=== PATIENT | male | born 1970 | race Caucasian/White ===

== ENCOUNTER 2016-06-21 15:00 | Outpatient (RCR) | payer MEDICAID ==
[~2016-06-21 15:00] MED LIST: /METH500TA PO; ASTE137S; AUGM875T27 PO; CYCL5TAB PO; DEPA500T2 PO; GEOD40CA; HYDR12.55 PO; HYDR7.5T38 PO; LISI5TAB PO; OCEA0.65; TRAZ100T
== END 2016-06-27 | disposition home or self-care (01) ==
LOC: M OUTALCOH 15:00
PROVIDERS: ATTEND Psychiatry & Neurology Psychiatry
DX: F10.20 Alcohol dependence, uncomplicated (principal); F17.200 Nicotine dependence, unspecified, uncomplicated

== ENCOUNTER 2016-09-21 09:00 | Outpatient (RCR) | payer MEDICAID | END 2016-09-24 | LOC: M OUTALCOH 09:00 | PROVIDERS: ATTEND Psychiatry & Neurology Psychiatry | DX: F10.20 Alcohol dependence, uncomplicated (principal); F17.200 Nicotine dependence, unspecified, uncomplicated ==

== ENCOUNTER 2017-01-30 14:19 | Emergency (ER) | payer MEDICAID, OTHER ==
[~2017-01-30] VITALS: Ht 182.9 cm; Wt 100.0 kg
[2017-01-30] MEDS ORDERED: IBUP-1022 PO (14:44)
--- NOTE | 2017-01-30 15:22 | REP ---
Clinical: Trauma. Technique: Frontal view of the chest with multiple views of the right hemithorax. Findings: Multiple views of the right hemithorax demonstrates no obvious acute rib fracture or pathology. However, frontal view of the chest cannot exclude a very subtle nondisplaced fracture along the lateral aspect of the eighth rib which is not confirmed by oblique images of the right hemithorax. Correlation with physical examination and point of tenderness recommended. Impression: Cannot definitively exclude a nondisplaced fracture along the anterolateral margin of the right eighth rib. Signed by Barrera Rossi MD 01/30/2017 03:12 P
[2017-01-30] MEDS ORDERED: CYCL10TA PO ×2 (16:50→19:11)
[2017-01-30] MEDS ORDERED: TRAM-533 PO ×2 (16:54→19:11)
[2017-01-30] MEDS ORDERED: ZITHTAB PO ×2 (16:58→19:11)
[2017-01-30 17:35] VITALS: BP 147/101
--- NOTE | 2017-01-30 19:13 | ED PDOC ---
Post-Departure Follow-Up Patient called back because Rx sent to wrong pharmacy. Rx's resent to [facility]. AINTA SHAH, Jan 30, 2017 19:13
== END 2017-01-30 17:20 | disposition home or self-care (01) ==
LOC: M ED 14:19
DX: S22.31XA Fracture of one rib, right side, initial encounter for closed fracture (principal); W19.XXXA Unspecified fall, initial encounter; Y92.9 Unspecified place or not applicable; Y93.9 Activity, unspecified; Y99.9 Unspecified external cause status; F17.200 Nicotine dependence, unspecified, uncomplicated; Z79.899 Other long term (current) drug therapy

== ENCOUNTER → 2017-03-01 | Outpatient (CLI) | payer MEDICAID ==
[~2017-03-01] MED LIST changes: +CYCL10TA PO; +IBUP-1022 PO; +TRAM-533 PO; +ZITHTAB PO
== END ==
LOC: M OUTALCOH 07:52
PROVIDERS: ATTEND Psychiatry & Neurology Psychiatry
DX: F10.20 Alcohol dependence, uncomplicated (principal); F11.20 Opioid dependence, uncomplicated

== ENCOUNTER → 2017-04-23 | Outpatient (CLI) | payer MEDICAID | LOC: M OUTALCOH 07:58 | PROVIDERS: ATTEND Psychiatry & Neurology Psychiatry | DX: Z02.83 Encounter for blood-alcohol and blood-drug test (principal) ==

== ENCOUNTER 2017-07-31 22:12 | Emergency (ER) | payer OTHER, MEDICAID | END 2017-08-01 02:23 | disposition home or self-care (01) | LOC: M ED 22:12 | DX: F10.129 Alcohol abuse with intoxication, unspecified (principal); I10 Essential (primary) hypertension; E66.9 Obesity, unspecified; F11.10 Opioid abuse, uncomplicated; M54.2 Cervicalgia; G89.29 Other chronic pain; Z79.899 Other long term (current) drug therapy | CPT/HCPCS: 99284 ==

== ENCOUNTER → 2017-08-09 | Outpatient (CLI) | payer OTHER | LOC: M SLEEP 19:10 | DX: G47.30 Sleep apnea, unspecified (principal) | CPT/HCPCS: 95811 ==

== ENCOUNTER 2018-01-27 18:02 | Emergency (ER) | payer SELFPAY, OTHER ==
[2018-01-27] MEDS ORDERED: ADACEL/BOOSTRIX VACCINE (DIPHTH/PERTUSS/ACELL/TETANUS)0.5ML SYR (90715) IM (18:30)
[2018-01-27] MEDS ORDERED: ISOVUE-370 76% 100ML VIAL (Q9967) As Ordered (18:30)
[2018-01-27 18:47] LABS: BASO % 0.3 % (0.0-1.0); EOS # 0.2 10^3/uL (0.0-0.50); EOS % 2.1 % (0.0-3.0); HEMATOCRIT 47.3 % (42.0-52.0); HEMOGLOBIN 15.7 g/dl (13.5-17.5); IMMATURE GRANULOCYTE % 0.4 % (0-3.0); LYMPH % 29.3 % (24.0-44.0); MEAN CORPUSCULAR HEMOGLOBIN 31.3 pg (27.0-33.0); MEAN CORPUSCULAR HGB CONC 33.2 g/dl (32.0-36.5); MEAN CORPUSCULAR VOLUME 94.4 fl (80.0-96.0); MONO # 1.3 10^3/uL (0.0-0.8); MONO % 12.3 % (0.0-5.0); NEUTROPHILS # 5.7 10^3/uL (1.8-7.7); NEUTROPHILS % 55.6 % (36.0-66.0); PLATELET COUNT, AUTOMATED 298 10^3/uL (150-450); RED BLOOD COUNT 5.01 10^6/uL (4.30-6.10); RED CELL DISTRIBUTION WIDTH 12.7 % (11.5-14.5); WHITE BLOOD COUNT 10.3 10^3/uL (4.0-10.0)
[2018-01-27] MEDS: MORPHINE 4 MG/ML 1ML VIAL/SYRINGE (J2270) IV (18:50)
[2018-01-27 18:59] LABS: INR 0.91; PROTHROMBIN TIME 12.3 SECONDS (12.1-14.4)
[2018-01-27 19:00] LABS: PARTIAL THROMBOPLASTIN TIME 27.9 SECONDS (25.4-37.6)
[2018-01-27 19:05] LABS: ALBUMIN 3.5 GM/DL (3.2-5.2); ALBUMIN/GLOBULIN RATIO 0.74 (1.00-1.93); ALKALINE PHOSPHATASE 75 U/L (45-117); ALT/SGPT 48 U/L (12-78); AMYLASE 64 U/L (25-115); ANION GAP 10 MEQ/L (8-16); AST/SGOT 30 U/L (7-37); BILIRUBIN,DIRECT < 0.1 MG/DL (0.0-0.2); BILIRUBIN,TOTAL 0.3 MG/DL (0.2-1.0); BLOOD UREA NITROGEN 13 MG/DL (7-18); CALCIUM LEVEL 8.6 MG/DL (8.5-10.1); CARBON DIOXIDE LEVEL 24 MEQ/L (21-32); CHLORIDE LEVEL 103 MEQ/L (98-107); CREATININE FOR GFR 0.84 MG/DL (0.70-1.30); ETHYL ALCOHOL (ETHANOL) 0.184 % (0.000-0.010); GLOMERULAR FILTRATION RATE > 60.0 (>60); GLUCOSE, FASTING 106 MG/DL (70-100); LIPASE 406 U/L (73-393); SODIUM LEVEL 137 MEQ/L (136-145); TOTAL PROTEIN 8.2 GM/DL (6.4-8.2)
[2018-01-27] MEDS: NS 1,000 ML IV (19:37)
[2018-01-27 20:04] LABS: AMPHETAMINES LEVEL URINE NEGATIVE (NEGATIVE); BARBITURATES URINE NEGATIVE (NEGATIVE); BENZODIAZEPINES URINE NEGATIVE (NEGATIVE); CANNABINOIDS URINE POSITIVE (NEGATIVE); COCAINE METABOLITE URINE NEGATIVE (NEGATIVE); METHADONE URINE NEGATIVE (NEGATIVE); OPIATES URINE POSITIVE (NEGATIVE); PHENCYCLIDINE URINE NEGATIVE (NEGATIVE)
[2018-01-27] MEDS: NORCO, ANEXSIA 5/325MG TABLET (HYDROcodone/ACETAMINOPHEN) PO (20:07)
== END 2018-01-27 20:41 | disposition home or self-care (01) ==
LOC: M ED 18:02
DX: T14.8XXA Other injury of unspecified body region, initial encounter (principal); V17.2XXA Unspecified pedal cyclist injured in collision with fixed or stationary object in nontraffic accident, initial encounter; Y92.410 Unspecified street and highway as the place of occurrence of the external cause
CPT/HCPCS: J2270

== ENCOUNTER 2019-11-23 16:38 | Emergency (ER) | payer OTHER, SELFPAY ==
[~2019-11-23 16:38] MED LIST changes: -/METH500TA PO; +CYCL-707 PO; -CYCL10TA PO; +GABA600T4; +LISI10TA4; +METH1TAB40 PO
[2019-11-23] MEDS ORDERED: LISI-542 PO (17:06)
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
[2019-11-23 18:02] VITALS: BP 144/81
== END 2019-11-23 18:06 | disposition home or self-care (01) ==
LOC: M ED 16:38
DX: S00.03XA Contusion of scalp, initial encounter (principal); Y08.02XA Assault by strike by baseball bat, initial encounter; Y92.009 Unspecified place in unspecified non-institutional (private) residence as the place of occurrence of the external cause; Y93.9 Activity, unspecified; Y99.9 Unspecified external cause status; F17.200 Nicotine dependence, unspecified, uncomplicated; Z79.899 Other long term (current) drug therapy

== ENCOUNTER 2020-04-15 02:41 | Emergency (ER) | payer OTHER ==
[~2020-04-15 02:41] MED LIST changes: +LISI-542 PO
[2020-04-15] MEDS ORDERED: GABA-843 PO (02:57)
[2020-04-15] MEDS ORDERED: PERCOCET 5MG/325MG TAB PO ONE (03:15)
[2020-04-15 03:30] VITALS: BP 137/81
== END 2020-04-15 03:52 | disposition home or self-care (01) ==
LOC: M ED 02:41
DX: M79.672 Pain in left foot (principal); Z79.899 Other long term (current) drug therapy

== ENCOUNTER → 2020-04-21 | Outpatient (REF) | payer OTHER ==
[~2020-04-21] MED LIST changes: +GABA-843 PO
[2020-04-21 13:39] LABS: BASO % 0.4 % (0.0-1.0); EOS # 0.2 10^3/uL (0.0-0.5); EOS % 1.7 % (0.0-3.0); HEMATOCRIT 52.3 % (42.0-52.0); HEMOGLOBIN 17.1 g/dl (13.5-17.5); LYMPH # 2.8 10^3/uL (1.5-5.0); MEAN CORPUSCULAR HEMOGLOBIN 31.4 pg (27.0-33.0); MEAN CORPUSCULAR HGB CONC 32.7 g/dl (32.0-36.5); MONO % 9.1 % (0.0-5.0); NEUTROPHILS % 63.2 % (36.0-66.0); PLATELET COUNT, AUTOMATED 253 10^3/uL (150-450); RED BLOOD COUNT 5.45 10^6/uL (4.30-6.10)
[2020-04-21 14:12] LABS: ALBUMIN 4.2 GM/DL (3.2-5.2); ALT/SGPT 61 U/L (12-78); BILIRUBIN,TOTAL 0.4 MG/DL (0.2-1.0); BLOOD UREA NITROGEN 13 MG/DL (7-18); CALCIUM LEVEL 9.6 MG/DL (8.5-10.1); CARBON DIOXIDE LEVEL 29 MEQ/L (21-32); CHLORIDE LEVEL 103 MEQ/L (98-107); CHOLESTEROL LEVEL 239 MG/DL (<200); CHOLESTEROL RISK RATIO 5.829 (<5); CREATININE FOR GFR 0.88 MG/DL (0.70-1.30); FREE T4 1.29 NG/DL (0.76-1.46); GLOMERULAR FILTRATION RATE > 60.0 (>56); GLUCOSE, FASTING 120 MG/DL (70-100); HDL CHOLESTEROL 41 MG/DL (>40); LDL CHOLESTEROL 160 MG/DL (<100); MAGNESIUM LEVEL 2.2 MG/DL (1.8-2.4); NON-HDL-C 198 MG/DL; POTASSIUM SERUM 4.3 MEQ/L (3.5-5.1); SODIUM LEVEL 139 MEQ/L (136-145); TRIGLYCERIDES LEVEL 188 MG/DL (<150)
[2020-04-21 17:07] LABS: HEMOGLOBIN A1c 6.1 %
== END ==
LOC: M SFHCPLAZ 10:50
PROVIDERS: ATTEND Nurse Practitioner Family
DX: E78.5 Hyperlipidemia, unspecified (principal); I10 Essential (primary) hypertension; Z13.228 Encounter for screening for other metabolic disorders

== ENCOUNTER 2020-05-18 07:14 | Emergency (ER) | payer OTHER ==
[~2020-05-18] VITALS: Ht 177.8 cm; Wt 120.5 kg
[2020-05-18] MEDS ORDERED: NS 1,000 ML IV SCH (07:31)
[2020-05-18] MEDS ORDERED: NITROGLYCERIN 0.4 MG SUBL TABLET As Ordered ONE (07:32)
[2020-05-18] MEDS ORDERED: ASPIRIN 81 MG CHEW TABLET As Ordered ONE (07:33)
[2020-05-18] MEDS: NITROGLYCERIN 0.4 MG SUBL TABLET SL PRN ×3 (07:34→07:48)
[2020-05-18] MEDS ORDERED: ONDANSETRON 4MG/2ML VIAL IV STA (07:36)
[2020-05-18] MEDS ORDERED: fentaNYL 100 MCG/2 ML INJECTION (J3010) IV PRN (07:45)
[2020-05-18] MEDS ORDERED: NITROGLYCERIN/D5W 100MCG/ML 250 ML IV SCH (07:47)
[2020-05-18 07:48] VITALS: BP 140/65
[2020-05-18] MEDS ORDERED: HEPARIN DRIP 25,000 UNITS in IV 1 EA IV SCH (07:48)
[2020-05-18] MEDS: COMBIVENT RESPIMAT 100-20MCG INHALER 4GM INH SCH ×3 (07:52→09:23)
[2020-05-18] MEDS ORDERED: FAMOTIDINE 20 MG TAB PO ONE (08:00)
[2020-05-18] MEDS ORDERED: CLOPIDOGREL 300 MG TAB (PLAVIX) PO ONE (08:00)
[2020-05-18] MEDS ORDERED: HEPARIN SOD (PORCINE) 5000UNITS/ML 1ML VIAL/SYRINGE IV ONE (08:00)
[2020-05-18 08:01] LABS: BASO % 0.5 % (0.0-1.0); EOS # 0.2 10^3/uL (0.0-0.5); EOS % 2.8 % (0.0-3.0); HEMOGLOBIN 15.3 g/dl (13.5-17.5); LYMPH # 2.6 10^3/uL (1.5-5.0); MEAN CORPUSCULAR HEMOGLOBIN 30.2 pg (27.0-33.0); MEAN CORPUSCULAR HGB CONC 32.6 g/dl (32.0-36.5); MEAN CORPUSCULAR VOLUME 92.7 fl (80.0-96.0); MONO # 0.8 10^3/uL (0.0-0.8); MONO % 11.8 % (0.0-5.0); NEUTROPHILS # 2.7 10^3/uL (1.5-8.5); NEUTROPHILS % 43.1 % (36.0-66.0); PLATELET COUNT, AUTOMATED 326 10^3/uL (150-450); RED BLOOD COUNT 5.07 10^6/uL (4.30-6.10); WHITE BLOOD COUNT 6.4 10^3/uL (4.0-10.0)
--- NOTE | 2020-05-18 08:07 | REP ---
INDICATION: CHEST PAIN COMPARISON: 01/30/2017 TECHNIQUE: Portable AP view of the chest FINDINGS: The cardiac silhouette is enlarged and somewhat bulbous likely representing cardiomegaly although pericardial fluid cannot be excluded. Lung palmer demonstrate chronic interstitial changes without focal consolidation, effusion, or pneumothorax. Skeletal structures are intact. IMPRESSION: Cardiomegaly with somewhat bulbous appearance to the cardiac silhouette raise the possibility of underlying pericardial fluid. Correlation follow up is recommended. <Electronically signed by Barrera Rossi > 05/18/20 [id number]
[2020-05-18 08:10] LABS: INR 0.81; PROTHROMBIN TIME 11.3 SECONDS (12.5-14.3)
[2020-05-18] MEDS ORDERED: ISOVUE-370 76% 100ML VIAL As Ordered ONE (08:15)
[2020-05-18 08:24] LABS: ALBUMIN 3.6 GM/DL (3.2-5.2); ALT/SGPT 45 U/L (12-78); BILIRUBIN,DIRECT < 0.1 MG/DL (0.0-0.2); BILIRUBIN,TOTAL 0.2 MG/DL (0.2-1.0); BLOOD UREA NITROGEN 10 MG/DL (7-18); CALCIUM LEVEL 8.8 MG/DL (8.5-10.1); CARBON DIOXIDE LEVEL 25 MEQ/L (21-32); CHLORIDE LEVEL 107 MEQ/L (98-107); CK-MB VALUE MASS 7.8 NG/ML (<3.6); CPK CREATINE PHOSPHOKINASE 247 U/L (39-308); CREATININE FOR GFR 0.78 MG/DL (0.70-1.30); FREE T4 1.34 NG/DL (0.76-1.46); GLOMERULAR FILTRATION RATE > 60.0 (>56); GLUCOSE, FASTING 134 MG/DL (70-100); LIPASE 269 U/L (73-393); MB/CK RELATIVE INDEX 3.16 (< OR =4); NT-PRO BNP 247 PG/ML (<125); POTASSIUM SERUM 4.1 MEQ/L (3.5-5.1); SODIUM LEVEL 141 MEQ/L (136-145); THYROID STIMULATING HORMONE 0.853 uIU/ML (0.358-3.740); TOTAL PROTEIN 7.2 GM/DL (6.4-8.2); TROPONIN I 0.74 NG/ML (< 0.10)
[2020-05-18 08:27] LABS: RSV AMPLIFICATION NEGATIVE (NEGATIVE)
--- NOTE | 2020-05-18 08:49 | REP ---
INDICATION: chest pain abnormal ct COMPARISON: None. TECHNIQUE: Axial contrast enhanced images from the thoracic inlet to the upper abdomen using pulmonary embolus technique with multiplanar re-formations. 75 ml Isovue 370 intravenous contrast material administered without complication. This CT examination was performed using the following dose reduction techniques: Automated exposure control, adjustment of mA and/or kv according to the patient's size, and use of iterative reconstruction technique. FINDINGS: Satisfactory enhancement of the pulmonary vasculature is achieved and no filling defects are identified to suggest pulmonary embolus. Further evaluation of the mediastinum demonstrates mild atherosclerotic changes to the thoracic aorta and coronary arteries. Thoracic aorta is without aneurysm or dissection. Cardiomegaly is appreciated without pericardial effusion. The bilateral lung palmer are essentially clear and without consolidation, pleural effusion or pneumothorax. Tracheobronchial tree is patent. No nodule or mass lesion is identified. No significant adenopathy noted. Upper abdomen demonstrates normal bilateral adrenal glands. Surrounding musculoskeletal structures intact IMPRESSION: 1. No evidence for pulmonary embolus. 2. Cardiomegaly without pericardial effusion. 3. No consolidation, atelectasis, effusion or pneumothorax. <Electronically signed by Barrera Rossi > 05/18/20 [id number]
[2020-05-18 10:05] VITALS: BP 130/81
--- NOTE | 2020-05-18 22:52 | ECGEPIP ---
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
== END 2020-05-18 10:14 | disposition short-term general hospital (02) ==
LOC: M ED 07:14
DX: I21.4 Non-ST elevation (NSTEMI) myocardial infarction (principal); R07.9 Chest pain, unspecified; I51.7 Cardiomegaly; R06.02 Shortness of breath; I25.2 Old myocardial infarction; I10 Essential (primary) hypertension; E78.5 Hyperlipidemia, unspecified; J44.9 Chronic obstructive pulmonary disease, unspecified; F17.200 Nicotine dependence, unspecified, uncomplicated; Z79.899 Other long term (current) drug therapy
CPT/HCPCS: 71045; 71275; 80047; 80048; 80076; 82550; 82553; 83690; 83880; 84439; 84443; 85025; 85610; 87631; 93005; 93041; 94640; 94760; 96365; 96366; 96375; 99285; J1644; J2405; J3010; Q9967

== ENCOUNTER 2020-05-28 16:50 | Emergency (ER) | payer OTHER ==
--- NOTE | 2020-05-28 17:19 | REP ---
INDICATION: fall on thinners COMPARISON: 11/23/2019 TECHNIQUE: Axial noncontrast images from the skull base to the vertex with coronal reformations. This CT examination was performed using the following dose reduction techniques: Automated exposure control, adjustment of mA and/or kv according to the patient's size, and use of iterative reconstruction technique. FINDINGS: The ventricles, sulci, and cisterns are normal in position and appearance. Sheffield-white differentiation is maintained. No acute intracranial hemorrhage, mass/mass effect, pathology or trauma/injury. No evidence for acute infarction. No extra-axial fluid collection. Calvarium is intact. Chronic sinusitis and old nasal bone fractures are again identified and essentially unchanged compared with 11/23/2019 IMPRESSION: 1. No evidence for acute intracranial pathology or trauma/injury. 2. Chronic sinusitis. Old nasal bone fractures. <Electronically signed by Barrera Rossi > 05/28/20 [id number]
[2020-05-28] MEDS ORDERED: LISI10TA4 PO (17:20)
[2020-05-28] MEDS ORDERED: METO1TAB7 PO (17:20)
[2020-05-28] MEDS ORDERED: CLOP75TA2 PO (17:20)
[2020-05-28] MEDS ORDERED: ROSU40TA4 PO (17:20)
--- NOTE | 2020-05-28 17:20 | REP ---
INDICATION: fall on thinners COMPARISON: 11/23/2019 TECHNIQUE: Axial noncontrast images from the skull base to the thoracic inlet with coronal and sagittal re-formations This CT examination was performed using the following dose reduction techniques: Automated exposure control, adjustment of mA and/or kv according to the patient's size, and use of iterative reconstruction technique. FINDINGS: Normal alignment and lordosis is maintained. Cervical vertebral bodies including transverse processes and spinous processes are intact and there is no evidence for acute fracture / compression injury or subluxation. Spinal canal is patent. Posterior elements are intact. Paravertebral soft tissues are normal. IMPRESSION: No evidence for acute pathology or trauma/injury. <Electronically signed by Barrera Rossi > 05/28/20 [id number]
--- NOTE | 2020-05-28 17:35 | REP ---
INDICATION: trauma COMPARISON: None. TECHNIQUE: AP, lateral views of the right tibia/fibula. FINDINGS: Age-related degenerative changes at the knee. No acute fracture or dislocation. No subcutaneous emphysema or foreign body. IMPRESSION: . No acute fracture or dislocation. <Electronically signed by Barrera Rossi > 05/28/20 [id number]
[2020-05-28 17:52] VITALS: O2SAT 98
[2020-05-29] MEDS ORDERED: GABA600T4 PO (03:35)
== END 2020-05-28 18:04 | disposition home or self-care (01) ==
LOC: M ED 16:50
DX: S00.03XA Contusion of scalp, initial encounter (principal); S80.11XA Contusion of right lower leg, initial encounter; W01.0XXA Fall on same level from slipping, tripping and stumbling without subsequent striking against object, initial encounter; Y92.019 Unspecified place in single-family (private) house as the place of occurrence of the external cause; Y93.9 Activity, unspecified; Y99.9 Unspecified external cause status; I25.10 Atherosclerotic heart disease of native coronary artery without angina pectoris; J32.9 Chronic sinusitis, unspecified; Z79.01 Long term (current) use of anticoagulants; Z79.899 Other long term (current) drug therapy

== ENCOUNTER 2020-05-28 18:17 | Emergency (ER) | payer OTHER ==
[~2020-05-28] VITALS: Ht 182.9 cm; Wt 119.5 kg
[~2020-05-28 18:17] MED LIST changes: +CLOP75TA2 PO; +LISI10TA4 PO; +METO1TAB7 PO; +ROSU40TA4 PO
[2020-05-28 18:18] VITALS: BP 120/66
[2020-05-29] MEDS ORDERED: GABA600T4 PO (03:35)
== END 2020-05-28 19:10 | disposition home or self-care (01) ==
LOC: M ED 18:17
DX: F43.20 Adjustment disorder, unspecified (principal); F31.9 Bipolar disorder, unspecified; I25.10 Atherosclerotic heart disease of native coronary artery without angina pectoris; I25.2 Old myocardial infarction; I10 Essential (primary) hypertension; E78.5 Hyperlipidemia, unspecified; G47.33 Obstructive sleep apnea (adult) (pediatric); F17.200 Nicotine dependence, unspecified, uncomplicated; Z79.899 Other long term (current) drug therapy

== ENCOUNTER 2020-05-28 22:41 | Inpatient (IN) | payer MEDICAID, OTHER ==
[~2020-05-28] VITALS: Ht 177.8 cm; Wt 125.4 kg
[2020-05-29 00:23] LABS: AMPHETAMINES LEVEL URINE NEGATIVE (NEGATIVE); BARBITURATES URINE NEGATIVE (NEGATIVE); BENZODIAZEPINES URINE NEGATIVE (NEGATIVE); CANNABINOIDS URINE POSITIVE (NEGATIVE); COCAINE METABOLITE URINE NEGATIVE (NEGATIVE); METHADONE URINE NEGATIVE (NEGATIVE); OPIATES URINE NEGATIVE (NEGATIVE); PHENCYCLIDINE URINE NEGATIVE (NEGATIVE)
[2020-05-29 00:30] LABS: ACETAMINOPHEN LEVEL < 2.0 UG/ML (10.0-30.0); ALBUMIN 3.8 GM/DL (3.2-5.2); ALT/SGPT 69 U/L (12-78); BILIRUBIN,DIRECT < 0.1 MG/DL (0.0-0.2); BILIRUBIN,TOTAL 0.2 MG/DL (0.2-1.0); BLOOD UREA NITROGEN 12 MG/DL (7-18); CALCIUM LEVEL 8.7 MG/DL (8.5-10.1); CARBON DIOXIDE LEVEL 30 MEQ/L (21-32); CHLORIDE LEVEL 105 MEQ/L (98-107); CREATININE FOR GFR 1.01 MG/DL (0.70-1.30); ETHYL ALCOHOL (ETHANOL) 0.144 % (0.000-0.010); GLOMERULAR FILTRATION RATE > 60.0 (>56); GLUCOSE, FASTING 101 MG/DL (70-100); POTASSIUM SERUM 4.5 MEQ/L (3.5-5.1); SALICYLATE LEVEL 3.1 MG/DL (5.0-30.0); SODIUM LEVEL 141 MEQ/L (136-145); TOTAL PROTEIN 7.5 GM/DL (6.4-8.2)
[2020-05-29 00:46] LABS: HEMATOCRIT 47.6 % (42.0-52.0); HEMOGLOBIN 15.3 g/dl (13.5-17.5); MEAN CORPUSCULAR HEMOGLOBIN 31.1 pg (27.0-33.0); MEAN CORPUSCULAR HGB CONC 32.1 g/dl (32.0-36.5); MEAN CORPUSCULAR VOLUME 96.7 fl (80.0-96.0); PLATELET COUNT, AUTOMATED 273 10^3/uL (150-450); RED BLOOD COUNT 4.92 10^6/uL (4.30-6.10); WHITE BLOOD COUNT 8.9 10^3/uL (4.0-10.0)
[2020-05-29] MEDS ORDERED: GABA600T4 PO (03:35)
[2020-05-29 04:27] LABS: RSV AMPLIFICATION NEGATIVE (NEGATIVE)
[2020-05-29] MEDS ORDERED: MOM 30ML SUSPENSION UDC PO PRN (05:45)
[2020-05-29] MEDS ORDERED: ACETAMINOPHEN TAB 650MG DOSE (2X325MG) PO PRN (05:45)
[2020-05-29] MEDS ORDERED: MAALOX 30 ML SUSP *UDC PO PRN (05:45)
[2020-05-29] MEDS ORDERED: lisinopriL 10 MG TAB PO SCH (09:00)
[2020-05-29] MEDS: CLOPIDOGREL 75 MG TAB PO SCH (09:52)
[2020-05-29] MEDS: METOPROLOL SUCC (TopROL XL) 50MG **XL** TAB PO SCH (09:52)
[2020-05-29] MEDS: ROSUVASTATIN 10 MG TAB (CRESTOR) PO SCH (09:52)
[2020-05-29] MEDS: GABAPENTIN 300 MG CAP PO SCH ×3 (09:52→20:26)
[2020-05-29 11:00] VITALS: BP 186/86
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
[2020-05-29 18:00] VITALS: BP 128/82
[2020-05-29] MEDS: DIVALPROEX 250 MG TAB PO SCH (20:25)
[2020-05-29] MEDS: traZODone 50 MG TAB PO PRN (20:25)
[2020-05-30] MEDS: ROSUVASTATIN 10 MG TAB (CRESTOR) PO SCH (08:18)
[2020-05-30] MEDS: DIVALPROEX 250 MG TAB PO SCH ×2 (08:20→20:41)
[2020-05-30] MEDS: CLOPIDOGREL 75 MG TAB PO SCH (08:20)
[2020-05-30] MEDS: METOPROLOL SUCC (TopROL XL) 50MG **XL** TAB PO SCH (08:20)
[2020-05-30] MEDS: lisinopriL 5 MG TAB PO SCH (08:21)
[2020-05-30] MEDS: GABAPENTIN 300 MG CAP PO SCH ×4 (09:00→20:41)
[2020-05-30] MEDS: ASPIRIN 81 MG ENTERIC TAB PO SCH (09:00)
[2020-05-30 17:54] VITALS: BP 142/95
[2020-05-30] MEDS ORDERED: IPRATROPIUM 0.5MG/ALBUTEROL 2.5MG INH SOL UD 3ML (DUONEB) NEB PRN (18:00)
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
--- NOTE | 2020-05-30 18:50 | MHIPNPDOC ---
[facility] Progress Note Progress Note DATE OF SERVICE: 05/30/20 HISTORY: Patient is a 50 -year-old Other, male, who, as per ED report: "Pt presented to ED for the second time today asking to be admitted. During prior visit pt spoke with PSA and decided he needed to go home and talk to his son before coming back to get admitted. Pt stated that he is Dx with Bipolar and is currently in a manic state and is having a really hard time dealing with it and needs to be put make on his medication. Pt admitted to suicidal and homicidal thoughts stating that he often has terrifying dreams about them. Pt did state he would never act on them. Pt also stated that a stressor is that he has a cataract and cannot see and it is making him go crazy because h feels like he is in [facility]. Pt denied EOTH use, but his ALLISON was a .14 upon arrival. Pt stated he just recently quit smoking because he had a heart attack. Pt admitted to occasionally marijuana use. Pt stated normally when he is in this state of mind he deals with it on his own and toughs it out, but it feels different this time and he thinks he needs help getting back on meds and to talk to someone. Pt appears to be anxious and very concerned about his mental health. Pt believes he needs to be admitted." VITAL SIGNS: See below. NEW TEST RESULTS: See below CURRENT MEDICATIONS: See below. MENTAL STATUS EXAMINATION: General Appearance: unkempt, disheveled, ds/not appear stated age, hospital sc rubs/clothing Build: overweight Demeanor: cooperative, Eye Contact: average Activity: cooperative, talkative Behavior: cooperative Speech: clear, spontaneous, loud, a little bit rapid at times. Mood: expansive, a little bit anxious/irritable Affect: full, congruent,full, reactive Thought Process: less circumstantial Thought Content (Delusions): none reported Thought Content (Other): ideas of reference Thought Content (Aggressive): none reported Perception (Hallucinations): none reported Perception (Other): none reported Cognition (Impairment of): none reported Cognition(Intelligence Est.): average Oriented: Awake, Alert, Oriented times three Insight: fair Judgment: Fair Psychosis: Denies Diagnoses 1. bipolar disorder, mixed 2. ROGE 3. H/O ADHD ASSESSMENT: The patient looks happier today, he i interacting with other patients in [facility], playing cards. He is still very talkative, he is not depressed but when he talks about how many times his Doctors changed his meds in the past, he gets very upset, so, he has labile affect. He seems to be having a good response to medications. He says he developed a queasy stomach after he took Depakote this morning. MANAGEMENT PLAN: Will continue on the same treatment plan TIME SPENT: 15 minutes. Vital Signs Vital Signs Date Time Temp Pulse Resp B/P (MAP) Pulse Ox O2 Delivery O2 Flow Rate FiO2 05/30/20 17:54 98.0 68 15 142/95 (111) 96 05/29/20 11:00 Room Air Current Medications Current Medications Medications (Trade) Dose Ordered Sig/Citlalli Route PRN Reason Start Time Stop Time Status Last Admin Dose Admin Acetaminophen (Tylenol Tab) 650 mg Q6HP PRN PO HEADACHE or DISCOMFORT 05/29/20 05:45 Al Hydrox/Mg Hydrox/Simethicone (Mylanta) 30 ml Q4HP PRN PO HEARTBURN/INDIGESTION 05/29/20 05:45 Albuterol/ Ipratropium (Duoneb (Ipr 0.5mg/Alb 2.5mg)) 3 ml Q4HP PRN NEB SOB/WHEEZING 05/30/20 18:00 Aripiprazole (AbiLIFY) 5 mg QHS PO 05/29/20 21:00 05/29/20 20:25 Aspirin (Ecotrin) 81 mg DAILY PO 05/30/20 09:00 Clopidogrel Bisulfate (PLAVix) 75 mg DAILY PO 05/29/20 09:00 05/30/20 08:20 Divalproex Sodium (Depakote) 250 mg BID PO 05/29/20 21:00 05/30/20 08:20 Gabapentin (Neurontin) 300 mg BID PO 05/29/20 09:00 05/30/20 14:57 DC 05/29/20 20:26 Gabapentin (Neurontin) 300 mg TID PO 05/30/20 16:00 05/30/20 15:27 Gabapentin (Neurontin) 600 mg DAILY PO 05/29/20 09:00 05/30/20 14:57 DC 05/30/20 09:44 Home Med (Med Rec Complete!) ASDIRECTED XX 05/29/20 03:45 05/29/20 03:38 DC Lisinopril (Prinivil) 5 mg DAILY PO 05/29/20 09:00 05/29/20 16:04 DC 05/29/20 09:52 Lisinopril (Prinivil) 5 mg DAILY PO 05/30/20 09:00 05/30/20 08:21 Magnesium Hydroxide (Milk Of Magnesia) 30 ml DAILYPRN PRN PO CONSTIPATION 05/29/20 05:45 Metoprolol Succinate (TopROL XL) 50 mg DAILY PO 05/29/20 09:00 05/30/20 08:20 Olanzapine (ZyPREXA ZYDIS) 5 mg Q6HP PRN PO ANXIETY/AGITATION 05/29/20 05:45 Rosuvastatin Calcium (Crestor) 40 mg DAILY PO 05/29/20 09:00 05/30/20 08:18 Trazodone HCl (Desyrel) 50 mg QHSP PRN PO INSOMNIA 05/29/20 05:45 05/29/20 20:25 Allergies Coded Allergies: No Known Drug Allergies (Verified Allergy, Unknown, 11/23/19) NIKHIL MURILLO MD May 30, 2020 18:39
[2020-05-30] MEDS: traZODone 50 MG TAB PO PRN (20:41)
[2020-05-31 06:09] VITALS: BP 118/67
[2020-05-31] MEDS: GABAPENTIN 300 MG CAP PO SCH ×2 (08:40→20:08)
[2020-05-31] MEDS: METOPROLOL SUCC (TopROL XL) 50MG **XL** TAB PO SCH (08:43)
[2020-05-31] MEDS: CLOPIDOGREL 75 MG TAB PO SCH (08:43)
[2020-05-31] MEDS: ROSUVASTATIN 10 MG TAB (CRESTOR) PO SCH (08:44)
[2020-05-31] MEDS: DIVALPROEX 250 MG TAB PO SCH (08:44)
[2020-05-31] MEDS: lisinopriL 5 MG TAB PO SCH (08:44)
[2020-05-31] MEDS: ASPIRIN 81 MG ENTERIC TAB PO SCH (09:02)
[2020-05-31] MEDS: OLANZapine ORAL DISINTEGRATING TAB 5MG PO PRN ×2 (14:02→20:08)
--- NOTE | 2020-05-31 14:41 | MHIPNPDOC ---
[facility] Progress Note Progress Note DATE OF SERVICE: 05/31/20 HISTORY: Per the ED report, patient is a 50 -year-old Other, male, who, as per ED report: "Pt presented to ED for the second time today asking to be admitted. During prior visit pt spoke with PSA and decided he needed to go home and talk to his son before coming back to get admitted. Pt stated that he is Dx with Bipolar and is currently in a manic state and is having a really hard time dealing with it and needs to be put make on his medication. Pt admitted to suicidal and homicidal thoughts stating that he often has terrifying dreams about them. Pt did state he would never act on them. Pt also stated that a stressor is that he has a cataract and cannot see and it is making him go crazy because h feels like he is in group home again. Pt denied ETOH use, but his ALLISON was a .14 upon arrival. Pt stated he just recently quit smoking because he had a heart attack. Pt admitted to occasionally marijuana use. Pt stated normally when he is in this state of mind he deals with it on his own and toughs it out, but it feels different this time and he thinks he needs help getting back on meds and to talk to someone. Pt appears to be anxious and very concerned about his mental health. Pt believes he needs to be admitted." Pt. reports that his son encouraged him to be admitted as he observed him with drawing and isolating, having difficulty getting out of bed and experiencing hypersomnia. He states that he was unable to see that his mood was worsening and that his son was the one who recognized the decline. VITAL SIGNS: See below. NEW TEST RESULTS: . CURRENT MEDICATIONS: See below. MENTAL STATUS EXAMINATION: Patient is a 50-year old single, white, domiciled, male, who presents to the interview initially frustrated and irritable. He was boisterous, animated, was observed to have psychomotor agitation, frustrated that his medications were not correct, that he has pain, and that he has cataracts (which he is awaiting surgery for). Speech: Is boisterous in the beginning, lively, loud, pressured at times, Language skills are appropriate for age Thought processes including: goal oriented, linear Thought content: denies ah/vh/si/hi, reports feeling depressed. Abstract reasoning, and computation: . Description of associations: . Description of abnormal or psychotic thoughts: denies ah/vh, not observed to be internally preoccupied . Judgment: fair Insight: fair Orientation: Alert and oriented x3 Recent and remote memory: intact Attention span and concentration: Able to concentrate, engaged in conversation Language: average Fund of knowledge: average Mood: irritable, frustrated Affect: congruent, psychomotor agitation also observed DIAGNOSES: 1. bipolar disorder, mixed 2. ROGE 3. H/O ADHD ASSESSMENT:Manolo is a 50 year old white male who presents to the interview, frustrated and irritable. He states his gabapentin dose was incorrect and that he was having pain in his back that had worsened after he fell down the stairs about a month ago. He complained of multiple medical problems including a cataract in both of his eyes, causing difficulty with his vision- he is scheduled to have surgery on one of his eyes 06/03/20. He also reported he had a heart attack a week ago, all of which he believes are stressors causing his depression. He reported that he has been having difficulty getting out of bed and has been experiencing hypersomnia and amotivation. He reports no steady treatment since 1995 but that he has had a previous admission in 2013 but throughout the years has troubles with outpatient providers as he states they change his medications after he discharges from the hospital despite an improved mood. He reports that he was unaware of his worsening mood but that his son was able to notice that he was starting to decline so told patient to come to the emergency room for and admission. Since admission, patient was started on Depakote 250 mg po bid and abilify 5 mg po qhs but states he doesn't see any i mprovements since he started it and believes that he should see some improvements by now. He continues to report difficulty getting out of be and states he "doesn't want to do anything" but that he makes himself attend groups, and get out of bed for the day. Due to his level of frustration during the interview, he was encouraged to take Zyprexa zydis that he has ordered prn and p atient was agreeable. MANAGEMENT PLAN: 1. Will increase depakote to 250 mg po daily and 500 mg po qhs 2. Will increase gabapentin to 900 mg po daily and 300 mg po qhs per pharmacy 3. Encourage to take prn zyprexa zydis if needed for anxiety/agitation 4. Encourage to attend groups TIME SPENT: 25 minutes. Vital Signs Vital Signs Date Time Temp Pulse Resp B/P (MAP) Pulse Ox O2 Delivery O2 Flow Rate FiO2 05/31/20 06:09 97.6 67 20 118/67 (84) 94 05/29/20 11:00 Room Air Current Medications Current Medications Medications (Trade) Dose Ordered Sig/Citlalli Route PRN Reason Start Time Stop Time Status Last Admin Dose Admin Acetaminophen (Tylenol Tab) 650 mg Q6HP PRN PO HEADACHE or DISCOMFORT 05/29/20 05:45 Al Hydrox/Mg Hydrox/Simethicone (Mylanta) 30 ml Q4HP PRN PO HEARTBURN/INDIGESTION 05/29/20 05:45 Albuterol/ Ipratropium (Duoneb (Ipr 0.5mg/Alb 2.5mg)) 3 ml Q4HP PRN NEB SOB/WHEEZING 05/30/20 18:00 Aripiprazole (AbiLIFY) 5 mg QHS PO 05/29/20 21:00 05/30/20 20:41 Aspirin (Ecotrin) 81 mg DAILY PO 05/30/20 09:00 05/31/20 09:02 Clopidogrel Bisulfate (PLAVix) 75 mg DAILY PO 05/29/20 09:00 05/31/20 08:43 Divalproex Sodium (Depakote) 250 mg BID PO 05/29/20 21:00 05/31/20 14:13 DC 05/31/20 08:44 Divalproex Sodium (Depakote) 250 mg DAILY PO 06/01/20 09:00 Divalproex Sodium (Depakote) 500 mg QHS PO 05/31/20 21:00 Gabapentin (Neurontin) 300 mg BID PO 05/29/20 09:00 05/30/20 14:57 DC 05/29/20 20:26 Gabapentin (Neurontin) 300 mg QHS PO 05/31/20 21:00 Gabapentin (Neurontin) 300 mg TID PO 05/30/20 16:00 05/31/20 14:13 DC 05/30/20 20:41 Gabapentin (Neurontin) 600 mg DAILY PO 05/29/20 09:00 05/30/20 14:57 DC 05/30/20 09:44 Gabapentin (Neurontin) 900 mg DAILY PO 06/01/20 09:00 Home Med (Med Rec Complete!) ASDIRECTED XX 05/29/20 03:45 05/29/20 03:38 DC Lisinopril (Prinivil) 5 mg DAILY PO 05/29/20 09:00 05/29/20 16:04 DC 05/29/20 09:52 Lisinopril (Prinivil) 5 mg DAILY PO 05/30/20 09:00 05/31/20 08:44 Magnesium Hydroxide (Milk Of Magnesia) 30 ml DAILYPRN PRN PO CONSTIPATION 05/29/20 05:45 Metoprolol Succinate (TopROL XL) 50 mg DAILY PO 05/29/20 09:00 05/31/20 08:43 Olanzapine (ZyPREXA ZYDIS) 5 mg Q6HP PRN PO ANXIETY/AGITATION 05/29/20 05:45 05/31/20 14:02 Rosuvastatin Calcium (Crestor) 40 mg DAILY PO 05/29/20 09:00 05/31/20 08:44 Trazodone HCl (Desyrel) 50 mg QHSP PRN PO INSOMNIA 05/29/20 05:45 05/30/20 20:41 Allergies Coded Allergies: No Known Drug Allergies (Verified Allergy, Unknown, 11/23/19) AURELIA ANTONIO NP May 31, 2020 14:41
[2020-05-31 17:59] VITALS: BP 148/80
[2020-05-31] MEDS ORDERED: DIVALPROEX 500 MG TAB PO SCH (21:00)
[2020-06-01 06:21] VITALS: BP 115/74
[2020-06-01] MEDS: ROSUVASTATIN 10 MG TAB (CRESTOR) PO SCH (08:22)
[2020-06-01] MEDS: CLOPIDOGREL 75 MG TAB PO SCH (08:22)
[2020-06-01] MEDS: ASPIRIN 81 MG ENTERIC TAB PO SCH (08:22)
[2020-06-01] MEDS: lisinopriL 5 MG TAB PO SCH (08:23)
[2020-06-01] MEDS: GABAPENTIN 300 MG CAP PO SCH ×2 (08:24→20:18)
[2020-06-01] MEDS: METOPROLOL SUCC (TopROL XL) 50MG **XL** TAB PO SCH (08:30)
[2020-06-01] MEDS ORDERED: DIVALPROEX 250 MG TAB PO SCH (09:00)
[2020-06-01] MEDS: OLANZapine ORAL DISINTEGRATING TAB 5MG PO PRN ×2 (13:12→20:18)
[2020-06-01 15:50] VITALS: BP 135/80
--- NOTE | 2020-06-01 16:36 | MHIPNPDOC ---
[facility] Progress Note Progress Note DATE OF SERVICE: 06/01/20 ISTORY: Per the ED report, patient is a 50 -year-old Other, male, who, as per ED report: "Pt presented to ED for the second time today asking to be admitted. During prior visit pt spoke with PSA and decided he needed to go home and talk to his son before coming back to get admitted. Pt stated that he is Dx with Bipolar and is currently in a manic state and is having a really hard time dealing with it and needs to be put make on his medication. Pt admitted to suicidal and homicidal thoughts stating that he often has terrifying dreams about them. Pt did state he would never act on them. Pt also stated that a stressor is that he has a cataract and cannot see and it is making him go crazy because h feels like he is in care home again. Pt denied ETOH use, but his ALLISON was a .14 upon arrival. Pt stated he just recently quit smoking because he had a heart attack. Pt admitted to occasionally marijuana use. Pt stated normally when he is in this state of mind he deals with it on his own and toughs it out, but it feels different this time and he thinks he needs help getting back on meds and to talk to someone. Pt appears to be anxious and very concerned about his mental health. Pt believes he needs to be admitted." Pt. reports that his son encouraged him to be admitted as he observed him withd rawing and isolating, having difficulty getting out of bed and experiencing hypersomnia. He states that he was unable to see that his mood was worsening and that his son was the one who recognized the decline. VITAL SIGNS: See below. NEW TEST RESULTS: . CURRENT MEDICATIONS: See below. MENTAL STATUS EXAMINATION: Patient is a 50-year old single, white, domiciled, male, who presents to the interview initially frustrated and irritable. He was boisterous, animated, was observed to have psychomotor agitation, frustrated that his medications were not correct, that he has pain, and that he has cataracts (which he is awaiting surgery for). Speech: Is fluid, conversant, normal rate, tone and volume Language skills are intact Thought processes including: linear and goal oriented Thought content: reports continued depression and anxiety. Denies suicidal/homicidal ideation, planning or intent. Abstract reasoning, and computation: fair Description of associations: denies, none observed Description of abnormal or psychotic thoughts: denies, none observed. Judgment: fair Insight: fair Orientation: alert and oriented to person, place, time and situation Recent and remote memory: intact Attention span and concentration: good Language: expansive Fund of knowledge: average Mood: Depressed, decreased from yesterday Affect: Flat DIAGNOSES: 1. Bipolar Disorder, mixed 2. ROGE 3. H/O ADHD ASSESSMENT: Met with patient today, attempted several times to meet with him in the morning but he was found sleeping. At the time of the interview, patient had showered and was up and visible in the milieu. He is reporting less pain today with the increase in Gabapentin but states he feels unchanged and feels that he continues to have symptoms of Bipolar Depression, stating that he sleeps often, won't care for himself and is still isolating in his room. Reinforced with patient that he appears to be well-kempt today, his speech is normal rate tone and volume and is less fast and pressured than yesterday. Patient was very frustrated and animated and restless in his interview yesterday. Today, he appe ars more comfortable, maintains good eye contact and is not observed to be hypomanic. When I reviewed with him, that he is less restless, has a normal speech pattern and that he is well-kempt, patient admits that he has mild improvement. He feels that the Depakote is helping but feels that his mood could be better. Discussed with him increasing Depakote and he is agreeable. MANAGEMENT PLAN: 1. Will increase Depakote to 500 mg BID 2. No increase gabapentin states that this is effective 3. Blood Draw for Valproic Acid level tomorrow in AM 4. Patient feels that he will be ready for discharge on feels that he is improving. TIME SPENT: 25 minutes. Vital Signs Vital Signs Date Time Temp Pulse Resp B/P (MAP) Pulse Ox O2 Delivery O2 Flow Rate FiO2 06/01/20 15:50 97.1 80 16 135/80 (98) 95 06/01/20 06:21 Room Air Current Medications Current Medications Medications (Trade) Dose Ordered Sig/Citlalli Route PRN Reason Start Time Stop Time Status Last Admin Dose Admin Acetaminophen (Tylenol Tab) 650 mg Q6HP PRN PO HEADACHE or DISCOMFORT 05/29/20 05:45 Al Hydrox/Mg Hydrox/Simethicone (Mylanta) 30 ml Q4HP PRN PO HEARTBURN/INDIGESTION 05/29/20 05:45 Albuterol/ Ipratropium (Duoneb (Ipr 0.5mg/Alb 2.5mg)) 3 ml Q4HP PRN NEB SOB/WHEEZING 05/30/20 18:00 Aripiprazole (AbiLIFY) 5 mg QHS PO 05/29/20 21:00 05/31/20 20:08 Aspirin (Ecotrin) 81 mg DAILY PO 05/30/20 09:00 06/01/20 08:22 Clopidogrel Bisulfate (PLAVix) 75 mg DAILY PO 05/29/20 09:00 06/01/20 08:22 Divalproex Sodium (Depakote) 250 mg BID PO 05/29/20 21:00 05/31/20 14:13 DC 05/31/20 08:44 Divalproex Sodium (Depakote) 250 mg DAILY PO 06/01/20 09:00 06/01/20 08:21 Divalproex Sodium (Depakote) 500 mg QHS PO 05/31/20 21:00 05/31/20 20:08 Gabapentin (Neurontin) 300 mg BID PO 05/29/20 09:00 05/30/20 14:57 DC 05/29/20 20:26 Gabapentin (Neurontin) 300 mg QHS PO 05/31/20 21:00 05/31/20 20:08 Gabapentin (Neurontin) 300 mg TID PO 05/30/20 16:00 05/31/20 14:13 DC 05/30/20 20:41 Gabapentin (Neurontin) 600 mg DAILY PO 05/29/20 09:00 05/30/20 14:57 DC 05/30/20 09:44 Gabapentin (Neurontin) 900 mg DAILY PO 06/01/20 09:00 06/01/20 08:24 Home Med (Med Rec Complete!) ASDIRECTED XX 05/29/20 03:45 05/29/20 03:38 DC Lisinopril (Prinivil) 5 mg DAILY PO 05/29/20 09:00 05/29/20 16:04 DC 05/29/20 09:52 Lisinopril (Prinivil) 5 mg DAILY PO 05/30/20 09:00 06/01/20 08:23 Magnesium Hydroxide (Milk Of Magnesia) 30 ml DAILYPRN PRN PO CONSTIPATION 05/29/20 05:45 Metoprolol Succinate (TopROL XL) 50 mg DAILY PO 05/29/20 09:00 05/31/20 08:43 Olanzapine (ZyPREXA ZYDIS) 5 mg Q6HP PRN PO ANXIETY/AGITATION 05/29/20 05:45 06/01/20 13:12 Rosuvastatin Calcium (Crestor) 40 mg DAILY PO 05/29/20 09:00 06/01/20 08:22 Trazodone HCl (Desyrel) 50 mg QHSP PRN PO INSOMNIA 05/29/20 05:45 05/30/20 20:41 Allergies Coded Allergies: No Known Drug Allergies (Verified Allergy, Unknown, 11/23/19) AURELIA ANTONIO NP Jun 01, 2020 16:24
[2020-06-01] MEDS: traZODone 50 MG TAB PO PRN (20:18)
[2020-06-01] MEDS: DIVALPROEX 500 MG TAB PO SCH (20:18)
[2020-06-02 06:44] VITALS: BP 121/68
[2020-06-02] MEDS: lisinopriL 5 MG TAB PO SCH (09:08)
[2020-06-02] MEDS: GABAPENTIN 300 MG CAP PO SCH ×2 (09:09→20:28)
[2020-06-02 09:12] VITALS: BP 186/96
[2020-06-02] MEDS: METOPROLOL SUCC (TopROL XL) 50MG **XL** TAB PO SCH (09:12)
[2020-06-02] MEDS: DIVALPROEX 500 MG TAB PO SCH ×2 (09:12→20:28)
[2020-06-02] MEDS: ROSUVASTATIN 10 MG TAB (CRESTOR) PO SCH (09:12)
[2020-06-02] MEDS: ASPIRIN 81 MG ENTERIC TAB PO SCH (09:12)
[2020-06-02] MEDS: CLOPIDOGREL 75 MG TAB PO SCH (09:13)
[2020-06-02] MEDS: OLANZapine ORAL DISINTEGRATING TAB 5MG PO PRN ×2 (14:26→21:40)
[2020-06-02] MEDS ORDERED: DEPA1TAB3 PO (15:53)
[2020-06-02] MEDS ORDERED: ABIL1TAB11 PO (15:53)
--- NOTE | 2020-06-02 16:09 | MHIPNPDOC ---
[facility] Progress Note Progress Note DATE OF SERVICE: 06/02/20 HISTORY: Per the ED report, patient is a 50 -year-old Other, male, who, as per ED report: "Pt presented to ED for the second time today asking to be admitted. During prior visit pt spoke with PSA and decided he needed to go home and talk to his son before coming back to get admitted. Pt stated that he is Dx with Bipolar and is currently in a manic state and is having a really hard time dealing with it and needs to be put make on his medication. Pt admitted to suicidal and homicidal thoughts stating that he often has terrifying dreams about them. Pt did state he would never act on them. Pt also stated that a stressor is that he has a cataract and cannot see and it is making him go crazy because h feels like he is in fdc again. Pt denied ETOH use, but his ALLISON was a .14 upon arrival. Pt stated he just recently quit smoking because he had a heart attack. Pt admitted to occasionally marijuana use. Pt stated normally when he is in this state of mind he deals with it on his own and toughs it out, but it feels different this time and he thinks he needs help getting back on meds and to talk to someone. Pt appears to be anxious and very concerned about his mental health. Pt believes he needs to be admitted." Pt. reports that his son encouraged him to be admitted as he observed him with drawing and isolating, having difficulty getting out of bed and experiencing hypersomnia. He states that he was unable to see that his mood was worsening and that his son was the one who recognized the decline. VITAL SIGNS: See below. NEW TEST RESULTS: . CURRENT MEDICATIONS: See below. MENTAL STATUS EXAMINATION: Patient is a 50-year old single, white, domiciled, male, who presents to the interview initially frustrated and irritable. He was boisterous, animated, was observed to have psychomotor agitation, frustrated that his medications were not correct, that he has pain, and that he has cataracts (which he is awaiting surgery for). Speech: Is fluid, conversant, normal rate, tone and volume Language skills are intact Thought processes including: linear and goal oriented Thought content: reports continued but milder depression and anxiety. Denies suicidal/homicidal ideation, planning or intent. Abstract reasoning, and computation: fair Description of associations: denies, none observed Description of abnormal or psychotic thoughts: denies, none observed. Judgment: fair Insight: fair Orientation: alert and oriented to person, place, time and situation Recent and remote memory: intact Attention span and concentration: good Language: expansive Fund of knowledge: average Mood: Depressed, decreased from yesterday Affect: Flat, somewhat frustrated DIAGNOSES: 1. Bipolar Disorder, mixed 2. ROGE 3. H/O ADHD ASSESSMENT: Patient was agreeable to interview today, was awakened for it. He reports having frustration that his Gabapentin is still not dosed properly. He reports that his marine equipment design engineer has him on a different dosage and the pharmacy is unaware of this new change. He spoke about this frustration about his pain repeatedly, stating that the Gabapentin numbs his pain, doesn't completely help him but due to his addictive personality that he will not take Opiates. Patient states that he feels that he has improved and that the rest of his improvement will occur when he sees his PCP to change his medications. He reports an improvement in his depression and anxiety. He reports a decreased in his agitation and aggression. He denies suicidality/homicidality. He denies and is not observed with manic symptoms, psychosis, auditory or visual hallucinations, delusional or bizarre behaviors and loose associations/flight of ideas. Patient states that he feels he is better than his peers, reporting that he had been giving guidance to his fellow peers about the risk of addiction. Feels that many have poor self-esteem. He states that based on his observations, he is doing much better and reports being more stable. MANAGEMENT PLAN: 1. Blood Draw for Valproic Acid level tomorrow in AM 2. Patient will be discharged in AM TIME SPENT: 25 minutes. Vital Signs Vital Signs Date Time Temp Pulse Resp B/P (MAP) Pulse Ox O2 Delivery O2 Flow Rate FiO2 06/02/20 09:12 88 186/96 06/02/20 06:44 98.4 18 98 Room Air Current Medications Current Medications Medications (Trade) Dose Ordered Sig/Citlalli Route PRN Reason Start Time Stop Time Status Last Admin Dose Admin Acetaminophen (Tylenol Tab) 650 mg Q6HP PRN PO HEADACHE or DISCOMFORT 05/29/20 05:45 Al Hydrox/Mg Hydrox/Simethicone (Mylanta) 30 ml Q4HP PRN PO HEARTBURN/INDIGESTION 05/29/20 05:45 Albuterol/ Ipratropium (Duoneb (Ipr 0.5mg/Alb 2.5mg)) 3 ml Q4HP PRN NEB SOB/WHEEZING 05/30/20 18:00 Aripiprazole (AbiLIFY) 5 mg QHS PO 05/29/20 21:00 06/01/20 20:18 Aspirin (Ecotrin) 81 mg DAILY PO 05/30/20 09:00 06/02/20 09:12 Clopidogrel Bisulfate (PLAVix) 75 mg DAILY PO 05/29/20 09:00 06/02/20 09:13 Divalproex Sodium (Depakote) 250 mg BID PO 05/29/20 21:00 05/31/20 14:13 DC 05/31/20 08:44 Divalproex Sodium (Depakote) 250 mg DAILY PO 06/01/20 09:00 06/01/20 16:26 DC 06/01/20 08:21 Divalproex Sodium (Depakote) 500 mg BID PO 06/01/20 21:00 06/02/20 09:12 Divalproex Sodium (Depakote) 500 mg QHS PO 05/31/20 21:00 06/01/20 16:26 DC 05/31/20 20:08 Gabapentin (Neurontin) 300 mg BID PO 05/29/20 09:00 05/30/20 14:57 DC 05/29/20 20:26 Gabapentin (Neurontin) 300 mg QHS PO 05/31/20 21:00 05/31/20 20:08 Gabapentin (Neurontin) 300 mg TID PO 05/30/20 16:00 05/31/20 14:13 DC 05/30/20 20:41 Gabapentin (Neurontin) 600 mg DAILY PO 05/29/20 09:00 05/30/20 14:57 DC 05/30/20 09:44 Gabapentin (Neurontin) 900 mg DAILY PO 06/01/20 09:00 06/02/20 09:09 Home Med (Med Rec Complete!) ASDIRECTED XX 05/29/20 03:45 05/29/20 03:38 DC Lisinopril (Prinivil) 5 mg DAILY PO 05/29/20 09:00 05/29/20 16:04 DC 05/29/20 09:52 Lisinopril (Prinivil) 5 mg DAILY PO 05/30/20 09:00 06/02/20 09:08 Magnesium Hydroxide (Milk Of Magnesia) 30 ml DAILYPRN PRN PO CONSTIPATION 05/29/20 05:45 Metoprolol Succinate (TopROL XL) 50 mg DAILY PO 05/29/20 09:00 06/02/20 09:12 Olanzapine (ZyPREXA ZYDIS) 5 mg Q6HP PRN PO ANXIETY/AGITATION 05/29/20 05:45 06/02/20 14:26 Rosuvastatin Calcium (Crestor) 40 mg DAILY PO 05/29/20 09:00 06/02/20 09:12 Trazodone HCl (Desyrel) 50 mg QHSP PRN PO INSOMNIA 05/29/20 05:45 06/01/20 20:18 Allergies Coded Allergies: No Known Drug Allergies (Verified Allergy, Unknown, 11/23/19) AURELIA ANTONIO NP Jun 02, 2020 16:09
[2020-06-02 18:44] VITALS: BP 168/81
[2020-06-02] MEDS: traZODone 50 MG TAB PO PRN (21:33)
[2020-06-03 06:00] VITALS: BP 129/88
[2020-06-03] MEDS: METOPROLOL SUCC (TopROL XL) 50MG **XL** TAB PO SCH (08:35)
[2020-06-03] MEDS: CLOPIDOGREL 75 MG TAB PO SCH (08:35)
[2020-06-03] MEDS: lisinopriL 5 MG TAB PO SCH (08:35)
[2020-06-03] MEDS: GABAPENTIN 300 MG CAP PO SCH (08:35)
[2020-06-03] MEDS: ROSUVASTATIN 10 MG TAB (CRESTOR) PO SCH (08:36)
[2020-06-03] MEDS: ASPIRIN 81 MG ENTERIC TAB PO SCH (08:36)
[2020-06-03] MEDS: DIVALPROEX 500 MG TAB PO SCH (08:43)
--- NOTE | 2020-06-03 10:11 | MHDSPDOC ---
[facility] Discharge Summary Discharge Summary DATE OF ADMISSION: May 28, 2020 at 22:42 DATE OF DISCHARGE: June 03, 2020 at 1000 DISCHARGE DIAGNOSES: 1. Bipolar Disorder, mixed 2. ROGE 3. H/O ADHD REASON FOR ADMISSION: Per the ED report, patient is a 50 -year-old Other, male, who, as per ED report: "Pt presented to ED for the second time today asking to be admitted. During prior visit pt spoke with PSA and decided he needed to go home and talk to his son before coming back to get admitted. Pt stated that he is Dx with Bipolar and is currently in a manic state and is having a really hard time dealing with it and needs to be put make on his medication. Pt admitted to suicidal and homicidal thoughts stating that he often has terrifying dreams about them. Pt did state he would never act on them. Pt also stated that a stressor is that he has a cataract and cannot see and it is making him go crazy because h feels like he is in [facility] again. Pt denied ETOH use, but his ALLISON was a .14 upon arrival. Pt stated he just recently quit smoking because he had a heart attack. Pt admitted to occasionally marijuana use. Pt stated normally when he is in this state of mind he deals with it on his own and toughs it out, but it feels different this time and he thinks he needs help getting back on meds and to talk to someone. Pt appears to be anxious and very concerned about his mental health. Pt believes he needs to be admitted." Pt. reports that his son encouraged him to be admitted as he observed him withdrawing and isolating, having difficulty getting out of bed and experiencing hypersomnia. He states that he was unable to see that his mood was worsening and that his son was the one who recognized the decline. CONSULTANTS INVOLVED: See Medical H + P by Hospitalist TREATMENT AND PROGRESS ON THE UNIT: Patient was admitted to the [facility] on a legal status he was afforded the following treatment modalities: 1) Individual Therapy 2) Group Therapy 3) Medication Management 4) Milieu Therapy 5) Safe Environment HOSPITAL COURSE: Patient was admitted to [facility] on a 39 legal status. From his descriptions of his symptoms he was started on Depakote 250 mg twice daily for Bipolar Symptoms. He was reporting that isolation, being withdrawn, having poor attendance to his ADL's were indications that his son had noted, felt that he was becoming quite depressed. On admission patient oftentimes, appeared irritable, had undertones of agitation. He states that he was feeling mildly improved, but not quite stable. The Depakote was increased to 500 mg twice daily, this appeared to have a significant in improvement in his mood. Patient was visible on the unit, he reported several times being quite agitated with peers but was able to deflect it and go into his room, stating that in the past he would have acted on his agitation. He was very unhappy with the Gabapentin dosage. According to pat it was dosed for 900 mg in AM and 300 mg at HS. Patient states that this was changed by his applications trainer. He is leaving today to go to his Primary Care Provider's office to clarify this order. Outside of this complaints of pain, he felt that the Depakote had stabilized his depression. He denies and not observed with poncho, psychotic symptoms, obsessions, ruminations, delusions, bizarre thinking or loose associations. In today's interview, he denies depression and anxiety. He did not on this admission endorse suicidality or homicidality. At this time, the patient meets criteria for discharge due to normal mentation. DISCHARGE ASSESSMENT: Patient again, denies depression, anxiety and suicidality. He is future-oriented, states that when he leaves here, he is going to his PCP appointment and will follow up with [facility]. Patient was alert and oriented, visible on the unit, social with peers and was cooperative with his treatment plan. He is appropriate for discharge today. MENTAL STATUS EXAMINATION ON DISCHARGE: Patient is a 50-year old single, white, domiciled, male, who presents to the interview initially frustrated and irritable. He was boisterous, animated, was observed to have psychomotor agitation, frustrated that his medications were not correct, that he has pain, and that he has cataracts (which he is awaiting surgery for). Speech: Is fluid, conversant, normal rate, tone and volume Language skills are intact Thought processes including: linear and goal oriented Thought content: denies depression and anxiety. Denies suicidal/homicidal ideation, planning or intent. Abstract reasoning, and computation: fair Description of associations: denies, none observed Description of abnormal or psychotic thoughts: denies, none observed. Judgment: fair Insight: fair Orientation: alert and oriented to person, place, time and situation Recent and remote memory: intact Attention span and concentration: good Language: expansive Fund of knowledge: average Mood: Euthymic Mood/Bright Affect: reactive/Bright MEDICATIONS ON DISCHARGE: See Medication Reconciliation PLAN/FOLLOWUP ARRANGEMENTS: [facility] - See School Nurse's Notes The amount of time spent in the coordination of care for this patient was approximately 25 minutes. Vital Signs/I&Os Vital Signs Date Time Temp Pulse Resp B/P (MAP) Pulse Ox O2 Delivery O2 Flow Rate FiO2 06/03/20 06:00 96.4 62 18 129/88 (102) 96 06/02/20 06:44 Room Air Laboratory Data Labs 24H Laboratory Tests 2 06/03/20 08:42: Valproic Acid (Depakene) Level 53.0 Medications Scheduled Aripiprazole (Abilify) 5 Mg Tablet, 5 MG PO QHS for Augment Mood , #7 Clopidogrel Bisulfate (Clopidogrel) 75 Mg Tablet, 75 MG PO DAILY, (Reported) Divalproex Sodium (Depakote) 500 Mg Tablet.dr, 500 MG PO BID for Mood Stabilization, #14 Gabapentin (Gabapentin) 300 Mg Capsule, 300 MG PO BID, (Reported) Gabapentin (Gabapentin) 600 Mg Tablet, 600 MG PO DAILY, (Reported) MORNING WITH 300MG Lisinopril (Lisinopril) 10 Mg Tablet, 5 MG PO DAILY, (Reported) Metoprolol Succinate (Metoprolol Succinate) 50 Mg Tab.er.24h, 50 MG PO DAILY, (Reported) Rosuvastatin Calcium (Rosuvastatin Calcium) 40 Mg Tablet, 40 MG PO DAILY, (Reported) Allergies Coded Allergies: No Known Drug Allergies (Verified Allergy, Unknown, 11/23/19) AURELIA ANTONIO NP Jun 03, 2020 10:11
== END 2020-06-03 10:00 | disposition home or self-care (01) | DRG 753 ==
LOC: M ED 22:41 → M ED INP 22:42 → M PSY 05-29 10:06
PROVIDERS: ADMIT Psychiatry & Neurology Psychiatry; ATTEND Psychiatry & Neurology Psychiatry
DX: F31.60 Bipolar disorder, current episode mixed, unspecified (principal); I10 Essential (primary) hypertension; F41.1 Generalized anxiety disorder; Z79.899 Other long term (current) drug therapy; I25.10 Atherosclerotic heart disease of native coronary artery without angina pectoris; I25.2 Old myocardial infarction; M54.5 Low back pain; M54.2 Cervicalgia; G47.33 Obstructive sleep apnea (adult) (pediatric); E66.9 Obesity, unspecified; E78.5 Hyperlipidemia, unspecified; F17.200 Nicotine dependence, unspecified, uncomplicated; Z95.2 Presence of prosthetic heart valve

== ENCOUNTER → 2020-06-03 | Outpatient (REF) | payer OTHER ==
[~2020-06-03] MED LIST changes: +ABIL1TAB11 PO; +DEPA1TAB3 PO; +GABA600T4 PO
[2020-06-03 15:17] LABS: BASO % 0.4 % (0.0-1.0); EOS # 0.3 10^3/uL (0.0-0.5); EOS % 3.8 % (0.0-3.0); HEMATOCRIT 46.6 % (42.0-52.0); HEMOGLOBIN 15.3 g/dl (13.5-17.5); LYMPH # 2.9 10^3/uL (1.5-5.0); LYMPH % 34.1 % (24.0-44.0); MEAN CORPUSCULAR HEMOGLOBIN 30.7 pg (27.0-33.0); MEAN CORPUSCULAR HGB CONC 32.8 g/dl (32.0-36.5); MEAN CORPUSCULAR VOLUME 93.6 fl (80.0-96.0); MONO # 1.1 10^3/uL (0.0-0.8); MONO % 12.6 % (0.0-5.0); NEUTROPHILS # 4.1 10^3/uL (1.5-8.5); NEUTROPHILS % 48.7 % (36.0-66.0); PLATELET COUNT, AUTOMATED 264 10^3/uL (150-450); RED BLOOD COUNT 4.98 10^6/uL (4.30-6.10); WHITE BLOOD COUNT 8.4 10^3/uL (4.0-10.0)
[2020-06-03 15:27] LABS: INR 0.96
[2020-06-03 15:28] LABS: PARTIAL THROMBOPLASTIN TIME 26.7 SECONDS (24.2-38.5)
[2020-06-03 15:51] LABS: ALBUMIN 4.1 GM/DL (3.2-5.2); ALT/SGPT 53 U/L (12-78); BILIRUBIN,TOTAL 0.3 MG/DL (0.2-1.0); BLOOD UREA NITROGEN 14 MG/DL (7-18); CALCIUM LEVEL 9.2 MG/DL (8.5-10.1); CARBON DIOXIDE LEVEL 31 MEQ/L (21-32); CHLORIDE LEVEL 104 MEQ/L (98-107); CREATININE FOR GFR 0.91 MG/DL (0.70-1.30); GLOMERULAR FILTRATION RATE > 60.0 (>56); GLUCOSE, FASTING 98 MG/DL (70-100); NT-PRO BNP 393 PG/ML (<125); POTASSIUM SERUM 4.5 MEQ/L (3.5-5.1); SODIUM LEVEL 138 MEQ/L (136-145); TOTAL PROTEIN 7.2 GM/DL (6.4-8.2); TROPONIN I < 0.02 NG/ML (< 0.10)
[2020-06-03 19:23] LABS: HEMOGLOBIN A1c 6.1 %
== END ==
LOC: M SFHCPLAZ 13:11
PROVIDERS: ATTEND Family Medicine
DX: I10 Essential (primary) hypertension (principal)

== ENCOUNTER 2020-06-15 14:51 | Emergency (ER) | payer OTHER ==
[~2020-06-15] VITALS: Ht 177.8 cm; Wt 122.7 kg
[~2020-06-15 14:51] MED LIST changes: +GABA-282 PO; -GABA-843 PO; -LISI-542 PO; +LISI-898 PO; +LISI10TA22; +LISI10TA22 PO; -LISI10TA4; -LISI10TA4 PO
[2020-06-15 15:13] LABS: BASO # 0.1 10^3/uL (0.0-0.2); BASO % 0.5 % (0.0-1.0); EOS # 0.3 10^3/uL (0.0-0.5); EOS % 2.1 % (0.0-3.0); HEMATOCRIT 47.1 % (42.0-52.0); HEMOGLOBIN 15.4 g/dl (13.5-17.5); LYMPH # 2.9 10^3/uL (1.5-5.0); LYMPH % 24.2 % (24.0-44.0); MEAN CORPUSCULAR HEMOGLOBIN 30.9 pg (27.0-33.0); MEAN CORPUSCULAR HGB CONC 32.7 g/dl (32.0-36.5); MEAN CORPUSCULAR VOLUME 94.6 fl (80.0-96.0); MONO # 1.3 10^3/uL (0.0-0.8); MONO % 10.8 % (0.0-5.0); NEUTROPHILS # 7.3 10^3/uL (1.5-8.5); NEUTROPHILS % 61.3 % (36.0-66.0); PLATELET COUNT, AUTOMATED 252 10^3/uL (150-450); RED BLOOD COUNT 4.98 10^6/uL (4.30-6.10); WHITE BLOOD COUNT 11.9 10^3/uL (4.0-10.0)
--- NOTE | 2020-06-15 15:26 | REP ---
INDICATION: CHEST PAIN. COMPARISON: 05/18/2020. TECHNIQUE: SINGLE PORTABLE AP VIEW OF THE CHEST WAS PERFORMED. FINDINGS: There is mild cardiomegaly. There chronic stable interstitial densities bilaterally. No new infiltrate is seen. Mediastinal silhouette is unchanged. IMPRESSION: Stable exam. <Electronically signed by Sj Sheffield > 06/15/20 1528
[2020-06-15 15:39] LABS: BLOOD UREA NITROGEN 10 MG/DL (7-18); CALCIUM LEVEL 9.3 MG/DL (8.5-10.1); CARBON DIOXIDE LEVEL 29 MEQ/L (21-32); CHLORIDE LEVEL 98 MEQ/L (98-107); CREATININE FOR GFR 0.92 MG/DL (0.70-1.30); GLOMERULAR FILTRATION RATE > 60.0 (>56); GLUCOSE, FASTING 116 MG/DL (70-100); POTASSIUM SERUM 4.2 MEQ/L (3.5-5.1); SODIUM LEVEL 133 MEQ/L (136-145)
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
--- OUTSIDE RECORDS SUMMARY | 2020-06-15 16:59 | CCD | Summary of Care ---
Author Author [facility] Organization [facility] Address Unknown Phone Unavailable Care Team Providers Care Attorney Recruiter Name Role Phone Serenity Thompson NP PCP Unavailable Reason for Visit * Reason Comments Coronary Artery Disease Encounter Details Care Team Description Date Type Department Devante Mcwilliams MD [address] [facility] [address] [place], [place] [id number] Mixed hyperlipidemia (Primary Dx); Coronary artery disease involving minto coronary artery of minto heart without angina pectoris 06/07/2020 Office Visit [facility] [address] [place] [address] [address] [facility], [address] [place] [id number] Allergies No Known Allergiesdocumented as of this encounter (statuses as of 06/07/2020) Medications End Date Status Medication Sig Dispensed Refills Start Date Active Aspirin 81 MG Oral Tablet Take 81 mg by 0 Delayed Release mouth daily 04/08/2021 Active Albuterol Sulfate HFA 108 Inhale 2 1 Inhaler 11 (90 Base) MCG/ACT puffs into 0 Inhalation Aerosol the lungs Solution (PROVENTIL HFA) every 6 (six) hours as needed for Wheezing 04/08/2021 Active Budesonide-Formoterol Inhale 2 1 Inhaler 11 03/28 Fumarate 80-4.5 MCG/ACT puffs into 0 Inhalation Aerosol the lungs Two (SYMBICORT) Times Daily Active Fluticasone-Salmeterol Inhale 1 puff 2 each 6 1 55-14 MCG/ACT Inhalation into the 0 Aerosol Powder Breath lungs daily Activated 06/19/2020 Active Gabapentin 300 MG Oral Take 2 180 capsule 0 Capsule (NEURONTIN) capsules by 0 mouth Three times daily 11/16/2020 Active Lisinopril 10 MG Oral Take 0.5 15 tablet 5 04/28 Tablet (ZESTRIL) tablets by 0 mouth daily 11/16/2020 Active Clopidogrel Bisulfate 75 Take 1 tablet 30 tablet 5 MG Oral Tablet (PLAVIX) by mouth 0 daily 11/16/2020 Active Metoprolol Succinate ER Take 1 tablet 30 tablet 5 50 MG Oral Tablet by mouth 0 Extended Release 24 Hour daily (TOPROL-XL) 11/16/2020 Active Rosuvastatin Calcium 40 Take 1 tablet 30 tablet 5 MG Oral Tablet (CRESTOR) by mouth 0 daily 06/19/2020 Active Ofloxacin 0.3 % Place 1 drop 5 mL 0 Ophthalmic Solution into the left 0 (OCUFLOX)Indications: eye Four Traumatic cataract of times daily left eye, unspecified Start 3 days traumatic cataract type, before your Combined form of surgery. age-related cataract, left eye 06/19/2020 Active prednisoLONE Acetate 1 % Place 1 drop 5 mL 0 Ophthalmic Suspension into the left 0 (PRED FORTE)Indications: eye Four Traumatic cataract of times daily left eye, unspecified Start 3 days traumatic cataract type, before your Combined form of surgery. age-related cataract, left eye documented as of this encounter (statuses as of 06/07/2020) Active Problems Problem Noted Date NSTEMI (non-ST elevated myocardial infarction) 05/18 Fall 04/07/2020 Hypoxia 04/07/2020 Closed fracture of nasal bone 07/03/2015 Alcohol intoxication 07/03/2015 documented as of this encounter (statuses as of 06/07/2020) Immunizations Name Administration Dates Next Due Influenza Quad IM Pres 04/07/2020 Free (0.5 mL dose) documented as of this encounter Social History Date Tobacco Use Types Packs/Day Years Used Quit: 05/23/2020 Former Smoker Cigarettes 1.5 37 Smokeless Tobacco: Never Used Drinks/Week oz/Week Comments Alcohol Use 06/07/2020: 8 years s anai (last drink 2011) Not Currently Alcohol Habits Answer Date Recorded How often do you have a drink containing alcohol? Monthly or less 04/19/2020 How many drinks containing alcohol do you have on 1 or 2 04/19/2020 a typical day when you are drinking? How often do you have six or more drinks on one Never 04/19/2020 occasion? Sex Assigned at Date Recorded Not on file Date Recorded COVID-19 Exposure Response 06/07/2020 3:00 PM EST In the last month, have you been in contact with No / Unsure someone who was confirmed or suspected to have Coronavirus / COVID-19? documented as of this encounter Last Filed Vital Signs Reading Time Taken Comments Vital Sign 115/74 06/07/2020 3:18 PM EST Blood Pressure 74 06/07/2020 3:18 PM EST Pulse - - Temperature 18 06/07/2020 3:18 PM EST Respiratory Rate 96% 06/07/2020 3:18 PM EST Oxygen Saturation - - Inhaled Oxygen Concentration 120.2 kg (265 lb) 06/07/2020 3:18 PM EST Weight 179.1 cm (5' 10.5") 06/07/2020 3:18 PM EST Height 37.49 06/07/2020 3:18 PM EST Body Mass Index documented in this encounter Progress Notes * Devante Mcwilliams MD - 06/07/2020 3:00 PM EST Subjective: Patient is a 50 y.o. male who presents for follow-up of atherosclerotic coronar y artery disease. Recent history: taking medications as instructed, no medicatio n side effects noted, no TIA's, no chest pain on exertion, no dyspnea on exertio n and no swelling of ankles. Patient's symptoms have been completely resolved. M edication side effects include: none. Had RCA and Cx stents on 05/18. Has stop ped smoking. Patient's medications, allergies, past medical, surgical, social and family hist ories were reviewed and updated as appropriate. Review of Systems A comprehensive review of systems was negative. Objective: Physical Exam Visit Vitals BP 115/74 (BP Location: Left arm, Patient Position: Sitting, Cuff size: Adult La rge) Pulse 74 Resp 18 Ht 1.791 m Wt 120.2 kg (265 lb) SpO2 96% BMI 37.49 kg/m General appearance: alert, appears stated age and cooperative Neck: no adenopathy, no carotid bruit, no JVD, supple, symmetrical, trachea midl ine and thyroid not enlarged, symmetric, no tenderness/mass/nodules Lungs: clear to auscultation bilaterally Heart: regular rate and rhythm, S1, S2 normal, no murmur, click, rub or gallop Abdomen: soft, non-tender; bowel sounds normal; no masses, no organomegaly Extremities: extremities normal, atraumatic, no cyanosis or edema; right wrist O K. Lab Review Lab Results Component Value Date NA 137 05/20/2020 K 4.4 05/20/2020 CL 100 05/20/2020 BUN 10 05/20/2020 CREATININE 0.81 05/20/2020 GLUCOSE 118 05/20/2020 CALCIUM 8.4 (L) 05/20/2020 Lab Results Component Value Date WBC 7.6 05/20/2020 HGB 14.2 05/20/2020 HCT 42.1 05/20/2020 MCV 94.2 05/20/2020 PLT 290 05/20/2020 Assessment: Atherosclerotic coronary artery disease. The [place] [employer] an ayde scale is 1. Plan: Lipids, LFTs in June. F/U 3 months. documented in this encounter Nursing Notes * Jennifer Coats, RN - 06/07/2020 3:00 PM EST [facility] follow-up appointment after cardiac cath 05/18/2020 and 2 stents placed. Patient denies chest pain. He reports ongoing SOB at times, which he attributes to his COPD. Patient denies bleeding issues with the Plavix and Aspirin. Patient reports he officially quit smoking 05/23/2020. documented in this encounter Plan of Treatment Care Team Description Date Type Specialty Devante Mcwilliams MD [address] [place] [address] [place] [address] [place] [address] [phone] 09/09/2020 Office Visit Cardiology Order Schedule Name Type Priority Associated Diag noses 1 Occurrences starting 06/07/2020 until 12/05/2020 Lipid panel Lab Routine Mixed hyperlipi demia 1 Occurrences starting 06/07/2020 until 12/05/2020 Hepatic function panel Lab Routine Mixed h yperlipidemia Health Maintenance Due Date Last Done Comments MMR Vaccines (1 of 1 - 1971 Standard series) Varicella Vaccines (1 of 1971 2 - 2-dose childhood series) Pneumococcal Vaccine: 02/29/1976 Pediatrics (0 to 5 Years) and At-Risk Patients (6 to 64 Years) (1 of 1 - PPSV23) DTaP,Tdap,and Td Vaccines 1977 (1 - Tdap) HIV Screening 1983 Colon Cancer Screening 10 02/29/2020 yrs Pneumococcal Vaccine: 65+ 2035 Years (1 of 1 - PPSV23) Influenza Vaccine Completed 04/07/2020, 04/24/2017 HIB Vaccines Aged Out No longer eligible based on patient's age to complete this topic Hepatitis A Vaccines Aged Out No longer eligibl e based on patient's age to complete this topic Hepatitis B Vaccines Aged Out No longer eligibl e based on patient's age to complete this topic IPV Vaccines Aged Out No longer eligible based on patient's age to complete this topic documented as of this encounter Implants Device Identifier Shelf Expiration Date Model / Serial / L ot Implanted Type Area Manufactur er 08/05/2021 [id number] / [id number] / [id number] [employer]- Resolute Carlos 4 X 18 - Stent Coronary [place] [employer] [id number] XOMED Implanted: Qty: 1 on 05/18/2020 by Dveante Mcwilliams MD at [facility] Description:RCA 11/20/2021 [id number] / [id number] / [id number] [employer]- [employer] Carlos 2.75 X 22 - Stent Coronary [employer] [id number] XOMED Implanted: Qty: 1 on 05/18/2020 by Devante Mcwilliams MD at [facility] Description:LCX documented as of this encounter Results Not on filedocumented in this encounter Visit Diagnoses Diagnosis Mixed hyperlipidemia - Primary Coronary artery disease involving nativ e coronary artery of minto heart without angina pectoris documented in this encounter
--- OUTSIDE RECORDS SUMMARY | 2020-06-15 17:09 | CCD ---
Author Author [facility] Organization [facility] Address Unknown Phone Unavailable Care Team Providers Care Women Designer Name Role Phone FARNAZ LUJAN MD Unavailable Unavailable FARNAZ LUJAN MD Unavailable Unavailable FARNAZ LUJAN MD Unavailable Unavailable FARNAZ LUJAN MD Unavailable Unavailable FARNAZ LUJAN MD Unavailable Unavailable FARNAZ LUJAN MD Unavailable Unavailable FARNAZ LUJAN MD Unavailable Unavailable FARNAZ LUJAN MD Unavailable Unavailable FARNAZ LUJAN MD Unavailable Unavailable Johnny ANGEL MD Unavailable Unavailable Johnny ANGEL MD Unavailable Unavailable Johnny ANGEL MD Unavailable Unavailable Johnny ANGEL MD Unavailable Unavailable Johnny ANGEL MD Unavailable Unavailable Johnny ANGEL MD Unavailable Unavailable Johnny ANGEL MD Unavailable Unavailable Johnny ANGEL MD Unavailable Unavailable Johnny ANGEL MD Unavailable Unavailable Johnny ANGEL MD Unavailable Unavailable Johnny ANGEL MD Unavailable Unavailable Johnny ANGEL MD Unavailable Unavailable Johnny ANGEL MD Unavailable Unavailable Johnny ANGEL MD Unavailable Unavailable Johnny ANGEL MD Unavailable Unavailable Johnny ANGEL MD Unavailable Unavailable Johnny ANGEL MD Unavailable Unavailable Johnny ANGEL MD Unavailable Unavailable Johnny ANGEL MD Unavailable Unavailable Johnny ANGEL MD Unavailable Unavailable Johnny ANGEL MD Unavailable Unavailable Johnny ANGEL MD Unavailable Unavailable Johnny ANGEL MD Unavailable Unavailable Johnny ANGEL MD Unavailable Unavailable Johnny ANGEL MD Unavailable Unavailable Johnny ANGEL MD Unavailable Unavailable Johnny ANGEL MD Unavailable Unavailable Johnny ANGEL MD Unavailable Unavailable Johnny ANGEL MD Unavailable Unavailable Johnny ANGEL MD Unavailable Unavailable Johnny ANGEL MD Unavailable Unavailable Johnny ANGEL MD Unavailable Unavailable Johnny ANGEL MD Unavailable Unavailable Johnny ANGEL MD Unavailable Unavailable Johnny ANGEL MD Unavailable Unavailable Johnny ANGEL MD Unavailable Unavailable Johnny ANGEL MD Unavailable Unavailable Johnny ANGEL MD Unavailable Unavailable Jhonny ANGEL MD Unavailable Unavailable Johnny ANGEL MD Unavailable Unavailable Johnny ANGEL MD Unavailable Unavailable Johnny ANGEL MD Unavailable Unavailable Johnny ANGEL MD Unavailable Unavailable Johnny ANGEL MD Unavailable Unavailable Johnny ANGEL MD Unavailable Unavailable Johnny ANGEL MD Unavailable Unavailable Johnny ANGEL MD Unavailable Unavailable Johnny ANGEL MD Unavailable Unavailable Johnny ANGEL MD Unavailable Unavailable Johnny ANGEL MD Unavailable Unavailable Johnny ANGEL MD Unavailable Unavailable Johnny ANGEL MD Unavailable Unavailable Johnny ANGEL MD Unavailable Unavailable Johnny ANGEL MD Unavailable Unavailable Johnny ANGEL MD Unavailable Unavailable LO NEGRO MD Unavailable Unavailable LO NEGRO MD Unavailable Unavailable DOLLO GALVEZ MD Unavailable Unavailable DOLLO GALVEZ MD Unavailable Unavailable DOLLO GALVEZ MD Unavailable Unavailable LO NEGRO MD Unavailable Unavailable LO NEGRO MD Unavailable Unavailable LO NEGRO MD Unavailable Unavailable DOLLO GALVEZ MD Unavailable Unavailable LO NEGRO MD Unavailable Unavailable DOLLO GALVEZ MD Unavailable Unavailable LO NEGRO MD Unavailable Unavailable LO NEGRO MD Unavailable Unavailable LO NEGRO MD Unavailable Unavailable LO NEGRO MD Unavailable Unavailable LO NEGRO MD Unavailable Unavailable LO NEGRO MD Unavailable Unavailable LO NEGRO MD Unavailable Unavailable LO NEGRO MD Unavailable Unavailable LO NEGRO MD Unavailable Unavailable LO NEGRO MD Unavailable Unavailable LO NEGRO MD Unavailable Unavailable LO NEGRO MD Unavailable Unavailable LO NEGRO MD Unavailable Unavailable LO NEGRO MD Unavailable Unavailable LO NEGRO MD Unavailable Unavailable LO NEGRO MD Unavailable Unavailable Wladecki, Ying Unavailable Unavailable Wladecki, Ying Unavailable Unavailable Wladecki, Ying Unavailable Unavailable Wladecki, Ying Unavailable Unavailable RashidJosemanuel MD Unavailable Unavailable Rashid, Josemanuel Barba MD Unavailable Unavailable Rashid, Josemanuel Barba MD Unavailable Unavailable Rashid, Josemanuel Barba MD Unavailable Unavailable RashidJosemanuel MD Unavailable Unavailable Rashid R Freda REYES Unavailable Unavailable RashidJosemanuel MD Unavailable Unavailable Rashid R Freda REYES Unavailable Unavailable Rashid R Freda REYES Unavailable Unavailable Rashid, R Freda REYES Unavailable Unavailable Rashid, R Dorcasupfinesse REYES Unavailable Unavailable Rashid, R Dorcasupfinesse REYES Unavailable Unavailable JOSSE, DEBANIK Unavailable Unavailable JOSSE, DEBANIK Unavailable Unavailable JOSSE, DEBANIK Unavailable Unavailable JOSSE, DEBANIK Unavailable Unavailable JOSSE, DEBANIK Unavailable Unavailable JOSSE, DEBANIK Unavailable Unavailable JOSSE, DEBANIK Unavailable Unavailable JOSSE, DEBANIK Unavailable Unavailable JOSSE, DEBANIK Unavailable Unavailable JOSSE, DEBANIK Unavailable Unavailable JOSSE, DEBANIK Unavailable Unavailable JOSSE, DEBANIK Unavailable Unavailable JOSSE, DEBANIK Unavailable Unavailable JOSSE, DEBANIK Unavailable Unavailable JOSSE, DEBANIK Unavailable Unavailable JOSSE, DEBANIK Unavailable Unavailable JOSSE, DEBANIK Unavailable Unavailable JOSSE, DEBANIK Unavailable Unavailable JOSSE, DEBANIK Unavailable Unavailable JOSSE, DEBANIK Unavailable Unavailable JOSSE, DEBANIK Unavailable Unavailable JOSSE, DEBANIK Unavailable Unavailable LAVERNE JERRY MD Unavailable Unavailable LAVERNE JERRY MD Unavailable Unavailable LAVERNE JERRY MD Unavailable Unavailable LAVERNE JERRY MD Unavailable Unavailable LAVERNE JERRY MD Unavailable Unavailable LAVERNE JERRY MD Unavailable Unavailable LAVERNE JERRY MD Unavailable Unavailable LAVERNE JERRY MD Unavailable Unavailable LAVERNE JERRY MD Unavailable Unavailable LAVERNE JERRY MD Unavailable Unavailable LAVERNE JERRY MD Unavailable Unavailable LAVERNE JERRY MD Unavailable Unavailable AMANDA, MCKINLEY DO Unavailable Unavailable AMANDA, MCKINLEY DO Unavailable Unavailable AMANDA, MCKINLEY DO Unavailable Unavailable AMANDA, MCKINLEY DO Unavailable Unavailable AMANDA, MCKINLEY DO Unavailable Unavailable AMANDA, MCKINLEY DO Unavailable Unavailable AMANDA, MCKINLEY DO Unavailable Unavailable AMANDA, MCKINLEY DO Unavailable Unavailable AMANDA, MCKINLEY DO Unavailable Unavailable ALIASES , DEFAULT / GENERIC / UNKNOWN PROVIDER * Unavailable Unavailable ALIASES , DEFAULT / GENERIC / UNKNOWN PROVIDER * Unavailable Unavailable ALIASES , DEFAULT / GENERIC / UNKNOWN PROVIDER * Unavailable Unavailable ALIASES , DEFAULT / GENERIC / UNKNOWN PROVIDER * Unavailable Unavailable ALIASES , DEFAULT / GENERIC / UNKNOWN PROVIDER * Unavailable Unavailable ALIASES , DEFAULT / GENERIC / UNKNOWN PROVIDER * Unavailable Unavailable ALIASES , DEFAULT / GENERIC / UNKNOWN PROVIDER * Unavailable Unavailable ALIASES , DEFAULT / GENERIC / UNKNOWN PROVIDER * Unavailable Unavailable ALIASES , DEFAULT / GENERIC / UNKNOWN PROVIDER * Unavailable Unavailable ALIASES , DEFAULT / GENERIC / UNKNOWN PROVIDER * Unavailable Unavailable ALIASES , DEFAULT / GENERIC / UNKNOWN PROVIDER * Unavailable Unavailable ALIASES , DEFAULT / GENERIC / UNKNOWN PROVIDER * Unavailable Unavailable ALIASES , DEFAULT / GENERIC / UNKNOWN PROVIDER * Unavailable Unavailable ALIASES , DEFAULT / GENERIC / UNKNOWN PROVIDER * Unavailable Unavailable ALIASES , DEFAULT / GENERIC / UNKNOWN PROVIDER * Unavailable Unavailable ALIASES , DEFAULT / GENERIC / UNKNOWN PROVIDER * Unavailable Unavailable ALIASES , DEFAULT / GENERIC / UNKNOWN PROVIDER * Unavailable Unavailable ALIASES , DEFAULT / GENERIC / UNKNOWN PROVIDER * Unavailable Unavailable ALIASES , DEFAULT / GENERIC / UNKNOWN PROVIDER * Unavailable Unavailable ALIASES , DEFAULT / GENERIC / UNKNOWN PROVIDER * Unavailable Unavailable ALIASES , DEFAULT / GENERIC / UNKNOWN PROVIDER * Unavailable Unavailable ALIASES , DEFAULT / GENERIC / UNKNOWN PROVIDER * Unavailable Unavailable ALIASES , DEFAULT / GENERIC / UNKNOWN PROVIDER * Unavailable Unavailable ALIASES , DEFAULT / GENERIC / UNKNOWN PROVIDER * Unavailable Unavailable ALIASES , DEFAULT / GENERIC / UNKNOWN PROVIDER * Unavailable Unavailable ALIASES , DEFAULT / GENERIC / UNKNOWN PROVIDER * Unavailable Unavailable ALIASES , DEFAULT / GENERIC / UNKNOWN PROVIDER * Unavailable Unavailable ALIASES , DEFAULT / GENERIC / UNKNOWN PROVIDER * Unavailable Unavailable ALIASES , DEFAULT / GENERIC / UNKNOWN PROVIDER * Unavailable Unavailable ALIASES , DEFAULT / GENERIC / UNKNOWN PROVIDER * Unavailable Unavailable ALIASES , DEFAULT / GENERIC / UNKNOWN PROVIDER * Unavailable Unavailable Kaur Herrera MD Unavailable Unavailable MADELAINE III, J GUERRERO Unavailable Unavailable MADELAINE III, J GUERRERO Unavailable Unavailable MADELAINE III, J GUERRERO Unavailable Unavailable MADELAINE III, J GUERRERO Unavailable Unavailable MADELAINE III, J GUERRERO Unavailable Unavailable MADELAINE III, J GUERRERO Unavailable Unavailable Re-disclosure Warning The records that you are about to access may contain information from federally-assisted alcohol or drug abuse programs. If such information is present, then the following federally mandated warning applies: This information has been disclosed to you from records protected by federal confidentiality rules (42 CFR part 2). The federal rules prohibit you from making any further disclosure of this information unless further disclosure is expressly permitted by the written consent of the person to whom it pertains or as otherwise permitted by 42 CFR part 2. A general authorization for the release of medical or other information is NOT sufficient for this purpose. The Federal rules restrict any use of the information to criminally investigate or prosecute any alcohol or drug abuse patient.The records that you are about to access may contain highly sensitive health information, the redisclosure of which is protected by Article 27-F of the [facility] Public Health law. If you continue you may have access to information: Regarding HIV / AIDS; Provided by facilities licensed or operated by the [facility] Office of Mental Health; or Provided by the [facility] Office for People With Developmental Disabilities. If such information is present, then the following [facility] mandated warning applies: This information has been disclosed to you from confidential records which are protected by state law. State law prohibits you from making any further disclosure of this information without the specific written consent of the person to whom it pertains, or as otherwise permitted by law. Any unauthorized further disclosure in violation of state law may result in a fine or alf sentence or both. A general authorization for the release of medical or other information is NOT sufficient authorization for further disc losure. Allergies and Adverse Reactions Type Description Substance Reaction Status Data Source(s ) Drug Class NO KNOWN ALLERGIES NO KNOWN ALLERGIES [facility] Family History Family Member Name Family Member Gender Family Member Status Date o f Status Description Data Source(s) Unknown Unknown Problem MEDENT ([facility], ) Unknown Unknown Problem MEDENT ([facility], ) Unknown Unknown Problem MEDENT ([facility], ) Unknown Unknown Problem MEDENT ([facility], ) Unknown Unknown Problem MEDENT ([facility], ) Unknown Unknown Problem [facility]ENT ([facility], ) Unknown Unknown Problem MEDENT ([facility], ) Unknown Unknown Problem MEDENT ([facility], ) Unknown Unknown Problem MEDENT ([facility], ) Unknown Unknown Problem MEDENT ([facility], ) Encounters Encounter Providers Location Date Indications Data Source(s ) Outpatient Attender: VICKIE ANGEL MD 09/09/2020 12:00:[address] [facility] Outpatient Attender: VICKIE ANGEL MDReferrer: VICKIE ANGEL MD [id number] 06/07/2020 12:00:00 AM EST - 06/07/2020 03:37:00 PM EST Mixed hyperlipidemia [facility] Mixed hyperlipidemia Outpatient [address] [facility] [address] 06/03/2020 12:00:00 AM EST eCW1 ([facility]) Inpatient Attender: ANDRADE TAVERAS ttender: MCKINLEY PATEL DOAdmitter: ANDRADE LOAIZAReferrer: Kaur Herrera MD [id number] 05/18/2020 11 :35:00 AM EST - 05/20/2020 02:32:00 PM EST Non-ST elevation (NSTEMI) myocardial infarction [facility] Non-ST elevation (NSTEMI) myocardial inf arction Patient discharged. Unknown [address] [facility] [address] 05/14/2020 12:00:00 AM EST eCW1 ([facility]) Unknown [address] [facility] [address] 05/13/2020 12:00:00 AM EST eCW1 ([facility]) Outpatient [address] [facility] [place] [address] 04/21/2020 12:00:00 AM EST eCW1 ([facility]) Outpatient Attender: Ying Erickson [id number] 2019 12:00:00 AM EST - 04/19/2020 03:33:37 PM EST Unspecified traumatic cataract, left eye [facility] Unspecified traumatic cataract, left eye Inpatient Attender: DEFAULT / GENE MARS / UNKNOWN PROVIDER ALIASES Attender: Freda Mike MDAttender: FARNAZ LUJAN MDAttender: SIMÓN JERRY MDAttender: GUERRERO BURKETT IIIAdmitter: LO NEGRO MDReferrer: Freda Mike MD [id number] 04/07/2020 12:00:00 AM EST - 04/09/2020 11:14:00 AM EST Unspecified fall, initial encounter [facility] Unspecified fall, initial encounter Patient discharged. Immunizations Vaccine Date Status Description Data Source(s) New in 2011. IIV4 04/07/2020 12:00:00 AM EST completed In fluenza Quad IM Pres Free (0.5 mL dose) 04/07/2020 [facility] Medications Medication Brand Name Start Date Product Form Dose Route Admi nistrative Instructions Pharmacy Instructions Status Indications Reaction Description Data Source(s) 600 mg 06/09/2020 12:00:00 AM EST tablet 90 TAKE ONE TABLET BY MOUTH THREE TIMES A DAY TAKE ONE TABLET BY MOUTH THREE TIMES A DAY SOLD: 06/09/2020 [facility] 5 mg 06/03/2020 12:00:00 AM EST tablet 7 TAKE ONE TABLET BY MOUTH EVERY DAY AT BEDTIME FOR AUGMENT MOOD TAKE ONE TABLET BY MOUTH EVERY DAY AT BE DTIME FOR AUGMENT MOOD SOLD: 06/03/2020 [facility] 500 mg 06/03/2020 12:00:00 AM EST tablet,delayed release (DR/EC) 14 TAKE ONE TABLET BY MOUTH TWICE A DAY FOR MOOD STABILIZATION TAKE ONE TABLET BY MOUTH TWICE A DAY FOR MOOD STABILIZATION SOLD: 06/03/2020 [facility] Rosuvastatin calcium 20 MG Oral Tablet rosuvastatin (C RESTOR) tablet 40 mg rosuvastatin (CRESTOR) tablet 40 mg 05/20/2020 09:00:00 AM EST 40 mg Oral active 40 mg, Oral, Daily Standard, First dose on Jennifer 05/20/20 at 0900, For 30 days [facility] Medication administered onsite Lisinopril 5 MG Oral Tablet lisinopril (PRINIVIL,ZESTR IL) tablet 5 mg lisinopril (PRINIVIL,ZESTRIL) tablet 5 mg 05/20/2020 09:00:00 AM EST 5 mg Or al active 5 mg, Oral, Daily S greyrd, First dose (after last modification) on [facility] 05/20/20 at 0900, For 29 doses
Check vital signs before administering
[facility] Medication administered onsite 10 mg 05/20/2020 12:00:00 AM EST tablet 15 TAKE ONE-HALF TABLET BY MOUTH EVERY DAY TAKE ONE-HALF TABLET BY MOUTH EVERY DAY SOLD: 05/20/2020 [facility] Rosuvastatin calcium 40 MG Oral Tablet ROSUVASTATIN CALCIUM 05/20/2020 12:00:00 AM EST tablet 30 TAKE ONE TABLET BY MOUTH LEV DAY TAKE ONE TABLET BY MOUTH EVERY DAY SOLD: 05/20/2020 [facility] 1 % 05/20/2020 12:00:00 AM EST drops,suspension 5 INSTILL 1 DROP IN THE LEFT EYE FOUR TIMES A DAY , START 3 DAYS BEFORE SURGERY INSTILL 1 DROP IN THE LEFT EYE FOUR TIMES A DAY , START 3 DAYS BEFORE SURGERY SOLD: 05/20/2020 [facility] 50 mg 05/20/2020 12:00:00 AM EST tablet extended release 24 hr 30 TAKE ONE TABLET BY MOUTH EVERY DAY TAKE ONE TABLET BY MOUTH EVERY DAY SOLD: 05/20/2020 [facility] Rosuvastatin calcium 40 MG Oral Tablet R osuvastatin Calcium 40 MG Oral Tablet (CRESTOR) Rosuvastatin Calcium 40 MG Oral Tablet (CRESTOR) 05/20 12:00:00 AM EST 40 mg Oral active Take 1 tablet by mouth daily [facility] 0.3 % 05/20/2020 12:00:00 AM EST drops 5 INSTILL 1 DROP IN THE LEFT EYE FOUR TIMES A DAY START 3 DAYS BEFORE SURGERY INSTILL 1 DROP IN THE LEFT EYE FOUR TIMES A DAY START 3 DAYS BEFORE SURGERY SOLD: 05/20/2020 [facility] 75 mg 05/20/2020 12:00:00 AM EST tablet 30 TAKE ONE TABLET BY MOUTH EVERY DAY TAKE ONE TABLET BY MOUTH EVERY DAY SOLD: 05/20/2020 [facility] 300 mg 05/20/2020 12:00:00 AM EST capsule 180 TAKE TWO CAPSULES BY MOUTH THREE TIMES A DAY TAKE TWO CAPSULES BY MOUTH THREE TIMES A DAY SOLD: 0 [facility] clopidogrel 75 MG Oral Tablet Clopidogrel Bisulfate 75 MG Oral Tablet (PLAVIX) Clopidogrel Bisulfate 75 MG Oral Tablet (PLAVIX) 05/20/2020 12:00:00 AM EST 75 mg Oral active Take 1 tablet by mouth d [facility] Lisinopril 10 MG Oral Tablet Lisinopril 10 MG Oral Tab let (ZESTRIL) Lisinopril 10 MG Oral Tablet (ZESTRIL) 05/20/2020 12:00:00 AM EST 5 mg Oral active Take 0.5 tablets by mouth daily [facility] pital prednisolone acetate 10 MG/ML Ophthalmic Suspension prednisoLONE Acetate 1 % Ophthalmic Suspension (PRED FORTE) prednisoLONE Acetate 1 % Ophthalmic Suspension (PRED FORTE) 05/20/2020 12:00:00 AM EST 1 [drp] Left Eye active Combined form of age-related cataract, l eft eyeTraumatic cataract of left eye, unspecified traumatic cataract type Place 1 drop into the left eye Four times daily Start 3 days before your surgery. 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, unspecif ied traumatic cataract type 24 HR metoprolol succinate 50 MG Extende d Release Oral Tablet Metoprolol Succinate ER 50 MG Oral Tablet Extended Release 24 Hour (TOPROL-XL) Metoprolol Succinate ER 50 MG Oral Tablet Extended Release 24 Hour (TOPROL-XL) 05/20/2020 12:00:00 AM EST 50 mg Oral active Take 1 t ablet by mouth daily [facility] gabapentin 300 MG Oral Capsule Gabapentin 300 MG Oral Capsule (NEURONTIN) Gabapentin 300 MG Oral Capsule (NEURONTIN) 05/20/2020 12:00:00 AM EST 600 mg Oral active Take 2 capsules by m outh Three times daily [facility] Ofloxacin 3 MG/ML Ophthalmic Solution Of loxacin 0.3 % Ophthalmic Solution (OCUFLOX) Ofloxacin 0.3 % Ophthalmic Solution (OCUFLOX) 05/20/20 20 12:00:00 AM EST 1 [drp] Left Eye active Combined f orm of age-related cataract, left eyeTraumatic cataract of left eye, unspecified traumatic cataract type Place 1 drop into the left eye Four times daily Start 3 days before your surgery. 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
Do not crush or chew
[facility] Medication administered onsite atorvastatin 40 MG Oral Tablet atorvastatin (LIPITOR) tablet 40 mg atorvastatin (LIPITOR) tablet 40 mg 05/19/2020 11:15:00 AM EST 40 mg Oral completed 40 mg, Oral, Once, Sun05/19/20 at 1115, For 1 dose [facility] Medication administered onsite metoprolol (LOPRESSOR) split tablet 12.5 mg 59808-454-87 05/19/2020 09:30:00 AM EST 12.5 mg Oral aborted 12.5 mg, Oral, 2 Times Daily, First dose on Sun05/19/20 at 0930, For 30 days [facility] Medication administered onsite atorvastatin 40 MG Oral Tablet atorvastatin (LIPITOR) tablet 40 mg atorvastatin (LIPITOR) tablet 40 mg 05/19/2020 09:00:00 AM EST 40 mg Oral aborted 40 mg, Oral, Daily Standard, First dose on Sun05/19/20 at 0900, For 30 days [facility] Medication administered onsite Aspirin 81 MG Delayed Release Oral Tablet aspirin EC E C tablet 81 mg aspirin EC EC tablet 81 mg 05/19/2020 09:00:00 AM EST 81 mg Oral ac tive 81 mg, Oral, Daily Standard, First dose on Sun05/19/20 at 0900, For 30 days [facility] Medication administered onsite pantoprazole 40 MG Delayed Release Oral Tablet pantoprazole (PROTONIX) EC tablet 40 mg pantoprazole (PROTONIX) EC tablet 40 mg 05/19/2020 09:00:[address] 40 mg Oral active 40 mg, Ora l, Daily Standard, First dose on Sun05/19/20 at 0900, For 30 days
Do not crush or chew
[facility] Medication administered onsite Lisinopril 10 MG Oral Tablet lisinopril (ZESTRIL) tabl et 10 mg lisinopril (ZESTRIL) tablet 10 mg 05/19/2020 09:00:00 AM EST 10 mg Oral aborted 10 mg, Oral, Daily Standard, First dose on Sun05/19/20 at 0900, For 30 days
Check vital signs before administering
[facility] Medication administered onsite clopidogrel 75 MG Oral Tablet clopidogrel (PLAVIX) tab let 75 mg clopidogrel (PLAVIX) tablet 75 mg 05/19/2020 09:00:00 AM EST 75 mg Oral active 75 mg, Oral, Daily Standard, First dose on Sun05/19/20 at 0900, For 30 days [facility] Medication administered onsite gabapentin 600 MG Oral Tablet gabapentin (NEURONTIN) t ablet 600 mg gabapentin (NEURONTIN) tablet 600 mg 05/18/2020 09:00:00 PM EST 600 mg Oral active 600 mg, Oral, Three Times Daily Standar d, First dose (after last modification) on Sun05/18/20 at 2100, For 30 days [facility] Medication administered onsite 60 ACTUAT Budesonide 0.08 MG/ACTUAT / fo rmoterol fumarate 0.0045 MG/ACTUAT Metered Dose Inhaler budesonide-formoterol (SYMBICORT) 80-4.5 MCG/ACT inhaler 2 puff budesonide-formoterol (SYMBICORT) 80-4.5 MCG/ACT inhal er 2 puff 05/18/2020 09:00:00 PM EST 2 {puff} Inhalation active 2 puff, Inhalation, 2 Times Daily, First dose on Sun05/18/20 at 2100, For 14 days
Shake well before using
[facility] Medication administered onsite potassium phosphate infusion 12 mmol/100 mL (central line) ( premix) 05/18/2020 04:12:14 PM EST 12 mmol Intravenous active [Order 1 Start] Name: potassium phosphate infusion 12 mmol/100 mL (central line) (premix) Signed Summary: 12 mmol, Intravenous, at 50 mL/hr, Every 2 hours PRN, for serum phosphate < 2.6 mg/dL, Starting Sun05/18/20 at 1612, For 7 days
* For patients with continuous ECG monitoring * DO NOT USE IF SERUM POTASSIUM > 4 mEq/L Potassium content: 17.6 mEq Serum phosphate 2 - 2.5: give 12 mmol q2h x1 Serum phosphate 1.9 and less: give 12 mmol q2h x 2 *For ICU Stay only, discontinue on transfer*Slower infusion rates (e.g. over 4 hours) are recommended in patients with renal impairment and/or less severe hyp ophosphatemia. Product contains 17.6 mEq of potassium.
For central line use only.
[Order 1 End] [Order 2 Start] Name: potassium phosphate infusion 6 mmol/100 mL (premix) Signed Summary: 6 mmol, Intravenous, at 50 mL/hr, Every 2 hours PRN, for serum phosphate < 2.6 mg/dL, Starting Sun05/18/20 at 1612, For 7 days
Serum phosphate 2 - 2.5: give 6 mmol q2h i9Ayvht phosphate 1.9 and less: give 6 mmol q2h x 4 *For ICU Stay only, discontinue on transfer*
[Order 2 End] [facility] Medication administered onsite calcium gluconate in NaCl 0.9 % infusion 2 g/50 mL 05/18/2020 04:12:14 PM EST 2 g Intravenous active 2 g, Intrave nous, Every 1 hour PRN, for ionized calcium < 1.13 mmol/L (4.51 mg/dL), Starting Sun05/18/20 at 1612, For 7 days
Ionized Calcium 1 - 1.12 mmol/L (4.01 - 4.5 mg/dL): give 2 g q1h x 1 Ionized Calcium less than 1 mmol/L (less than 4.01 mg/dL): give 2 g q1h x2 *For ICU Stay only, discontinue on transfer*
[facility] Medication administered onsite sodium phosphate infusion 12 mmol/100 mL (central line) (pre mix) 05/18/2020 04:12:14 PM EST 12 mmol Intravenous active 12 mmol, Intravenous, at 50 mL/hr, Every 2 hours PRN, for serum phosphate < 2.6 mg/dL, Starting Sun05/18/20 at 1612, For 7 days
* For patients with continuous ECG monitoring * Serum phosphate 2 - 2.5: give 12 mmol q2h x 1 Serum phosphate 1.9 and less: give 12 mmol q2h x 2 *For ICU Stay only, discontinue on transfer*Slower infusion rates (e.g. over 4 to 6 hours) are recommended in patients with renal impairment and/or less severe hypophosphatemia.
For central line use only.
[facility] Medication administered onsite potassium chloride 20 mEq in 50 mL IVPB (premix) 05/18 04:12:14 PM EST 20 meq Intravenous active [Order 1 Start] Name: potassium chloride 20 mEq in 50 mL IVPB (premix) Signed Summary: 20 mEq, Intravenous, Every 1 hour PRN, for serum potassium < 4 mEq/L, Starting Sun05/18/20 at 1612, For 7 days
* For patients with continuous ECG monitoring * Serum Potassium 3.7 - 3.9: give 20 mEq q1h x 1 Serum Potassium 3.6 and less: give 20 mEq q1h x 2 *For ICU Stay only, discontinue on transfer*
[Order 1 End] [Order 2 Start] Name: potassium chloride 10 mEq in 100 mL IVPB (premix) Signed Summary: 10 mEq, Intravenous, Every 1 hour PRN, for serum potassium < 4 mEq/L, Starting Sun05/18/20 at 1612, For 7 days
Serum Potassium 3.7 - 3.9: give 10 mEq q1h x2 Serum Potassium 3.6 and less: give 10 mEq q1h x 4 *For ICU Stay only, discontinue on transfer*
[Order 2 End] [facility] Medication administered onsite 50 ML Magnesium Sulfate 40 MG/ML Injecti on magnesium sulfate infusion 2 g/50 mL (premix) magnesium sulfate infusion 2 g/50 mL (premix) 05/18/20 04:12:13 PM EST 16 meq Intravenous active 16 m Eq, Intravenous, Every 1 hour PRN, for serum magnesium < 2 mEq/L, Starting Sun05/18/20 at 1612, For 7 days
Serum Magnesium 1.6 - 1.9: give 16 mEq (2 g) q1h x 2 Serum Magnesium 1.5 and less: give 16 mEq (2 g) q1h x 3 *For ICU Stay only, discontinue on transfer*
[facility] Medication administered onsite albuterol (PROVENTIL HFA) inhaler 2 puff [id number] 05/18/2020 03:47:15 PM EST 2 {puff} Inhalation active 2 pu ff, Inhalation, Every 6 hours PRN, Wheezing, Starting Sun05/18/20 at 1547, For 4 days
Shake the inhaler well before each spray.
[facility] Medication administered onsite NaCl infusion 0.9 % [id number] 05/18/2020 02:30:00 PM EST Intravenous completed at 100 mL/hr, Intrav enous, Continuous, Starting Sun05/18/20 at 1430, For 6 hours [facility] Medication administered onsite nitroglycerin 100 mg in dextrose 5 % 250 mL infusion (400 mc g/mL) [id number] 05/18/2020 01:00:00 PM EST ug/min Intravenous aborted 10-200 mcg/min (1.5-30 mL/hr), Intravenous, at 1.5-30 mL/hr, Continuous, Starting Sun05/18/20 at 1300, For 30 days
Starting dose = 10 mcg/minTitrate to maintain SBP of 120Increase by 5-10 mcg/minMax Dose = 200 mcg/min Titrate down if SBP <140
[facility] Medication administered onsite 600 mg 05/14/2020 12:00:00 AM EST tablet 90 TAKE ONE TABLET BY MOUTH THREE TIMES A DAY NEEDED TAKE ONE TABLET BY MOUTH THREE TIMES A DAY NEEDED S OLD: 05/14/2020 [facility] atorvastatin 40 MG Oral Tablet Atorvastatin Calcium 40 MG Atorvastatin Calcium 40 MG 04/26/2020 12:00:00 AM EST 1.0 {tablet} activ e Atorvastatin Calcium 40 MG eCW1 ([facility]) atorvastatin 40 MG Oral Tablet ATORVASTATIN CALCIUM 04/26/2020 1 2:00:00 AM EST tablet 30 TAKE ONE TABLET BY MOUTH EVERY D AY TAKE ONE TABLET BY MOUTH EVERY DAY SOLD: 04/30/2020 [facility] atorvastatin 40 MG Oral Tablet Atorvastatin Calcium 40 MG Oral Tablet (LIPITOR) Atorvastatin Calcium 40 MG Oral Tablet (LIPITOR) 04/26/2020 12:00:00 AM EST 40 mg Oral aborted Take 40 mg by mouth [facility] atorvastatin 40 MG Oral Tablet Atorvastatin Calcium 40 MG Atorvastatin Calcium 40 MG 04/26/2020 12:00:00 AM EST 1.0 {tablet} activ e Atorvastatin Calcium 40 MG eCW1 ([facility]) atorvastatin 40 MG Oral Tablet Atorvastatin Calcium 40 MG Atorvastatin Calcium 40 MG 04/26/2020 12:00:00 AM EST 1.0 {tablet} activ e Atorvastatin Calcium 40 MG eCW1 ([facility]) 600 mg 04/21/2020 12:00:00 AM EST tablet 30 TAKE ONE TABLET BY MOUTH EVERY DAY TAKE ONE TABLET BY MOUTH EVERY DAY SOLD: 04/25/2020 [facility] Lisinopril 10 MG Oral Tablet Lisinopril 10 MG Oral Tab let (ZESTRIL) Lisinopril 10 MG Oral Tablet (ZESTRIL) 04/21/2020 12:00:00 AM EST 10 mg Oral aborted Take 10 mg by mouth daily [facility] Lisinopril 10 MG Oral Tablet Lisinopril 10 MG 04/21/2020 12:00:[address] active Lisinopril 10 MG eCW1 ([facility]) 10 mg 04/21/2020 12:00:00 AM EST tablet 30 TAKE ONE TABLET BY MOUTH EVERY DAY TAKE ONE TABLET BY MOUTH EVERY DAY SOLD: 04/25/2020 [facility] Lisinopril 10 MG Oral Tablet Lisinopril 10 MG 04/21/2020 12:00:00 A M EST 1.0 {tablet} active Lisinopril 10 MG eCW1 ( [facility]) Lisinopril 10 MG Oral Tablet Lisinopril 10 MG 04/21/2020 12:00:[address] active Lisinopril 10 MG eCW1 ([facility]) Lisinopril 10 MG Oral Tablet Lisinopril 10 MG 04/21/2020 12:00:00 A M EST 1.0 {tablet} active Lisinopril 10 MG eCW1 ( [facility]) Lisinopril 10 MG Oral Tablet Lisinopril 10 MG 04/21/2020 12:00:00 A M EST 1.0 {tablet} active Lisinopril 10 MG eCW1 ( [facility]) gabapentin 600 MG Oral Tablet Gabapentin 600 MG Gabapentin 6 00 MG 04/21/2020 12:00:00 AM EST 1.0 {capsule} active G abapentin 600 MG eCW1 ([facility]) Cyclopentolate hydrochloride 10 MG/ML Op hthalmic Solution cyclopentolate (CYCLODRYL) 1 % ophthalmic solution 1 drop cyclopentolate (CYCLODRYL) 1 % ophthalmic solution 1 drop 04/19/2020 03:30:00 PM EST 1 [drp] Left E ye completed Combined form of age-related cataract, l eft eyeTraumatic cataract of left eye, unspecified traumatic cataract type 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, unspecif ied traumatic cataract type Phenylephrine Hydrochloride 25 MG/ML Oph thalmic Solution phenylephrine (MYDFRIN) 2.5 % ophthalmic solution 1 drop phenylephrine (MYDFRIN) 2.5 % ophthalmic solution 1 drop 04/19/2020 03:30:00 PM EST 1 [drp] Left Eye completed Combined form of age-related cataract, left eyeTraumatic cataract of left eye, unspecified traumatic cataract type [facility] Combined form of age-related cataract, 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, unspecif ied traumatic cataract type Proparacaine hydrochloride 5 MG/ML Ophth almic Solution proparacaine (ALCAINE) 0.5 % ophthalmic solution 1 drop proparacaine (ALCAINE) 0.5 % ophthalmic solution 1 drop 04/19/2020 02:00:00 PM EST 1 [drp] Both Eyes completed 1 drop, Both Eyes, Once, Sun04/19/20 at 1400, [facility] Phenylephrine Hydrochloride 25 MG/ML Oph thalmic Solution phenylephrine (MYDFRIN) 2.5 % ophthalmic solution 1 drop phenylephrine (MYDFRIN) 2.5 % ophthalmic solution 1 drop 04/19/2020 02:00:00 PM EST 1 [drp] Both Eyes completed 1 drop, Both Eyes, Once, Sun04/19/20 at 1400, [facility] Tropicamide 10 MG/ML Ophthalmic Solution tropicamide (MYDRIACYL) 1 % ophthalmic solution 1 drop tropicamide (MYDRIACYL) 1 % ophthalmic solution 1 drop 04/19/2020 02:00:00 PM EST 1 [drp] Both Eyes completed 1 drop, Both Eyes, Once, 04/19/20 at 1400, For 1 dose [facility] Medication administered onsite Ofloxacin 3 MG/ML Ophthalmic Solution Of loxacin 0.3 % Ophthalmic Solution (OCUFLOX) Ofloxacin 0.3 % Ophthalmic Solution (OCUFLOX) 04/19/20 20 12:00:00 AM EST 1 [drp] Left Eye aborted Combined f orm of age-related cataract, left eyeTraumatic cataract of left eye, unspecified traumatic cataract type Place 1 drop into the left eye Four times daily Start 3 days before your surgery. 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, unspecif ied traumatic cataract type prednisolone acetate 10 MG/ML Ophthalmic Suspension prednisoLONE Acetate 1 % Ophthalmic Suspension (PRED FORTE) prednisoLONE Acetate 1 % Ophthalmic Suspension (PRED FORTE) 04/19/2020 12:00:00 AM EST 1 [drp] Left Eye aborted Combined form of age-related cataract, l eft eyeTraumatic cataract of left eye, unspecified traumatic cataract type Place 1 drop into the left eye Four times daily Start 3 days before your surgery. 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, unspecif ied traumatic cataract type 1 % 04/19/2020 12:00:00 AM EST drops,suspension 5 INSTILL ONE DROP IN THE LEFT EYE FOUR TIMES A DAY START 3 DAYS BEFORE SURGERY INSTILL ONE DROP IN THE LEFT EYE FOUR TIMES A DAY START 3 DAYS BEFORE SURGERY SOLD: 04/25/2020 [facility] 0.3 % 04/19/2020 12:00:00 AM EST drops 5 PLACE 1 DROP IN THE LEFT EYE FOUR TIMES A DAY START [address] 1 DROP IN THE LEFT EYE FOUR TIMES A DAY START 3 DAYS BEFORE SURGERY SOLD: 04/25/2020 [facility] 20 mg 04/10/2020 12:00:00 AM EST tablet 4 TAKE TWO TABLETS BY MOUTH EVERY DAY FOR 2 DAYS TAKE TWO TABLETS BY MOUTH EVERY DAY FOR 2 DAYS SOLD: 020 [facility] Fluticasone-Salmeterol 55-14 MCG/ACT Inhalation Aeroso l Powder Breath Activated [id number] 04/10/2020 12:00:00 AM EST 1 {puff} Inhalation active Inhale 1 puff into the lungs daily [facility] 55-14 mcg/actuation 04/10/2020 12:00:00 AM EST aerosol powdr breath activated 1 INHALE ONE PUFF BY MOUTH EVERY DAY INHALE ONE PU FF BY MOUTH EVERY DAY SOLD: 04/13/2020 [facility] Albuterol Sulfate HFA 108 (90 Base) MCG/ ACT Inhalation Aerosol Solution (PROVENTIL HFA) 7227-1918-47 04/09/2020 12:00:00 AM EST 2 {puff} Inha lation active Inhale 2 puffs i nto the lungs every 6 (six) hours as needed for Wheezing [facility] Prednisone 20 MG Oral Tablet predniSONE 20 MG Oral Tab let (DELTASONE) predniSONE 20 MG Oral Tablet (DELTASONE) 04/09/2020 12:00:00 AM EST 40 mg Or al active Take 2 tablets by mouth daily f or 2 days [facility] 60 ACTUAT Budesonide 0.08 MG/ACTUAT / fo rmoterol fumarate 0.0045 MG/ACTUAT Metered Dose Inhaler Budesonide-Formoterol Fumarate 80-4.5 MCG/ACT Inhalation Aerosol (SYMBICORT) Budesonide-Formoterol Fumarate 80-4.5 MC G/ACT Inhalation Aerosol (SYMBICORT) 04/09/2020 12:00:00 AM EST 2 {puff} Inhalation active Inhale 2 puffs into the lungs Two Times Daily [facility] 300 mg 04/09/2020 12:00:00 AM EST capsule 60 TAKE ONE CAPSULE BY MOUTH TWICE A DAY TAKE ONE CAPSULE BY MOUTH TWICE A DAY SOLD: 04/10/2020 [facility] 90 mcg/actuation 04/09/2020 12:00:00 AM EST HFA aerosol inha ler 8 INHALE TWO PUFFS BY MOUTH EVERY 6 HOURS NEEDED FOR WHEEZING INHALE TWO PUFFS BY MOUTH EVERY 6 HOURS NEEDED FOR WHEEZING SOLD: 04/10/2020 [facility] Acetaminophen 325 MG Oral Tablet Acetaminophen 325 MG Oral T ablet 04/09/2020 12:00:00 AM EST 650 mg Oral active Take 2 tablets by mouth every 4 (four) hours as needed for up to 10 days [facility] gabapentin 300 MG Oral Capsule Gabapentin 300 MG Oral Capsule (NEURONTIN) Gabapentin 300 MG Oral Capsule (NEURONTIN) 04/09/2020 12:00:00 AM EST 300 mg Oral aborted Take 1 capsule by [facility] Two Times Daily [facility] 60 ACTUAT Budesonide 0.08 MG/ACTUAT / fo rmoterol fumarate 0.0045 MG/ACTUAT Metered Dose Inhaler budesonide-formoterol (SYMBICORT) 80-4.5 MCG/ACT inhaler 2 puff budesonide-formoterol (SYMBICORT) 80-4.5 MCG/ACT inhal er 2 puff 04/08/2020 10:45:00 AM EST 2 {puff} Inhalation active 2 puff, Inhalation, 2 Times Daily, First dose on Sun04/08/20 at 1045, For 14 days
Shake well before using
[facility] Medication administered onsite albuterol (PROVENTIL HFA) inhaler 2 puff [id number] 04/08/2020 10:37:48 AM EST 2 {puff} Inhalation active 2 pu ff, Inhalation, Every 6 hours PRN, Wheezing, Starting Sun04/08/20 at 1037, For 4 days
Shake the inhaler well before each spray.
[facility] Medication administered onsite Prednisone 20 MG Oral Tablet predniSONE (DELTASONE) ta blet 40 mg predniSONE (DELTASONE) tablet 40 mg 04/08/2020 09:00:00 AM EST 40 mg Oral active 40 mg, Oral, Daily Standard, First dose on Sun04/08/20 at 0900, For 5 days
Take with food.
[facility] Medication administered onsite Oxycodone Hydrochloride 5 MG Oral Tablet oxyCODONE (ROXICODONE) immediate release tablet 2.5 mg oxyCODONE (ROXICODONE) immediate release tablet 2.5 mg 04/07/2020 04:21:17 PM EST 2.5 mg Oral active 2.5 mg, Oral, Every 4 hours PRN, Moderate Pain (Pain Scale Score 4-6), Starting [facility] 04/07/20 at 1621, For 3 days
Oxycodone immediate release is limited to 10 mg per dose. Higher doses ( only) require Pain Service consultation and approval.
[facility] Medication administered onsite Acetaminophen 325 MG / Hydrocodone [place] trate 5 MG Oral Tablet HYDROcodone- acetaminophen (LORTAB) 5-325 MG per tablet 1 tablet HYDROcodone-acetaminophen (LORTAB) 5-325 MG per tablet 1 tablet 04/07/2020 01:45:00 PM EST 1 {tbl} Oral completed 1 tablet, Oral, Once, Sun04/07/20 at 1345, For 1 dose
Maximum daily dose of acetaminophen is 3,000 mg from all sources in 24 hours.
[facility] Medication administered onsite influenza vac split quad (FLUARIX) injection 6 months and ol renetta 0.5 mL [id number] 04/07/2020 01:30:00 PM EST 0.5 mL Intramuscular complet ed 0.5 mL, Intramuscular, Once, Sun04/07/20 at 1330, For 1 dose [facility] Medication administered onsite Albuterol 0.833 MG/ML / Ipratropium Brom dewayne 0.167 MG/ML Inhalant Solution ipratropium-albuterol (DUONEB) 0.5-2.5 (3) MG/3ML nebulizer solution 3 mL ipratropium-albuterol (DUONEB) 0.5-2.5 (3) MG/3ML nebulizer solution 3 mL 04/07/2020 09:15:00 AM EST 3 mL Nebulization aborted 3 mL, Nebulization, Every 8 hours, First dose on Sun04/07/20 at 0915, For 4 days
For Adults Q8 Hours is Hospital Standard, all orders will be changed to this unless ISAEL is selected 'Yes' below.
[facility] Medication administered onsite methylPREDNISolone sodium succinate (SOLU-MEDROL) injection 60 mg [id number] 04/07/2020 09:15:00 AM EST 60 mg Intravenous completed 60 mg, Intravenous, Once, Sun04/07/20 at 0915, For 1 dose [facility] Medication administered onsite Azithromycin 250 MG Oral Tablet azithromycin (ZITHROMA X) tablet 500 mg azithromycin (ZITHROMAX) tablet 500 mg 04/07/2020 09:15:00 AM EST 5 00 mg Oral aborted 500 mg, Oral, D aily Standard, First dose on Sun04/07/20 at 0915, For 5 days [facility] Medication administered onsite Folic Acid 1 MG Oral Tablet folic acid (FOLVITE) table t 1 mg folic acid (FOLVITE) tablet 1 mg 04/07/2020 09:15:00 AM EST 1 mg Oral active 1 mg, Oral, Daily Standard, First dose on Sun04/07/20 at 0915, For 30 days [facility] Medication administered onsite Thiamine 100 MG Oral Tablet thiamine (B-1) tablet 100 mg thiamine (B-1) tablet 100 mg 04/07/2020 09:15:00 AM EST 100 mg Oral active 100 mg, Oral, Daily Standard, First dose on Sun04/07/20 at 0915, For 30 days [facility] Medication administered onsite multivitamin tablet 1 tablet [id number] 04/07/2020 09:15:00 AM EST 1 {tbl} Oral active 1 tablet, Oral , Daily Standard, First dose on Sun04/07/20 at 0915, For 30 days [facility] Medication administered onsite lisinopril (ZESTRIL) tablet 12.5 mg 04/07/2020 09:00:[address] 12.5 mg Oral aborted 12.5 mg, Oral, Daily Standard, First dose on Sun04/07/20 at 0900, For 30 days [facility] Medication administered onsite 0.4 ML Enoxaparin sodium 100 MG/ML Prefi lled Syringe enoxaparin sodium (LOVENOX) injection 40 mg enoxaparin sodium (LOVENOX) injection 40 mg 04/07/2020 09:00:00 AM EST 40 mg Subcutaneous active 40 mg, Subcutaneous, Daily Standard, First dose on Sun04/07/20 at 0900, For 30 days [facility] Medication administered onsite Acetaminophen 325 MG Oral Tablet acetaminophen (TYLENO L) tablet 650 mg acetaminophen (TYLENOL) tablet 650 mg 04/07/2020 06:57:21 AM EST 65 0 mg Oral active 650 mg, Oral, E very 4 hours PRN, Mild Pain (Pain Scale Score 1- 3), Starting Sun04/07/20 at 0657, For 30 days
Maximum daily dose of acetaminophen is 3,000 mg from all sources in 24 hours.
[facility] Medication administered onsite morphine sulfate (PF) injection 4 mg [id number] 04/07/2020 03:00: 00 AM EST 4 mg Intravenous completed 4 mg, In travenous, Once, Sun04/07/20 at 0300, For 1 dose [facility] Medication administered onsite iohexol (OMNIPAQUE) 300 MG/ML contrast injection 100 mL 1775 0604/07/2020 02:00:00 AM EST 100 mL Given by IV completed 100 mL, Given by IV, 1 TIME IMAGING, Sun04/07/20 at 0200, For 1 dose [facility] Medication administered onsite Lisinopril 10 MG Oral Tablet Lisinopril 10 MG Oral Tab let (ZESTRIL) Lisinopril 10 MG Oral Tablet (ZESTRIL) 10 mg Oral aborted Take 10 mg by mouth daily [facility] Insurance Providers Payer name Policy type / Coverage type Policy ID Covered alliance party ID Covered alliance party's relationship to arauz Policy Arauz Plan Information [facility] COMMUNITY PLAN [facility] [id number] SP [id number] [facility] O [id number] S [id number] [facility] I [id number] Self [id number] [facility] [id number] SP [id number] [place] E [id number] Self [id number] [facility] I [id number] Self [id number] MEDICAID M [id number] Self [id number] [facility] COMMUNITY PLAN [facility] [id number] SP [id number] RADHA [id number] SP [id number] SELF PAY ONLY [id number] SP [id number] [facility] COMMUNITY PLAN [facility] [id number] SP [id number] [facility] [id number] SP [id number] [facility] O [id number] S [id number] MEDICAID [id number] SP [id number] [employer] [employer] [id number] UNK2 [id number] [facility] [id number] SP [id number] [employer] [id number] [id number] [employer] O [id number] S [id number] [employer] FA[employer] [id number] MEDICAID [id number] SP [id number] [facility] [id number] SP [id number] [employer] Self [facility]ITY [facility] [id number] SP [id number] [employer] O [id number] S [id number] [employer] [id number] [facility] [id number] SP [id number] MEDICAID M [id number] S [id number] [employer] O [id number] S [id number] [employer] O [id number] S [id number] SELF PAY ONLY UNAVAILABLE UNAV AILABLE SELF PAY UNAVAILABLE SP UNAVAILA BLE [facility] [id number] SP [id number] [facility] PLUS [id number] SP [id number] [employer] COMMUNITY PL[facility] [id number] SP [id number] [facility] COMMUN[facility] [id number] SP [id number] [facility] MEDICAID 2 [id number] 1 [id number] SELF PAY 2 UNAVAILABLE 1 UNA[place]ILA BLE [place] 3 [id number] [employer] AMERICHOICE XIX HMO [id number] MEDICAID - CLINIC [id number] [facility] COMMUNITY PLAN [id number] Patient is Insured [id number] Problems, Conditions, and Diagnoses Code Display Name Description Problem Type Effective Dates Data Source(s) I25.10 [id number] Coronary artery dise ase involving [place] coronary artery of [place] heart without angina pectoris Problem 06/03/2020 12:00:00 AM EST eCW1 ([facility]) F31.9 Bipolar 1 disorder Bipolar 1 disorder Problem 12:00:00 AM EST eCW1 ([facility]) M47.816 [id number] Lumbar spondylosis Problem 06/03/2020 12:00: 00 AM EST eCW1 ([facility]) F17.200 [id number] Nicotine use disorder Problem 04/21/2020 12: 00:00 AM EST eCW1 ([facility]) E78.5 Hyperlipidemia Hyperlipidemia Problem 04/21/2020 12:00: 00 AM EST eCW1 ([facility]) J44.9 [id number] Chronic obstructive pulmonary di sease, unspecified COPD type Problem 04/21/2020 12:00:00 AM EST eCW1 ([facility]) I10 [id number] Essential (primary) hypertension Problem 04/21/2020 12:00:00 AM EST [facility] ([facility]) G89.29 [id number] Other chronic pain Problem 04/21/2020 12:00: 00 AM EST [facility] ([facility]) E78.2 Mixed hyperlipidemia Mixed hyperlipidemia Diagnosis 06/07/2020 03:01:38 PM 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 R09.02 Hypoxemia Hypoxemia Diagnosis 04/07/2020 06:55:42 AM [facility] W19.XXXA Unspecified fall, initial encounter Unsp ecified fall, initial encounter Diagnosis 04/07/2020 05:33:44 AM [facility] W10.9XXA Fall (on) (from) unspecified stairs and steps, initial encounter Fall (on) (from) unspecified stairs and steps, initial encounter Diagnosis 04/07/2020 01:39:00 AM [facility] J44.9 Chronic obstructive pulmonary disease, u nspecified Chronic obstructive pulmonary disease, unspecified Diagnosis 04/07/2020 01:39:00 AM [facility] M54.5 Low back pain Low back pain Diagnosis 04/07/2020 01:39:00 AM [facility] M54.6 Pain in thoracic spine Pain in thoracic spine Diagnosi s 04/07/2020 01:39:00 AM [facility] F10.129 Alcohol abuse with intoxication, unspeci fied Alcohol abuse with intoxication, unspecified Diagnosis 04/07/2020 01:39:00 AM [facility] M79.605 Pain in left leg Pain in left leg Diagnosis 04/07/2020 01 :39:00 AM [facility] M54.2 Cervicalgia Cervicalgia Diagnosis 04/07/2020 01:39:00 AM [facility] S00.81XA Abrasion of other part of head, initial encounter Abrasion of other part of head, initial encounter Diagnosis 04/07/2020 01:39:00 AM [facility] Z20.828 Contact with and (suspected) exposure to other viral communicable diseases Contact with and (suspected) exposure to other viral communicable diseases Diagnosis 04/07/2020 01:39:00 AM [facility] J44.1 Chronic obstructive pulmonary disease wi th (acute) exacerbation Chronic obstructive pulmonary disease with (acute) exacerbation Diagnosis 04/07/2020 01:39:00 AM [facility] fall fall Diagnosis 04/07/2020 01:39:00 AM [facility] Surgeries/Procedures Procedure Description Date Indications Data Source(s) ECG ROUTINE ECG W/LEAST 12 LDS W/I&R 06/03/2020 12:00: 00 AM [facility] eCW1 ([facility]) EKG 12-LEAD - CMAXX REPORT EKG 12-LEAD - CMAXX REPORT 05/20/2020 7:57 AM EST 05/20/2020 07:57:52 AM [facility] EKG 12-LEAD - CMAXX REPORT EKG 12-LEAD - CMAXX REPORT 05/20/2020 7:57 AM EST 05/20/2020 07:57:52 AM [facility] EKG 12-LEAD EKG 12-LEAD Routine 05/20/2020 7:57 AM EST 05/20/2020 07:57:52 AM [facility] TROPONIN QUANTITATIVE TROPONIN T Timed 05/20/2020 5:28 AM EST 05/20/2020 05:28:00 AM [facility] BLOOD COUNT COMPLETE AUTOMATED CBC Routine 05/20/2020 1:01 A M EST 05/20/2020 01:01:00 AM [facility] TROPONIN QUANTITATIVE TROPONIN T Timed 05/20/2020 1:01 AM EST 05/20/2020 01:01:00 AM [facility] COMPREHENSIVE METABOLIC PANEL COMPREHENSIVE METABOLIC PANEL Rou carmencita 05/20/2020 1:01 AM EST 05/20/2020 01:01:00 AM [facility] TROPONIN QUANTITATIVE TROPONIN T Routine 05/19/2020 6:54 PM EST 05/19/2020 06:54:00 PM [facility] TROPONIN QUANTITATIVE TROPONIN T Timed 05/19/2020 1:29 PM EST 05/19/2020 01:29:00 PM [facility] BLOOD COUNT COMPLETE AUTOMATED CBC Routine 05/19/2020 4:54 A M EST 05/19/2020 04:54:00 AM [facility] TROPONIN QUANTITATIVE TROPONIN T Timed 05/19/2020 4:54 AM EST 05/19/2020 04:54:00 AM [facility] COMPREHENSIVE METABOLIC PANEL COMPREHENSIVE METABOLIC PANEL Rou carmencita 05/19/2020 4:54 AM EST 05/19/2020 04:54:00 AM [facility] EKG 12-LEAD - CMAXX REPORT EKG 12-LEAD - CMAXX REPORT 05/19/2020 4:50 AM EST 05/19/2020 04:50:07 AM [facility] EKG 12-LEAD - CMAXX REPORT EKG 12-LEAD - CMAXX REPORT 05/19/2020 4:50 AM EST 05/19/2020 04:50:07 AM [facility] EKG 12-LEAD EKG 12-LEAD Routine 05/19/2020 4:50 AM EST 05/19/2020 04:50:07 AM [facility] COVID-19 PCR COVID-19 PCR Routine 05/18/2020 8:39 PM EST 05/18/2020 08:39:00 PM [facility] TROPONIN QUANTITATIVE TROPONIN T Timed 05/18/2020 8:39 PM EST 05/18/2020 08:39:00 PM [facility] TRAFFIC ROUTING ENGINEER PROCEDURE TRAFFIC ROUTING ENGINEER PROCEDURE Routine 05/18/2020 4:[address] 05/18/2020 04:45:28 PM [facility] COAGULATION TIME ACTIVATED POCT ISTAT ACT Routine 05/18/2020 4:38 PM EST 05/18/2020 04:38:00 PM [facility] CORONARY ARTERY ANGIO S&I <td><content ID="[email or web address]">CORONARY ARTERY ANGIO S&I</content></td><td></td><td>05/18/2020 3:32 PM EST</td><td><paragraph>NSTEMI</paragraph></td><td></td> 05/18/2020 03:32:00 PM EST - 05/18/2020 04:55:[address] [facility] spital PRQ TRLUML CORONARY STENT W/ANGIO ADDL ART/BRNCH [[id number]] PRQ TRLUML CORONARY STENT W/ANGIO ADDL ART/BRNCH [[id number]] 05/18/2020 3:32 PM EST NSTEMI 05/18/2020 03:32:00 PM [facility] - 05/18/2020 04:55:00 PM [facility] PRQ TRLUML CORONARY STENT W/ANGIO ONE ART/BRNCH [[id number] ] PRQ TRLUML CORONARY STENT W/ANGIO ONE ART/BRNCH [[id number]] 05/18/2020 3:32 PM EST NSTEMI 05/18/2020 03:32:00 PM [facility] - 05/18/2020 04:55:00 PM [facility] CARDIAC CATH PROCEDURE LOG CARDIAC CATH PROCEDURE LOG 05/18/2020 3:08 PM EST 05/18/2020 03:08:38 PM [facility] ECHO TTHRC R-T 2D W/WOM-MODE COMPL SPEC&COLR DOP ECHOCARDIO GRAM 2D COMPLETE Routine 05/18/2020 2:11 PM EST 05/18/2020 02:11:31 PM [facility] EKG ED PHYSICIAN INTERPRETATION EKG ED PHYSICIAN INTERPRETATION Routine 05/18/2020 1:17 PM EST 05/18/2020 01:17:10 PM [facility] HEPARIN ASSAY ANTI-XA UNFRACTIONATED HEPARIN LEVEL Routine 05/18/2020 1:10 PM EST 05/18/2020 01:10:00 PM [facility] PROTHROMBIN TIME PROTIME INR Routine 05/18/2020 1:10 PM EST 05/18/2020 01:10:00 PM [facility] BLOOD COUNT COMPLETE AUTOMATED CBC Timed 05/18/2020 1:10 P M EST 05/18/2020 01:10:00 PM [facility] TROPONIN QUANTITATIVE TROPONIN T STAT 05/18/2020 1:10 PM EST 05/18/2020 01:10:00 PM [facility] THYROID STIMULATING HORMONE TSH TSH Routine 05/18/2020 1:10 PM EST 05/18/2020 01:10:00 PM [facility] HEMOGLOBIN GLYCOSYLATED A1C HEMOGLOBIN A1C Routine 05/18/2020 1:10 PM EST 05/18/2020 01:10:00 PM [facility] LIPID PANEL LIPID PANEL Routine 05/18/2020 1:10 PM EST 05/18/2020 01:10:00 PM [facility] BASIC METABOLIC PANEL CALCIUM TOTAL BASIC METABOLIC PANEL Routi ne 05/18/2020 1:10 PM EST 05/18/2020 01:10:00 PM [facility] EKG 12 LEAD (UNSOLICITED COMPUTER ORDER) EKG 12 LEAD (UNSOLICITED COMPUTER ORDER) Routine 05/18/2020 11:36 AM EST 05/18/2020 11:36 :43 AM [facility] EKG 12-LEAD - CMAXX REPORT EKG 12-LEAD - CMAXX REPORT 05/18/2020 11:36 AM EST 05/18/2020 11:36:43 AM [facility] EKG 12-LEAD - CMAXX REPORT EKG 12-LEAD - CMAXX REPORT 05/18/2020 11:36 AM EST 05/18/2020 11:36:43 AM [facility] EKG 12-LEAD EKG 12-LEAD STAT 05/18/2020 11:36 AM EST 05/18/2020 11:36:43 AM 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 BLOOD COUNT COMPLETE AUTOMATED CBC Routine 04/08/2020 11:15 A M EST 04/08/2020 11:15:00 AM [facility] PHOSPHORUS INORGANIC PHOSPHORUS LEVEL Routine 04/08/2020 11:[address] 04/08/2020 11:15:00 AM [facility] MAGNESIUM MAGNESIUM LEVEL Routine 04/08/2020 11:15 AM EST 04/08/2020 11:15:00 AM [facility] BASIC METABOLIC PANEL CALCIUM TOTAL BASIC METABOLIC PANEL Routi ne 04/08/2020 11:15 AM EST 04/08/2020 11:15:00 AM [facility] INPATIENT HOME O2 EVALUATION FOR DISCHARGE INPATIENT HOME O2 EVALUATION FOR DISCHARGE Routine 04/07/2020 8:00 PM EST 04/07/2020 08:00 :16 PM [facility] BLOOD GASES ANY COMBINATION PH PCO2 PO2 CO2 HCO3 BLOOD GAS, ART ERIAL STAT 04/07/2020 2:42 PM EST 04/07/2020 02:42:00 PM [facility] EKG 12-LEAD - CMAXX REPORT EKG 12-LEAD - CMAXX REPORT 04/07/2020 9:04 AM EST 04/07/2020 09:04:53 AM [facility] EKG 12-LEAD - CMAXX REPORT EKG 12-LEAD - CMAXX REPORT 04/07/2020 9:04 AM EST 04/07/2020 09:04:53 AM [facility] EKG 12-LEAD EKG 12-LEAD STAT 04/07/2020 9:04 AM EST 04/07/2020 09:04:53 AM [facility] BLOOD GASES ANY COMBINATION PH PCO2 PO2 CO2 HCO3 BLOOD GAS, ART ERIAL Routine 04/07/2020 7:07 AM EST 04/07/2020 07:07:00 AM [facility] RESPIRATORY PATHOGEN PANEL RESPIRATORY PATHOGEN PANEL Routine 04/07/2020 5:46 AM EST 04/07/2020 05:46:00 AM [facility] COVID-19 PCR COVID-19 PCR Routine 04/07/2020 5:46 AM EST 04/07/2020 05:46:00 AM [facility] XR FEMUR, MINIMUM OF 2 VIEWS [id number] XR FEMUR, MINIMUM OF 2 VIEW S [id number] STAT 04/07/2020 4:21 AM EST 04/07/2020 04:21:13 AM [facility] XR HIP- UNILAT, 2-3 VIEWS 07967 XR HIP- UNILAT, 2-3 VIEWS 735 02 STAT 04/07/2020 4:21 AM EST 04/07/2020 04:21:13 AM [facility] DRUGS OF ABUSE, URINE DRUGS OF ABUSE, URINE CODE 04/07/2020 3:5 1 AM EST 04/07/2020 03:51:00 AM [facility] URNLS DIP STICK/TABLET REAGENT AUTO MICROSCOPY URINALYSIS W ITH MICROSCOPIC CODE 04/07/2020 3:51 AM EST 04/07/2020 03:51:00 AM [facility] CT THORAX W/CONTRAST MATERIAL CT THORAX WITH CONTRAST 41756 COD E 04/07/2020 2:15 AM EST 04/07/2020 02:15:00 AM [facility] CT MAXILLOFACIAL W/O CONTRAST MATERIAL CT MAXILLOFACIAL WIT HOUT CONTRAST 35516 CODE 04/07/2020 2:15 AM EST 04/07/2020 02:15:00 AM [facility] CT ABDOEN & PELVIS W/CONTRAST MATERIAL CT ABDOMEN PELVIS WI TH CONTRAST 75921 CODE 04/07/2020 2:15 AM EST 04/07/2020 02:15:00 AM [facility] CT LUMBAR SPINE W/O CONTRAST MATERIAL CT LUMBAR [place]O [place] CONTRAST 16501 STAT 04/07/2020 2:15 AM EST 04/07/2020 02:15:00 AM [facility] CT THORACIC SPINE W/O CONTRAST MATERIAL CT THORACIC S PINE WITHOUT CONTRAST 46220 CODE 04/07/2020 2:15 AM EST 04/07/2020 02:15 :00 AM [facility] CT CERVICAL SPINE W/O CONTRAST MATERIAL CT CERVICAL S PINE WITHOUT CONTRAST 10935 CODE 04/07/2020 2:05 AM EST 04/07/2020 02:05 :00 AM [facility] CT HEAD/BRAIN W/O CONTRAST MATERIAL CT HEAD WITHOUT CONTRAST 70 450 CODE 04/07/2020 2:05 AM EST 04/07/2020 02:05:00 AM [facility] XR CHEST FRONTAL ONLY 46328 XR CHEST FRONTAL ONLY 87955 CODE 04/07/2020 1:55 AM EST 04/07/2020 01:55:08 AM [facility] TROPONIN QUANTITATIVE POCT ISTAT TROPONIN Routine 04/07/2020 1:48 AM EST 04/07/2020 01:48:00 AM [facility] BASIC METABOLIC PANEL CALCIUM IONIZED POCT ISTAT CHEM8 Routine 04/07/2020 1:46 AM EST 04/07/2020 01:46:00 AM [facility] PROCALCITONIN (PCT) PROCALCITONIN Routine 04/07/2020 1:46 AM EST 04/07/2020 01:46:00 AM [facility] THROMBOPLASTIN TIME PARTIAL PLASMA/WHOLE BLOOD PARTIA L THROMBOPLASTIN TIME (PTT) CODE 04/07/2020 1:46 AM EST 04/07/2020 01:46 :00 AM [facility] ETHYL ALCOHOL LEVEL ETHYL ALCOHOL LEVEL CODE 04/07/2020 1:46 AM EST 04/07/2020 01:46:00 AM [facility] ANTIBODY ID RBC ANTIBODIES EA PANEL EA SERUM TQ ANTIBODY ID ENTIFICATION Routine 04/07/2020 1:46 AM EST 04/07/2020 01:46:00 AM [facility] PROTHROMBIN TIME PROTIME INR CODE 04/07/2020 1:46 AM EST 04/07/2020 01:46:00 AM [facility] BLOOD COUNT COMPLETE AUTOMATED CBC AND DIFFERENTIAL Routine 04/07/2020 1:46 AM EST 04/07/2020 01:46:00 AM [facility] BLOOD TYPING ABO TYPE AND SCREEN CODE 04/07/2020 1:46 AM EST 04/07/2020 01:46:00 AM [facility] LIPASE LIPASE LEVEL CODE 04/07/2020 1:46 AM EST 04/07/2020 01:46:00 AM [facility] COMPREHENSIVE METABOLIC PANEL COMPREHENSIVE METABOLIC PANEL COD E 04/07/2020 1:46 AM EST 04/07/2020 01:46:00 AM [facility] BLOOD GASES ANY COMBINATION PH PCO2 PO2 CO2 HCO3 POCT ISTAT VBG /LAC Routine 04/07/2020 1:45 AM EST 04/07/2020 01:45:00 AM [facility] Results ID Date Data Source [id number] 06/07/2020 05:23:49 PM [facility] Name Value Range Interpretation Code Description Data Linda rce(s) Supporting Document(s) Progress Note [facility] DMZVFg1mOpTWMqUt02/INGtpQOAvi0WiGVkaJBe6PCyvEZLzA5BaOGM8dE8gCMD8HBeOTuLfXeTgLNYw lbm [file] ICAgICAgICAgICAgICAgICAgICAgICAgICAgICAgICAgICAgICAgICAgICAgICAgICAgICAgICAgICAg DQogICAgICAgICAgICAgICAgICAgICAgICAgICAgIC AgICAgICAgICAgICAgICAgICAgICAgICAgICAgICAgICAgICAgICAgICAgICAgICAgICAgICAgICAgIC AgICAgICAgICAgDQogICAgICAgICAgICAgICAgICAgICAgICAgICAgICAgICAgICAgICAgICAgICAgIC AgICAgICAgICAgICAgICAgICAgICAgICAgICAgICAg ICAgICAgICAgICAgICAgICAgICAgDQogICAgICAgICAgICAgICAgICAgICAgICAgICAgICAgICAgICAg ICAgICAgICAgICAgICAgICAgICAgICAgICAgICAgICAgICAgICAgICAgICAgICAgICAgICAgICAgICAg ICAgDQogICAgICAgICAgICAgICAgICAgICAgICAgIC AgICAgICAgICAgICAgICAgICAgICAgICAgICAgICAgICAgICAgICAgICAgICAgICAgICAgICAgICAgIC AgICAgICAgICAgICAgDQogICAgICAgICAgICAgICAgICAgICAgICAgICAgICAgICAgICAgICAgICAgIC AgICAgICAgICAgICAgICAgICAgICAgICAgICAgICAg ICAgICAgICAgICAgICAgICAgICAgICAgDQogICAgICAgICAgICAgICAgICAgICAgICAgICAgICAgICAg ICAgICAgICAgICAgICAgICAgICAgICAgICAgICAgICAgICAgICAgICAgICAgICAgICAgICAgICAgICAg ICAgICAgDQogICAgICAgICAgICAgICAgICAgICAgIC AgICAgICAgICAgICAgICAgICAgICAgICAgICAgICAgICAgICAgICAgICAgICAgICAgICAgICAgICAgIC AgICAgICAgICAgICAgICAgDQogICAgICAgICAgICAgICAgICAgICAgICAgICAgICAgICAgICAgICAgIC AgICAgICAgICAgICAgICAgICAgICAgICAgICAgICAg ICAgICAgICAgICAgICAgICAgICAgICAgICAgDQogICAgICAgICAgICAgICAgICAgICAgICAgICAgICAg ICAgICAgICAgICAgICAgICAgICAgICAgICAgICAgICAgICAgICAgICAgICAgICAgICAgICAgICAgICAg ZOQcQXMlDUJyGJv2I2haFJHuFZLoZP0jEUv8Tx6+DQ lAHhJjOQE3qtFfkC4TTC3zp8BvLZxzUGFcq5HxDYn9BU9ABQZpITwvUB0DFCnake9CTYIaMQLqkFQQy4 ziYlNhSZL9ZZXcXtjbUC6PYBTzT4ysdiZoCKBjETXJXRilQYDNWH6FPxPhN9HqhX13OIZDHo3+DQplbm YhIkgUNuM5AOIkm5OmPRf9BI0IYUMfNizbz5DoRlAq OEOBHPfaDN5CXUZ6PLO4TFRaMf0QSTJuQ346voFzYM2CRq1XKaQcGH0xvc7BHiKlOTDhCvmVFpr7AGvy ET2BiMNeHVsUlb8vblKcpbMKk0MgjkTaaNIVCL2lONgqvl2wnnujYUUhBWYnYR1pON7nYYScRCLyDeDy GZSMDQ7NCZGyADXapICeLTRjOYCEWJ1TSRbyDAI3PN RgjzDcqQZwYSdaRL6CHGCwhxOrKwIxQPFPZMn+Ba5PAX0nv2MaKNcjCmRdEU1hlu2XRYbFRxWqY6E3wU MvZ2G2TPkjLy7JGLHnIYVtTrTtMNFZDFuxCD6KRY2glzG0GB0GkLYrLIIbABPuzDJnJYw0N20ewZDpUO zuUO9IOSG+Rolo+Zh7KLUBwZICuGMCbCcFfOGZOVeZz F5YsK3JFk4TcX2HhXI40uPordxKhYCltAA6JEV1dZYBdNQAKYW4XgVSajA0pcpQlUPDfHQILIhMtR70x bHXcUQZxVCVwBREuQg1HQXTdQ4KuhoCuwWiiqwGxAGMrGNHVPG7YYLfkuhWynEMidNhiGY68eZwrWJ8G Ve0ZToRrJL1qey0MqAWnZg5RTMPdOw7TAATaUBJqPL SyWXG3NOGmKsIaCOxxMMKvRWOqZPK7IDUeNKYoNB5LOrWvENKkSzQ3IchhWQHpOTFcqs3FIOVsNSSiUc GhDPUoOTHrMWRtELhwDMEhNJJkMPK4FKZkRXOdRX6ZByWsGULtHZR0ZremNAPbHFAztg1UCPWfJWLwAn v8OWSdPLKhGRJpLVteFUIiOCM2IlvmOJAkVSKeFR5R DbMdRESsFXG3RVZbLOFgUCSxzv7TWMMoUNRrXtX6JuYdVRTbLGTzNIhyPEKyESL5DjS2QSNvHTLlPN5R UeNaIXTtSUU7XiVjHGWhOMYthh7MRDCoDDWqCmx5BPQaWKGgODKwOSrtCOLyVEQ0FNvhWAVqBVJpYR5O YmCiAMYhQFgnWkbhFCIoNCQtmm2BGCQyZVWuXMGeIF TlQOJiPKJiMAhhJCPkYKN8OXSsYCPxYABaFU2SKgXbQMHbJiBlERoqMOHlWJOhur0ASDKdYBFsGJU2TP KuTGTbUQLiINnjKQXlGWZtDTL7GHFhZHIbXR7QVhVxYIXsPwFkAuyrLQFsSJBjsd5TGGDrDCWjNSE8QX WyRHXdKGOfILlkZGMxPFOfPuJ1RQJgWVFyFY5OBnGg DGDbHeNjPyDlXJTyCQRdwf7ZLRDuBXYsLkNqXQPxQZPeZCVsNByeOFEbIGHqFsx9AXDzCZPxEG8QYjTr LUQwOsT8QuWwVWEiKEDmik0BcZWcdXbemi8BQRmZKo7BuConETM1VRogBh2ljAVsYeOuOLVUQt6XjqSn XOZcOMWPHKiuULXnYEziZPQdHgQgOBGxYVG5NnGjYp ayNmAnMxe8EANaSyE6KyD5MUQ7RLYmXHO7YaDtWzuxDPS5J5CkXjImUDx1NYRhFjO+OD5dVOa+Pg0Kc3 FjmzJ2mvUaYNivDOY3UI9UVBFUX0WCPz== ID Date Data Source [id number] 06/03/2020 12:00:00 AM EST eCW1 ([facility]) Name Value Range Interpretation Code Description Data Linda rce(s) Supporting Document(s) Hemoglobin A1c/Hemoglobin.total in Blood 6.1 W ([facility]) ID Date Data Source MAGNESIUM LEVEL 06/03/2020 12:00:00 AM EST eCW1 ([facility]) Name Value Range Interpretation Code Description Data Linda rce(s) Supporting Document(s) 2.0 1.8-2.4 [facility] ([facility]) ID Date Data Source PT & APTT 06/03/2020 12:00:00 AM EST eCW1 ([facility]) Name Value Range Interpretation Code Description Data Linda rce(s) Supporting Document(s) 13.0 12.5-14.3 eCW1 ([facility]) 0.96 eCW1 ([facility]) 26.7 24.2-38.5 eCW1 ([facility]) ID Date Data Source VALPROIC ACID (DEPAKOTE) 06/03/2020 12:00:00 AM EST eCW1 ([facility]) Name Value Range Interpretation Code Description Data Linda rce(s) Supporting Document(s) 58.0 50.0-100.0 eCW1 ([facility]) ID Date Data Source TROPONIN I 06/03/2020 12:00:00 AM EST eCW1 ([facility]) Name Value Range Interpretation Code Description Data Linda rce(s) Supporting Document(s) < 0.02 < 0.10 eCW1 ([facility]) ID Date Data Source Comprehensive Metabolic Profile (CMP) 06/03/2020 12:00:00 AM EST eCW1 ([facility]) Name Value Range Interpretation Code Description Data Linda rce(s) Supporting Document(s) 98 70-100 eCW1 ([facility]) 0.91 0.70-1.30 eCW1 ([facility]) > 60.0 >56 eCW1 ([facility]) 14 7-18 eCW1 ([facility]) 138 136-145 eCW1 ([facility]) 4.5 3.5-5.1 eCW1 ([facility]) 9.2 8.5-10.1 eCW1 ([facility]) 31 21-32 eCW1 ([facility]) 104 98-107 eCW1 ([facility]) 53 12-78 eCW1 ([facility]) 0.3 0.2-1.0 eCW1 ([facility] [place]) 7.2 6.4-8.2 eCW1 ([facility]) 18 7-37 eCW1 ([facility]) 53 45-117 eCW1 ([facility]) 1.3 eCW1 ([facility] [place]) 4.1 3.2-5.2 eCW1 ([facility] [place]) ID Date Data Source CBC with Differential 06/03/2020 12:00:00 AM EST eCW1 ([facility]) Name Value Range Interpretation Code Description Data Linda rce(s) Supporting Document(s) 8.4 4.0-10.0 eCW1 ([facility]) 4.98 4.30-6.10 eCW1 ([facility]) 93.6 80.0-96.0 eCW1 ([facility]) 46.6 42.0-52.0 eCW1 ([facility]) 15.3 13.5-17.5 eCW1 ([facility]) 264 150-450 eCW1 ([facility] [place]) 32.8 32.0-36.5 eCW1 ([facility] [place]) 30.7 27.0-33.0 eCW1 ([facility] [place]) 12.0 11.5-14.5 eCW1 ([facility]) 48.7 36.0-66.0 eCW1 ([facility]) 12.6 0.0-5.0 eCW1 ([facility] [place]) 34.1 24.0-44.0 eCW1 ([facility] [place]) 2.9 1.5-5.0 eCW1 ([facility] [place]) 3.8 0.0-3.0 eCW1 ([facility] [place]) 4.1 1.5-8.5 eCW1 ([facility]) 0.4 0.0-1.0 eCW1 ([facility]) 0.0 0.0-0.2 eCW1 ([facility]) 1.1 0.0-0.8 eCW1 ([facility]) 0.3 0.0-0.5 eCW1 ([facility]) ID Date Data Source NT-PRO BNP 06/03/2020 12:00:00 AM EST eCW1 ([facility]) Name Value Range Interpretation Code Description Data Linda rce(s) Supporting Document(s) 393 <125 eCW1 ([facility]) ID Date Data Source [id number] 05/29/2020 03:35:00 AM EST [facility] Name Value Range Interpretation Code Description Data Linda rce(s) Supporting Document(s) SARS coronavirus 2 RNA [Presence] in Res piratory specimen by OLMAN with probe detection [facility] This lab was ordered by [facility] a nd reported by [facility]. ID Date Data Source [id number] 05/22/2020 12:48:[address] [facility] Name Value Range Interpretation Code Description Data Linda rce(s) Supporting Document(s) Discharge Summary [facility] QABPWs1hVvNCYfFs92/IHHjgNUUgu5ZuVZocCHv3HAztVJPeK2PfONZ3jC3oPLN5DVcXQyEnRuBqBsU4 [facility] [file] AgICAgICAgICAgICAgICAgICAgICAgICAgICAgICAgICAgICAgICAgICAgICAgICAgICAgICAgICAgIC AgICAgICAgICAgICAgICAgICAgICAgICAgICAgICAgICAgICAgICANCiAgICAgICAgICAgICAgICAgIC AgICAgICAgICAgICAgICAgICAgICAgICAgICAgICAg ICAgICAgICAgICAgICAgICAgICAgICAgICAgICAgICAgICAgICAgICAgICAgICAgICANCiAgICAgICAg ICAgICAgICAgICAgICAgICAgICAgICAgICAgICAgICAgICAgICAgICAgICAgICAgICAgICAgICAgICAg ICAgICAgICAgICAgICAgICAgICAgICAgICAgICAgIC ANCiAgICAgICAgICAgICAgICAgICAgICAgICAgICAgICAgICAgICAgICAgICAgICAgICAgICAgICAgIC AgICAgICAgICAgICAgICAgICAgICAgICAgICAgICAgICAgICAgICAgICANCiAgICAgICAgICAgICAgIC AgICAgICAgICAgICAgICAgICAgICAgICAgICAgICAg ICAgICAgICAgICAgICAgICAgICAgICAgICAgICAgICAgICAgICAgICAgICAgICAgICAgICANCiAgICAg ICAgICAgICAgICAgICAgICAgICAgICAgICAgICAgICAgICAgICAgICAgICAgICAgICAgICAgICAgICAg ICAgICAgICAgICAgICAgICAgICAgICAgICAgICAgIC AgICANCiAgICAgICAgICAgICAgICAgICAgICAgICAgICAgICAgICAgICAgICAgICAgICAgICAgICAgIC AgICAgICAgICAgICAgICAgICAgICAgICAgICAgICAgICAgICAgICAgICAgICANCiAgICAgICAgICAgIC AgICAgICAgICAgICAgICAgICAgICAgICAgICAgICAg ICAgICAgICAgICAgICAgICAgICAgICAgICAgICAgICAgICAgICAgICAgICAgICAgICAgICAgICANCiAg ICAgICAgICAgICAgICAgICAgICAgICAgICAgICAgICAgICAgICAgICAgICAgICAgICAgICAgICAgICAg ICAgICAgICAgICAgICAgICAgICAgICAgICAgICAgIC AgICAgICANCiAgICAgICAgICAgICAgICAgICAgICAgICAgICAgICAgICAgICAgICAgICAgICAgICAgIC AgICAgICAgICAgICAgICAgICAgICAgICAgICAgICAgICAgICAgICAgICAgICAgICANCjw/tETzF6lqkQ FvkiP2K9jsLt2SEt6KJE4jg4JpVPDqNSuavdRtTeyO OlHgPWTpSblQZtu6ZRdaFC7OzBXjR9QxI1BmNZajUP2JTUHuWOZiaBWfNZDfVVKoDnD3VEIvIYcqUT3K jZNbRTqvDEJiRZLfNaOjCNLyELXcKVXfVNHuTPZVMBVlSTLjNfQzJVoiUH5Cp4FdrQL1MEo+So4PBG3f c7ReFLgzUsJqGD6xsk5JIKjDHvEvF1EgevW8QRB7IA TuZs0UAPRbGPGxjQBsLTOmPYRETqOcT4WmaT90TOWVSs4+MDtzqxExWftUYvC2TXVhu2IwBOi4FP2WBJ LyAWd4aIWjSHgpG1mclrmnOVQ9yV8gyaltNaegNMdkRKRaTDYmgzwiKOVxGOZjIANoJlOdPeEpNSGuYi nkQmKXZUePXuVjL1Rta9JiObR8OWCxTfNtWIewACHh LoE7MT31dUkeFJ3WSKKzGQEgUO59NCSbDTZwVc1TMq6DHlLxRN6yns6MGdIlNYOuYoqDFgd7AYsrHC6I eRKnL6UyuJBrp0jLWkVpE1IURYCqGIWdWq0SMRVlTmAlZKQfNNqvHK1rNKXsGWGQyWeckwN5HM0VMM1i nwXjZN4ROpNoHu0uMb5ALxVrE4WxM0SzPOPrPAFNPC ajHW3ZCHooGJ9xFK3Lx1UTnBDrlU1tfr9BROVxIHFzOxpcks6THmraW3R4oWrnFNJmNyKnMCADFDunBH 2YNDWmUYE8QQGaOrDuJZSBVpUgG20rGE2EX7Drk56zRcH4UUFxQjDwLBuzYL38cSndljKwmBGtlIgqEH 0NCj4+DQplbmRvYmoNCnhyZWYNCjAgMzYNCjAwMDAw BANmXOTpIpK7XqXdUa1GYREfEXFfINIyCiSrGXVyUUSdASchRDNhCBL6ReL4LLJhZSCzZE2JYrGyTSDl Qub5ZXqmAZNxNLBrqm5UOEUrKQKcXXP3CtOoYRWyXSQpYEztOXYyFMG8LSw1RLDsLWHfTC6FDdXfOLNe ZTGtBRvhEKTiPSEwhy9LUIAgKQUvPUJ4ROCiMPXzUP RcUQowFZBmCLBiNbCwPMWyZWXmIZ1OPiPtCJCoYNT1JzoyDERpJUCxft7BDRZtTIFoZrF2UkAbCMIkSI AaNFlfJSQiZWY7JWlfIYYiBOFuIW1EFkPyYYUkEUAkKQjmYHAjTETndy5HVVTdEMNoTqw8WvObRGWlRL EgIHatSOAvGTT5CSJ1DTDwSHZwGM4AKmTcTLRtTZda MlhmTADrDCInnh0AQTAmBLBhWYNeCqRyTZRoJZFrSQaiCBKjYNS8HGQ4FLExLROfWV9YPuCiSLThIWkx QrqoKGZtHTBoiv2OBTDyDMYeZVO4HMSrGXTvKCGcCLkrOVPvVSZ3TnB9RUSuTOWxAB5BFtGrABDbLfJ6 WAkzEMKwDGBwlr1MQFItURNxLGjuGJCeEIDsSQMwEA jnJPKlHVJqQOa3EQOdGSBhFM8DUdPnCXXuJvJnXBctCTIwBKCjkw9GTWOmNAFiOwT3PdXyETCaDVKrKM qiDGEoZZDtZKKwRDCaVIYqOP3WIgQnUZDlEeuqEPebGMIoAQFrme3ERJFfVPDyFzKsNkNuCEApJTQlJS xlFMVaEFC6ZEG4TTCgDNJwRV6NZiFsHSSzAybrAcuj WVQkJOBtoj9GPKRaHLEmIBHbVDZfLRHaISWbMSyhHJZyGXQ8GsJ6PWXeZVMxHD5NPkEkJHSjSkUrKhFu SALbQNNwnp4LZWLcYURkYUM1NyQoGBKiKGTdUXgxPRBzOFArJgBqZEOwLYCzAN3CXgPaEYmnDFYEBfz6 NAkeI1v4ZBRoNm3NR7Ljf7VmHzGrMMBCSWcoKO5fub XgTYKrZh2BD8fUIcaySACgQTDwVCFsW4TvF6B4ILQ0LIY0IbXjBTVqXjZhMY7iMIN2L3TaMPF1KFYtPx KvRGQtOSpgJeSoY5TnEnFzHiWiVuIxQD0DHv5GQsF1PJL5yEPbLu3DJxX5KRCOPqFvPR2ICTr= ID Date Data Source [id number] 05/20/2020 05:21:[address] [facility] Name Value Range Interpretation Code Description Data Linda rce(s) Supporting Document(s) ED Provider Note [facility] UVRAXl9uGfUCGhJk00/LDMptBEOhg1PnVFycGDm9OLalKONfG6EvTZN0kV8tCDH0UKtSYoKxVkXkMrO7 lbm [file] n8e5+eNj5O3Qqlq5UL3npph3SUIMvZGV1bmkHk+Brittany VfBVstoqJt9zsa8kwc7nCj+bPu/R0aZm/Gfju9EO/EUern74q1qFymzNJA5JgiNkd1uPrJMrXntT/SNH SFFFnROK4Upfxcy+M4QpgM9VMJP1d5n5rAEv4PSl5nvQEPJgD6zXATNiexYcjmaxms1pRHRJoouZT3zn JtbjVA+BgnLeKt+fY6Q/Hw+Kzg8959BWmxqDhvb0Y1 nw3bq/nYhlqH+SZnQCeb8SWr3Qtvc+4/LzSZI8xAygBX44Ww4Vf/ka2PGu68o071WGZ9VgY1C7AqG8vN 7E3gH2mNTJddesNsx+W+nkVcDO28i2Vp+yw/W3ix26bs1184paqUWf3ea9zJSp9/V5ZEFowvf/xL9+6c Dfggx45o/uM2W3gAiffqb9AyzyJMSZsM7kiX6jko8+ y2XUmmeE2BwlGltXOxcXPBcsKSsmLclN3dN/+bUR2RStAgi6B0OtXict2D2LHMdu5yTHeCz5uFuhrJ4p 8VLny/Sg27FEHI2a47JUhsTXy/G6P0YK2nTg+dsilRzX0GJZeUx2ZEh5xaBUPj5260mnSKt/tb1go3aa issa+U6+/9N2/J+2y3/xlE7J9jE6a/Ttevv9zKuLmeID +JfPdXrpCsB7UKWaRxP7T/sd3M/NZBfid9cwXGSsujm+Yl2a8/jCNkbNXO3llB0zczCzVTv7CSY7Mfge 6CT228im7e0NR7ik3M0n0/b6HO/BtMvkC59TgQ2rZzMuuk3BG+aSwKr0etqiO2U4o95+c7raR9mlNP6p 3J1mfEZL+br1W+Sd0AIQ2q+U54DALHliZmu0EEx8yE 2si8BJ2jJ5dCpD8+VA1dRUd8vyimP4wzS73N51mhqcMLm2dNec6bF+bve9FPohoiqEsw9G5HWosx4Uvp vIsOx9yErB6uGoz3WBtsghL20jb2Z3W8v5Yc+R4fdRclxthRck53w/hu/TQGcPHztJt3qYaA94ct1r37 dT+0uzoMc/IJ+6+8K9vefBgdUuD9aHVThylZStXgWV R5M1a2YhzEFIqqORDQ6iCYOgLU10sYjIngc0Hs2b3gXj5O0BtHBBtZeN57giZi+FfvIT+AFNh/8NUANr fwPwRz4fsJJwji40fxpeG2tdN6mkoPxcj5Dq4Ofpv6xXGS3bw3qwztMhkLyQoER+MdLtstfvvK/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 XCRJDt5kYrJBWwSsq0NwXcVfJYQvME4edym8S4O2aICjD9KydWDzl0ggY7LxF0SmAGAxKEYTDZ6RyALo jb2 [file] /tT/alZ90itsidv701/Sxp/4W5g6y4t24m8587/7m7/P7D7j/8mL503cc9Lu/x1LcMnfab52ani11yGF vv77/o/tO9kGl8ept8E/z8/e6zynZg0Ew71/q5OdesgJ61ExCqi+6V4B++c0wi11otz+5niHsp+48lOY vXf+I/j1l7+ye+Q21dfdr8Set5Y7I/4jplggU0r/2J r9MaF52bxjQ+zj7mh+/Po+ze/pz3/LYP3/PdgI/t//30I30tjlSj4//9zR/P/+R6kpJwaf+i4KuQq7oB 7+u7z+Z3kr0w499v8+97Vf1ZJwnk7svx0/ilChtDSv8CJ37QUE3OgDPihIjTj+fIEbJSMBR9WISTCSyU dUV8M5xF/QtUhvUTN6DV5AS1BC6rFpYhYbcerWpOYV 2P04SmwMdGE7xnScE7cThCC5C4G/ZMOZ10G8Nq19C0EGnduSYTLD/Y7Z5w45W6PAkhyoUjOG/Z2X0oLu Iq4C5bCqFu9D4hXuXf2Q2vXgDb9T6pSvJb7NnVl3oXw7P4/Wgp4ui/llY4vY7yBej1s3A/FuVouk44Pg FCfCG+EG/E+3q1fIZgerGs0E4uhuSi8V4dvtRf1U8y 7x5XG/ejvvl+t+P5G/BtXN/H3N3d90o22bj59kyDn0JrEuMj+LdK9quwrFSpGXhOKXCC7FMClMh0rlk2 8Wcbf1+/OtyLxn+3F+CT4Mz4a/j2V9/t5/jy9F+Chemical Supervisor/+cNUFTpMIifZsixyizEytf7zm9GK3AG6QL6y97 rq8+4/Z3WOp9W1lut8WWUtD/b78+8F4U/rvtiDvigf MGjpOIg6+Si0GxTdr8wzFTL6KQgcENZEu9f3h/qqV4tqhL75+/vVeAH+93LwD/3XbEHfFAPBBPxBPxQr wQX4gv/Z7Q91nxd/ma54zhuPDkNQfYoO3oALeFWYTHPYtFuO0h08rL9HM7NN6Mv+0ywaw2to+1t7e/+m 9pobdevQ2HveV+gXze/dmttZ9BwmnpXJqKB0FGgGoz wPUNXN/wx962D30EdZaj7ghjinozipxxuzP4C/23wM0M92t9c/A72Bccm2riDV0S3+7que9yw9e/+m4/ 6r2msdlH5ypw75U+B33o0drK9bwYqxV+iiVlvU5SfRr6H6e7+6vvNuLgW+Bt1Dngz6O7+1liEIoG4ch7 Pr9/4fouXN+I8IuU2gFuKc6TxDb2DyKj3XoXg8FkQi 8Fvg2+Hz1Gzq8+Rm5IfA9+6ruNOPpvo/82+Bh6Ant4+Ry3Let9+NvDb57lk8Jh8vtnB1u182GaSWrIJH KU4QF7pA2a6/eh4oXi0/8stSbklWyjUghtaEkrncosJvj252BFnujxOkus9xLBr4HvYxZ/QqNFUt7t6R hDp3IpSdX/FvBWLb9q6ZrYo6DsF9aK4aO3MWhUZYSJ SGCU6FB/Jt19gq0/tZcDbn+5U3lsz8H6K/FEvBAvxBfiC/Gb6btJxd0ua/qv2dN/dLHxPSwSX1Ouj5Da X+1zbX+1m8P6Z2jNh35k2fq5kj+VFT6JwNsMe2mb+hqur+H6wl+ZI58d+loXEdohQ68UMttIOQOE8DKO pKGvGLy4mDVwgSC/fYEX+KJ+BvxwYlkJrrwFvN6orS 8Z6leG+mCqoeWyMvfkW7f8ptB+SccgNbeUyuwJbJ9puB7P3fsF+vIledNbKrxbR7j2kfrwKnQwmRQehS P/kdQB8Vj+deLfq0C1HbfYxHxEHV15/KQl+u/2V7u/zX7321ag+6s+2/Gtvd+rnU+9+l7s/Jl95dtg51 d44unNiy6Vx0ZnO5zD/sTl91/4PjVe2/7qrItOxBN/ f/Xwm3FopqlL9tkJA6fwaHqsio2BamW6fjR/+v7O60mx0+/d1MDrWe0aI03cWbBy2Icz2Sovmw1ygty4 bp3mMqClk6HnxwYdf7/m5hw6IhRszq+fuW2nnCx+/sP3rDS//dX3+B+++0Soad9dsn/sGwn0HtOZ1+yz /zi3diqc8/TRS5Hjh++lakw7Q9CFPy19ab6wi/82+m /j/tu4/gqia237c+P+i/yHmG3dqY4T5vyG+sRxd2co5UiAf+XwVw5/5fBXDn/l8FcOf+IKGk0IB+KJeC JeiBfiC/GFeCP+jFeO+UHH/KBjftAxP+mVE1J3S8l/zgjwq14k+ReYx4B7F1f/vkvzr95u+PxUv4W9G1 e/mufgn69u+CqMd0G9S3j/cvgrV/EX4KDnNrDW5ONk dpmno61xyH576bpp2Yftl/uLx93ogY+5ga+Tg0Gjxn+Ksf03V6kq/szcmOjw3Chjk+Lr0Iicy+long term+Xw U64G8k64wizy/ux+IS6IC+KKuCIOvg6+Wy9CpvgpqGsRswMaq99C/i7h0lhynFc1GgtG+Og3zn91/JXD Lub6xjPsFtfYs493/JUHrm/g+pa7QzlHfj/g+gb4Bv tK7oiKb1g0GcAype+Yk2Znxz/oNk6jf091Elt2nJS+0DE/6JgfdMwPOuYHHfODjvlBT+Pn3nst11VU+U HH/KBjftAxP+pdPeyeX780Vjt8dAR+9Yq5p9e3bQulO78C3WJ0FA/EF+FH5Pr1ks361Icj+uQ7wDZwBf +F67vAF/UrR/6LKc9p4P23dk1M6jW+C3wX+S2sWvW7 yYvP3fNdBh/Uk9ottvj4S3/9BdRWbVPpTNoYJfsD2pzjWy3R5ilyJe7ME7SfjJP4Q67eZDwzugDEbHOn IBfBX2CCfOebZA/EA/CIUVGmwIqyvoiCoSFLC5GbSoYgUI1iOI0H1U3WqBfGG7UZsBxDD6XByJdaZmsg +DyDWmlMD7xipPndb57J1wuG75HlvlmmzzpGD+YHA/ FjdWwoZH5o2XfpwG4yUjYGLKdp/lVo4e+f59/XnAgua8Xlxo+BL+UBk6IYtCnW7kAs5CDbdzN86OFOCZ MwF1B6EbZdMD0UagwBWwjsm+V6MqszlpMZHueRBcrnSoZnh3N3qsN8UOU+MDA/GJgfDLx/Tv1yx3AV4X Q8ES/EC/GF+SCveG87L2tQlGA2W1mzMgxPW0qB0kAf JR5udGOuVGx6Q/WrgL8K+ZjS5G0rve9M+OuMpghOkfN2x6C4XyA/WoIyJhAdCV8fUU6H8Q0J2gpA/SpQ sewGelQ2n4wen9O7BsMflBjtPP5Y8mErBnLtw5XyH+Uk3YfyP+Tn5Cp2sDG/CczpaZ8ZvU9DEvPfsi9K XZuKeurtUU+7Da679dr/1y4kttzFW+FREDY+R71x3a1f4 P9+I1Yj9+IhfEK/irgrwL+KjA/GJgfDMwPBuYHA/WXJB0QK/71ta608gwr/xtyaMhicthsrfmk9a49oj lMrdS1x0V4LyZ/CtSvonH/iPtEhkCA64VQ+[place]/GBeD9+7Dz80ZaDByNQuBT0p+E8+J/rKcf7s7rnB+l VnrwPzSyH1GG2O7o2vkysn/VUyiaYcCeDuQ2c0XgX+ lahfJepXCX+L3XjOy6LaGkn/ezPIbxmfEqEb0LU/AgeuwO5ZAJ49uhgNY06f4Ya/I8/32PtI7SY/c/ur ykfuB2x+A88qngt99HGi5/aH7+81WK5l3+3ff+z597zP+3W5/ZX+/kvPpyZ/J2yCMlyjJ9l/t+P5m5uv kC05RRfh5wluZCfW5cT0zOshxI656vm6d1b2Mx+vcD 6lDqe77nsi/dXZ9/FXuf3V+R9vsrE7ZiLO069fjmq8ihh44ovvL/scR66Ylrn/5uY6w9cphxTAq9+K+l 5Vvtyn65xR7892fktpte0/gbkm82KE655+pG297zeL7m/z7+08ta91S6jp6juoKsq2cyD1QmM/ePkzn5 OhL21d38/Z2X7GB/irhL9K+GfCd5nAMpyfYhJgo8g9 aQN7CxR/VyAmSoTlbH3T+JcRz3qUaqO5t3O7SyR/CdPuCf4r1p7B/iyvjdXii2u1vuC1CHHhTg9qY8hd nni/PfF+agx0Cjur/avE+1eJ+uOovpIhZyPmM3s3AkQ+ycbmOJYh3pyG+pGlbdLzUlIxV5f1CdI90pM2 5Dx4HxI+pzqdOq6rM2jbrca/PfF+e+J41fY93Xb49j Pvtyfeb0+90635ud4yohjj/fZE/ObAy8mGoiVsa1jIe3YsJo9Zkzz0Q/fg6A9pn/fbE++2Y32iG2ozqw t8F/uYYwU7MeE56hW30Gc75xIdcbjcl9+51038fe0ngfr9YQ9Q271SbIa5Xad2+Db4diP+0BxV05sNeH H+vN9e5/32Hd/ly29ooG1tG4rZy6RN7IG9MQ/EC/FC fCG+EG/En/fbC++313m/vK7I9zQk3LhsF+Kd6HwgX+Ei6FwpA+Md5Ym71xS/+6uzvRB/+m+hflWoXxXq N6Y8zaD9OYE+sDA/DVukMSfEEeMPVg5Og1t8TD/EE/HHPz+nDO7z6CutVO/Da8Eu5s/raU9710+fRpzG hlYk46u7MTIrYf+s1J92g64FLgfi/Leq7+95/DYWEf 5b1dZE+G9VO/+taue/Hh97j7he/1a189+qvr/j5elzGjbPrIpWNTSWndvHVLIZNHEEIDofuTh2SCjG9F TcUUMYcVZIFUXlGRMSyzIOWScXQTXrDxSCuupHUAsvDELtgLTbm1p2Pagfl7pm/Hfbk/9ue/RuuW2iov GYqMGaTd5hmSISASUBkboAKEFRfSAMVJtoNGDycvKE aPyGPVRqYuJYzxvJBPowVJIOhsbMbSMhBjQfeDcCQL9akHDMa0LdFMbBLmQuQhROwQSvRulNzLtGTSLU ojskDTONXuQmHX1G+1XiF7rcY4cqMDR2kX1GyrEmLF80o6TwpNVnG3vlQYI6qYRMUr+wbwOSz2FjPEHn uSnMJKqeOBBTPcDA86DJyMbIDtYElBjBtHLZVQmZlA QWGFkFBWiHCcRsAs1CShj09A+OjJOCNLOdLEfZDIKqYgICHGYlmtZMJABGRMmNMkBE6JmWGUJAtFtoZE AvaFEOjWbbcZEtHlqbIQxInaaB3lCcO9Q8oHwQJG8u71SYD4J2DHiKpgGRYEGoqRsCOGYqJ3kZ7DiJLf HZnoGtsB7no/RsKExzFzACSWTCEBcbxm4eHY87v6vh HZ+5T6vbsawRkRdLCAOSfIpACMboCSNVTJfpWgROIRMQnHggp/htADk+2vnmOiUTqXRm5lQ5MU7+8dtA CmnutLOroL0mbJrbJgmcGN+2bcZB4Yb7lNi3zedVeqCzDShz3LW67gvNSFeLGBMcEOiDIZUyDlWZENTh lrEvWFAF3sB/FPKSIDcNFHKsnDc2AcquqvTMyw6k9F eb3xyBYARXT9CurkUBbBlQFWLvHuns7kqihGDegXH+uB9elIC1oRaJDtI6tptjO8Gc8AXY0p72jr1BmY /bIe1hpm0uNx540cumIg2744vs+6GbRlVY1v/iLlBw7rg8riyteK2L7nwhgX46w9Tj0hegmo4bs5Hz4f g1+M2dN0BtV0cGeShAU6v0VDm/xdo0X0Q05sYZ28pC Kr97QtN/guMT6/5zzrosf5T55hoLupK+jQ/ /18oR8WJIli9FbVs+z8+D+OX18 Jh7Ia7mu+IO+4A/9VvWqS43j8KRYCU/E5OhDu5l1oR4s5STMFU/A0Lj93BphIxoj9bMU4FdMwptZIqpu tcAftAgRJaJEjIgRcSJOJIgEkSSSRIpIEVlEFpEmgu [file] n+qsP2XsS5w7Y056ac00VZb+oms/5tOi0XzUbN [file] [facility]+T1TobBOMWRcOOMdzvTu+cB2hv+lu3dk8p91+rqO/6+ovBve6fa9gh4/r6O86+ruO/q6jv+vo7zr6 u47+rqO/6+ksGof0zo7vx8/r6O86+ruO/q6jv+vx1iw3v89+rqO/6+tdWfx2ca8bg2/r6O86+rteugbr iEeuDnF8lnS/9kpaVouxmDmlxxTls9bvs/gsuC7vjR py8wmcxgwQsPKx3lM7sonokQ9oak90LjnT/B3z4xevM7/TvN0v4use8a427rISKh8KsW8u5DXo2ANt3r lHu96mbbkhzSandJoa5nP3liy8/Y3faQ4x/dl2IM623jVg7/Rhq86fKY2+bSfy12P8Go7r/b7XoBe7EU c/Of8eitxyc2fly0t+d8/dtE4vH3/evf/q1I1U55wF c8s606hCWpbI5phzl2zkbma5oRL/Z8vemYo7r1N58H9K5jtJpfGacldwcu53hUz74RmN77hASa3sGx/o 446s3bG2u69kp+mM3lXB5OaYmDbfCMz2u32vk6h38/2ct7nb+hNxcDDy5yITkpxkuVx+cp2XzUGYCvHZ blcddr/CCpp9Nyak7xGiGFLil0I02M7yGygrijDL4L aG+U0jhWl2+PQ6XckkLBjHzNBlqYYrF3MSr6sopBaS9P8k2d64l7ns8DX1RJphO2aRYZqZUXiLyOwLy3 MIr6eDl6KKe6kUd0YPz9cWe0DIVO3GGwa8RE0Fb5VO4jV4PQaQmmCJXhvtMyiEUlcHO0TRnqzd85pDfr FtmQJjeoJkNLfWMma9UxKw2521H8YwAe/NDrvfCizA Qq/3bu5+Q2BOQ0VTa/hIpB0HYdjda58c3layIq1xg971PS21gnfc3vEkNu5HCE3E2oj6a+63mmATLMAC 9J20oNk9PcsYwP1bVh4q2T9T4ovqC87Mb8c5qGw83dRCmTXcuKuyjTgC2zQQJrso+6su63/Lk33ceMbh hhXL4kgbfGT5hd/3vb88x3a5Z39x6+kvPzV79W8qzT UjlV35xd3j+7gXIooRXaUP7+MW0qd7j/gNoF5fV+jfAc1qjIoxe8H2I+jtj9ZX5u5a4C61C+y+I6tKx+ Ronnie+6T0JU4c53Uc24Ro9FDq37Dsezuv0YOyo3XJFD99kt4X5/jjfzhA12uw26CjjhMou3F2m51q2d2i9 [file] BPC9Yua1OqNEAbAXKBPk2+PoJ8YOP1eDBiFpd1NDFnXfacXGTTZs== ID Date Data Source [id number] 05/20/2020 06:23:31 AM [facility] Name Value Range Interpretation Code Description Data Linda rce(s) Supporting Document(s) Troponin T.cardiac [Mass/volume] in Serum or Plasma 0.32 ng/mL <0.01 [facility] Results called to and read back by [address] [facility] AT [address] 0930 ID Date Data Source [id number] 05/20/2020 03:41:10 AM [facility] Name Value Range Interpretation Code Description Data Linda rce(s) Supporting Document(s) History and Physical [facility] POYMGa5hPzAJDuHi48/BYEunEROdu1HzGPihUZq1EHeiYAOwY0OxOSK4lK8aAPF2YQqKTyUzNiNjWfP9 lbm [file] ogICAgICAgICAgICAgICAgICAgICAgICAgICAgICAgICAgICAgICAgICAgICAgICAgICAgICAgICAgIC AgICAgICAgICAgICAgICAgICAgICAgICAgICAgICAgICAgICAgICAgDQogICAgICAgICAgICAgICAgIC AgICAgICAgICAgICAgICAgICAgICAgICAgICAgICAg ICAgICAgICAgICAgICAgICAgICAgICAgICAgICAgICAgICAgICAgICAgICAgICAgICAgDQogICAgICAg ICAgICAgICAgICAgICAgICAgICAgICAgICAgICAgICAgICAgICAgICAgICAgICAgICAgICAgICAgICAg ICAgICAgICAgICAgICAgICAgICAgICAgICAgICAgIC AgDQogICAgICAgICAgICAgICAgICAgICAgICAgICAgICAgICAgICAgICAgICAgICAgICAgICAgICAgIC AgICAgICAgICAgICAgICAgICAgICAgICAgICAgICAgICAgICAgICAgICAgDQogICAgICAgICAgICAgIC AgICAgICAgICAgICAgICAgICAgICAgICAgICAgICAg ICAgICAgICAgICAgICAgICAgICAgICAgICAgICAgICAgICAgICAgICAgICAgICAgICAgICAgDQogICAg ICAgICAgICAgICAgICAgICAgICAgICAgICAgICAgICAgICAgICAgICAgICAgICAgICAgICAgICAgICAg ICAgICAgICAgICAgICAgICAgICAgICAgICAgICAgIC AgICAgDQogICAgICAgICAgICAgICAgICAgICAgICAgICAgICAgICAgICAgICAgICAgICAgICAgICAgIC AgICAgICAgICAgICAgICAgICAgICAgICAgICAgICAgICAgICAgICAgICAgICAgDQogICAgICAgICAgIC AgICAgICAgICAgICAgICAgICAgICAgICAgICAgICAg ICAgICAgICAgICAgICAgICAgICAgICAgICAgICAgICAgICAgICAgICAgICAgICAgICAgICAgICAgDQog ICAgICAgICAgICAgICAgICAgICAgICAgICAgICAgICAgICAgICAgICAgICAgICAgICAgICAgICAgICAg ICAgICAgICAgICAgICAgICAgICAgICAgICAgICAgIC AgICAgICAgDQogICAgICAgICAgICAgICAgICAgICAgICAgICAgICAgICAgICAgICAgICAgICAgICAgIC UgCPXkTXHyVJVuHDOhDQCnURUnIRRyGIOvDFBmJUSfKOJtBHEeXRXtYWBlDHPpUBYmQUy0N8coMBUlIQ YbYG8zCMu6Ti6+NOrNPhLhYBA2fpQgiP1DWA9gi6Zp IFnrMWKio9WyXVk8ZO4ISYTuCFydOU8RXJhely1LNGMlFUVvdQDWo2qnXwLtBHT2XWIjGuguTG3PSVUn N4pxokKxHPGjKUGHZYalCDROYMnzIMULBGZmOWXbEkDgLuVgROEuHC9ULWMkX472yiVeCA0JDf2VFhGm WZ8fkq5ILwYaOOYgHgvOObu1MPsvZG7WeXCsxEGgRA CpFUVSNdAtX7rlt0AlRkBdKLCHAJpnZW7Gm1AbsZEtWMc+Mk5MZZ9tq9UyBFqcQWVcJF4kxa0KDHcPXq YxN1CtwFqjYRmaASKvlERRhQOaFYlnBuBnCCHWWOVmmEIoSe2eVh8pPUXuBKF2XcEcMGGSXX2SAPAqSX DdyVQoFUIzCHQNVB8AIDzmSIC0JPZqqvHqyUAxNDuk PM7MNGLhcgYjLeDiRZYFHFd+Jp1RBC9vp2HvRIkfEYFhBJ5sdv3SLPoUDuOgN6E4lSSrK4H0PNkjLb0Q IPDcDJGlFxFeGTGLEQktOJ6UYD8jfcN7FJ9RzPPmZYLjZCDpfLBiMEi9R41qlZBuBMsgFU6YEGN+Rolo+ Ts0AGOZzJCElPTGjJzNfMRENSyFfD2XxL2BYs0SzF3 CeYC24sGselzWsBRmxZE9XWE4rIMWsYNMYIX8LuPCjsK4rxlDoTkBdUVSERlInR93nkOBcZUErSFMyMU PmJt4BXDKnA3FbefZkkTshfiMiXEVkHYDVFP8IHDljqsSqfTBpqEtlWT84iKgcCP0MHm8MTpKbJG5bpa 0WgSGgRm8MBHOvJa2SCXFrSYYiYHVuHMT7LHXwVnRg RRtoHJAsPJOtOOM2WKThDPByTP6VCzGdETOjMhlkVcibQEAsHJOhga2BEHWfCBSwEOP1QVGnGKQuIKRq NVfjEBWkVOCjFOK0WRCzGQJsPJ4QWuEtRJHuOKNoPvHuDGUqQOPocs0NOWAnWPWmSZN0CuGsBXPhSVTr PXutGSNaWHI2NvXtAMQsRJQjJP7ZNoXrJOFqPYy3Jc MsAEHwCJSbbm2NNXDlVEEySeXeYgZyYGIaTJCbGOuiJBKyQTXiPjJfADZnMPLfBU1PIvNzNUPrKELrBs scLDBnBYVowz3HXGIxNMUmKvN6LXEnAWNdOXVvPUfwQGGuLNT2PVa4DQFgRGZlWE2AJxEpAVCjLOu9EW AgAWIfVCBquq4UTWCoXJDxUCU8OSOaYSQrNOAsWAwi ZOXpXLXvAFM0CWRsKFJbQC5ZAoNnVZQxDfRgCvPvLSMwMMMifj8UAGBjCLBtAZq7YWEaCHKmZUTvCRhi NXOpWQJtYFeiFFXaHQDgKA2YEgKhKITrZdFiLaduTLXkXRLlmw6MPXOjPLLqVeVbPCSwGVBkRJMeLPlm AGYzPHQgPDD1YIBmEUYnLS5HZpGxSCTsHbS4DUnqLS VtQJFiqx7KLXTsIZCuKNN9EPNoOHZtHIRaKCsqQCOcMLT1XSAvGMRvAPSjOJ7IWlNiJYEcCvP8XhAqPS ByOFBiko5GSCJnWBDoPRy4AMPpAJEgPUOkGEudYNJyKOB2BUW3SHAhEFVzCU9ORtBqZVKqFyM4HBGaKN EoABWscu0DLXXqDLOgXfSiMGFxEJAtQBAlYBabPALp DIC2YdO9NSPxGHJdVW9PKcQiFPFnVfk3BGliBVIwXBGnug0AVXMmONSbDPTlRpNyDYTzNANnTXjvXPZo UVF6Yvf6DYIaHJQiWI5QKqIxSFJfZcv9AVvbDCEhHQVsuq0RiPAgqDpuwj5ENMiMBm0AtFgiVPC2XHsf Ol6enZBaQGHkUGHCFf7ZmhTaSTHpJJPKXSkdPXYiHD sjPUD8UnSgKJNkQvPwZCQtFjMoNcXqBPW9XQWpNRNbVtJ8MLQ6KWzpGNY4ZTO2FZMaZ5B6NSBpRxH8SY SvEFX1XcC+LW6gKSg+Gv4Bx0DivcQ7opShQGceATA5Iy3HVLSSN4PUZp== ID Date Data Source [id number] 05/20/2020 01:42:[address] [facility] Name Value Range Interpretation Code Description Data Linda rce(s) Supporting Document(s) Leukocytes [#/volume] in Blood by Automated count 7.6 10*3/uL 4-10 [facility] Erythrocytes [#/volume] in Blood by Automated count 4.47 10*6/uL 4.6- 6.1 L [facility] Hemoglobin [Mass/volume] in Blood 14.2 g/dL 13.5-18 [facility] Hematocrit [Volume Fraction] of Blood by Automated count 42.1 % 4 1-53 [facility] Erythrocyte mean corpuscular volume [Entitic volume] by Auto mated count 94.2 fL 80-96 [facility] Erythrocyte mean corpuscular hemoglobin [Entitic mass] by Automated count 31.9 pg 27-33 [facility] Erythrocyte mean corpuscular hemoglobin concentration [Mass/volume] by Automated count 33.8 g/dL 32.0-36.0 [facility] Erythrocyte distribution width [Ratio] by Automated count 12.5 % 11.5-14.5 [facility] Platelets [#/volume] in Blood by Automated count 290 10*3/uL 150-400 [facility] ID Date Data Source [id number] 05/20/2020 02:15:[address] [facility] Name Value Range Interpretation Code Description Data Linda rce(s) Supporting Document(s) Albumin [Mass/volume] in Serum or Plasma by Bromocresol green (BCG) dye binding method 3.6 g/dL 3.5-5.2 [facility] al Bilirubin.total [Mass/volume] in Serum or Plasma 0.2 mg/dL <1.2 [facility] Calcium [Mass/volume] in Serum or Plasma 8.4 mg/dL 8.6-10.0 L [facility] Chloride [Moles/volume] in Serum or Plasma 100 mmol/L 98-107 [facility] Creatinine [Mass/volume] in Serum or Plasma 0.81 mg/dL 0.70-1.20 [facility] Glucose [Mass/volume] in Serum or Plasma 118 mg/dL 70-140 [facility] Alkaline phosphatase [Enzymatic activity/volume] in Serum or Plasma 58 U/L 40-129 [facility] Potassium [Moles/volume] in Serum or Plasma 4.4 mmol/L 3.4-5.1 [facility] Protein [Mass/volume] in Serum or Plasma 6.6 g/dL 6.4-8.3 [facility] Sodium [Moles/volume] in Serum or Plasma 137 mmol/L 136-145 [facility] Aspartate aminotransferase [Enzymatic activity/volume] in Serum or Plasma 18 U/L <40 [facility] Urea nitrogen [Mass/volume] in Serum or Plasma 10 mg/dL 6-20 [facility] Osmolality of Serum or Plasma by calculation 284 mosm/kg 275-300 [facility] Creatinine/Urea nitrogen [Mass Ratio] in Serum or Plasma 12 [facility] Bicarbonate [Moles/volume] in Serum 27 mmol/L 22-29 [facility] Alanine aminotransferase [Enzymatic activity/volume] in Seru m or Plasma 24 U/L <41 [facility] Anion gap 3 in Serum or Plasma 10 mmol/L 8-15 [facility] Glomerular filtration rate/1.73 sq M pre dicted among non-blacks [Volume Rate/Area] in Serum or Plasma by Creatinine-based formula (MDRD) >6 0 [facility] Glomerular filtration rate/1.73 sq M pre dicted among blacks [Volume Rate/Area] in Serum or Plasma by Creatinine-based formula (MDRD) >60 [facility] ID Date Data Source [id number] 05/20/2020 02:15:50 AM [facility] Value Range Interpretation Code Description Data Linda rce(s) Supporting Document(s) Troponin T.cardiac [Mass/volume] in Serum or Plasma 0.32 ng/mL <0.01 [facility] No Significant Change since last result called ID Date Data Source [id number] 05/19/2020 08:08:27 PM [facility] Value Range Interpretation Code Description Data Linda rce(s) Supporting Document(s) Troponin T.cardiac [Mass/volume] in Serum or Plasma 0.35 ng/mL <0.01 [facility] No Significant Change since last result called ID Date Data Source [id number] 05/19/2020 02:13:16 PM [facility] Value Range Interpretation Code Description Data Linda rce(s) Supporting Document(s) Troponin T.cardiac [Mass/volume] in Serum or Plasma 0.35 ng/mL <0.01 [facility] Results called to and read back by ROMINA AVILES 8G AT [id number] ID Date Data Source [id number] 05/19/2020 09:38:22 AM [facility] Value Range Interpretation Code Description Data Linda rce(s) Supporting Document(s) EKG [facility] WFQKLv3sGhMBEvXgz1SsAbNpVKHdZR6wlne0V6T4zPRvX9JcbEJjq7nbG2BdB0XcSJWsJVEPZK8QcXUm jb2 [file] joh349/XXPW7+ivb4Ik1d6/KtunU15cZoB5Z5/ IywbAF6Yj341+Zh8jb8ersKlnQBFEqNDb/D6142gt7IXKjQLss6bb1z0pv4O6y0ecHsPSKAuzD0CBs32 +9i8d001cc/Kmz/DWNpV/72/87hoPAZWXmzZY7i970S1inpROjtnuszy9wTgt4oqppXllm7s/OlTw0A2 UjHbSujnaq4q/c04/X/qV9X/r789eeq17/CX/Wpfgy /gC/gKvoLfwG/gG/gVwxTX0Jpi/F0ZtwEs2QX6B+6ysJ780K9CPovudTWhbJwjIuvJfkFhxXluDHmJc6 PfwQ/wA/fTT9Jv6I+zNro0D6Y+YyWvAVsVVc6y4XmH/zoeNvr7Q9I+MqRnKPbKNc7mA6Hv5Li6CD1TM7 JRpvEmWpPS4G2GgeBp7bG/v351mEULd+Ab+A6+g9/B 7+AH+AF+gp/gn/JZ7CiVrO5zM3lcX4rv5MwrSfhNslEhxM/9Lym2zy3rYjpvWwk5O9ii/A5+gB/gJ/jn pCHaHmx1T0AmR596lX45ry1H+YLZOU+xpV/ta/Ab+A18A/+fz0f83v/gd/A7+AF+4D0T75/by23F1kj1 /zW/wD/6s/mxb5gf+4a5gt/Ax/s7cH3kv6gpR2/B7+ Af/ix17MxrxS/SrKKj9C/wx+H3Y3+7ou8p5K64+nNHf+8saf00adR6En6dsS3Dk7j5WS480e5ny5i0O1 uc8l9B1gs2n3A0peZU5mu3xPXvR1hzqL4S8fXS41X84V23jNgX4gL64+rGEN61rvLMS/DHo/1UwU5Y9b xnVW6xX/bbyOuLr4Miko6iL8b6SFAuXhpneLzJCE9Y 06EdNLyxK1g4COgMDe0y4IdQUP/h8SbW8epa+L2D89ba/CTNhx1yM/JVUM87Fy0/jiA51CtU6+A7+HB4 Gx18eL+TERESO+wzEw3QQdtC58q9/zXrzM/+6P0Skf9+32/zn5/gbJ266h+cgLne3UPy+A7+A5+B7+DH+AH +Al+gj/AP/XGy5WekXaKE/PPbMTsmYf6Ku3DmWnGSw F7Be3F+gKqzQVrrAqzO47yTnGK/AH+0QysTm0Y3Hsv+QPt4p2CSa/tiC5QUuqmZ/vSr/a1n9/Y7yuxSm m5tcQ7v/4b9sycq1Ta+nxYKqRFq2ux3SwxCef9XUnx9etv+6/94Hr/e/876j7z/Kt9bm7s40lRa2QMAu Yn3emMwK08tMqbr/LInXJ63GpFfErFo2Rt2Rq6gDlt saIHxTf547sW6ATMToMoqTTQp3UQlqJnaDAL9maQYAzhrg2214j+ulwhFZd7th+764w79Wyxw/Vud3tj +bwPYLweZOkwSM4Tyw/f+eMo0YyVTZwdJF+v9dlfz/iLLc+uE80pQ9230ltuFov+l2VcGE0Hn4p8P9+5 Vy52y7FYhwK8JkndjkWM8tfComJ14Wr0Oqa8o6gXKs f9nC84/K/oJefcy1VGhcz7Q2z7lhQ/cnfwO/gd/AA/wU2725pl9Zc3Eq9uiI18kpzh59GY38AD+aDjfN P42qzAxOw9z65t6lO04O90Pe5US8NB6ZV1UZ+Af/JVibGIgsf4hW69/dJf23oFJ6Zb2WrcHQoK59W10X z4KesQP8WIa9Y+5YH+HIeOvn2d0R5k9QJ7ZZ48kK55 ghdc49XO84NN+xCkxQQpNbi0S1KdTqyVCq7iq02qQxn6vUQ71HAxey4I/klBz6wP+AK+gq/gN/Ab+Fh/ x9n/+mp7Hg2Dzzq/+Jp1NE5kVnF0PL/sB33pV/t68u/fdOhX/brAF/AFfAVfwT/8094qrpJBD48aAb6W 7+Y95Kq4SF58nYnrgOi2JXnPpSbXLcX1La5s+tWUVZ ejP/dmH8K98YseabbQcak5Gm5Y5+R38Fw9RX1Eh+An+AP8s9/anic9Xo95KbaiF7i3P0S5W2Q2B3Y9J0 Q8U3B91Ebbub15XRnHu1VsnH/wA/fFT5Oq4E/2vdK6qSmPxBG4OtyUcrJalT/ws37S2K0ibgf7025I/r fpaJI0BS/DA6cy1nxO5cx6FjgyG81lodlosrd+7qbg K/gN/Aa+gW/gn/Z718oc54nx97io84ou41ev52fd96PIqjj7580WPzl99RS2E+AL+AK+gn/9aj2gVUP9 +rOf89++1RyviLyk29Q/+2LboB3u75ChwlYHR9OA5Fl7Uq1ul4+44dl4KN/AV/AV/AY+5ud+7JO9H/tk 78dftC/9qq47+LahVzsvfhxhkD64iJ/8CG7R9CtzP+ arOPbJHgK+gK/gK/mFjbTjw0K+NhcTcyr8FH0I0qp9E/XAfBWYrwLjF/4OUr9DBy0USa0RRRPuVbvmuM gOdC1rZltmE/U8+nPH+WCH/aov+9XcX/bph2J9SvkXg9/dl/4rIn21492c/P6cp/RMvA/D89Xitj2rH/ rV3M/2qV+ts9E+2xlyb0zbzaE1gQrBg8pxvV1iY8f3 6w5d6p5o3/qVrtwy/ufxaRNi4ee/qv11v/UrjfrvPP+1dd0fv/VDOw6p335e6F/36d++9td9+rev/fXM N1q34q7470gydJ//3eeq5Y9AJF60awkVYq8n+6wmHtO/fSW7j+sjuv5vN/q3r/eJ6d++/Mlj+gujH6PR //u04dl0iVhmGr3dm/0hpn/76Ou5/JXjKI5r1W4m9s uqKu1Nw7y+B7O5a0pef95mzy6iyKoO+fA4zkd4f8MbMeEy/GTE9x8LAs1xGWs+A7+Bb+Ab+A6+g9/B7+ Cf/W/I2f+GJPgJ/gD/7H9Dz/51EP7KFtFAMzT4Zl5I+DYaoNCpZja0HhjyGfyWKlNgz7CbhiN9BVE9LL A+SScjIDM74dv/8v82t0Ch3d7IiJzfNNxInhKe+LdH O/v9aGe/H83Bd/A7+Z96i28D/NsD/u0B//aA/1XA/wzokoInejz9AsH3djY+VwH/q4D/VcD/KuB/FYb2 2tn/gc06t9fMz0Vp1Td9BQ1m/mgv/K8C/lcB/6uA/1XA/yrgfxXwvwroV+RsTPgA44A72/F9Hd/X8X0d 46vNmRJG68NT29FG+ZJdrYT7UM+jn/I0daKz0Tn3Cn 7Oa7Zs0Wa0Tr9J05Sc6Ck8S27P2HpCw57w+tnvRz/742W2HZJ+BECK/XHvdMRLKXmt0y0Q/ScfXHx5vrO 8F/NsD/u0B//PRkYx9XDO/FhgMCd5xmJ6M1MyDzxJgco/YryKPPTYS/TnRnxPjF/eEFGkcbr8d+nOiPy f6c6I/J/nkSixMEfDu0OmKf79W52rzQlvyZ/2Ff3vA sv4u0y1sec/6hqy978BcrJSdBYsnWTgO6yfD2aZ8KiT1hG2C6K1mmItu5eJ9gZ/bs0iks89JbsSkmJ/g G/nG79zn8Xq0Fdqz/LP+5nXOf/O56888NjkJ/gD/rL8J/6uE/1XC/yrlrL+5/K+mnp/L/6quG/gNfAPf iXurTivErykde36Akz1b5nwp6pmDA/arlKNPJvIzJP RoQKElOVQkbK24GaftIo77Td9Zd+A7+A5+B7+DH+Ckf48kkC0V1tqWbd3kbj+0z45GnK0RqZ4t3yfyDs gKfgO/gW/mJ76m39Rwrge5GYv060ln3jL7wC2X+E42dy50lXlbkx6pbzU3t0C+jpZdIcsVEp8D7MiR/S eN4HO883XlQ2xZ5DF90eF+FREDA//txOvkct+NfeMuexX [file] 3+48/+/cPT55050Mukn8/lDzj491wygz0269lib/thn7isnxqe0//PZFz3/3/07163+/h1z88+ef/N2+ dfdRzmJvPc72560plmQfr0U/f42WR8Ku3/98EvX3077/wrzV3Su2/29h1X2q/bz3l7//Gvf/trqGF35h ZP33/9zv7wei91xjpK//jZh0/kZ7v17sanwjbHhve9 wt/+lV0azAYH9+8ef3833U8dw56+nBf613gyX/yZ39/L5v37j//0w7/9/s9//P5f3/7lv95++/s//OG7 P//5++/+4Wtdd7h6f++//8PbP/+15D//zduffngT/fH8P176RY+1/Sn12l846k50mNdfpq/xj7/8dz53 sPfGujd3k05Ya6q/2rBg6co/OUf3uO83/x03Z2vcWs 3n3Fq//Qdysw2gdS+Tt08/AZzC9/w5Xtnebl+Ad6ogaV/wzff/5z2OBBp1Svt7+/YmK447++/v/v7dNz 7lvzqTN27Hc6D/p+R6RM2/naj8S4Y+1PLJTJS2DFNREPI/GnO//f6H//i7tz9/9x/f/+lzn9Q8XpO3Xi /f43oko5nMm361rXn66//wH9//+X//oheu641E/tzt z/f/paue4MS92/71P18v//s//fDT+88seD+5/7rFg/3Dh1/+s5mn0KALX9Jk8D++QxGF3g3TyaAzgW9Y L//sHqE1xegM4bmDj2WsC/i1N752gIt40/7P9//+l8Pm+XCX/eKrjz/8YoYB/PNfv6D/+vM//81Pfr0/ xBff/yHBS3i1YF31y//83Xf//vvvfvjJ/7ek4/r9Dz /9/zNWuv/hX/4ni87Sv/nTn/740XUnI/8MY6S9S//W0e2Wc352sleiFdtpOc5+d//zh9//8eYKF63Pai 1UvZ/8dhYdWb/99/94dbt//yvrs66J/yeeEml7a9+d+sxs+FdffPH+yw/kzyS52U5r//8/uXdl+ha1Sn z93f/4/k3e/vRvb/NfYNCvcoztY5r7pN/NGK+Z8P0n O23Hry2pfvWt/mqh22qrweivh3DsrcY1fl/+1xqlnc63XkKHK1rHS28/D8DMlEOUAU2sd7PxIDRzGcHf PP9tofyuASLoWQ6ogkc1N3OzvGmdYUzCAPXcCl7nlEMvJG9UTWR8HYdzUGPzINNoO9MtoF4xJ35asNJw MaFeDWDVKF0EutW1QDJ0LCP9SGVsUnKgGKTaVN03DL QeDYVIMh5djmLlOxmNAzAyEN3bulc7O8T8yOKjL286tQbnjuKhRK3Yn6NxwACiSH4DnFTxeICmUWYrQM YrI7bns5DmHDxaZEERFi5kgzCoLuxJJcTqYL1ffsa6V3V6uSwhznAmGCAOBOkbWcdeSW9koKkovplwD6 ZumNKaNDDzH4RxLKDpd98AMJCyVMlFLlZfDnWwWvLf SVqvRZdnDfCaILJsHKGnVRAfGG0PpUMpBTThFAHXTBwfOfppYOYsfD3apVKWz3IaK8nJB96JTBHUX0VY SIjwXtMdKkB9YKkjX9W6OhasJ0ShDT2OK3InVPUcSQYFJCUpvsIxUM4UddZksW3nFAjLBJPAQBqVQHvt BiI0i70oekVMKGDeXUAuVPqoNAGvCZGjHTKjILVbPH ChTTTmRUDkNZ7HC5YtPGXbTGYQYXH8s0XbEIMahguycaljCs6igmDrVrz+LkjhJZOyp6ZfIQgmG2X7oK HqS2FrG8TcBA4TnUZmLKtuVNErCVHpFZUlP126nwVbNX8+EX8zo3SaPjbcTXYMLJVvWBZuTOUjWKT4Wz HbSWTlHKLaJYSdWcW6HyWeHwGJTLRsDBT4ClEgAZAk AYBvQMVeGGkbJKVfWOJrCYp1SSGqVATyJT4aEjQrGPSkMuE4COMrQQToZHVqhpKBDVGqONPnGVXeWZY2 CVXrUWLfEYkwZFPdIBMlFXQ3VZLoHXSrPG9eRbClSGKaILMqZjaaCPDtAUQusnBHRPNiVGOsQXP5QbJs IGKiZSFsTEpzQBXdQKRvXtg8CLWqIVElLC0eVaYnNT GwEXN5ARzvBSHtROHhdvIXOCRmYXXvRBRtQbOsBIHkNPEuMKjeYMKjETAgFdVcIQLjPBMqMG7tXkOjDK RuYBW8LFNuYOPxPVTbteSHHBKuREIwOWj3DGGjULWySWTtBNepDQMjFYZdSQK3JBCjQHCdBA4sHrCkOH VxNPKaJAIvHTNwACRlsbYSTBXwFJSwRCQ0HDVdWIWs RSZiJWutOPCsTEHgJsc4DYMvLCOkTE4xUdKrCNPoIPG8WKSkXHQoUHJisfCFFTZcMDB5Mhf3MhYoTUJz PIPpUUjsWMZeJTPqRgC4PWUpAPKqNR0jXaVtTJUjWWW4EwFsBQMxUREohwZJFJWrBDOtSAR7YnCyXGVz VMIwJLwfXHAxJXTvHEYsKUX5AMY8ZAJvBnXcZOetIS VYNMwYR8UufpFhJbANH7xtMg3ePlSlAAMYS0Gvu4BzUFTdPRUFWb1+YvJ8PMY0aSBkGxm7DgJ4HbjuUP VPRg== ID Date Data Source [id number] 05/19/2020 05:39:38 AM [facility] Name Value Range Interpretation Code Description Data Linda rce(s) Supporting Document(s) Leukocytes [#/volume] in Blood by Automated count 8.0 10*3/uL 4-10 [facility] Erythrocytes [#/volume] in Blood by Automated count 4.67 10*6/uL 4.6- 6.1 [facility] Hemoglobin [Mass/volume] in Blood 14.9 g/dL 13.5-18 [facility] Hematocrit [Volume Fraction] of Blood by Automated count 43.9 % 4 1-53 [facility] Erythrocyte mean corpuscular volume [Entitic volume] by Auto mated count 94.0 fL 80-96 [facility] Erythrocyte mean corpuscular hemoglobin [Entitic mass] by Automated count 31.8 pg 27-33 [facility] Erythrocyte mean corpuscular hemoglobin concentration [Mass/volume] by Automated count 33.8 g/dL 32.0-36.0 [facility] Erythrocyte distribution width [Ratio] by Automated count 12.7 % 11.5-14.5 [facility] Platelets [#/volume] in Blood by Automated count 296 10*3/uL 150-400 [facility] ID Date Data Source [id number] 05/19/2020 06:00:48 AM [facility] Name Value Range Interpretation Code Description Data Linda rce(s) Supporting Document(s) Troponin T.cardiac [Mass/volume] in Serum or Plasma 0.34 ng/mL <0.01 [facility] No Significant Change Since Last Result Called ID Date Data Source [id number] 05/19/2020 06:04:08 AM [facility] Value Range Interpretation Code Description Data Linda rce(s) Supporting Document(s) Albumin [Mass/volume] in Serum or Plasma by Bromocresol green (BCG) dye binding method 3.7 g/dL 3.5-5.2 [facility] Bilirubin.total [Mass/volume] in Serum or Plasma 0.4 mg/dL <1.2 [facility] Calcium [Mass/volume] in Serum or Plasma 9.2 mg/dL 8.6-10.0 [facility] Chloride [Moles/volume] in Serum or Plasma 99 mmol/L 98-107 [facility] Creatinine [Mass/volume] in Serum or Plasma 0.81 mg/dL 0.70-1.20 [facility] Glucose [Mass/volume] in Serum or Plasma 100 mg/dL 70-140 [facility] Alkaline phosphatase [Enzymatic activity/volume] in Serum or Plasma 62 U/L 40-129 [facility] Potassium [Moles/volume] in Serum or Plasma 4.7 mmol/L 3.4-5.1 [facility] Hemolyzed Protein [Mass/volume] in Serum or Plasma 6.7 g/dL 6.4-8.3 [facility] Sodium [Moles/volume] in Serum or Plasma 136 mmol/L 136-145 [facility] Aspartate aminotransferase [Enzymatic activity/volume] in Serum or Plasma 27 U/L <40 [facility] Urea nitrogen [Mass/volume] in Serum or Plasma 10 mg/dL 6-20 [facility] Osmolality of Serum or Plasma by calculation 280 mosm/kg 275-300 [facility] Creatinine/Urea nitrogen [Mass Ratio] in Serum or Plasma 13 [facility] Bicarbonate [Moles/volume] in Serum 29 mmol/L 22-29 [facility] Alanine aminotransferase [Enzymatic activity/volume] in Seru m or Plasma 29 U/L <41 [facility] Anion gap 3 in Serum or Plasma 7 mmol/L 8-15 L [facility] Glomerular filtration rate/1.73 sq M pre dicted among non-blacks [Volume Rate/Area] in Serum or Plasma by Creatinine-based formula (MDRD) >6 0 [facility] Glomerular filtration rate/1.73 sq M pre dicted among blacks [Volume Rate/Area] in Serum or Plasma by Creatinine-based formula (MDRD) >60 [facility] ID Date Data Source [id number] 05/18/2020 08:39:00 PM EST [facility] Name Value Range Interpretation Code Description Data Linda rce(s) Supporting Document(s) SARS-CoV-2 RNA [facility] This lab was ordered by [facility] and reported by [facility]. 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 [facility] Patient has symptoms related to [facility] When did you start to experience these symptoms [Date and time] [Phen X] [facility] Patient was hospitalized because of this condition [facility] patient was admitted to ICU for [facility] Patient resides in a congregate care setting [facility] status [facility] ID Date Data Source [id number] 05/18/2020 09:52:12 PM [facility] Name Value Range Interpretation Code Description Data Linda rce(s) Supporting Document(s) Troponin T.cardiac [Mass/volume] in Serum or Plasma 0.32 ng/mL <0.01 [facility] No Significant Change since last result called ID Date Data Source [id number] 05/18/2020 04:45:16 PM [facility] Value Range Interpretation Code Description Data Linda rce(s) Supporting Document(s) Kaolin activated time [Units/volume] in Blood 235 [facility] ID Date Data Source [id number] 05/18/2020 03:06:14 PM [facility] Name Value Range Interpretation Code Description Data Linda rce(s) Supporting Document(s) [facility] QXQCZe7vZmPOMkLnd8RtGmSlIUZpXF0btqd3N0G4vHNvL3LbhEVwf6zhD3UyI9ErIWPzYNGOCB8IoMZh jb2 [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 [file] Ii6tZ6gs7pvtllWwEAfUirK1/nf9+6+Moreno/n/mp6nO g/j7OLCTyHw2HU0ZN1eK0jh8gDE5CGFCxPn0rrgQq5c8b9SV1Fu9AGdYir3orpwL0z+rXszkR0xpiJau qLSPsA49TyLigNzLTG5QhWu39uuTqaAviQkVlcj8EDdIiIBtzUfYoRZuq45ZnUy1AYxW1w806bqCn+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 [file] /o11ETsWIu7f0Naw5ppX2eqk0HyBK4n7e8Y1r7rfFpEOENf2uU1Snf2mjv3gspwB30hCj/Jose Elias/8SM54d [file] Z7vt36+2u+6QSz06ts6m06V7qQwhUw51F5+A4+5vNc uE/T6bdbz1np2+PMaJ6MUzkk/aO/18Wtr/eZrIn3cnDI/sDnB+2olN8G0pqlH/gT/Am+g4/xOsbr6/AX anbg0g4E813Y0cLlIqzHwnw/6L6Kk0D3qfUxvjOahOwixRkbCCvjafwLedaOkAIV2XfM62Mp8Dq1Mo8L v4M/wD/zOVKEeoWyXjHeujbwDfwJ/gTfwXfcf+G5Zz 6XOvS4Pp/djp7qe2qYy/A7+Y98YG5O4dC9Wk/AN/An+BN8B9+PHEK/eq4PP/Wq4yr8Jj7NK9CJ4Pp8Kk gPynd57591sR9+JXqucY7AXKhj32oZc3a75p31KsW/qm5/58U93Wi+Igq2xW5G/vkb6akkyvElxC/gd/ AH+AN8BV/BN/AN/An+BN/Bd7z/unB9+BWpejKd9tNl 7eG0Me2W18It3C/wB/uSrhPn0Vm2B/qVnzQJ2R1Hp2U5emPxqbrIm3E4keGapvxFd7M8nuRefkc86lIn rN726SxR3nclTwOg7moIfvifwxU0EdUe6/PhytR70a/lwgI3Pe7U02Hm7P/wB/jMuvDc6HA5ZxDA+jUH 38Ff4K/AlguoEKcQxI34l3AD9DB9Yf8Ds0J/zvcy9c I1+AY+7naEq5kdx/z42rCP2+Av8I+9H8k4+71C4IoX0ogv9/v1nM/VERONA/ZgZOHsPcSPNyJycEovjRScsn 3lD6onvEdTXcp7Z9SlPv82roRwO7OwSt3V5Y/w1+GHfvVcg9/Ab+u373q0mRAt39469/1lF6R4Owm2w5 nkG1CAk657Yt4+Rduytx66ev3kGm0scxzxi7aw0J+R ZVPX/Tq/L2Ex74w40V8+1a+zX0V+zXPdwe/gD/AH+Aq+5nwsz3o9vco3lI/ZtzqwAIbXv2B/1d3bj96l 7QK/gd/AF/AF/A5+B/+s3w7/VYd+1VO/krwO/vrQcZ56j1y+ta8f/by3Y+/4wn6GgglrDg0b/INgG2ay KMQ36h0OU+sRQ5J6jiFnEX653hBkXt6w1clr99J/vT 8v727lr4JxA7QSliYrMaMYIDLq1tXilF124zvy/c5eKAAjwp9PvHfU8vWYOXEEOjmSTv515Qv+7fGU7a 1fSa/3XI/9SgzsVOeFvjtK1mHah89638mpv2fOeWs56h9tMmtoA5949HoEir4FaUCQlbfjb4P/ItJjZN Xn7/XrMQ2me2akGG9/f7+B5uhnpA0a6q8+1fvx1/ISSA r+o+R5/eYrH3tF30frW00KeXd25YbInptDuzP/gd/AH+AF/BV/ZYpSY9OT/1BP/Ko15lw8GSj2NPLf/Y s79LHcq2Dm+T30GB5J66AWjo+41U97OVPbLlyMiT01LF61Dn4A/oZJfHg0H/0GSCosgP0EC0ZMo/hu/X 3M2vshuMr9F5ywBldpsGe3Y9cb/J3T5dJC/Bd/AX+O di31IzDovYj0I2A+Odcub/WBjHmG8naA6H+Jfnt6Yn9Ch4Jc74+3D6r+oa+3P6r+w4go3AR/1X+xr8Bn 0IF6FSiLH/ta/BH+IY1GHet6oa29DI7hp9G/xjL/TUr+w0uh5Mi9C/Rk9rslq5HGcW/+pGyO98ny2E/r GHlviZaK1u6Jtk3L3q+hBuIu9Nu0Hm5QZ/Tv1qXz/8 kfrVvg7+Tyhw58q2+AK+gN/B7+ES7Qg7Ns1Xv+Ab+QD4Wq1Y1+Zs6FAuhzok4K20H8vLg8Qs7Ag7s29n Wsf9B/gDfAVfwTfwDfwJ/rQzsHr1m3U5Adp/BNYrTA3aqPAfRpJdON3k+2hROJ2fYiBx7Kw5Zr5Dh+BP 5Is1l0844XeOIGlzW6tjgH+uzbAg5V/cbmNc0n8s4e xw1Plg/q1Ni6Quk710DG/BN/AN/Au0yPf1071e//Eh9141Z45lRET/oOgYc5PShSSwN39O5TaQ5F1+ 9464MfdYXWSOYdwO3PmT+O9F/LnRQz2Q/cB9+o7hfRrL+K8cJ/WqB5W6bdo2GVaSUTssFuDyKrBewz61 tlx9vWVc1tb3bdAI/Dv4xu4mx+BN/Bd/AX+Mc+Gum/ 8eiuQ0q/2LH3R/lerhSG5k/Evphn09j0h+oa403/1cj/Pfb+tOHcE0E+dRtpJPeWHp9c8VjK+WzYrwz7 1cR+NbFfTexXE9/rwObdXO2I84wd/aZ+ta/Ul1gfuR3O+6DKwzUlO93d4+Sánchez/oDbckxm2R+O+azY79K /1VdC/gC/pM0bz61L/oII5so22NJ85MQ24E5p7Wz68 zWcz3x+kPvTdz4u/eZnm6KjaMXTrL9iseORC+c0DDL22Xek0aKcs+fdetXLxs/7r/C3s85f+dLX5j34s GF/ZvPuvWrOrOOBI+ylyO/X6W5PzY7oRU47FOvA1bcwrtwv7Yp22vtNSi+GmwwZMr2vx95EhEtCx/Xdd j7lp8/3n0arCvVAnxkjfomgKWIQbaBiT5nO0SJk3e4 WAXtX0ys70QW5/Ue43aQ4cMQUEY+Nuovvi8eaNthHf4+1qrc71Dil95+7M4T2qn1ynT+NfI+ae/nO5z1 q/Xd3AV2A3Z2orZsA2e05cA9Kb4tK/AF/A5+B3+VQ4UL7X/1wLF3YFL+nVaqZZeTFc3EsC49J7te78Pl e1/l2PsqF/gN/Aa+gC/gd/A7+MT7Nw1Bi+BjvHLs/U jPONfgO/gO/gL/7PoKxIFoksp03/H9dny/Hd9vx/me2u61tZ6w52/F63sWkBOg5+0Us5l5M5mwGl0A6T qOu4W577a0gd8yhE3+gI/xwn+l8F8p/FcK/7MPm3HbM+bUhBiGEfFabbKVqJq85cBrUX0/Q/Q8L6EyBu B4MuHDiFi+A0NTSdGV/7RHi5UzGpu3F5f+q5HXz++O 0wG9MyzDtsrjQQpXVd0EVgbGexMSxQt2Ie1SL8PA9Mm0m1+udvQNtaM/lj72WZ8SH/KGuPnAs4CkIgk4 Ss3BX+Af+2mCcvx5Cczq84S81Iv6Jg0H74To4N/wB/fRayWy0Tf1S/eTrqDt9T/w1+E8fdhIn2N8fyR3 aylJj9L2vhK9nhlBe9F5adI1gvrHk4M/5/bzE69LD/ qkuoO/wD/6s66jP+u6wD/2ka5jD+uI8BK1Dn4CL/MZ/nbjUq8aa0Yfj0QPuA/BP/fkSada3gl03Q52bc jmXkjgvh0mA/Ab+AK+gN/B7+JH8Tf9Me3Bs+Ab+JU7Tz0M0+Ivz9PeZx8EN/sZ0YaCsJ0zYS60fB3xO/ qObUMHaDtrJ0G6Seid+0BXVDL5yX6NsJY/go/xNsf7 n/xq7I2SL+lE1BZHWBoyxd34bz+u93obGWy6i1X8d5Y7hcfOuwKoNW9E81X4Z5Lqy5w8JgcAkpE/wT/2 lce103m4X6E9MAxtauLNEQF/Ehj6lUl2h7dAI/+VJv/4Nwz+K4P/hjHjugcsQ5R7O2bdXtfe1c5Upvm8 awxc6Rr3uaS8lvQ+3RDfbgPzeVzgN/DPfmWIvzLEXx nirwzxVwb/lcF/ZQPjHRjvMPAN/An+BN/Yj3qhT0rBT4Zf4PgeUF4uWLo0vsJTk2gogAUH/WrkZzIeOK +TtiUL8ji/KucS/FeW/sdh0d18nnrZv3Xx2q705K5fYdoDg0bXfGv63mqBp2pzh2Vwv/j2PI+2iG+3sP 7h0qvsr3dLrDsMoyyAk9rxhOH0sqOtp1jbj6WiYaZx o/94n33o0+YZl1aUd9294CL+sVxnDnoydmHjlto3ZZe1zrWyjWaclGLF+SLi7Xi7fa8s82JZ+HmM0jeP b8+Wi3SQn4tv6o4ik27t+tyMA060hdCh22aBR75l/Cx551F+lT4QC/0xg7IS9nnny0Inwj+AKj6V1llm uVe6BQU3uQfhx/htbKLd2Vz8na5Pq+Gw74lZaH8cBU 80P/ag+bEHzY+2DA2aZgAY/rF/zY/4bo4VP0wvhI/Jyh17FD4K3bseL0y+wD/9jR9tG3j20xHfR+/bOv a+LQFfwO/yH2rO87F2ctT+8MDawldsQ2K2F+PyPhYgvyj0A6m9Sa2eUF2+Ed8+Ed8+Ed8+Ed8+Ed8+Ed 8+Ed8+Ed8+Ed8+Ed8+r/G4bduBF/AN/KX2KmI9E3D3 z+ucd0/hE47sH135rgo5OyQ+q0y96kpu8cFpDiPdj0Iyx6lZ5h9G8f2AxpUpa9hsP227qhv9AgO+qwn/ 1WwO/gL/3RbH9y9N1p6X3o5D1f8P2t1L8z6G0v0G1j9Yqzt+YQf6MBy5PLm6BWIaoO/2/mBm70129zTE lc2PVykYaQOyiX7+ltwSUaioVqiAY0nD1Q++MRHfPv uaX0bmS3b9airhlKheUHfMfK91W/sE38E/9v7sC+9r7B34icv+TP2qro/9O8exf+dE3DE3Nm9IYqs3B5 wSH8G64LVjxwESypk2eN/GOzDegfEqxqsYrzbwG/jGhbDG50i0+MK4Rh037oUuFAJrUKhVl7C/9MmpR5 +d9fMs9M/577Rz/jvtAh/c5DBd3VsyFUxfDzG5V/sa /AH+AF/BV/ANfAN/gj/Bd/OvogLiDeCbNasQ15fQx+G51SV2Ax+E72Zj0N/gUEdHs9T74/D5Y//Oefwb c2K/mg7+iUeaiG+tkf9ve5Vl8OxjVCcDr3Z/7vAsk0cy9MeqG/rxfy30932AbAobjDUmL8fpn339G/Xk H/t3+jnvnum/kblE2DUtXJX/ta/1+Uz6r/J/K749+X LhGvwOfgd/gH/O92f6r/Kd03+VY0n/VY4x/Vcj+bWFRO417rjVscpN/1VdL/DXw/dwudFTm1mq6MoW+C tH/JUj/btof1807ryf4y0A+NOXcQvuNv8Nl+XY2Lv8Kx5Ar4S/+3U4le30e1Nk9PlhMGvHC+NF/JUj/s oRf+WIv/UM4cYsC5k18jiR/zqnze2mQ33TH3VLd5ll oz97O+zwBgjn0SpR4/bMf8/28vjF6gTlBn0gH7+3cqv51S/L8emIg00DeJ/58sE9nKwpe/jmnXvswR6o tJ2s6fQP9WV+1qpb83vx9N9o9Me92mkQ6eV+MyDbRbHjgn29946ymVOZ+CUeuE8y3UAViI/Uu5y97ksS 91u/ha7Jzh7ZxNY7em990axwkZdvA65vC102lzUv9z gm6Zubf7o1qppS4wdqv/MD3x1fYR62y84M8+Me+oVVMGHml260/n6vus/Jx/ZOe8JV8ZW7o/xBh//Kx/ n99XF+p3pj2nSdM84TziQ/+CN4rFgHLpa+1oeBj/t8TxcRxPunrQ/gn98j1/P74TwE59Hw7Ge9Zo5Ml2 M/wB/gn/wy1+N/dj3+L4ySk4X/wXfwHfwF/jkfdJwP Ph3WGsuNwbBUj/ye55uMgQ5pta/B4R6sYB/Zh5eT1mZB1wPok3wR4aEV1xMtk3ocFny5T5a+5dCvHPqV z6NP+jz6pCP+yhF/5Yi/xhTlPiQsm96e1S58Awz2rv/gO/gL/SJQxzR0itB5jvcNR/IH3bF+EX/l3sEf 4A/fCBzU5oQwH/An+BN8B9/BX+Dqc7YgIrv7I/SF/W o18AV8/P4u/P4u/P6uYw/6OvagLwX/2L++jj7pqV/V9QR/gu/gO/wl7YSuF6D4bb6+vK4L/AZ+A1/AF/ A7+B38kx+6ruOPXZeCr+Ab+Ab+BH+C7+A7+Zl4mzpcbXyl6G/quoHfwBfwBfz+6VZb8vu7RmZZ6UR4Ut /AN/CPvb9Q/2o1B9/BX+Cp42Bh21z/yQV+A7+BL+AL +Gc+ZxyznwcBi4Op5Df8Oh6NJ6Lp4Ej4Rs0L/5zvL9S/Ay5ypni4EWbsGpwmZl3XW9ygYt5UM9nex9DC q4QeXuEPzWkI+kxV0NzZ2mBv9DaFtU4tbE5lzN+sMU4yBr413TgszeD/r9R61gPRiEW/g9/BH+AP3P/8 Zd9Yk70g3Lc5V/wjy7jmh3WO9xHlAU7Oh5OmGfisjm 3Ur8I+MTuhpOfqNe70Gg44LP6Ln9Z/wB/gK/mZqmD3xnwToH/77LGo4cr0Rh2UZ+B77CbrX+X+YFi/hv lsmM+G+Wwdnz/+yWUD/AG+go/6xHlSbD2xoH2msS5vaL9agR2zzV1kxO8n47bLo3N7SuouhrTFkIaakW Qna8U3LmzueqIH85W4Vg6K8K4Fc5C7S+OdmM+Ib1/Q r9Y89u/C+hQfm3712vilmdMAfb+OvBbwz/qR5dOYxoLqad613xgz6Q/y/OqKwkGUlobFx9tw3fV03WR6 j/TeprulQ3ESd90t5s3pczY5Q/m//pxrr1u/yeugnvnTQiLAqcl17RdcoQh7HH1g/+tJ70a33sIxZ4O0 y538Cz26fo0X7j5HCUALkVps6Nln7/e1ns+ljFt8Va 23FfHtaeOviG/b33gVb0kO7os07zy1ASW3I/38FfHtbvn+Jm8nGJZt3Afsk1m2hGPaj4YfydvFpGnMey 4T+jYqe5YHnpK300WhYI4VJ2Amm/OKMDdDOWs426u4mhFAENHhVVih+EYUyLWnpCsWUvs0wQHqn23uVQ i67pKhCZlakuhvgw7ZmbPVsPHttFWfxDtqt1m0cuEN Mi9eeFEVarkjSsDsl2OILNBgZaCMghjn1GjrZd8VWMnQFeMSQIJ7C3DIIKLgZcsNEm7BjNbiZ3e/LhJE TqYWbLDKmDZhhYXzVUse6UjNRooxX/FFHMXlJrB+WXk1Ez9Tkx1h+qY6m6JoSQSB2tteWKmIFtQPQEUT fIEsIYZKsdE4bVPFcNJIn1u5jyGJOVdFPEXAa/NAOQ [file] 1QvhYgIJIxHOEVXn7Ad776IWAgFLTVYno+QcyqsFHbaFvjJGLUTeDvDINZSASBK8W= ID Date Data Source [id number] 05/18/2020 02:50:57 PM [facility] Name Value Range Interpretation Code Description Data Linda rce(s) Supporting Document(s) [facility] DPITFt4eUpOXPtRy76/SETnmFPXpj6KcDRqlDYz5LPsnBNYkO4EhTZE0bW8cALX9RKqUMwLhWiUmMqGj lbm [file] HKTp4AjvOM/skT+Chemical Supervisor+L/rvthZ11jCcDxx+ASFR71rVnfs3Peqf8Pn4gztBbjRVgfPvxaM61eOUUNKOgz 8BbDZ4Nb2UgdO76E+n30Bw2FaiuPJunl5lj/lJNOaZelLD3ltktXxt2FT9DsORg9qvysPqIk2TG9wKvQ yk+PQUZ7LXWt+xRg5Bsa+DFJLH+9hhU2ggHGeZVeik Hl4h26Nyy7RJ+iqAPhdMbRud8O6k6T22U5LrbCuqP3xcWmdkKRlcZdVfRTRw1YH/UzqGf+rb5A3cod42 9VmzzcNv1Tbg4RCD74gFz43zdIZJSauBUyBQHGei6BY3jSLs6cPO2RiKHV21p8eZgJS+52kpfUBnKEzF ZLtOzGN8lfETEl6Ns/PhA1dLLt94ep1Anahe70y0eU p1Rnb3PIgmXeDzTBcnJghhSDh82GqY5WwG2rEEn/AE7bb78EuwqonD5tYJhqXt+K5RhMq7M3i21Vtpi0 SJvlFPdYTSP/X8BxNJH/wkqx4aI3Mj1L9Lke9oq5S/du2YgOdswTbvNDUuhkfvlKE+GTmMLAY7G+L4G9 mmUNrYGe3hRXTo3okXWRamRKAqmCPB8z9ArkgXWBOT KDS554f+IQvlDDk4EfD2RoT6iEfD36O9ERNd+3LvuYsvzZn83pC+D/AvBKn8COhL+3O8HkW/PL+8B1FS XdazKkep+RhKP+xX4J73/gTvMvXGwjg4TI8K/SJNHBNinFI+dwBXppO4U40E+m7yYYokOLWqIRc6jo5i aFNlq9Yog22FHuxov13Ep0hXfQn0k9p+Oq4kpgWC3c PJztcf3ZB5PFX2O3+y8cX2UY2Fob7Ek97leO14aID1n+8Y0OL0AyIYBqlrofo1cmEstJvwFghwnpkQ0n Alicia/oEFjnJurfL3yHxxVyw8xoHB95160MrrMv02QMbAN/ggms/WwI4aBeLjSpKZYzxr0e2si/eUi4sSW [file] dvy/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/Ozv/vTv/O0//Fu3/+Bv/uT3/4Pf+/ GPfviD3/3+937nt9/47y9026z/469/54mivFypk6+9dfPGb/61r3/tzTcOrn/1K6+/4woYJ939Yi2+8Y Cxq9j2Z032oL6n4kjcfaU8yrjvt4aDG9ioQCM/LB9+jR8pW8HIf3tSW45oO+2/cU3uyKlyC8s8z9xoPC t352j/8NtGyqExnBotDjmGWSndroj3EC53qunDb9+4 Ep90nFLM+pzXWnd1+IUQAlj2NpgliibHp+z5O7r/Azoz1D7pyu+heHd+jV21hZr1mzzMCC+/w0CGvYdf T/3RgR/Fbc8KP3e7I0lB6/V120hDlPg3Y2/2qkfWjx6GT5H+/ye8m1abV03943rRU1hL9alcVAkH683Z rhzF/6++w57p44v12L2o+a35/Es7kl7tR01/3DlyN3 r89C2Q257n2cdB9g1nhhdx4R7di8kBqw/dmYsA9YX3gy0RL37e412+8kjXihw8q//z167/YsktPXXjyY M79/my67+c+fxSrIfkD4PNy8p6dN5eqmJ+qsDK8ic+xp5MSPgciGof/eFwRkjpM58bq39yqvAWbZxKE4 f25UYxSBlX1QL6CL/Xr/Mms9c0r7RK237/OLff38/3 n2OLknn6rZqJs/nz+oG+m0T1wrc857y0ZjLak3bu2HmbxA7vprX+jeHPX2+6fv2N6//Zp1YvIxiwI3bv /Dp4jMu2lo16s0qf57rZVwhv9VEa8maNxkSCjUevk01P+69eDzVvbHmOfPrhhwJHzK/dbhJ2v8YjUuSl rMncij1vn4sWn+bu2bkK9CQ5/IRnpjNXnru1+8yNUM Mzt///nM+09VG5ftA6kic5f/m8nsEjztoyZNThpJiYW99vnGrdwG3qx/KyO73Loc17hjuvf94nhPaj+1 fgiajIihmUCqo8kzEKpo/FQ367nCh1It5a+y9d/9lGpfr1Jhfc/w5bT8u5a8i8vwG30fQ5gjRLkKPw+9 EgU89ZuqS+aKiWl25Aojhyv4dSj+/dl90434oQkM/0 puqMzOKkDv90VbY6Fc095w0192liay7lPvrq8nZx4c8bc+4U7ooaxuHnpk70473O8xU9bm1Kn+++vesJ ur9/qTKQe6o+35Hz8KGPUYIo50LJQi6gMEJMNGMeUmh7wztz/+v2zuwNoa502boqJ1q4Dn9803gsgP2r T3ru01Nze+e2g82gp5F97+7uK624guNxW5N4pz6Wfn uzkqNKcz+nEfjh+PF7x6dzh/z/w6NvtG+/edb8RgUioqnB1GkmrEFn3FKzL4q/cksl0sq0jsy8x72/NT +fq9ty1Z1/FfOhfTDj9Yi/tL6pHiPzm9S6tRnuIjF+/M1CbL7iRmeUrFY+0olzt05RvqjaAzIaLxka36 ofRlkK4g0D0fvL3ehh+TsnCgfy47Wh/nv+7m3AMGX2 uvSP1bWwbf1WmrVQdwfbrLw3xpXfcjkeo+/k5cot4cHXQpyhTjzWmekxF05sSZoMc7bHQ45leGYUV8vF d7f4wUM38DE/v7e3e/AdM4wgj/qWo8KiQhn3dEuT0md54U4MD7BlFrIyV0vDDm+OJ4jIJTriwh5Q00nk v0Vw9sanr+t/mj2jl4CgU2943NOM1qJf/Mz7xEiffm WHFG5GqzkxQU4peuYf+vbx/9Wj7+zd+XrvSpMT/720z48wg5C3Qa1oP2vYDRgix8/49x2armLQoBXYqW qU41UmoqYR0a7blh6Hz02t6GYvYY0jeh67DU3c/1afvwULy4t4aQo9l/NyXm9ibB/p4XT2B8D/+ZWj/h U/6GjyVR14fF9Fp6OOd+2RrtuciejWA/ICaxm6faVN 9RYkz0lezESvizR3qJdipe/uhrT1/cRgbDPu7u2zgY8BYqa45KKfAKXl4zZZiYBJZLqT5gC1wao/n4tD 4Owi/c3GnMZYXnYbwsQh7L49/BdZTbkd+ll0WdbcYtiEVonowY9609Oz5rpAsiviltyaYnXoltj7YE62 eqgb5Wr63rsyiPh+9OqetxlxbD+zojy9aB6GT6xeja [file] JVJ3nWLhTl8LEWJ5QkHYUrReQM7GTKb= ID Date Data Source [id number] 05/18/2020 01:37:01 PM [facility] Name Value Range Interpretation Code Description Data Linda rce(s) Supporting Document(s) Leukocytes [#/volume] in Blood by Automated count 7.7 10*3/uL 4-10 [facility] Erythrocytes [#/volume] in Blood by Automated count 4.77 10*6/uL 4.6- 6.1 [facility] Hemoglobin [Mass/volume] in Blood 15.2 g/dL 13.5-18 [facility] Hematocrit [Volume Fraction] of Blood by Automated count 44.3 % 4 1-53 [facility] Erythrocyte mean corpuscular volume [Entitic volume] by Auto mated count 92.8 fL 80-96 [facility] Erythrocyte mean corpuscular hemoglobin [Entitic mass] by Automated count 31.8 pg 27-33 [facility] Erythrocyte mean corpuscular hemoglobin concentration [Mass/volume] by Automated count 34.3 g/dL 32.0-36.0 [facility] Erythrocyte distribution width [Ratio] by Automated count 12.9 % 11.5-14.5 [facility] Platelets [#/volume] in Blood by Automated count 319 10*3/uL 150-400 [facility] ID Date Data Source [id number] 05/18/2020 01:51:18 PM [facility] Value Range Interpretation Code Description Data Linda rce(s) Supporting Document(s) Heparin unfractionated [Units/volume] in Platelet poor plasma by Chromogenic method [facility] ID Date Data Source [id number] 05/18/2020 01:51:18 PM [facility] Value Range Interpretation Code Description Data Linda rce(s) Supporting Document(s) Prothrombin time (PT) 12.8 s 12.5-14.9 [facility] INR in Platelet poor plasma by Coagulation assay 0.95 [facility] Routine intensity oral anticoagulation I NR is typically 2.0-3.0. Target INR must be clinically individualized. ID Date Data Source [id number] 05/18/2020 02:47:30 PM [facility] Value Range Interpretation Code Description Data Linda rce(s) Supporting Document(s) Troponin T.cardiac [Mass/volume] in Serum or Plasma 0.29 ng/mL <0.01 [facility] Results called to and read back by BISHOP MAYORGA AT [id number] BY [id number] ID Date Data Source [id number] 05/18/2020 06:15:51 PM [facility] Value Range Interpretation Code Description Data Linda rce(s) Supporting Document(s) Cholesterol [Mass/volume] in Serum or Plasma 189 mg/dL <200 [facility] Triglyceride [Mass/volume] in Serum or Plasma 177 mg/dL <150 [facility] Cholesterol in HDL [Mass/volume] in Serum or Plasma 37 mg/dL >40 L [facility] Cholesterol in LDL [Mass/volume] in Serum or Plasma by calcu lation 116 mg/dL <100 [facility] Cholesterol in VLDL [Mass/volume] in Serum or Plasma by calc ulation 35 mg/dl 16-42 [facility] Cholesterol non HDL [Mass/volume] in Serum or Plasma 152 mg/dL <130 [facility] ID Date Data Source [id number] 05/18/2020 06:15:51 PM [facility] Name Value Range Interpretation Code Description Data Linda rce(s) Supporting Document(s) Thyrotropin [Units/volume] in Serum or Plasma 0.884 u[IU]/mL 0.270-4. 200 [facility] ID Date Data Source [id number] 05/18/2020 08:10:11 PM [facility] Name Value Range Interpretation Code Description Data Linda rce(s) Supporting Document(s) Bicarbonate [Moles/volume] in Serum 21 mmol/L 22-29 L [facility] Chloride [Moles/volume] in Serum or Plasma 105 mmol/L 98-107 [facility] Creatinine [Mass/volume] in Serum or Plasma 0.85 mg/dL 0.70-1.20 [facility] Glucose [Mass/volume] in Serum or Plasma 100 mg/dL 70-140 [facility] Potassium [Moles/volume] in Serum or Plasma 5.2 mmol/L 3.4-5.1 H [facility] Hemolyzed Sodium [Moles/volume] in Serum or Plasma 141 mmol/L 136-145 [facility] Urea nitrogen [Mass/volume] in Serum or Plasma 10 mg/dL 6-20 [facility] Anion gap 3 in Serum or Plasma 15 mmol/L 8-15 [facility] Osmolality of Serum or Plasma by calculation 291 mosm/kg 275-300 [facility] Creatinine/Urea nitrogen [Mass Ratio] in Serum or Plasma 12 [facility] Calcium [Mass/volume] in Serum or Plasma 8.5 mg/dL 8.6-10.0 L [facility] Glomerular filtration rate/1.73 sq M pre dicted among non-blacks [Volume Rate/Area] in Serum or Plasma by Creatinine-based formula (MDRD) >6 0 [facility] Glomerular filtration rate/1.73 sq M pre dicted among blacks [Volume Rate/Area] in Serum or Plasma by Creatinine-based formula (MDRD) >60 [facility] ID Date Data Source [id number] 05/18/2020 06:59:24 PM [facility] Name Value Range Interpretation Code Description Data Linda rce(s) Supporting Document(s) Hemoglobin A1c/Hemoglobin.total in Blood by HPLC 6.6 % 4.0-6.0 H [facility] (NOTE)<5.7% Average risk of diabetes (ADA)5.7-6.4% Increased risk of diabetes(ADA)>/= 6.5% Diagnostic for diabetes(ADA) Glucose mean value [Mass/volume] in Blood Estimated fr om glycated hemoglobin 143 mg/dL <126 [facility] ID Date Data Source [id number] 05/18/2020 07:38:00 AM EST [facility] Name Value Range Interpretation Code Description Data Linda rce(s) Supporting Document(s) SARS coronavirus 2 RNA [Presence] in Res piratory specimen by OLMAN with probe detection [facility] This lab was ordered by [facility] a nd reported by [facility]. ID Date Data Source [id number] 04/23/2020 08:36:18 AM [facility] Name Value Range Interpretation Code Description Data Linda rce(s) Supporting Document(s) ED Provider Note [facility] SJZNEg8xKcPRMePj22/SANdbQZLfs1CaAAyhAGj2HCssLYPnE5AoTYA0kR1gXDR3WIcBTeClZpTcZBM9 m [file] kWvy8PzL2A/Le/dPY+histological illustrator/R/mwx3UseexkpYGg5sptK [file] GjNU9EJPl= ID Date Data Source [id number] 04/19/2020 05:05:12 PM [facility] Name Value Range Interpretation Code Description Data Linda rce(s) Supporting Document(s) Progress Note [facility] OEGNAs5fPsODJcGf81/ECHlaKXLyo5WfOTowSBe2IGfoDBPnN5PlLUF3qS6rJEV2HJgQUsTnGxOgXALw lbm [file] AgICAgICAgICAgICAgICAgICAgICAgICAgICAgICAg ICAgICAgICAgICAgICAgICAgICAgICAgICAgICAgDQogICAgICAgICAgICAgICAgICAgICAgICAgICAg ICAgICAgICAgICAgICAgICAgICAgICAgICAgICAgICAgICAgICAgICAgICAgICAgICAgICAgICAgICAg ICAgICAgICAgICAgDQogICAgICAgICAgICAgICAgIC AgICAgICAgICAgICAgICAgICAgICAgICAgICAgICAgICAgICAgICAgICAgICAgICAgICAgICAgICAgIC AgICAgICAgICAgICAgICAgICAgICAgDQogICAgICAgICAgICAgICAgICAgICAgICAgICAgICAgICAgIC AgICAgICAgICAgICAgICAgICAgICAgICAgICAgICAg ICAgICAgICAgICAgICAgICAgICAgICAgICAgICAgICAgDQogICAgICAgICAgICAgICAgICAgICAgICAg ICAgICAgICAgICAgICAgICAgICAgICAgICAgICAgICAgICAgICAgICAgICAgICAgICAgICAgICAgICAg ICAgICAgICAgICAgICAgDQogICAgICAgICAgICAgIC AgICAgICAgICAgICAgICAgICAgICAgICAgICAgICAgICAgICAgICAgICAgICAgICAgICAgICAgICAgIC AgICAgICAgICAgICAgICAgICAgICAgICAgDQogICAgICAgICAgICAgICAgICAgICAgICAgICAgICAgIC AgICAgICAgICAgICAgICAgICAgICAgICAgICAgICAg ICAgICAgICAgICAgICAgICAgICAgICAgICAgICAgICAgICAgDQogICAgICAgICAgICAgICAgICAgICAg ICAgICAgICAgICAgICAgICAgICAgICAgICAgICAgICAgICAgICAgICAgICAgICAgICAgICAgICAgICAg ICAgICAgICAgICAgICAgICAgDQogICAgICAgICAgIC AgICAgICAgICAgICAgICAgICAgICAgICAgICAgICAgICAgICAgICAgICAgICAgICAgICAgICAgICAgIC AgICAgICAgICAgICAgICAgICAgICAgICAgICAgDQogICAgICAgICAgICAgICAgICAgICAgICAgICAgIC AgICAgICAgICAgICAgICAgICAgICAgICAgICAgICAg VPMrYYJpMOTyZKCrGSMlLZEkEAZvUEPkTGCqLLWmTYEtXRJhBFUxAFz5T4upGULcQGJcEA4pVYo1Wi8+ NRuKDxWgTBI7ahAjbB2TJD8zb9DsYFzjXLCpr9LbWEk6LQ8OFAHxZPrxPF0DDVcsic9BYVTcYCFpkOZV i5ijKcGzCDF8PXEtEyxqIV0FXAAfM4bwbnSxWIIcJY YBKRmzFZPPDAomSILNQEBkUIZdHgLmEhGaRPEhYRItXYHHQCE0GRCnLoBjRXMpCXFpGqDrXXOTTJYbIB OfGkQuHBWtSGPfUiefSLHIXK9QVtFrR2XwcC22LGPoEPs+Ev6NSD2ae9EoCKl5OWBvPA0ipn9WMEtAGi XmI5UemzG3UIM8HBCnWx8IRGRkGCQzwML4WSIlVQJT XtQhS2VsoF78CBWLRj6+LQkgkuQkFrwVTzQ4JVTnq3WxOIv6RY2ZUBYwDGc8bZVdPFZsE2Nxv6OnAv50 VJNsVtrlNPWrb8uwKOhrBRJeL0quFZOQGBLhgIOsNO1aDs3xSIYiRFWqOmNuKLMCQI1LBBZwNMPswTLv EBRwDMVKOW4BJYuaGXJ5LFYzstRmiNFfIGaaXI6RGS JlbnQgNDQgMCBSDQo+Ks3UFE3ln4GoPHs8TgCqEZ8xjj9AIFiZRbAzM0M9xCEdU7J7KOyiCu4ZANKtUJ YtITWqKGRBVLzfHB9UMA6zpaG9WW2ScGVyVGLlVMEzwYTwMFp4I40kvXDxOYfpBB9LDFN+Rolo+Pg0KIC AfRUWpBBHnVvVxVZCVBxFuX2ZgF5DSd7YyV6EhZY65 tAznnpHyEDhhTQ0VVT7iGZJmWGWEUY5DlNAdcB4csjV2PYSdPDSXSdXqN96slPJePSBwIECySBMtQl0N ZQXrO6UrwfObpGbptgTsPMSvGBUIME9LYHmcenIseYFeoZdbPL55iPabOS6GAf7WRtIxSO1mrw5KcEQm Aa4RQBE6Wa0SBGBdXYAmZSSbAEF1AIGsKnTsZFtdUZ PbMMSrQJP7VQTxINSeEO4WOuGhQTWqMSK3VKDyMTSqEWDiut4PTLPyIPI5ICEiEEVtTSSwEXDgRQhzNM AkOLSlZOA5MOSePOGpBC5ZTkQuZERiBFC9TvPoKNRgAGXthr5YTGRhMQFnEvv3SINmKRMsVEKmILwoCE EnEQB5BRM5RTQdJPBpTG3NFeJwWUWuPHD7XWjgLNUa UKKivu6RUFCkYYQbKRR6HlYgTYKqWAEwRSwiGMDbXOG5MzBlVLGnYYLuKM5RJiRkVYVvMHJ9MgLxZWWw GMLhir9SHGKaMPVoDpK0XmBxVVWpPIBgPPkiMPLnNPN5DpffSZRvLCGzPO3HOtSwXPLxIXC8XburECEo HTCqls9ZXLUmYEWwCwI8RhKcNHMkRVBtSPdfEDWyWB O2MCG0CPXrRSJoRG9KFvMgJVOoDkE5YDEjSHThALIahr6AWGIoQGOlTCLjAXYuYWXdSYLjZBolGRRhKC DpPzS0HTNsZPOlVA6KCrJmVKSjZsT0ZrFeZLAhNIPyfx1VQLGgRKEhIkW5XYFrVVGhKORmSIygHUIwWT W3MpR0GKUwVAHjCW2SZpHoZBYeBsirLJwlERLfUVVr zd3PCWXmCUFdJSMfATQiMRQkAMPwETcoQPDnIWXjXODpZIImQYHiYJ7XXmOvJKOtQtP4GatjNVNiBYEi os2XUGOgHOOxMPw2AINwCFYvJBXqVClaUYOrKAH5FnQ2LMBdWUOnUH9OYqUgQAXxAuwlSyKvVQHjBGGs yo6MHXRpHLKtKgP3BTYpCHPoKRPvLAdmQKNkMYK9EP B0RBPdMXQuEH2XCrLqVVZcCan3CUKkTYCyULYbws3LHRMrSAMiNFvxLITdKGBgOIHeAVdqDNYgMXI7ZG nmNNWkOELsQY8XVsJjJTIySOBeLiAtIEHwJWFayp0QUJYxCEF4YDO8VFFlSLQmNARpRRizYKZnICWhVX L9RQGkBKGzZE7ICgOpOKUdIWFwPTghMZTtYSMpae8E PPDwPEK9SNK0RvFqEBQaPMKqOPixYUGtRTGiMXn9QKAqBZTkKL0FCrEfUSJsINDjNGJkMOEmSJOlji9B QFNiZBY7ZfC3RhIxZLTfRXEaIOhiODRfZDUmSInaNAOfJDAfIE6BJqJoWAReWMJ7IDFhNYMeVORquc1P CZBbBSZ6RZX8QMUkXDRgYKDkFRfoBHEgTHH2EeX1OG KzMRFeVY2KNnZdMQeiVCVVSug3HVxhG8w3ETN0Rn7EE8Lxv3LwJXDkDAOEKXiiIQ6zedGrXZOiLl6TT8 hUDpnvWICuTVF7VOgsDlAiIRGcRJFxXZkyZQbaP9KiSWQzXA8zGSPmXlGaGTU8IUW7ZTQ5CWAuVvO0A8 AnVZZ5IWVcDQJfNrDlCY8VRi7VXbW6YYK4uSQqUs4EFKP8RhUSXrYmBX7XOCx= ID Date Data Source [id number] 04/09/2020 01:20:[address] [facility] Name Value Range Interpretation Code Description Data Linda e(s) Supporting Document(s) Discharge Summary [facility] OSCYVu9mDuSJKuGk36/LUUlsXXRfn8WvHTavSKw9KQmaLAYaL1WgIMO7uJ5iBDQ8TElBOdEgLlUhNTOa lbm [file] DLUXC7f97OeioCnnIm/qk/CoOMdV7Wx/1L2GmOL/Chemical Supervisor [file] AgICAgICAgICAgICAgICAgICAgICAgICAgICAgICAgICAgICAgICAgICAgICAgICAgICAgICAgICAgIC CkVYPhOTYoZRSuAYDkEOXgLBEjFSBjRYLdHSGqHZSyVM0CXPRjXRQyCEFkGECqRRAdBTTdUSXaWDOuFS AgICAgICAgICAgICAgICAgICAgICAgICAgICAgICAg WRYrFZDkNOViVQIfBZVtZUQbGHDnUWKpDIUaPHIhKGEwTMNiZJUuSTJjHS3RKALaDRXmSOJgWQTgGUYw ICAgICAgICAgICAgICAgICAgICAgICAgICAgICAgICAgICAgICAgICAgICAgICAgICAgICAgICAgICAg PWOxIROdLBEpJIShCOGtWGKhHJYcGFReDE5TNDSzZF AgICAgICAgICAgICAgICAgICAgICAgICAgICAgICAgICAgICAgICAgICAgICAgICAgICAgICAgICAgIC DcNOBjAMEyWFJtENHxAUAeRFVmIRIvJTDiNCOpMDRrKGYqTQ8DEVQyLTCkQVBkOBRlXIWnJGHaBZPgAF AgICAgICAgICAgICAgICAgICAgICAgICAgICAgICAg IRIuSFNrILHiMKBlUFXhLAUeAEMzPBZcPIHtKEPeNPNaXRUbGCAmBKWfUOTjUQ7BZXTmNBVdEHDkFATh ICAgICAgICAgICAgICAgICAgICAgICAgICAgICAgICAgICAgICAgICAgICAgICAgICAgICAgICAgICAg EFYpHWGoSVTaGMAuPLCmKHAoMAInLQUbSRKlVS1XJO AgICAgICAgICAgICAgICAgICAgICAgICAgICAgICAgICAgICAgICAgICAgICAgICAgICAgICAgICAgIC JsZYPkMNEaJKGaBVPsCUCcPUVkOJFoSTTrYCHxBUCdBPBpHCJsTO2WJCYvDPUfABQfPEFeTIZvHFUuQQ AgICAgICAgICAgICAgICAgICAgICAgICAgICAgICAg HFBgIWPzZYKzEULaCSFuTKVePPVhJEJfFWEtTEEbFPHdYXOjYBExCULqIKWkWQNjSN8MPJFqEJZmSOAk ICAgICAgICAgICAgICAgICAgICAgICAgICAgICAgICAgICAgICAgICAgICAgICAgICAgICAgICAgICAg ICAgICAgICAgICAgICAgICAgICAgICAgICAgICAgIA 0KICAgICAgICAgICAgICAgICAgICAgICAgICAgICAgICAgICAgICAgICAgICAgICAgICAgICAgICAgIC CbCZZbUVWiXZNhWLEoHYKiWDWsKZEzROWoXBVcLWAnJGIvRBUlBRBzPI3LVX88mNQeo3U6OTDwHJ3fab c/Sk9FRCdljoVtoWOmLU1ZSwCtYC7lrp4EZsMmSY7k pp2REEvVFbBgT6K1gGYmQMHjHRROSsFpW18eIKbcKy56BBxvGCLcHrJoRXj4Jy4TTkSpX8hfNWEiGyA0 CSAyYcN1LVMtEuY7WRCcCgLiJZDsITPfRVRoSAABDSX6LJQoCcRdAYetVP6Io9RpaLY3DGh+Pt1VYJ8f q4UvJFgjBYSwDK8pfc7ZEXxRXaBpN5AjlsF3XTPtRP VkKz1IQHHyXGSpqSEuWJQkPGTQEdCdQ1PutH12RGCKVb2+WQkbbfYyGgsZSeIsTSQeb1TrJEv5KL3JQG BdTWn9gFKrCOluO5ejhskgECY5yV6pbijfDlstX3TixXkdxdopAQQjFKWcj8A4VMHPUgJAEUM2ZJYgKj AjYjAxWmIsIZT8XJEsRW1tRKdgLC7NUKA4KYkeUNOj IOGmY5uRHnSeEESaZAIdiTiuKI4PUsLjP0OblnHcsPZwMHRrIPEDMd9+QGobtaPjCdmSNeAyOCErk2Ms MKp8EB4WGFBoQXhuQT2RYUKwbH2oYJulQT0XUuPgBHJnPNSUMhKfL61wkLGnBYs3Q9IdAyLqCACoGeeo ZXMgPDwvTmFtZXMgWyBdDQogID4+ID4+DQpkAZ4XNU itlvKjQBNiXe8KJFYyJFOxKT3pOWNiCPSaH6U7hVmlRVAVJiKiN4yeloqfKJ7yGICiD199nGfqeaPkHG PvQGIeQh4OUPCrRFX6OSPppTWcCvzkSHZZZZxhCL9OhKOlCAT1iD1rVKeoZXHiEJJrI2wKKwSrpWyeOK 51bGwgbnVsbCBdDQo+Od7NFC3hs1WpGZi8cnNmDAkb OZGlIYppSBSpXHThDTBdKPH4SYF0AMYZKwItEWUyCHBbQXhbCHEgEQRqrn0BBWJpJKLmFXH6LuFzOBOj LYVdXYiiWTVwZOHgQDF2QIVoCYOwJP8JJvMrCAPoTGUkVXoqSKUiNRKdwz0XSSNqLDRpTCD0OjUqFDOm VRWkBUdvTTLqARW0DbSiXKHoNXLvUN9ANdNrUEOsRQ vrPxIsXGNlPECkpz6IGZFoTIVoUII3ZYXpVBJkDFSgUEfqRHMkMSIoWBP5EOKiDKDgBE9SMpAjGCFvNY LoDrYqKNOfCLQqzr2YVTTjGONpQdOwJyCnYEEyJBDzTMfzSXUtCAF5LTI0HYNzRUBqPW2NPlOmOAJxEq B6DXBaZVWvEKFulj5DFXAuEFBiXBzmPpUhNHYcILMp BRljVVJnQEH2RKI8LWSxLDLtSD0MRuRgIDKyKzR4IPDhDFZwFOAqkp3LTCWhTAGiAKGhQIXsQCDjFKCf UPemTQTzLYG7MSMoVZYuPWAsHN5YBiIuPBBkKrE9SFOpSYFqRGIhay8PHVHrWAPlJck6BKGrBDTiZQJt QXdaQTYuTOV8BUD8ICZfFAVvIO9ICdVwHNIdKzygBz RdGXTeKYAdqv8OQBNrNJPoGFH9SFFlUEHjJHTnJAwhLUOvWNP1KOwrLGGuZCDdNI5KVpFmTJRkVyc5Fz ZqTTRqLWIuno7PXGWdZYZiOJOmERPkLVYqZQQhFOraVEVhNSV0PXG6WZCfBPGtWZ6YJfMuKLSjRqAeIr tqBYOrZQQuox1ENDWwGKNeOVI9CVEmZEKuZDOwHQzo ZSLdKBBdHIJbOTDcBSBvGG3KSfNoLPUbRxYeXMXzCVHuQHWlor8RGIVeBZEyGuJ5BKPjARGyAWMxKBp1 frDbmTUwWCr4OP5JM1DkdyMiFeFGGa3Pj792RWCfPQMjXp9JO6liHe9cZSIcJSEJMn6OOAr6A7DzMfP5 FgP5AmK3Gqd0CfV4DVQ4CpGbUHXpIqRdV0J+IDxjYz CjWXcpSYHmABd0NJAyIJzjUhIfJmPfJmKyPWC6XR5oAIKWZq9+VJewqMEdqUlcTYPWCjJrKYK1CXbxLT VPRg0K ID Date Data Source [id number] 04/09/2020 07:53:[address] [facility] Name Value Range Interpretation Code Description Data Linda rce(s) Supporting Document(s) Consultation [facility] WJTBXn2hHeWNXcKw14/BJBrgUEHjm2NkVLffBZr0PTnaUHGsF9IvOYR5tY0gQGE3TTwULnYhWkTwEXNn lbm [file] CZ3iBDDTEt0+OZizmSGtzVroKGCCLeJhYHF0QBrpEKLLTa0L ID Date Data Source [id number] 04/08/2020 03:28:42 PM [facility] MR LUMBAR SPINE WITHOUT CONTRAST [id number] NAL RESULTInterpreted by:Yessenia Gonzalez, JEFF LUMBAR SPINE WITHOUT IV CONTRAST [id number] INDICATION: Left-sided weakness and paresthesias status post fallCOMPARISONS: CT abdomen pelvis 04/07/2020TECHNIQUE: Multiplanar, multisequence noncontrast MR of the lumbar spine was performed. FINDINGS:Lumbar spine alignment is normal without significant spondylolisthesis. The vertebral body heights are normal. The L4-L5 and L3-L4 intervertebral disc spaces are slightly narrowed due to the adjacent degenerative endplate changes. The conus medullaris is positioned at L1-L2 without evidence of tethering or lipoma. No abnormal cord signal. No abnormal bone marrow signal.No significant diffusion restricted abnormality. No evidence of arachnoiditis.T12-L1: No significant canal or foraminal narrowing.L1-L2: No spinal canal or neuroforaminal narrowing.L2-L3: Mild central canal narrowing due to disc bulge and ligamentum flavum hypertrophy. Moderate right-sided neural foramen narrowing and mild left-sided neural foramen narrowing is identified.L3- L4: Moderate central canal narrowing due to ligamentum of flavum hypertrophy and disc bulge there is severe narrowing of the right neuroforamen with abutment of the exiting nerve root. Moderate to severe narrowing of the left neuroforamen is also identified.L4-L5: Mild central canal narrowing due to ligamentum flavum hypertrophy. The neuroforamen are patent bilaterally.L5-S1: No significant canal or foraminal narrowing.IMPRESSION: 1. Very mild discogenic degenerative changes at L2-L3, L3-L4, and L4-L5 levels.2. Multilevel degenerative changes, most severe at L3-L4 level abutting the exiting nerve root within the right neuroforamen as described above.This document has been electronically signed by Julio Sprague MD on 04/08/2020 3:26 PM Name Value Range Interpretation Code Description Data Linda rce(s) Supporting Document(s) ID Date Data Source [id number] 04/08/2020 12:12:21 PM [facility] Name Value Range Interpretation Code Description Data [facility] rce(s) Supporting Document(s) Leukocytes [#/volume] in Blood by Automated count 13.1 10*3/uL 4-10 [facility] Erythrocytes [#/volume] in Blood by Automated count 5.00 10*6/uL 4.6- 6.1 [facility] Hemoglobin [Mass/volume] in Blood 15.6 g/dL 13.5-18 [facility] Hematocrit [Volume Fraction] of Blood by Automated count 47.6 % 4 1-53 [facility] Erythrocyte mean corpuscular volume [Entitic volume] by Auto mated count 95.1 fL 80-96 [facility] Erythrocyte mean corpuscular hemoglobin [Entitic mass] by Automated count 31.3 pg 27-33 [facility] Erythrocyte mean corpuscular hemoglobin concentration [Mass/volume] by Automated count 32.9 g/dL 32.0-36.0 [facility] al Erythrocyte distribution width [Ratio] by Automated count 12.7 % 11.5-14.5 [facility] Platelets [#/volume] in Blood by Automated count 229 10*3/uL 150-400 [facility] ID Date Data Source [id number] 04/08/2020 12:32:16 PM [facility] Value Range Interpretation Code Description Data Linda rce(s) Supporting Document(s) Bicarbonate [Moles/volume] in Serum 26 mmol/L 22-29 [facility] Chloride [Moles/volume] in Serum or Plasma 99 mmol/L 98-107 [facility] Creatinine [Mass/volume] in Serum or Plasma 0.75 mg/dL 0.70-1.20 [facility] Glucose [Mass/volume] in Serum or Plasma 119 mg/dL 70-140 [facility] Potassium [Moles/volume] in Serum or Plasma 4.2 mmol/L 3.4-5.1 [facility] Sodium [Moles/volume] in Serum or Plasma 133 mmol/L 136-145 L [facility] Urea nitrogen [Mass/volume] in Serum or Plasma 18 mg/dL 6-20 [facility] Anion gap 3 in Serum or Plasma 9 mmol/L 8-15 [facility] Osmolality of Serum or Plasma by calculation 279 mosm/kg 275-300 [facility] Creatinine/Urea nitrogen [Mass Ratio] in Serum or Plasma 24 [facility] Calcium [Mass/volume] in Serum or Plasma 9.4 mg/dL 8.6-10.0 [facility] Glomerular filtration rate/1.73 sq M pre dicted among non-blacks [Volume Rate/Area] in Serum or Plasma by Creatinine-based formula (MDRD) >6 0 [facility] Glomerular filtration rate/1.73 sq M pre dicted among blacks [Volume Rate/Area] in Serum or Plasma by Creatinine-based formula (MDRD) >60 [facility] ID Date Data Source [id number] 04/08/2020 12:32:16 PM [facility] Value Range Interpretation Code Description Data Linda rce(s) Supporting Document(s) Phosphate [Mass/volume] in Serum or Plasma 3.4 mg/dL 2.5-4.5 [facility] ID Date Data Source [id number] 04/08/2020 12:32:16 PM [facility] Value Range Interpretation Code Description Data Linda rce(s) Supporting Document(s) Magnesium [Mass/volume] in Serum or Plasma 2.2 mg/dL 1.6-2.6 [facility] ID Date Data Source [id number] 04/08/2020 09:06:[address] [facility] Name Value Range Interpretation Code Description Data Linda rce(s) Supporting Document(s) History and Physical [facility] GRVSWx0gEmLUKzPf81/NURejWOEwk4MpMYzaZNq5GSkmWYCeU4PlGYR1tJ6sGVK0PMtGIwPdTpRbZNKk lbm [file] PJK0VtZjKK2wKABMMz8+VIqsgTOclBieMCEMRvE0OUOrWWtzQJCGNk3Q ID Date Data Source [id number] 04/07/2020 04:14:22 PM [facility] Name Value Range Interpretation Code Description Data Linda rce(s) Supporting Document(s) Consultation [facility] SRLHLo3lUyBQUwBk42/DNZnlVCZkh5LkJPzhAAe8ISmmLUGqT2YoYRI6yX2aFYJ4YToFAbYmSvDxYURd lbm [file] EvGCz9QUwpYFZHSt2P ID Date Data Source [id number] 04/07/2020 03:14:57 PM [facility] Name Value Range Interpretation Code Description Data Linda rce(s) Supporting Document(s) pH of Arterial blood 7.34 7.38-7.44 L [facility] Carbon dioxide [Partial pressure] in Arterial blood 49 mm[Hg] 35-40 H [facility] Oxygen [Partial pressure] in Arterial blood 85 mmHg 95-100 L [facility] Oxygen saturation in Arterial blood 96 % 94-100 [facility] Base excess in Arterial blood by calculation [facility] Carbon dioxide, total [Moles/volume] in Arterial blood 27 mmol/L [facility] Oxygen/Inspired gas setting [Volume Fraction] Ventilator 0.21 [facility] ID Date Data Source [id number] 04/07/2020 02:10:[address] [facility] Name Value Range Interpretation Code Description Data Linda rce(s) Supporting Document(s) History and Physical [facility] VEBTIh4oBvUYElWi00/CDNrzVTLbu3FmCAtjZUi2ZHbaMXSjB2JsMJU4tV2cATV8VLsYVnZrBcIvRBWa lbm LgExbEFmLbSZPoEccPEaHoHVsxTzjhpNUhGX5BqLU3NNTeM18vYRIuIXDbB2IeMKO2GcL+Mo8VZGNqcZ AlKO5HRdpT4N1iu5oMQg1+oW5SZlvRiSLeiaktWjjcTxrLm04x55ltFZ6ILeQlz8rrKncmng2+lhRnSv +Vanessa++P0gSOqZ7Doj4Pq4uQPp/OySNKST9qyx/6n/ [file] AgICAgICAgICAgICAgICAgICAgICAgICAgICAgICAgICAgICAgICAgICAgICAgICAgICAgICAgICAgIC AgICAgICAgICAgICAgICAgICAgICAgICAgICAgICAg ICAgICAgICANCiAgICAgICAgICAgICAgICAgICAgICAgICAgICAgICAgICAgICAgICAgICAgICAgICAg ICAgICAgICAgICAgICAgICAgICAgICAgICAgICAgICAgICAgICAgICAgICAgICAgICANCiAgICAgICAg ICAgICAgICAgICAgICAgICAgICAgICAgICAgICAgIC AgICAgICAgICAgICAgICAgICAgICAgICAgICAgICAgICAgICAgICAgICAgICAgICAgICAgICAgICAgIC ANCiAgICAgICAgICAgICAgICAgICAgICAgICAgICAgICAgICAgICAgICAgICAgICAgICAgICAgICAgIC AgICAgICAgICAgICAgICAgICAgICAgICAgICAgICAg ICAgICAgICAgICANCiAgICAgICAgICAgICAgICAgICAgICAgICAgICAgICAgICAgICAgICAgICAgICAg ICAgICAgICAgICAgICAgICAgICAgICAgICAgICAgICAgICAgICAgICAgICAgICAgICAgICANCiAgICAg ICAgICAgICAgICAgICAgICAgICAgICAgICAgICAgIC AgICAgICAgICAgICAgICAgICAgICAgICAgICAgICAgICAgICAgICAgICAgICAgICAgICAgICAgICAgIC AgICANCiAgICAgICAgICAgICAgICAgICAgICAgICAgICAgICAgICAgICAgICAgICAgICAgICAgICAgIC AgICAgICAgICAgICAgICAgICAgICAgICAgICAgICAg ICAgICAgICAgICAgICANCiAgICAgICAgICAgICAgICAgICAgICAgICAgICAgICAgICAgICAgICAgICAg ICAgICAgICAgICAgICAgICAgICAgICAgICAgICAgICAgICAgICAgICAgICAgICAgICAgICAgICANCiAg ICAgICAgICAgICAgICAgICAgICAgICAgICAgICAgIC AgICAgICAgICAgICAgICAgICAgICAgICAgICAgICAgICAgICAgICAgICAgICAgICAgICAgICAgICAgIC AgICAgICANCiAgICAgICAgICAgICAgICAgICAgICAgICAgICAgICAgICAgICAgICAgICAgICAgICAgIC AgICAgICAgICAgICAgICAgICAgICAgICAgICAgICAg ICAgICAgICAgICAgICAgICANCjw/hRHlM7mogSZyjsX4E1kdTr0CHy4HNS7pw1HdNDSsPFxabxRzCpgK XxDwWDLiCfxAJsd0MHsjMB7CkZViJ5MbI8TlOUvdSX5QYECrQDEqeCGgDKUaPMCzJtP9UWZkSUgoNC8T aWRzIFsgNSAwIFIgNyAwIFIgOSAwIFIgMTEgMCBSID HyOIAgBoJfEFTmIKZgPQ1DFTSlU313yaThQe4PUc0YCgRsSV0hjc0PDiQrPJLiGfyHOsa0YGfiEK9RbP ZpwMVtKdQwSIIXVtRaL4ngv2LhEoBzJVYVBMygSX1Ah4DcsHUqNTr+Gj2ILJ3lh4TtQCxbYtDiTM0kny 9UWXyYHhRpO3BcjFnkRFalSFYkdKXPWTH3mSZ2JQlg Z348LTIvCLXXUATwmUDoEG9aZQ2zEKBuHXE4QxL5JHGJRJ1LQNMoWAMocTCbYQAqDWQEOA0DQTydHGV3 DVNoskFimFKiPHvrWV9PNBKsdoPbPxSzCCDTULo+Ld3AEA8ir2WcJYcpMhBjIG8efh6PUUuYHmXdJ0H2 qRVmP1O5QJdmSp6KKUAhRCNrMrSlYNNTEVxgLD5OYX 2dhrZ4OP3LyNIeTKGgLJQpqNTeFIu9W35axXSvBUlsQZ1QSQR+Rolo+Zr7LGZAzLXBfAJKaRySuJQDGHp KiZ6GrW8WAa0OoG1JcKC77hDcyxhVmCJnhDQ2CRU6qPUCiZDOTAU4BzNAdfA9ugfXeIJNnUIJLExUaR9 7jzQBdPTHcHMN0KIDcOj0CEOKfR1NfiqWhvDuvzbTy DVHzISLICS7HXKqtxoKhfYFajWksMW22oZuxYR9KKf7PZmLaEE6psb8HkRQhNa4MFNXiHV0QTHNaIQIk OAYeEEX9QLRtToJqTWpdMTGpNJMdOPQ5PPGxLKTcUL4BGnKiXAPqRPZwUtXlBSBfNJTnei6KOLNaGOX7 UKf1BWTbYCLnARYoSAsiHRPfRTOtJLY0HMSeIBOrTE 2AZmMdMOCsTSR6FSJnWSEoQKSsjd9FTZIxXPNwYPCiAwApADOyWNHkAFviIQWfPGA8FhJ3CEEdVQQjZI 9KRxJoYZUrVEg0GczbNKTdBNZdzf5QFKNkQUAlEKQgKIPcYXCqDQFiBPykDVXqAQKjYdP4QMAcOFWuRH 6MYwCeJIKgWKJnPNMdQGShLNEzmx9UMFMkDSVfDCJ0 DtIbUKFrSLSeVPhiWZVoWET4Exh5JKEuGIIuVL9VUtBoEOIyYOqkMOFrADDdCVHyre2SYATzIHRgUiV7 SOQsTLDiMFTkBXwxFTYrBFQqZXD8HMOzZLFiGD3VNqLtNZKjGsA4QeXiMXAfMNQdnf5NRUShGCMbBsAx BsQgGGRoTUAoIYkfGZMaTBQwCBY0YIEaINUdFO5RUg EwPBQdYyG6AqBpSSLaLBJkvg8RGTFyZFIxFWe8CpGwJNIuPFWtLMouBAQeXLQ3PIH8IBYlLXKwWA9YOg WdEYCaBpCfPNQsXDSrPLSsow5YMPLfIUYzZfVlAwYhNDGvYNFbAMvaLDYsYGF9YFk6RXErLGXxRW1QWo UsIRYcUwm5NLCmBPIoWNPmsk8NPAPoFARiWHZ0EHVd ZHVaBQNuNDwvISMgTNE3EXB0RYYfDLYsKN4DDhLhNVMqNqv0ACHkSSHgEIHmyh7RLASkRUKmLSa1LhPi EMTbHYVgJBdqRBSlTGQ7VrN9PLQcOKDrXQ1GOkWaAYMlXjx0GjYjFWSvCXBbst1HUAMbPJK0XPUqQePm HJHiTUVcRYxbBSZoZAUiEUJ6RBGlGKDdZM4OXsIbZG AcCGPnNCTsHTYgIHZhfw6NMOThSEN8WhO8XmVxXSSlHIGiVPphLWOrWEKfIqB6ZJCyHJKfPC2OVwDcVZ ktRVIUZml0DRkmT5g2RRMuLW4BC4Kco4JuOvtxXRYTKNzvBA2boqOeUEYaGd3UY1zWWvd9T7GoCcEsYe Y2ERYrXaK4V5ShGMTtBJRvBlNvHvGbDt1dZPxbSWCi TNHnGWIjZEZdQlj2UcH6AmNuIjIsK4V3IBStWkQmIF5VTt6SKbU6GRE7nMCzSe2NIUR9XtOCRxQiGE2W DQo= ID Date Data Source [id number] 04/07/2020 09:43:44 AM [facility] CT LUMBAR SPINE WITHOUT CONTRAST [id number] NAL RESULTInterpreted by:Kathryn Perez MDINDICATION: 50-year-old male with history of fall from stairs.TECHNIQUE: Axial computed tomography scans of the lumbar spine were obtained. Coronal and sagittal views were performed. Automated dose lowering techniques and/or adjustment according to patient size were utilized for this examination.COMPARISON: No prior relevant studies are available at the time of this dictation.FINDINGS: There is no acute fracture or traumatic listhesis involving visualized lumbar spine. There is levocurvature of lumbar spine with apex at L3 vertebral body. Lumbar lordosis is preserved. Scattered degenerative changes are present in the lumbar spine including disc space narrowing, vacuum phenomenon, and osteophyte formation, most pronounced at the level of L3-L4. The bilateral sacroiliac joints are unremarkable. Atherosclerotic changes are present in the visualized aorta.IMPRESSION:1. No acute osseous injury involving the lumbar spine.2. Chronic levocurvature of lumbar spine with apex at L3 vertebral body.This document has been electronically signed by Willi Pal MD on 04/07/2020 9:41 AM Name Value Range Interpretation Code Description Data Linda rce(s) Supporting Document(s) ID Date Data Source [id number] 04/07/2020 09:41:53 AM [facility] CT THORACIC SPINE WITHOUT CONTRAST [id number] FINAL RESULTInterpreted by:Kathryn Perez MDINDICATION: 50-year-old male with history of fall from stairs.TECHNIQUE: Axial CT images of the thoracic spine were obtained. Sagittal and coronal views were reformatted. Automated dose lowering techniques and/or adjustment according to patient's size were utilized for this examination.COMPARISON: No prior relevant studies are available at the time of this dictation. FINDINGS: There is no acute fracture or traumatic listhesis involving thoracic spine. There is mild dextrocurvature of the thoracic spine with apex at T5-T6. Degenerative changes are present throughout the thoracic spine, most pronounced at the vertebral level T6-T7. Visualized soft tissues are unremarkable.IMPRESSION:No acute fracture or traumatic listhesis involving the thoracic spine. This document has been electronically signed by Willi Pal MD on 04/07/2020 9:39 AM Name Value Range Interpretation Code Description Data Linda rce(s) Supporting Document(s) ID Date Data Source [id number] 04/07/2020 09:35:03 AM [facility] Name Value Range Interpretation Code Description Data Linda rce(s) Supporting Document(s) [facility] RKMQFn9wWpACBsNxo4FaUdZoPRVeXH6kttj6L4I9lVYyL7ClyGIyu5syI5MsG6OaKANvAZQQKH0SpPWo jb2 [file] 02gc5KrkvvidfQBwTK2+SwtkupT0vzqronZXzRFrni cirF+R19dybPbr4j9V5qIiq9g9qdt3zyQr0qD1l3sXeZw/medical staff manager/TOh6Wf7VTREirRbvgh1NquH+pGZ7G0 [file] b4KgVGQySAZLRn9+IcS6KEH5kWFiNii0LfEjRJttQNGHRz== ID Date Data Source [id number] 04/07/2020 09:33:11 AM [facility] CT CERVICAL SPINE WITHOUT CONTRAST [id number] FINAL RESULTInterpreted by:Kathryn Perez MDINDICATION: 50-year-old male with history of fall from stairs.TECHNIQUE: Axial computer tomography scans of the cervical spine were obtained. Coronal and sagittal views were reformatted. Automated dose lowering techniques and/or adjustment according to patient's size were utilized for this examination.COMPARISON: CT cervical spine dated 07/03/2015. FINDINGS: There is no acute fracture or traumatic listhesis involving cervical spine. There is no spondylolisthesis. Distance between anterior arch of C1 and dens is less than 2.5 mm. Minimal scattered degenerative changes are present. The prevertebral soft tissues are unremarkable.IMPRESSION:No acute fracture or traumatic listhesis involving the cervical spine.This document has been electronically signed by Willi Pal MD on 04/07/2020 9:31 AM Name Value Range Interpretation Code Description Data Linda rce(s) Supporting Document(s) ID Date Data Source [id number] 04/07/2020 09:31:00 AM [facility] CT MAXILLOFACIAL WITHOUT CONTRAST [id number] INAL RESULTInterpreted by:Kathryn Perez MDINDICATION: 50-year-old male status post a fall from stairs.COMPARISON: CT head dated 07/03/2015.TECHNIQUE: Spiral maxillofacial CT scan was performed. Bone and soft tissue algorithms were reconstructed along with axial, coronal and sagittal reformats. Automated dose lowering techniques and/or adjustment according to patient size were utilized for this exam.FINDINGS: There is buccal surface maxillary bony erosion surrounding the right molar tooth without fluid collection.Paranasal sinuses are partially opacified. Mastoid air cells are clear. There is chronic deformity of nasal bone and maxillary spine, unchanged from previous imaging dated 07/03/2015. Otherwise, facial bones are intact. Mandible is intact.Orbits and globes are symmetric with homogenous vitreous bodies bilaterally.Visualized nasopharyngeal and oropharyngeal soft tissues are unremarkable. IMPRESSION:1. No acute osseous injuries of the facial bones.2. Buccal surface bony erosion surrounding the right maxillary molar without fluid collection.3. 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 Automated dose lowering techniques and/or adjustment according to patient size were utilized for this exam.COMPARISON: CT head dated 07/03/2015.FINDINGS: No acute intracranial hemorrhage nor abnormal extra-axial fluid collection is identified. There is no evidence of acute territorial infarction. There is no midline shift. The basal cisterns are patent. Ventricles and sulci are normal. Paranasal sinuses are partially opacified. Mastoid air cells are clear. No depressed calvarial fracture. There is a chronic deformity of nasal bone, unchanged from 07/03/2015. Extracranial soft tissues are unremarkable.IMPRESSION:No acute intracranial pathology. This document has been electronically signed by Willi Pal MD on 04/07/2020 9:28 AM Name Value Range Interpretation Code Description Data Linda rce(s) Supporting Document(s) ID Date Data Source [id number] 04/07/2020 07:24:51 AM [facility] Name Value Range Interpretation Code Description Data Linda rce(s) Supporting Document(s) pH of Arterial blood 7.30 7.38-7.44 L [facility] Carbon dioxide [Partial pressure] in Arterial blood 53 mm[Hg] 35-40 H [facility] Oxygen [Partial pressure] in Arterial blood 93 mmHg 95-100 L [facility] Oxygen saturation in Arterial blood 97 % 94-100 [facility] Base excess in Arterial blood by calculation [facility] Carbon dioxide, total [Moles/volume] in Arterial blood 27 mmol/L [facility] Oxygen/Inspired gas setting [Volume Fraction] Ventilator [facility] ID Date Data Source [id number] 04/07/2020 06:51:17 AM [facility] Service Cmnt XXX-Imp : NoneRespiratory P CR Panel : PCR ResultsMicroorganism XXX Cult : See Labs Tab for 2019 nCoV RT-PCR resultsHAdV DNA QI OLMAN+non-probe : Not DetectedHCoV [id number] Nph QI OLMAN+non-probe : Not DetectedHCoV [id number] Nph QI OLMAN+non-probe : Not [id number] RNA Nph QI OLMAN+non-probe : Not [id number] RNA Upper resp QI OLMAN+probe : Not DetectedhMPV RNA Nph QINAA+non-probe : Not DetectedRV+EV RNA Nph QI OLMAN+non-probe : Not DetectedFLUAV RNA Nph QI OLMAN+ non-probe : Not DetectedFLUBV RNA Nph QI OLMAN+non-probe : Not DetectedHPIV1 RNA NphQINAA+non-probe : Not DetectedHPIV2 RNA Nph QINAA+non-probe : Not DetectedHPVI3 RNA Nph OLMAN+non-probe : Not DetectedHPIV4 RNA Nph Q OLMAN+non- probe : Not DetectedRSV RNA Nph Q OLMAN+non-probe : Not DetectedB pert.PT PrmtNph Q OLMAN+non-probe : Not DetectedC pneum DNA Nph Q OLMAN+non-probe : Not DetectedM pneum DNA Nph Q OLMAN+non-probe : Not DetectedB [id number] DNA Nph OLMAN+non-probe : Not Detected Name Value Range Interpretation Code Description Data Linda rce(s) Supporting Document(s) ID Date Data Source [id number] 04/07/2020 06:50:32 AM [facility] Name Value Range Interpretation Code Description Data Linda rce(s) Supporting Document(s) Specimen source [Identifier] of Unspecified specimen [facility] SARS-CoV-2 RNA 2019 nCoV Real-Time RT-PCR: NOT DETECTED [facility] Assay Performed [facility] Patients first test for condition [facility] 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 [facility] Patient has symptoms related to condition [facility] When did you start to experience these symptoms [Date and time] [PhenX] [id number] [facility] Patient was hospitalized because of this condition [facility] patient was admitted to ICU for condition [facility] Patient resides in a congregate care setting [facility] status [facility] ID Date Data Source [id number] 04/07/2020 04:49:30 AM [facility] CT ABDOMEN PELVIS WITH CONTRAST [id number] AL RESULTInterpreted by:Kyree Lin, MDPROCEDURE INFORMATION: Exam: CT Abdomen and Pelvis with Contrast Exam date and time: 04/07/20 (2:00am)Age: 50 years old Clinical indication: Recent fall TECHNIQUE: Imaging protocol: Computed tomography of the abdomen and pelvis with intravenous contrast. Radiation optimization: All CT scans at this facility use at least one of these dose optimization techniques: automated exposure control; mA and/or kV adjustment per patient size (includes targeted exams where dose is matched to clinical indication); or iterative reconstruction. Contrast material: Omni 300 Contrast volume: 100 ml Contrast route: IVCOMPARISON: CT ABDOMEN PELVIS of 07/03/15 FINDINGS: Liver: No solid mass. Mild fatty infiltration.Gallbladder and bile ducts: Normal. No calcified stones. No ductal dilatation. Pancreas: Normal. No ductal dilatation. Spleen: Normal. No splenomegaly. Adrenal glands: Normal. No mass. Kidneys and ureters: Normal. No hydronephrosis. Stomach and bowel: Unremarkable. No bowel obstruction. No mucosal thickening. Appendix: No evidence of appendicitis. Intraperitoneal space: Unremarkable. No free air. No significant fluid collection. Vasculature: Unremarkable. No abdominal aortic aneurysm. Lymph nodes: Unremarkable. No enlarged lymph nodes. Urinary bladder: Unremarkable as visualized. Reproductive: Unremarkable as visualized. Other findings: Small uncomplicated fat-containing inguinal hernias. Bones/joints: No acute fracture. Probably 2 or 3 old healed right-sided rib fractures. Lower lumbar spine degenerative changes again seen.Soft tissues: Unremarkable. IMPRESSION: No acute findings. No definite organ injury.THIS DOCUMENT HAS BEEN ELECTRONICALLY SIGNED BY KYREE LIN MDThis document has been electronically signed by Kyree Lin MD on 04/07/2020 4:49 AM Name Value Range Interpretation Code Description Data Linda rce(s) Supporting Document(s) ID Date Data Source [id number] 04/07/2020 04:42:00 AM [facility] XR FEMUR, MINIMUM OF 2 VIEWS [id number] RESULTInterpreted by:WILY Schneider INFORMATION: Exam: XR Left Femur Exam date and time: 04/07/20 (4:05am) Age: 50 years old Clinical indication: Fall. Left leg pain.TECHNIQUE: Imaging protocol: XR Left femurViews: 2 views COMPARISON: Left femur plain films of 07/03/15 FINDINGS: Bones/joints: No acute fracture nor dislocation. Degenerative changes at the left knee joint.Soft tissues: Unremarkable. IMPRESSION: No acute findings. THIS DOCUMENT HAS BEEN ELECTRONICALLY SIGNED BY KYREE LIN MDThis document has been electronically signed by Kyree Lin MD on 04/07/2020 4:41 AM Name Value Range Interpretation Code Description Data Linda rce(s) Supporting Document(s) ID Date Data Source [id number] 04/07/2020 04:25:49 AM [facility] XR HIP- UNILAT, 2-3 VIEWS [id number] RE SULTInterpreted by:BUSTER SchneiderROCRICHIE INFORMATION: Exam: XR Left Hip with Pelvis when Performed Exam date and time: 04/07/20 (4:04am) Age: 50 years old Clinical indication: Fall. Left hip pain.TECHNIQUE: Imaging protocol: XR Left hip with pelvis when performedViews: 2 views COMPARISON: CT ABDOMEN PELVIS of 04/07/20 FINDINGS: Bones/joints: Unremarkable. No acute fracture nor dislocation.Soft tissues: Unremarkable. IMPRESSION: No acute findings. THIS DOCUMENT HAS BEEN ELECTRONICALLY SIGNED BY KYREE LIN MDThis document has been electronically sign ed by Kyree Lin MD on 04/07/2020 4:25 AM Name Value Range Interpretation Code Description Data Linda rce(s) Supporting Document(s) ID Date Data Source [id number] 04/07/2020 04:13:34 AM [facility] CT THORAX WITH CONTRAST [id number] RESUL TInterpreted by:BUSTER SchneiderROCEDURE INFORMATION: Exam: CT Chest with Contrast Exam date and time: 04/07/20 (2:00am)Age: 50 years old Clinical indication: Trauma, fall TECHNIQUE: Imaging protocol: Computed tomography of the chest with intravenous contrast. Radiation optimization: All CT scans at this facility use at least one of these dose optimization techniques: automated exposure control; mA and/or kV adjustment per patient size (includes targeted exams where dose is matched to clinical indication); or iterative reconstruction. Contrast material: Omni 300 Contrast volume: 100 ml Contrast route: IVCOMPARISON: CT CHEST of 07/03/15 FINDINGS: Lungs: Unremarkable. No consolidation. No masses. Pleural space: Unremarkable. No pneumothorax. No pleural effusions. Heart: Unremarkable. No cardiomegaly. No pericardial effusion. Aorta: Unremarkable. No aortic aneurysm. Lymph nodes: Unremarkable. No enlarged lymph nodes. Bones/joints: No acute fracture. Per haps old healed right rib fracture(s) (lateral portion of right rib # 8 and perhaps also right rib # 9. Soft tissues: Unremarkable. IMPRESSION: No acute findings. THIS DOCUMENT HAS BEEN ELECTRONICALLY SIGNED BY KYREE LIN MDThis document has been electronically signed by Kyree Lin MD on 04/07/2020 4:13 AM Name Value Range Interpretation Code Description Data Linda rce(s) Supporting Document(s) ID Date Data Source [id number] 04/07/2020 04:21:46 AM [facility] Name Value Range Interpretation Code Description Data Linda rce(s) Supporting Document(s) Color of Urine [facility] Clarity of Urine [facility] Specific gravity of Urine by Refractometry automated 1.028 1.003 -1.030 [facility] pH of Urine by Automated test strip 5.0 5.0-8.0 [facility] Protein [Mass/volume] in Urine by Automated test strip Neg [facility] Glucose [Mass/volume] in Urine by Automated test strip Neg [facility] Ketones [Mass/volume] in Urine by Automated test strip Neg [facility] Bilirubin.total [Presence] in Urine by Automated test strip Negative [facility] Hemoglobin [Presence] in Urine by Automated test strip Neg ative [facility] Leukocyte esterase [Presence] in Urine by Automated test strip Negative [facility] Nitrite [Presence] in Urine by Automated test strip Negati ve [facility] Leukocytes [#/area] in Urine sediment by Automated count 0 /HPF 0 -5 [facility] Erythrocytes [#/area] in Urine sediment by Automated count 0 /HPF 0-3 [facility] ID Date Data Source [id number] 04/07/2020 04:45:33 AM [facility] Name Value Range Interpretation Code Description Data Linda rce(s) Supporting Document(s) Amphetamine [Presence] in Urine by Screen method Negative [facility] Benzodiazepines [Presence] in Urine by Screen method Negat [facility] Cannabinoids [Presence] in Urine by Screen method Negative [facility] (NOTE)Positive results are presumptive a nd unconfirmed;confirmatorytesting can be ordered at the [facility] at [address] [place] [address] at [address] within 5 days of collection. Benzoylecgonine [Presence] in Urine by Screen method Negat [facility] Methadone [Presence] in Urine by Screen method Negative [facility] Opiates [Presence] in Urine by Screen method Negative [facility] (NOTE)Positive results are presumptive a nd unconfirmed;confirmatorytesting can be ordered at the [facility] at [address] [place] [address] at [phone] within 5 days of collection. Oxycodone [Presence] in Urine by Screen method Negative [facility] Fentanyl+Norfentanyl [Presence] in Urine by Screen method Negative [facility] (NOTE)Positive results are presumptive a nd unconfirmed;confirmatorytesting can be ordered at the [facility] at [address] [place] [address] at [phone] within 5 days of collection. Service comment [facility] Results below the indicated cutoff (ng/m L), are reported as"Negative." Note: for medical purposes only; not valid for legalor employment testing. ID Date Data Source [id number] 04/07/2020 02:10:21 AM [facility] XR CHEST FRONTAL ONLY [id number] RESULTI nterpreted by:Carlos Srinivasan, MDPROCEDURE INFORMATION: Exam: XR Chest, 1 View Exam date and time: 04/07/2020 1:45 AM Age: 50 years old Clinical indication: Injury or trauma; Fall; Blunt trauma (contusions or hematomas) TECHNIQUE: Imaging protocol: XR of the chest Views: 1 view. COMPARISON: CT THORAX WITH CONTRAST [id number] 07/03/2015 1:41 AM FINDINGS: Lungs: No consolidation. Pleural space: No pleural effusion. No pneumothorax. Heart/Mediastinum: Cardiac silhouette enlarged, magnified by technique. . Bones/joints: Unremarkable. IMPRESSION: No acute lung pathology. THIS DOCUMENT HAS BEEN ELECTRONICALLY SIGNED BY CARLOS SRINIVASAN MDThis document has been electronically signed by Carlos Srinivasan MD on 04/07/2020 2:10 AM Name Value Range Interpretation Code Description Data Linda rce(s) Supporting Document(s) ID Date Data Source [id number] 04/07/2020 01:58:46 AM [facility] Value Range Interpretation Code Description Data Linda rce(s) Supporting Document(s) Troponin I.cardiac [Mass/volume] in Blood 0.02 ng/mL 0.00-0.08 [facility] ID Date Data Source [id number] 04/07/2020 02:35:43 AM [facility] Value Range Interpretation Code Description Data Linda rce(s) Supporting Document(s) Prothrombin time (PT) 12.6 s 12.5-14.9 [facility] INR in Platelet poor plasma by Coagulation assay 0.94 [facility] Routine intensity oral anticoagulation I NR is typically 2.0-3.0. Target INR must be clinically individualized. ID Date Data Source [id number] 04/07/2020 02:35:43 AM [facility] Value Range Interpretation Code Description Data Linda rce(s) Supporting Document(s) aPTT in Platelet poor plasma by Coagulation assay 23.9 s 24.0-33. 0 L [facility] ID Date Data Source [id number] 04/07/2020 02:47:23 AM [facility] Value Range Interpretation Code Description Data Linda rce(s) Supporting Document(s) Ethanol [Mass/volume] in Serum or Plasma 0.17 g/dl Negative A [facility] ID Date Data Source [id number] 04/07/2020 02:47:23 AM [facility] Name Value Range Interpretation Code Description Data Linda rce(s) Supporting Document(s) Lipase [Enzymatic activity/volume] in Serum or Plasma 70 U/L 13-6 0 H [facility] ID Date Data Source [id number] 04/07/2020 02:47:23 AM [facility] Name Value Range Interpretation Code Description Data Linda rce(s) Supporting Document(s) Albumin [Mass/volume] in Serum or Plasma by Bromocresol green (BCG) dye binding method 4.7 g[facility] Bilirubin.total [Mass/volume] in Serum or Plasma 0.3 mg/dL <1.2 [facility] Calcium [Mass/volume] in Serum or Plasma 9.2 mg/dL 8.6-10.0 [facility] Chloride [Moles/volume] in Serum or Plasma 99 mmol/L 98-107 [facility] Creatinine [Mass/volume] in Serum or Plasma 0.89 mg/dL 0.70-1.20 [facility] Glucose [Mass/volume] in Serum or Plasma 101 mg/dL 70-140 [facility] Alkaline phosphatase [Enzymatic activity/volume] in Serum or Plasma 53 U/L 40-129 [facility] Potassium [Moles/volume] in Serum or Plasma 4.0 mmol/L 3.4-5.1 [facility] Protein [Mass/volume] in Serum or Plasma 7.5 g/dL 6.4-8.3 [facility] Sodium [Moles/volume] in Serum or Plasma 136 mmol/L 136-145 [facility] Aspartate aminotransferase [Enzymatic activity/volume] in Serum or Plasma 35 U/L <40 [facility] Urea nitrogen [Mass/volume] in Serum or Plasma 15 mg/dL 6-20 [facility] Osmolality of Serum or Plasma by calculation 283 mosm/kg 275-300 [facility] Creatinine/Urea nitrogen [Mass Ratio] in Serum or Plasma 16 [facility] Bicarbonate [Moles/volume] in Serum 23 mmol/L 22-29 [facility] Alanine aminotransferase [Enzymatic activity/volume] in Seru m or Plasma 49 U/L <41 H [facility] Anion gap 3 in Serum or Plasma 13 mmol/L 8-15 [facility] Glomerular filtration rate/1.73 sq M pre dicted among non-blacks [Volume Rate/Area] in Serum or Plasma by Creatinine-based formula (MDRD) >6 0 [facility] Glomerular filtration rate/1.73 sq M pre dicted among blacks [Volume Rate/Area] in Serum or Plasma by Creatinine-based formula (MDRD) >60 [facility] ID Date Data Source [id number] 04/07/2020 03:02:[address] [facility] Name Value Range Interpretation Code Description Data Linda rce(s) Supporting Document(s) Leukocytes [#/volume] in Blood by Automated count 10.9 10*3/uL 4-10 H [facility] Erythrocytes [#/volume] in Blood by Automated count 5.33 10*6/uL 4.6- 6.1 [facility] Hemoglobin [Mass/volume] in Blood 16.8 g/dL 13.5-18 [facility] Hematocrit [Volume Fraction] of Blood by Automated count 50.5 % 4 1-53 [facility] Erythrocyte mean corpuscular volume [Entitic volume] by Auto mated count 94.7 fL 80-96 [facility] Erythrocyte mean corpuscular hemoglobin [Entitic mass] by Automated count 31.5 pg 27-33 [facility] Erythrocyte mean corpuscular hemoglobin concentration [Mass/volume] by Automated count 33.3 g/dL 32.0-[facility] E[facility]rocyte distribution width [Ratio] by Automated count 12.6 % 11.5-14.5 [facility] Platelets [#/volume] in Blood by Automated count 231 10*3/uL 150-400 [facility] Confirmed Differential cell count method - Blood [facility] Neutrophils/100 leukocytes in Blood by Automated count 54 % [facility] Lymphocytes/100 leukocytes in Blood by Automated count 32 % [facility] Monocytes/100 leukocytes in Blood by Automated count 11 % [facility] Eosinophils/100 leukocytes in Blood by Automated count 2 % [facility] Neutrophils [#/volume] in Blood by Automated count 5.91 10*3/uL 1.8-7 .0 [facility] Lymphocytes [#/volume] in Blood by Automated count 3.47 10*3/uL 1.2-4 .0 [facility] Monocytes [#/volume] in Blood by Automated count 1.22 10*3/uL 0-0.8 H [facility] Eosinophils [#/volume] in Blood by Automated count 0.21 10*3/uL 0-0.5 [facility] Variant lymphocytes/100 leukocytes in Blood by Manual count 1 % [facility] Lymphocytes [#/volume] in Blood 0.10 10*3/uL 0 H [facility] Macrocytes [Presence] in Blood by Light microscopy [facility] Poikilocytosis [Presence] in Blood by Light microscopy [facility] Stomatocytes [Presence] in Blood by Light microscopy [facility] ID Date Data Source [id number] 04/07/2020 04:02:14 PM [facility] Name Value Range Interpretation Code Description Data Linda rce(s) Supporting Document(s) Procalcitonin [Mass/volume] in Serum or Plasma 0.04 ng/mL <0.10 [facility] (NOTE) < 0.25 ng/mL Bacterial infec tion unlikely,particularly lower respiratory tract infections.0.25 -<0.50 ng/mL Low risk for progression to severe sepsis/septic shock. Localized infection is possible. Measurement done early (<6 hours) after systemic process starts may still be low.0.50 - 2.00 ng/mL Moderate risk for progression to sepsis/septic shock. > 2.00 ng/mL High risk for progression to sepsis/septic shock. ID Date Data Source [id number] 04/07/2020 05:57:33 AM [facility] Value Range Interpretation Code Description Data Linda rce(s) Supporting Document(s) Blood group antibodies identified in Serum or Plasma [facility] Blood bank comment Health system E Ag [Presence] on Red Blood Cells from Blood product unit [facility] ID Date Data Source [id number] 04/07/2020 09:10:28 AM [facility] Name Value Range Interpretation Code Description Data Linda rce(s) Supporting Document(s) ABO and Rh group [Type] in Blood [facility] Inconclusive Result, repeat testing requ ired.Performed at [facility], [place], [place] Confirmed Blood bank comment Health system POS ID Date Data Source [id number] 04/07/2020 01:49:15 AM [facility] Name Value Range Interpretation Code Description Data Linda rce(s) Supporting Document(s) Sodium [Moles/volume] in Blood 137 mmol/L 136-145 [facility] Potassium [Moles/volume] in Blood 4.0 mmol/L 3.4-5.1 [facility] Chloride [Moles/volume] in Blood 101 mmol/L 98-107 [facility] Carbon dioxide, total [Moles/volume] in Blood 26 mmol/L 22-29 [facility] Calcium.ionized [Moles/volume] in Blood 1.24 mmol/L 1.13-1.32 [facility] Glucose [Mass/volume] in Blood 104 mg/dL 70-140 [facility] Urea nitrogen [Mass/volume] in Blood 16 mg/dL 6-20 [facility] Creatinine [Mass/volume] in Blood 1.0 mg/dL 0.70-1.20 [facility] Hematocrit [Volume Fraction] of Blood 53 % 41-53 [facility] Hemoglobin [Mass/volume] in Blood by calculation 18.0 g/dL 13.5-18.0 [facility] ID Date Data Source [id number] 04/07/2020 01:58:[address] [facility] Name Value Range Interpretation Code Description Data Linda rce(s) Supporting Document(s) pH of Venous blood 7.29 7.36-7.41 L Health system Carbon dioxide [Partial pressure] in Venous blood 51 mmHg 40-45 H [facility] Oxygen [Partial pressure] in Venous blood 43 mmHg [facility] Base excess standard in Venous blood by calculation [facility] Oxygen saturation Calculated from oxygen partial pressure in Venous blood 73 % 60-85 [facility] Lactate [Moles/volume] in Venous blood 1.8 mmol/L 0.5-2.2 [facility] Bicarbonate [Moles/volume] in Venous blood 26 mmol/L [facility] Procedure Social History Code Duration Value Status Description Data Source(s ) Alcohol intake 06/07/2020 12:00:00 AM EST Ex-drinker (finding) comp leted Ex- drinker (finding) [facility] Tobacco use and exposure 06/07/2020 12:00:00 AM EST Never used co mpleted Never used [facility] Cigarette pack-years 06/07/2020 12:00:00 AM EST UNK [facility] Cigarettes smoked current (pack per day) - Reported 06/07/19 12:00:00 AM EST UNK [facility] Smoking 06/07/2020 12:00:00 AM EST Former smoker completed Former smoker [facility] Smoking 06/03/2020 12:00:00 AM EST Current Smoker completed Curre nt Smoker eCW1 ([facility]) Smoking 06/03/2020 12:00:00 AM EST Current Smoker completed Curre nt Smoker eCW1 ([facility]) Alcohol intake 05/18/2020 12:00:00 AM EST Ex-drinker (finding) comp leted Ex- drinker (finding) [facility] Smoking 04/21/2020 12:00:00 AM EST Current Smoker completed Curre nt Smoker eCW1 ([facility]) Smoking 04/21/2020 12:00:00 AM EST Current Smoker completed Curre nt Smoker eCW1 ([facility]) Smoking 04/21/2020 12:00:00 AM EST Current Smoker completed Curre nt Smoker eCW1 ([facility]) Alcohol intake 04/19/2020 12:00:00 AM EST Current drinker of al cohol (finding) completed Current drinker of alcohol (finding) [facility] 05/23/2020 12:00:00 AM EST Cigarette Smoker completed Cig arette Smoker [facility] 05/23/2020 12:00:00 AM EST Current smoker completed Curre nt smoker [facility] Vital Signs ID Date Data Source UNK Name Value Range Interpretation Code Description Data Source(s) Diastolic blood pressure 88 mm[Hg] 88 mm[Hg] eCW1 ([facility]) Systolic blood pressure 128 mm[Hg] 128 mm[Hg] e CW1 ([facility]) Body temperature 96.4 [degF] 96.4 [degF] eCW1 ( [facility]) Respiratory rate 18 /min 18 /min eCW1 ([facility]) Heart rate 109 /min 109 /min eCW1 ([facility]) Body mass index (BMI) [Ratio] 39.17 kg/m2 39.17 kg/m2 W1 ([facility]) Body height 70 [in_i] 70 [in_i] eCW1 ([facility]) Body weight 273 [lb_av] 273 [lb_av] eCW1 ([facility]) ID Date Data Source [id number] 06/07/2020 05:23:49 PM [facility] Name Value Range Interpretation Code Description Data Source(s) WEIGHT RECORDED 265 lb 265 lb [facility] Body height Measured 70.5 in 70.5 in [facility] ID Date Data Source [id number] 05/22/2020 12:48:04 PM [facility] Name Value Range Interpretation Code Description Data Source(s) WEIGHT RECORDED 274.69 lb 274.69 lb [facility] Body height Measured 70 in 70 in [facility] WEIGHT RECORDED 272.05 lb 272.05 lb [facility] WEIGHT RECORDED 274.25 lb 274.25 lb [facility] Body height Measured 70 in 70 in [facility] WEIGHT RECORDED 265 lb 265 lb [facility] Body height Measured 69 in 69 in [facility] TRANSFER FROM [facility] ID Date Data Source [id number] 04/29/2020 01:24:09 PM [facility] Name Value Range Interpretation Code Description Data Source(s) WEIGHT RECORDED 273 lb 273 lb [facility] WEIGHT RECORDED 173 lb 173 lb [facility] Patient Treatment Plan of Care Planned Activity Planned Date Details Description Data Source (s) prednisolone acetate 10 MG/ML Ophthalmic Suspension 05/20/20 12:00:00 AM [facility] Ofloxacin 3 MG/ML Ophthalmic Solution 05/20/2020 12:00:00 AM [facility] Rosuvastatin calcium 40 MG Oral Tablet 05/20/2020 12:00:00 AM [facility] 24 HR metoprolol succinate 50 MG Extended Release Oral Tablet 05/20/2020 12:00:00 AM [facility] clopidogrel 75 MG Oral Tablet 05/20/2020 12:00:00 AM [facility] Lisinopril 10 MG Oral Tablet 05/20/2020 12:00:00 AM [facility] gabapentin 300 MG Oral Capsule 05/20/2020 12:00:00 AM [facility] potassium chloride 20 mEq in 50 mL IVPB (premix) 05/18/2020 04:12:1 4 PM [facility] sodium phosphate infusion 12 mmol/100 mL (central line ) (premix) 05/18/2020 04:12:14 PM [facility] potassium phosphate infusion 12 mmol/100 mL (central l ine) (premix) 05/18/2020 04:12:14 PM [facility] calcium gluconate in NaCl 0.9 % infusion 2 g/50 mL 05/18/2020 04 :12:14 PM [facility] 50 ML Magnesium Sulfate 40 MG/ML Injection 05/18/2020 04:12:13 PM E [facility] albuterol (PROVENTIL HFA) inhaler 2 puff 05/18/2020 03:47:15 PM [facility] atorvastatin 40 MG Oral Tablet 04/26/2020 12:00:00 AM [facility] atorvastatin 40 MG Oral Tablet 04/26/2020 12:00:00 AM EST [facility] ([facility]) atorvastatin 40 MG Oral Tablet 04/26/2020 12:00:00 AM EST W1 ([facility]) atorvastatin 40 MG Oral Tablet 04/26/2020 12:00:00 AM EST eCW1 ([facility]) Lisinopril 10 MG Oral Tablet 04/21/2020 12:00:00 AM EST eCW1 ([facility]) Lisinopril 10 MG Oral Tablet 04/21/2020 12:00:00 AM EST [facility] ([facility]) Lisinopril 10 MG Oral Tablet 04/21/2020 12:00:00 AM [facility] Lisinopril 10 MG Oral Tablet 04/21/2020 12:00:00 AM EST eCW1 ([facility]) Lisinopril 10 MG Oral Tablet 04/21/2020 12:00:00 AM EST eCW1 ([facility]) gabapentin 600 MG Oral Tablet 04/21/2020 12:00:00 AM EST eCW1 ([facility]) Lisinopril 10 MG Oral Tablet 04/21/2020 12:00:00 AM EST eCW1 ([facility]) Phenylephrine Hydrochloride 25 MG/ML Ophthalmic Soluti on 04/19/2020 03:30:00 PM [facility] Cyclopentolate hydrochloride 10 MG/ML Ophthalmic Solut ion 04/19/2020 03:30:00 PM [facility] Proparacaine hydrochloride 5 MG/ML Ophthalmic Solution 04/19/2020 02:00:00 PM [facility] Phenylephrine Hydrochloride 25 MG/ML Ophthalmic Soluti on 04/19/2020 02:00:00 PM [facility] Tropicamide 10 MG/ML Ophthalmic Solution 04/19/2020 02:00:00 PM [facility] prednisolone acetate 10 MG/ML Ophthalmic Suspension 04/19/20 12:00:00 AM [facility] Ofloxacin 3 MG/ML Ophthalmic Solution 04/19/2020 12:00:00 AM [facility] Fluticasone-Salmeterol 55-14 MCG/ACT Inhalation Aeroso l Powder Breath Activated 04/10/2020 12:00:00 AM [facility] 60 ACTUAT Budesonide 0.08 MG/ACTUAT / fo rmoterol fumarate 0.0045 MG/ACTUAT Metered Dose Inhaler 04/09/2020 12:00:00 AM [facility] Albuterol Sulfate HFA 108 (90 Base) MCG/ ACT Inhalation Aerosol Solution (PROVENTIL HFA) 04/09/2020 12:00:00 AM [facility] gabapentin 300 MG Oral Capsule 04/09/2020 12:00:00 AM [facility] Acetaminophen 325 MG Oral Tablet 04/09/2020 12:00:00 AM [facility] Prednisone 20 MG Oral Tablet 04/09/2020 12:00:00 AM [facility] albuterol (PROVENTIL HFA) inhaler 2 puff 04/08/2020 10:37:48 AM [facility] Acetaminophen 325 MG Oral Tablet 04/07/2020 06:57:21 AM [facility] Lisinopril 10 MG Oral Tablet [facility]
[2020-06-15 21:02] VITALS: BP 132/58
--- NOTE | 2020-06-16 05:51 | ECGEPIP ---
[facility] - ED Test Date: 2020-06-15 Pat Name: DELMAR ADAMES Department: Room: - Gender: Male Filterer: whitney : 1970 Requested By: SUJATHA Dueñas Order Number: [id number] Reading MD: Mikey Barney Measurements Intervals [place] Rate: 72 P: 8 FL: 174 QRS: -31 QRSD: 115 T: 34 QT: 432 QTc: 474 Interpretive Statements SINUS RHYTHM WITH OCCASIONAL VENTRICULAR PREMATURE COMPLEXES LEFT AXIS DEVIATION LOW QRS VOLTAGE IN EXTREMITY LEADS MODERATE INTRAVENTRICULAR CONDUCTION DELAY MINIMAL ST DEPRESSION Electronically Signed on 06-16-2020 5:51:25 EST by Mikey Barney
--- NOTE | 2020-06-16 20:30 | ECGEPIP ---
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
== END 2020-06-15 21:03 | disposition home or self-care (01) ==
LOC: M ED 14:51
DX: R07.9 Chest pain, unspecified (principal); R06.02 Shortness of breath; I10 Essential (primary) hypertension; J44.9 Chronic obstructive pulmonary disease, unspecified; E78.5 Hyperlipidemia, unspecified; F31.9 Bipolar disorder, unspecified; Z95.5 Presence of coronary angioplasty implant and graft; Z79.899 Other long term (current) drug therapy; Z79.01 Long term (current) use of anticoagulants

== ENCOUNTER 2021-01-24 22:31 | Inpatient (IN) | payer OTHER ==
[~2021-01-24] VITALS: Ht 182.9 cm; Wt 122.7 kg
[2021-01-25 00:21] LABS: HEMATOCRIT 45.1 % (42.0-52.0); HEMOGLOBIN 15.1 g/dl (13.5-17.5); MEAN CORPUSCULAR HEMOGLOBIN 31.7 pg (27.0-33.0); MEAN CORPUSCULAR HGB CONC 33.5 g/dl (32.0-36.5); MEAN CORPUSCULAR VOLUME 94.5 fl (80.0-96.0); PLATELET COUNT, AUTOMATED 213 10^3/uL (150-450); RED BLOOD COUNT 4.77 10^6/uL (4.30-6.10); WHITE BLOOD COUNT 11.3 10^3/uL (4.0-10.0)
[2021-01-25 00:55] LABS: ACETAMINOPHEN LEVEL < 2.0 UG/ML (10.0-30.0); ALBUMIN 3.7 GM/DL (3.2-5.2); ALT/SGPT 47 U/L (12-78); BILIRUBIN,DIRECT < 0.1 MG/DL (0.0-0.2); BILIRUBIN,TOTAL 0.3 MG/DL (0.2-1.0); BLOOD UREA NITROGEN 24 MG/DL (7-18); CALCIUM LEVEL 8.7 MG/DL (8.5-10.1); CARBON DIOXIDE LEVEL 26 MEQ/L (21-32); CHLORIDE LEVEL 104 MEQ/L (98-107); CREATININE FOR GFR 1.14 MG/DL (0.70-1.30); ETHYL ALCOHOL (ETHANOL) 0.201 % (0.000-0.010); GLOMERULAR FILTRATION RATE > 60.0 (>56); GLUCOSE, FASTING 94 MG/DL (70-100); POTASSIUM SERUM 4.3 MEQ/L (3.5-5.1); SALICYLATE LEVEL 4.3 MG/DL (5.0-30.0); SODIUM LEVEL 136 MEQ/L (136-145); TOTAL PROTEIN 6.9 GM/DL (6.4-8.2)
--- NOTE | 2021-01-25 00:57 | REPVR ---
PROCEDURE INFORMATION: Exam: XR Chest Exam date and time: 01/25/2021 11:54 PM Age: 50 years old Clinical indication: Cough; Patient HX: PT states history of smoking and copd TECHNIQUE: Imaging protocol: XR of the chest. Views: 1 view. COMPARISON: 1. [place] PORTABLE CHEST X-RAY 06/15/2020 3:[address] ANGIO CHEST 05/18/2020 8:24:11 AM FINDINGS: Lungs: There is a focal opacity in the right midlung zone. Pleural spaces: Unremarkable. No pleural effusion. No pneumothorax. Heart/Mediastinum: The cardiac silhouette is borderline in size and similar in size compared to the prior chest x-ray on 06/15/2020. The mediastinal contours are unremarkable. Bones/joints: There are old healed fractures of the right lateral 7th and 8th ribs. IMPRESSION: Focal opacity in the right midlung zone, which may represent pneumonia. Electronically signed by: Reggie Browne On 01/25/2021 00:56:54 AM
[2021-01-25 01:03] LABS: AMPHETAMINES LEVEL URINE NEGATIVE (NEGATIVE); BARBITURATES URINE NEGATIVE (NEGATIVE); BENZODIAZEPINES URINE NEGATIVE (NEGATIVE); CANNABINOIDS URINE POSITIVE (NEGATIVE); COCAINE METABOLITE URINE NEGATIVE (NEGATIVE); METHADONE URINE NEGATIVE (NEGATIVE); OPIATES URINE NEGATIVE (NEGATIVE); PHENCYCLIDINE URINE NEGATIVE (NEGATIVE)
[2021-01-25 01:09] LABS: RSV AMPLIFICATION NEGATIVE (NEGATIVE)
[2021-01-25] MEDS ORDERED: cefTRIAXone SOD 2 GM in D5W MINI-BAG PLUS 50 ML IV ONE (05:55)
[2021-01-25] MEDS ORDERED: NS 3,680 ML in IV 1 EA IV ONE (05:55)
[2021-01-25] MEDS ORDERED: DOXYCYCLINE HYCLATE 100 MG in D5W MINI-BAG PLUS 100 ML IV ONE (07:30)
[2021-01-25] MEDS ORDERED: IPRATROPIUM 0.5MG/ALBUTEROL 2.5MG INH SOL UD 3ML (DUONEB) NEB PRN (07:35)
[2021-01-25] MEDS ORDERED: ASPI81TA26 PO (07:48)
[2021-01-25] MEDS ORDERED: HOME MED LIST COMPLETE! XX SCH (07:50)
[2021-01-25] MEDS ORDERED: MIDODRINE 5 MG TAB PO SCH (08:00)
[2021-01-25 08:05] LABS: CHOLESTEROL LEVEL 132 MG/DL (<200); CHOLESTEROL RISK RATIO 4.888 (<5); HDL CHOLESTEROL 27 MG/DL (>40); NON-HDL-C 105 MG/DL; TRIGLYCERIDES LEVEL 422 MG/DL (<150)
--- NOTE | 2021-01-25 08:35 | HPE ---
HISTORY AND PHYSICAL DATE OF ADMISSION: 01/25/2021 CHIEF COMPLAINT: "I jumped in the river. 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 The patient says he did not try to commit suicide but he has been depressed for a few days. He has been coughing without any sputum production, no fever, chills, nausea or vomiting. The patient has been depressed since his youngest son has been addicted on heroin and has been trying to help him with that. His two other sons have had the same issue. The patient says, "I'm getting to the point where my life is monotonous and I can't help anyone." The patient said that he is going to see someone else for his psychiatric illness but he was found in the river soaking wet after jumping into it at night time yesterday with his normal coat. The patient otherwise denied any nausea, vomiting, abdominal pain, chills, weight gain, weight loss, changes in appetite, changes in bowel habits, dysuria, urgency, frequency, polyphagia, polydipsia, polyuria. He has been noting increasing shortness of breath with a dry cough without dyspnea on exertion, chest pain, pressure, tightness, lightheadedness, or dizziness. In the Emergency Room, the patient was found to be hypotensive, systolic pressure of 88 with chest x-ray showing a new infiltrate in the right mid lung zone which could represent pneumonia. Hospitalist was called to admit the patient for suicide ideation with possible attempt as well as a right middle lobe pneumonia community acquired. PAST MEDICAL HISTORY: As above. PAST SURGICAL HISTORY: As above. 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 The patient smokes half a pack of cigarettes a day. He drank five beers yesterday. Otherwise he had a prior history of alcohol abuse and recreational drug use currently. No health care proxy. FULL CODE. FAMILY HISTORY: Father has unknown medical problems. Mother with colon cancer. REVIEW OF SYSTEMS: Per HPI. Twelve point system otherwise negative. PHYSICAL EXAMINATION: Vital signs: Temperature 97.9, pulse 71, respiratory rate 18, blood pressure 88/53, 100% on room air. Generally the patient is disheveled, awake, alert and oriented to person, place, and time. Answering questions appropriately. He has no conversational dyspnea, no pallor, icterus or jaundice. No use of respiratory accessory muscles. No JVD or thyromegaly. Poor dentition, missing front teeth. Dry mucous membranes. Lungs: Diminished with bilateral wheezing, crackles at the right middle lobe. Heart: S1, S2, sinus rhythm. Abdomen: Obese, soft, nontender, nondistended. Extremities: No cyanosis, clubbing, or pitting edema. White count 11, hemoglobin 15, hematocrit 45, platelet count 213. Sodium 136, potassium 4.2, chloride 103, bicarb 26, BUN 24, creatinine 1.14, glucose 94, calcium 8.7, T-bili 0.3, direct bilirubin less than 0.1. AST 27, ALT 47, alkaline phosphatase 50, total protein 6.9, albumin 3.7, TSH 1.15. Tox screen positive for cannabinoids. Alcohol 0.201. Acetaminophen less than 2. Salicylate 4.3. Daniel virus negative. Respiratory panel negative. Chest x-ray: Right mid lung zone infiltrate may represent pneumonia. ASSESSMENT: A 50-year-old male with a history of CAD, non-ST elevation ND, hypertension, PRISCA, COPD, hypercholesterolemia, obesity, BMI of 36.7 presents after being [place] the river after being depressed for a few days admitted for possible suicidal attempt with right middle lobe pneumonia community acquired. IMPRESSION: 1. Suicide attempt. Sitter, one-on-one observation. Psychiatric consultation after the patient is medically stable. Plastic wear for his regular diet. 2. Right middle lobe pneumonia community acquired. Check MRC screen, continue ceftriaxone, doxycycline. 3. COPD exacerbation with wheezing on exam. Solu-Medrol every 6 hours, nebulizer treatments every 4 hours while awake, every 2 hours as needed. The patient is saturating at 100% on room air. No supplemental oxygen is required. 4. Obstructive sleep apnea. Continue on home CPAP settings. 5. Hypercholesterolemia. Check lipid panel. 6. Obesity. Monitor for obesity hypoventilation and hypercapnic respiratory failure. Avoid opioids and sedatives. 7. Hypertension. Currently with low blood pressure, being given normal saline. 8. History of CAD, non-ST elevation myocardial infarction. Continue on Plavix, metoprolol. If systolic pressure is above 120 hold Lisinopril for now since the patient was hypotensive. 9. Hypercholesterolemia. Continue rosuvastatin. 10. Unspecified psychotic disorder. Continue Abilify. 11. Major depression with possible suicide attempt. Psychiatric consultation once medically stable. DEZ
[2021-01-25 08:45] VITALS: BP 126/89
[2021-01-25] MEDS ORDERED: NITROGLYCERIN 0.4 MG SUBL TABLET SL PRN (08:50)
[2021-01-25] MEDS ORDERED: NITROGLYCERIN 0.4 MG SUBL TABLET SL ONE (08:50)
[2021-01-25 09:39] LABS: CK-MB VALUE MASS 2.3 NG/ML (<3.6); CPK CREATINE PHOSPHOKINASE 134 U/L (39-308); MB/CK RELATIVE INDEX 1.72 (< OR =4); TROPONIN I < 0.02 NG/ML (< 0.10)
[2021-01-25 09:52] VITALS: BP 115/62
[2021-01-25 10:29] LABS: HEMOGLOBIN A1c 6.4 %
[2021-01-25] MEDS: MIDODRINE 5 MG TAB PO SCH ×3 (10:35→16:45)
[2021-01-25] MEDS: methylPREDNISolone 125MG 2ML VIAL IV SCH ×3 (10:49→20:18)
[2021-01-25] MEDS: DOXYCYCLINE HYCLATE 100 MG in D5W MINI-BAG PLUS 100 ML IV SCH ×2 (10:53→20:18)
[2021-01-25] MEDS: IPRATROPIUM 0.5MG/ALBUTEROL 2.5MG INH SOL UD 3ML (DUONEB) NEB SCH ×5 (11:03→23:27)
[2021-01-25 14:00] VITALS: BP 112/59
--- NOTE | 2021-01-25 15:51 | ECGEPIP ---
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
[2021-01-25] MEDS: DIVALPROEX 500 MG TAB PO SCH (20:18)
[2021-01-25 22:00] VITALS: BP 130/83
[2021-01-26] MEDS: methylPREDNISolone 125MG 2ML VIAL IV SCH ×4 (01:29→20:32)
[2021-01-26] MEDS: IPRATROPIUM 0.5MG/ALBUTEROL 2.5MG INH SOL UD 3ML (DUONEB) NEB SCH ×4 (03:31→20:08)
[2021-01-26 06:00] VITALS: BP 117/69
[2021-01-26] MEDS ORDERED: MOXI1TAB PO ×2 (06:30→11:55)
[2021-01-26] MEDS ORDERED: PRED10TA2 PO ×2 (06:30→11:55)
[2021-01-26] MEDS ORDERED: SPIR1CAP INH (06:32)
[2021-01-26] MEDS ORDERED: FLUT11IN INH ×2 (06:32→11:55)
[2021-01-26] MEDS ORDERED: PROV108A INH ×2 (06:33→11:55)
[2021-01-26] MEDS ORDERED: CARA1TAB6 PO (06:34)
[2021-01-26] MEDS ORDERED: PRIL20TA2 PO (06:34)
[2021-01-26] MEDS ORDERED: NITR0.4S14 SL (06:34)
[2021-01-26] MEDS ORDERED: ABIL1TAB11 PO ×2 (06:35→11:55)
[2021-01-26] MEDS ORDERED: DEPA1TAB3 PO ×2 (06:35→11:55)
[2021-01-26 07:18] LABS: BASO % 0.1 % (0.0-1.0); HEMATOCRIT 44.7 % (42.0-52.0); HEMOGLOBIN 15.4 g/dl (13.5-17.5); LYMPH # 1.1 10^3/uL (1.5-5.0); LYMPH % 6.2 % (24.0-44.0); MEAN CORPUSCULAR HEMOGLOBIN 31.6 pg (27.0-33.0); MEAN CORPUSCULAR HGB CONC 34.5 g/dl (32.0-36.5); MEAN CORPUSCULAR VOLUME 91.8 fl (80.0-96.0); MONO # 0.4 10^3/uL (0.0-0.8); MONO % 2.3 % (2.0-8.0); NEUTROPHILS # 16.4 10^3/uL (1.5-8.5); NEUTROPHILS % 90.2 % (36.0-66.0); PLATELET COUNT, AUTOMATED 244 10^3/uL (150-450); RED BLOOD COUNT 4.87 10^6/uL (4.30-6.10); WHITE BLOOD COUNT 18.2 10^3/uL (4.0-10.0)
[2021-01-26] MEDS: MIDODRINE 5 MG TAB PO SCH (08:00)
[2021-01-26] MEDS: LACTOBACILLUS ACIDOPHILUS CAP (BACID) PO SCH ×2 (08:01→18:55)
[2021-01-26] MEDS: DIVALPROEX 500 MG TAB PO SCH ×2 (08:01→20:33)
[2021-01-26] MEDS: OMEPRAZOLE 20 MG CAP PO SCH (08:01)
[2021-01-26] MEDS: ASPIRIN 81MG ENTERIC TABLET PO SCH (08:01)
[2021-01-26] MEDS: cefTRIAXone SOD 2 GM in D5W MINI-BAG PLUS 50 ML IV SCH (08:02)
[2021-01-26] MEDS: CLOPIDOGREL 75 MG TAB PO SCH (08:02)
[2021-01-26] MEDS: SUCRALFATE 1 GM TAB PO SCH ×4 (08:02→20:32)
[2021-01-26 08:17] LABS: ERYTHROCYTE SEDIMENTATION RATE 5 mm/hr (0-20)
[2021-01-26 08:52] LABS: ALBUMIN 3.9 GM/DL (3.2-5.2); ALT/SGPT 58 U/L (12-78); BILIRUBIN,DIRECT 0.1 MG/DL (0.0-0.2); BILIRUBIN,TOTAL 0.3 MG/DL (0.2-1.0); BLOOD UREA NITROGEN 19 MG/DL (7-18); CALCIUM LEVEL 9.4 MG/DL (8.5-10.1); CARBON DIOXIDE LEVEL 23 MEQ/L (21-32); CHLORIDE LEVEL 107 MEQ/L (98-107); CK-MB VALUE MASS 2.7 NG/ML (<3.6); CPK CREATINE PHOSPHOKINASE 80 U/L (39-308); CREATININE FOR GFR 0.92 MG/DL (0.70-1.30); GLOMERULAR FILTRATION RATE > 60.0 (>56); GLUCOSE, FASTING 222 MG/DL (70-100); MB/CK RELATIVE INDEX 3.38 (< OR =4); MYOGLOBIN 39 NG/ML (16-116); NT-PRO BNP 236 PG/ML (<125); POTASSIUM SERUM 4.5 MEQ/L (3.5-5.1); SODIUM LEVEL 137 MEQ/L (136-145); TOTAL PROTEIN 7.4 GM/DL (6.4-8.2); TROPONIN I < 0.02 NG/ML (< 0.10)
[2021-01-26] MEDS: DOXYCYCLINE HYCLATE 100 MG in D5W MINI-BAG PLUS 100 ML IV SCH ×2 (10:46→20:32)
[2021-01-26] MEDS ORDERED: TIOT18INH INH (11:55)
[2021-01-26] MEDS ORDERED: SUCR1TA PO (11:55)
[2021-01-26] MEDS ORDERED: NITR4TASL SL (11:55)
[2021-01-26] MEDS ORDERED: OMEP-218 PO (11:55)
[2021-01-26] MEDS ORDERED: RISATAB3 PO (11:55)
--- NOTE | 2021-01-26 12:29 | IPN ---
PROGRESS NOTE DATE: 01/26/2021 SUBJECTIVE: Patient complains of cough productive of white sputum, yellow sputum. No fever or chills overnight. OBJECTIVE: VITAL SIGNS: Temperature is 97.8, pulse is 95, respiratory rate is 19, blood pressure is 117/69, 95% on room air. GENERAL: Patient is awake, alert and oriented x3, in no respiratory distress. He is able to speak in full sentences. NECK: No JVD, no thyromegaly, no cervical lymphadenopathy. Moist mucous membranes. LUNGS: Diminished, very faint expiratory wheezing. Air entry is equal. Slight crackles at the right middle lobe. HEART: S1 and S2, sinus rhythm. ABDOMEN: Obese, soft, nontender and nondistended. Normoactive bowel sounds. No rebound or guarding. EXTREMITIES: Positive trace edema of bilateral lower extremities. LABORATORY DATA/IMAGING STUDIES/MICROBIOLOGY: Have been reviewed. ASSESSMENT AND PLAN: This is a 50-year-old male who is homeless with depression, PRISCA, CAD, non-ST elevation NV, COPD, not oxygen or steroid dependent, recovering heroin addict, with chronic neck and back pain, hypertension, hypercholesterolemia, bipolar disorder, obesity, nicotine abuse (half a pack of cigarettes a day), marijuana and alcohol abuse in the past, and coronary stents, was found in [place] but denied any suicidal ideation. Chest x-ray showed right middle lobe pneumonia, community acquired. IMPRESSION: 1. Right middle lobe pneumonia, community acquired. 2. Severe depression. 3. History of bipolar disorder. 4. Acute COPD exacerbation. 5. Obstructive sleep apnea. 6. Hypercholesterolemia. 7. Obesity. 8. Hypertension. 9. History of CAD. 10.Non-ST elevation NV. 11.Hypotension which resolved IV fluids. 12.Unspecified psychotic disorder. PLAN: Dr. Wilson, psychiatrist, has evaluated the patient and did not feel that he was suicidal. He had recommended inpatient Mental Health Unit admission on a voluntary basis since the patient is homeless and recently started on Abilify and Depakote. However, psychiatrist feels that the patient is psychiatrically stable and is not suicidal and may be discharged home. He is resumed on all of his home medications except for his metoprolol and Lisinopril due to hypotension. Patient is still on Solu-Medrol, Midodrine, Doxycycline and Ceftriaxone. Obtain sputum culture, urine streptococcal antigen and urine Legionella. A1c is 6.4. Patient is not a diabetic. PFS has been consulted for homelessness. If patient has emergency housing he may be discharged home today, if not the patient may go to the inpatient Mental Health Unit for titration of his medications for his bipolar disorder and major depression. DEZ
[2021-01-26] MEDS ORDERED: LEVO750T13 PO (12:31)
[2021-01-26] MEDS ORDERED: INCR1INH INH (12:31)
[2021-01-26] MEDS ORDERED: ARNU1INH3 PO (12:31)
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
[2021-01-26 13:43] VITALS: BP 148/84
--- NOTE | 2021-01-26 14:59 | ECGEPIP ---
[facility] Test Date: 2021-01-25 Pat Name: DELMAR ADAMES Department: Room: [place] [address] Gender: Male Compounder: APRIL : 1970 Requested By: LO Mishra Order Number: [id number] Reading MD: Jp Solorzano Measurements Intervals [place] Rate: 67 P: 28 [place]: 180 QRS: -23 QRSD: 104 T: 15 QT: 442 QTc: 467 Interpretive Statements Normal sinus rhythm Low QRS complex voltage in the limb leads Nonspecific T wave abnormality Pulmonary disease No significant change when compared to prior tracing of 01/25/2021 Electronically Signed on 01-26-2021 14:59:08 EDT by Jp Solorzano
--- NOTE | 2021-01-26 17:25 | MHIPN ---
[facility] PROGRESS NOTE DATE: 01/26/2021 I received a phone call from Dr. Hatch today. The patient has continued to deny that he was suicidal. All along he denied that he actually was trying to kill himself, that he actually jumped in the river, as I noted in my note yesterday. He has been insisting that he wants to go home, and that what he would like to get is emergency housing, and the patient and family services in the hospital is helping him set up emergency housing. At this point he has been denying that he is suicidal all long, and, since he is being set up for housing and he back on his medications, I feel that the patient is appropriate to go home now and does not need to be transferred to the psychiatric unit.
[2021-01-26 22:00] VITALS: BP 159/89
[2021-01-27] MEDS: IPRATROPIUM 0.5MG/ALBUTEROL 2.5MG INH SOL UD 3ML (DUONEB) NEB SCH ×4 (00:16→11:53)
[2021-01-27] MEDS: methylPREDNISolone 125MG 2ML VIAL IV SCH ×2 (01:24→07:40)
[2021-01-27 06:00] VITALS: BP 135/90
[2021-01-27] MEDS: SUCRALFATE 1 GM TAB PO SCH ×2 (07:40→12:28)
[2021-01-27] MEDS: LACTOBACILLUS ACIDOPHILUS CAP (BACID) PO SCH (07:40)
[2021-01-27] MEDS: cefTRIAXone SOD 2 GM in D5W MINI-BAG PLUS 50 ML IV SCH (07:40)
[2021-01-27] MEDS: CLOPIDOGREL 75 MG TAB PO SCH (10:27)
[2021-01-27] MEDS: OMEPRAZOLE 20 MG CAP PO SCH (10:27)
[2021-01-27] MEDS: DIVALPROEX 500 MG TAB PO SCH (10:27)
[2021-01-27] MEDS: ASPIRIN 81MG ENTERIC TABLET PO SCH (10:28)
[2021-01-27] MEDS: DOXYCYCLINE HYCLATE 100 MG in D5W MINI-BAG PLUS 100 ML IV SCH (10:28)
--- NOTE | 2021-01-27 12:56 | DS.PDOC ---
Discharge Summary General Date of Admission Jan 25, 2021 at 07:31 Date of Discharge 01/27/21 Discharge Summary DISCHARGE DIAGNOSES: 1. Right middle lobe pneumonia, community acquired. 2. Severe depression. 3. History of bipolar disorder. 4. Acute COPD exacerbation. 5. Obstructive sleep apnea. 6. Hypercholesterolemia. 7. Obesity. 8. Hypertension. 9. History of CAD. 10.History of Non-ST elevation VA. 11.Hypotension which resolved IV fluids. 12.Unspecified psychotic disorder. DISCHARGE MEDICATIONS:SEE BELOW DISCHARGE INSTRUCTIONS: PSYCH AND PCP 1WK. [facility] CONSULTED TO ASSIST WITH EMERGENCY [facility] TO BE COORDINATED WITH OUTPT DSS.PCP TO ARRANGE FOR SLEEP STUDY AND REFERRAL TO PULMONARY FOR BIPAP OUTPT. HOSPITAL COURSE: This is a 50-year-old male who is homeless with depression, PRISCA, CAD, non-ST elevation VA, COPD, not oxygen or steroid dependent, recovering heroin addict, with chronic neck and back pain, hypertension, hypercholesterolemia, bipolar disorder, obesity, nicotine abuse (half a pack of cigarettes a day), marijuana and alcohol abuse in the past, and coronary stents, was found swimming in [place] and admitted to being depressed, brought in by police to be evaluated for suicidal ideation. on arrival, pt said [place] the river, but has been depressed since his youngest son is using heroin, and "there's nothing I can do about it." He planned on seeing a psychiatrist about his low mood, but denied any suicidal ideation. In the ER, Chest x-ray showed right middle lobe pneumonia, community acquired, and Hospitalist was asked to admit him for depression r/o suicide ideation, and treatment for CAP. Pt was given a sitter, seen by Dr. Wilson who recommended abilify and depakote, both of which were started in the hospital. Due to low sbp, he was given midodrine and ivfluids, and his bp meds held. He was wheezing and was treated for acute copd exacerbation with iv solumedrol and nebs.Ceftriaxone and doxycycline were given for 2days, and pt was medically stable for discharge. Psychiatrist recommended home, but social work requested one more hospital day to finalize prescription coverage of his meds by insurance. His discharge on 01/26/21 was postponed until meds were covered by his insurance. Pt was stable with tapering dose of steroids. blood cx were negative. DISCHARGE PHYSICAL EXAMINATION: VITAL SIGNS:SEE BELOW GENERAL: Patient is awake, alert and oriented x3, in no respiratory distress. He is able to speak in full sentences. NECK: No JVD, no thyromegaly, no cervical lymphadenopathy. Moist mucous membranes. LUNGS: Diminished, very faint expiratory wheezing. Air entry is equal. Slight crackles at the right middle lobe. HEART: S1 and S2, sinus rhythm. ABDOMEN: Obese, soft, nontender and nondistended. Normoactive bowel sounds. No rebound or guarding. EXTREMITIES: Positive trace edema of bilateral lower extremities. LABORATORY DATA/IMAGING STUDIES/MICROBIOLOGY: Have been reviewed. TIME SPENT ON DISCHARGE: 30MIN Vital Signs/I&Os Vital Signs Date Time Temp Pulse Resp B/P (MAP) Pulse Ox O2 Delivery O2 Flow Rate FiO2 01/27/21 06:00 97.0 86 18 135/90 (105) 93 Room Air 01/25/21 14:00 1.0 I&O- Last 24 Hours up to 6 AM 01/27/21 06:00 Intake Total 5310 ml Balance 5310 ml Microbiology Microbiology 01/26/21 Blood Culture - Preliminary, Resulted No growth after 24 hours . All specim... 01/26/21 Blood Culture - Preliminary, Resulted No growth after 24 hours . All specim... Discharge Medications Scheduled Aripiprazole (Abilify) 5 Mg Tablet, 5 MG PO QAM Aspirin (Aspirin EC) 81 Mg Tablet.dr, 81 MG PO DAILY, (Reported) Clopidogrel Bisulfate (Clopidogrel) 75 Mg Tablet, 75 MG PO DAILY, (Reported) Divalproex Sodium (Depakote) 500 Mg Tablet.dr, 500 MG PO BID Fluticasone Furoate (Arnuity Ellipta) 200 Mcg Blst.w.dev, 1 PUFF PO DAILY L.acidoph/L.bulg/B.bif/S.therm (Stacey-Bid Caplet) 1 Each Tablet, 1 EA PO BIDWM Levofloxacin (Levofloxacin) 750 Mg Tablet, 750 MG PO DAILY Lisinopril (Lisinopril) 10 Mg Tablet, 5 MG PO DAILY, (Reported) Metoprolol Succinate (Metoprolol Succinate) 50 Mg Tab.er.24h, 50 MG PO DAILY, (Reported) Omeprazole (Omeprazole) 20 Mg Capsule.dr, 20 MG PO DAILY Prednisone (Prednisone) 10 Mg Tablet, 10 MG PO TAPER Take 4 tabs daily x 3 days, then 3 tabs daily x 3 days, then 2 tabs daily x 3 days, then 1 tab daily x 3 days and stop Rosuvastatin Calcium (Rosuvastatin Calcium) 40 Mg Tablet, 40 MG PO DAILY, (Reported) Sucralfate (Sucralfate) 1 Gm Tablet, 1 GM PO ACHS Umeclidinium [place] (Incruse Ellipta) 62.5 Mcg Blst.w.dev, 1 PUFF INH DAILY Scheduled PRN Gabapentin (Gabapentin) 600 Mg Tablet, 600 MG PO TID PRN for PAIN LEVEL 1-6, (Reported) Nitroglycerin (Nitrostat) 0.4 Mg Tab.subl, 0.4 MG SL Q5MP PRN for CHEST PAIN Allergies Coded Allergies: No Known Drug Allergies (Verified Allergy, Unknown, 11/23/19) LO CUELLO MD Jan 27, 2021 12:56
== END 2021-01-27 12:59 | disposition home or self-care (01) | DRG 351 ==
LOC: M ED 22:31 → M ED INP 01-25 07:31 → ENRESERV 01-25 07:54 → M MSPAV 01-25 08:35
PROVIDERS: ADMIT General Practice; ATTEND General Practice
DX: T14.91XA Suicide attempt, initial encounter (principal); J18.9 Pneumonia, unspecified organism; I95.9 Hypotension, unspecified; J44.1 Chronic obstructive pulmonary disease with (acute) exacerbation; F31.9 Bipolar disorder, unspecified; I25.10 Atherosclerotic heart disease of native coronary artery without angina pectoris; I25.2 Old myocardial infarction; E78.00 Pure hypercholesterolemia, unspecified; E66.9 Obesity, unspecified; I10 Essential (primary) hypertension; G47.33 Obstructive sleep apnea (adult) (pediatric); Z59.0 Homelessness; F17.210 Nicotine dependence, cigarettes, uncomplicated; Z79.82 Long term (current) use of aspirin; Z79.899 Other long term (current) drug therapy; F10.10 Alcohol abuse, uncomplicated; F12.10 Cannabis abuse, uncomplicated

== ENCOUNTER 2021-03-08 13:24 | Emergency (ER) | payer OTHER ==
[~2021-03-08] VITALS: Ht 175.3 cm; Wt 122.7 kg
[2021-03-08 13:24] VITALS: BP 130/82
[~2021-03-08 13:24] MED LIST changes: +ARNU1INH3 PO; +ASPI81TA26 PO; +CARA1TAB6 PO; +FLUT11IN INH; +INCR1INH INH; +LEVO750T13 PO; +MOXI1TAB PO; +NITR0.4S14 SL; +NITR4TASL SL; +OMEP-218 PO; +PRED10TA2 PO; +PRIL20TA2 PO; +PROV108A INH; +RISATAB3 PO; +SPIR1CAP INH; +SUCR1TA PO; +TIOT18INH INH
== END 2021-03-08 17:32 | disposition left against medical advice (07) ==
LOC: M ED 13:24
DX: Z53.21 Procedure and treatment not carried out due to patient leaving prior to being seen by health care provider (principal)

== ENCOUNTER 2021-07-20 21:24 | Emergency (ER) | payer OTHER ==
[~2021-07-20] VITALS: Ht 182.9 cm; Wt 128.8 kg
[~2021-07-20 21:24] MED LIST changes: -LISI-898 PO; +LISI5TAB11 PO; +OMEP-173 PO; -OMEP-218 PO
[2021-07-20 21:28] VITALS: BP 128/71
== END 2021-07-21 01:18 | disposition home or self-care (01) ==
LOC: M ED 21:24
DX: S05.92XA Unspecified injury of left eye and orbit, initial encounter (principal); H11.32 Conjunctival hemorrhage, left eye; W31.1XXA Contact with metalworking machines, initial encounter; I25.2 Old myocardial infarction; F41.8 Other specified anxiety disorders; F32.A Depression, unspecified; F17.200 Nicotine dependence, unspecified, uncomplicated; F31.9 Bipolar disorder, unspecified; Z95.5 Presence of coronary angioplasty implant and graft; Y92.009 Unspecified place in unspecified non-institutional (private) residence as the place of occurrence of the external cause; Y93.9 Activity, unspecified; Y99.9 Unspecified external cause status; Z79.811 Long term (current) use of aromatase inhibitors; Z79.899 Other long term (current) drug therapy

== ENCOUNTER 2022-01-08 15:15 | Emergency (ER) | payer OTHER ==
[~2022-01-08] VITALS: Ht 175.3 cm; Wt 126.4 kg
[~2022-01-08 15:15] MED LIST changes: +LEVO1TAB40 PO; -LEVO750T13 PO
[2022-01-08] MEDS ORDERED: NITROGLYCERIN 2% OINT 1 GM *U/D* PKT TOP ONE (15:40)
[2022-01-08] MEDS ORDERED: methylPREDNISolone 125MG 2ML VIAL IV ONE (15:40)
[2022-01-08 15:52] LABS: BASO # 0.1 10^3/uL (0.0-0.2); BASO % 0.4 % (0.0-1.0); EOS # 0.2 10^3/uL (0.0-0.5); EOS % 1.4 % (0.0-3.0); HEMATOCRIT 44.3 % (42.0-52.0); HEMOGLOBIN 15.3 g/dl (13.5-17.5); LYMPH # 3.5 10^3/uL (1.5-5.0); LYMPH % 21.8 % (24.0-44.0); MEAN CORPUSCULAR HEMOGLOBIN 32.3 pg (27.0-33.0); MEAN CORPUSCULAR HGB CONC 34.5 g/dl (32.0-36.5); MEAN CORPUSCULAR VOLUME 93.5 fl (80.0-96.0); MONO # 1.3 10^3/uL (0.0-0.8); MONO % 8.3 % (2.0-8.0); NEUTROPHILS # 10.6 10^3/uL (1.5-8.5); PLATELET COUNT, AUTOMATED 348 10^3/uL (150-450); RED BLOOD COUNT 4.74 10^6/uL (4.30-6.10); WHITE BLOOD COUNT 15.9 10^3/uL (4.0-10.0)
[2022-01-08 15:54] VITALS: BP 126/73
[2022-01-08 16:29] LABS: CK-MB VALUE MASS 1.7 NG/ML (<3.6); MB/CK RELATIVE INDEX 2.02 (< OR =4)
[2022-01-08] MEDS: COMBIVENT RESPIMAT 100-20MCG INHALER 4GM INH SCH ×2 (16:30→17:10)
[2022-01-08 16:31] VITALS: O2SAT 95
[2022-01-08 16:43] LABS: CK-MB VALUE MASS 1.5 NG/ML (<3.6); MB/CK RELATIVE INDEX 1.76 (< OR =4)
[2022-01-08 16:47] LABS: ALBUMIN 3.4 GM/DL (3.2-5.2); ALT/SGPT 40 U/L (12-78); BILIRUBIN,DIRECT 0.1 MG/DL (0.0-0.2); BILIRUBIN,TOTAL 0.3 MG/DL (0.2-1.0); BLOOD UREA NITROGEN 14 MG/DL (7-18); CALCIUM LEVEL 8.8 MG/DL (8.5-10.1); CARBON DIOXIDE LEVEL 27 MEQ/L (21-32); CHLORIDE LEVEL 103 MEQ/L (98-107); CREATININE FOR GFR 0.83 MG/DL (0.70-1.30); GLOMERULAR FILTRATION RATE > 60.0 (>56); GLUCOSE, FASTING 121 MG/DL (70-100); LIPASE 208 U/L (73-393); NT-PRO BNP 44 PG/ML (<125); POTASSIUM SERUM 4.2 MEQ/L (3.5-5.1); SODIUM LEVEL 136 MEQ/L (136-145); TOTAL PROTEIN 7.3 GM/DL (6.4-8.2)
[2022-01-08] MEDS ORDERED: ISOVUE-370 76% 100ML VIAL As Ordered ONE (16:56)
[2022-01-08 17:26] LABS: PROTHROMBIN TIME 13.6 SECONDS (12.7-14.5)
[2022-01-08 17:27] LABS: PARTIAL THROMBOPLASTIN TIME 27.9 SECONDS (25.9-37.0)
[2022-01-08] MEDS ORDERED: PRED20TA PO (18:07)
[2022-01-08] MEDS ORDERED: COMBAER6 INH (18:07)
[2022-01-08 19:47] VITALS: BP 118/69
== END 2022-01-08 20:21 | disposition home or self-care (01) ==
LOC: M ED 15:15
DX: J44.1 Chronic obstructive pulmonary disease with (acute) exacerbation (principal); I44.4 Left anterior fascicular block; I10 Essential (primary) hypertension; F31.9 Bipolar disorder, unspecified; Z95.5 Presence of coronary angioplasty implant and graft; F17.200 Nicotine dependence, unspecified, uncomplicated; Z79.51 Long term (current) use of inhaled steroids; Z79.811 Long term (current) use of aromatase inhibitors; Z79.899 Other long term (current) drug therapy
CPT/HCPCS: 71045; 71275; 80047; 80048; 80076; 82550; 82553; 83690; 83880; 84443; 85025; 85610; 85730; 93005; 93041; 94640; 94760; 96374; 99285; J2930; Q9967

== ENCOUNTER 2022-10-16 06:59 | Inpatient (IN) | payer MEDICAID, OTHER ==
[~2022-10-16] VITALS: Ht 182.9 cm; Wt 121.5 kg
[~2022-10-16 06:59] MED LIST changes: +ALBU6.7H6 INH; +COMBAER6 INH; +PRED20TA PO; -PROV108A INH
[2022-10-16 08:08] LABS: HEMATOCRIT 49.3 % (42.0-52.0); HEMOGLOBIN 16.5 g/dl (13.5-17.5); MEAN CORPUSCULAR HEMOGLOBIN 31.1 pg (27.0-33.0); MEAN CORPUSCULAR HGB CONC 33.5 g/dl (32.0-36.5); MEAN CORPUSCULAR VOLUME 92.8 fl (80.0-96.0); PLATELET COUNT, AUTOMATED 243 10^3/uL (150-450); RED BLOOD COUNT 5.31 10^6/uL (4.30-6.10); WHITE BLOOD COUNT 8.6 10^3/uL (4.0-10.0)
[2022-10-16 08:39] LABS: AMPHETAMINES LEVEL URINE NEGATIVE (NEGATIVE); BARBITURATES URINE NEGATIVE (NEGATIVE); BENZODIAZEPINES URINE NEGATIVE (NEGATIVE); COCAINE METABOLITE URINE NEGATIVE (NEGATIVE); METHADONE URINE NEGATIVE (NEGATIVE); OPIATES URINE NEGATIVE (NEGATIVE); PHENCYCLIDINE URINE NEGATIVE (NEGATIVE)
[2022-10-16 08:40] LABS: ETHYL ALCOHOL (ETHANOL) 0.209 % (0.000-0.010)
[2022-10-16 08:41] LABS: ACETAMINOPHEN LEVEL < 2.0 UG/ML (10.0-20.0); CANNABINOIDS URINE POSITIVE (NEGATIVE)
[2022-10-16 08:42] LABS: SALICYLATE LEVEL 6.9 MG/DL (<30)
[2022-10-16 08:43] LABS: ALBUMIN 3.8 G/DL (3.2-5.2); ALKALINE PHOSPHATASE 76 U/L (46-116); ALT/SGPT 59 U/L (7.0-40); AST/SGOT 56 U/L (<34); BILIRUBIN,DIRECT 0.1 MG/DL (<0.4); BILIRUBIN,TOTAL 0.3 MG/DL (0.3-1.2); BLOOD UREA NITROGEN 13 MG/DL (9-23); CALCIUM LEVEL 9.2 MG/DL (8.5-10.1); CARBON DIOXIDE LEVEL 28 MMOL/L (20-31); CHLORIDE LEVEL 103 MMOL/L (98-107); GLOMERULAR FILTRATION RATE > 60.0 (>56); GLUCOSE, FASTING 105 MG/DL (60-100); SODIUM LEVEL 140 MMOL/L (136-145); THYROID STIMULATING HORMONE 2.368 uIU/ML (0.55-4.78); TOTAL PROTEIN 7.4 G/DL (5.7-8.2)
[2022-10-16] MEDS ORDERED: ASPIRIN 81MG ENTERIC TABLET PO SCH (09:00)
[2022-10-16] MEDS ORDERED: ROSUVASTATIN 10 MG TAB (CRESTOR) PO SCH (09:00)
[2022-10-16] MEDS ORDERED: lisinopriL 5 MG TAB PO SCH (09:00)
[2022-10-16] MEDS ORDERED: CLOPIDOGREL 75 MG TAB PO SCH (09:00)
[2022-10-16] MEDS ORDERED: METOPROLOL SUCC (TopROL XL) 50MG **XL** TAB PO SCH (09:00)
[2022-10-16] MEDS ORDERED: NITR4TASL SL (15:11)
[2022-10-16] MEDS ORDERED: HOME MED LIST COMPLETE! XX SCH (15:15)
[2022-10-16] MEDS ORDERED: IBUPROFEN 400MG TAB PO PRN (17:20)
[2022-10-16] MEDS ORDERED: LORazepam 2 MG TAB PO PRN (17:20)
[2022-10-16] MEDS ORDERED: MOM 30ML SUSPENSION UDC PO PRN (17:20)
[2022-10-16] MEDS ORDERED: MAALOX 30 ML SUSP *UDC PO PRN (17:20)
[2022-10-16] MEDS ORDERED: diphenhydrAMINE 25MG CAP PO PRN (17:20)
[2022-10-16] MEDS ORDERED: ACETAMINOPHEN TAB 650MG DOSE (2X325MG) PO PRN (17:20)
[2022-10-16 18:33] VITALS: BP 143/84
[2022-10-16 18:39] VITALS: BP 143/84
[2022-10-16] MEDS: THIAMINE 100 MG TAB PO SCH (18:46)
[2022-10-17 03:00] VITALS: BP 143/84
[2022-10-17 06:48] VITALS: BP 154/70
[2022-10-17] MEDS ORDERED: LORazepam 2 MG TAB PO ONE (10:10)
[2022-10-17] MEDS: FOLIC ACID 1MG TAB PO SCH (10:17)
[2022-10-17] MEDS: MULTIVITAMINS/MINERALS THERAP 1 TAB PO SCH (10:17)
[2022-10-17] MEDS: THIAMINE 100 MG TAB PO SCH ×2 (10:20→21:00)
[2022-10-17] MEDS ORDERED: NITROGLYCERIN 0.4MG SUBL TABLET SL PRN (11:00)
[2022-10-17 11:50] VITALS: BP_SYST 121; BP_SYST 212; BP_DIAS 84
[2022-10-17 11:53] VITALS: BP 121/84
[2022-10-17] MEDS: lisinopriL 5 MG TAB PO SCH (11:57)
[2022-10-17] MEDS: ASPIRIN 81MG ENTERIC TABLET PO SCH (11:57)
[2022-10-17] MEDS: CLOPIDOGREL 75 MG TAB PO SCH (11:57)
[2022-10-17] MEDS: METOPROLOL SUCC (TopROL XL) 50MG **XL** TAB PO SCH (11:57)
[2022-10-17] MEDS: ROSUVASTATIN 10 MG TAB (CRESTOR) PO SCH (11:57)
[2022-10-17] MEDS ORDERED: NICOTINE 21MG/24HR 1 EA TRANSDERMAL TD PRN (15:15)
[2022-10-17] MEDS ORDERED: hydrOXYzine 50 MG TAB PO PRN (16:30)
[2022-10-17 16:55] VITALS: BP 136/66
[2022-10-17] MEDS: LURASIDONE 20 MG TAB (LATUDA) PO SCH (18:10)
[2022-10-17] MEDS: traZODone 50 MG TAB PO PRN (21:59)
[2022-10-18 06:47] VITALS: BP 138/80
[2022-10-18 06:54] VITALS: BP 138/80
[2022-10-18 07:26] LABS: CHOLESTEROL RISK RATIO 3.16 (<5); HDL CHOLESTEROL 46.2 MG/DL (>40); NON-HDL-C 99.8 MG/DL
[2022-10-18] MEDS: METOPROLOL SUCC (TopROL XL) 50MG **XL** TAB PO SCH (08:21)
[2022-10-18] MEDS: FOLIC ACID 1MG TAB PO SCH (08:21)
[2022-10-18] MEDS: MULTIVITAMINS/MINERALS THERAP 1 TAB PO SCH (08:21)
[2022-10-18] MEDS: THIAMINE 100 MG TAB PO SCH ×2 (08:21→20:31)
[2022-10-18] MEDS: CLOPIDOGREL 75 MG TAB PO SCH (08:22)
[2022-10-18] MEDS: ROSUVASTATIN 10 MG TAB (CRESTOR) PO SCH (08:22)
[2022-10-18] MEDS: lisinopriL 5 MG TAB PO SCH (08:22)
[2022-10-18] MEDS: ASPIRIN 81MG ENTERIC TABLET PO SCH (08:22)
[2022-10-18 14:44] VITALS: BP 118/59
[2022-10-18 16:36] VITALS: BP 118/59
[2022-10-18] MEDS: LURASIDONE 20 MG TAB (LATUDA) PO SCH (18:17)
[2022-10-18 22:45] VITALS: BP 135/79
[2022-10-18] MEDS: traZODone 50 MG TAB PO PRN (23:09)
[2022-10-19 08:32] VITALS: BP 122/72
[2022-10-19] MEDS: ROSUVASTATIN 10 MG TAB (CRESTOR) PO SCH (08:35)
[2022-10-19] MEDS: THIAMINE 100 MG TAB PO SCH (08:35)
[2022-10-19 08:36] VITALS: BP 122/72
[2022-10-19] MEDS: FOLIC ACID 1MG TAB PO SCH (08:36)
[2022-10-19] MEDS: lisinopriL 5 MG TAB PO SCH (08:36)
[2022-10-19] MEDS: METOPROLOL SUCC (TopROL XL) 50MG **XL** TAB PO SCH (08:36)
[2022-10-19] MEDS: ASPIRIN 81MG ENTERIC TABLET PO SCH (08:36)
[2022-10-19] MEDS: MULTIVITAMINS/MINERALS THERAP 1 TAB PO SCH (08:37)
[2022-10-19] MEDS: CLOPIDOGREL 75 MG TAB PO SCH (08:37)
[2022-10-19 09:00] VITALS: BP 122/72
[2022-10-19] MEDS ORDERED: LATU20TA PO (12:39)
[2022-10-19] MEDS ORDERED: ASPI81TA26 PO (12:39)
[2022-10-19] MEDS ORDERED: CLOP75TA2 PO (12:39)
[2022-10-19] MEDS ORDERED: NITR4TASL SL (12:39)
[2022-10-19] MEDS ORDERED: METO1TAB7 PO (12:39)
[2022-10-19] MEDS ORDERED: TRAZ-252 PO (12:39)
[2022-10-19] MEDS ORDERED: LISI10TA22 PO (12:39)
[2022-10-19] MEDS ORDERED: ROSU40TA4 PO (12:39)
== END 2022-10-19 14:54 | disposition home or self-care (01) | DRG 753 ==
LOC: M ED 06:59 → M ED INP 17:18 → M PSY 18:31
PROVIDERS: ADMIT Psychiatry & Neurology Psychiatry; ATTEND Psychiatry & Neurology Psychiatry
DX: F31.9 Bipolar disorder, unspecified (principal); F10.120 Alcohol abuse with intoxication, uncomplicated; F12.10 Cannabis abuse, uncomplicated; R45.851 Suicidal ideations; F17.210 Nicotine dependence, cigarettes, uncomplicated; I25.10 Atherosclerotic heart disease of native coronary artery without angina pectoris; E78.00 Pure hypercholesterolemia, unspecified; R74.01 Elevation of levels of liver transaminase levels; G47.33 Obstructive sleep apnea (adult) (pediatric); I10 Essential (primary) hypertension; I25.2 Old myocardial infarction; J44.9 Chronic obstructive pulmonary disease, unspecified; M54.9 Dorsalgia, unspecified; G89.29 Other chronic pain; Z83.3 Family history of diabetes mellitus; Z79.82 Long term (current) use of aspirin; Z79.899 Other long term (current) drug therapy; Z20.822 Contact with and (suspected) exposure to COVID-19; Z56.0 Unemployment, unspecified; Z91.51 Personal history of suicidal behavior; Z95.5 Presence of coronary angioplasty implant and graft

== ENCOUNTER 2022-10-25 17:57 | Emergency (ER) | payer MEDICAID, OTHER ==
[~2022-10-25] VITALS: Ht 172.7 cm; Wt 127.8 kg
[~2022-10-25 17:57] MED LIST changes: +LATU20TA PO; +TRAZ-252 PO
[2022-10-25 18:04] VITALS: BP 132/74
== END 2022-10-25 19:07 | disposition left against medical advice (07) ==
LOC: M ED 17:57
DX: Z53.21 Procedure and treatment not carried out due to patient leaving prior to being seen by health care provider (principal)

== ENCOUNTER 2022-11-09 07:52 | Inpatient (IN) | payer OTHER ==
[2022-11-09] VITALS (11 sets, daily range): BP systolic 124–128; BP diastolic 52–73; TEMP 96.3–97.6; O2SAT 88–95
[~2022-11-09] VITALS: Ht 182.9 cm; Wt 102.8 kg
[~2022-11-09 07:52] MED LIST changes: -FLUT11IN INH; +FLUT12AE6 INH
[2022-11-09] MEDS ORDERED: ONDANSETRON 4MG 2ML VIAL IV ONE (08:05)
[2022-11-09] MEDS: NITROGLYCERIN 0.4MG SUBL TABLET SL PRN ×2 (08:08→08:18)
[2022-11-09 08:33] LABS: BASO % 0.2 % (0.0-1.0); EOS # 0.2 10^3/uL (0.0-0.5); EOS % 0.9 % (0.0-3.0); HEMATOCRIT 46.2 % (42.0-52.0); HEMOGLOBIN 15.4 g/dl (13.5-17.5); LYMPH # 2.6 10^3/uL (1.5-5.0); LYMPH % 14.8 % (24.0-44.0); MEAN CORPUSCULAR HEMOGLOBIN 30.8 pg (27.0-33.0); MEAN CORPUSCULAR HGB CONC 33.3 g/dl (32.0-36.5); MEAN CORPUSCULAR VOLUME 92.4 fl (80.0-96.0); MONO % 11.5 % (2.0-8.0); NEUTROPHILS # 12.4 10^3/uL (1.5-8.5); NEUTROPHILS % 71.1 % (36.0-66.0); PLATELET COUNT, AUTOMATED 268 10^3/uL (150-450); WHITE BLOOD COUNT 17.5 10^3/uL (4.0-10.0)
[2022-11-09 08:54] LABS: LIPASE 44 U/L (12-53)
[2022-11-09 08:57] LABS: ALBUMIN 3.1 G/DL (3.2-5.2); ALKALINE PHOSPHATASE 76 U/L (46-116); ALT/SGPT 22 U/L (7.0-40); AST/SGOT 11 U/L (<34); BILIRUBIN,DIRECT 0.1 MG/DL (<0.4); BILIRUBIN,TOTAL 0.3 MG/DL (0.3-1.2); BLOOD UREA NITROGEN 19 MG/DL (9-23); CALCIUM LEVEL 8.9 MG/DL (8.5-10.1); CARBON DIOXIDE LEVEL 26 MMOL/L (20-31); CHLORIDE LEVEL 102 MMOL/L (98-107); CK-MB VALUE MASS < 1.0 NG/ML (<3.6); CPK CREATINE PHOSPHOKINASE 47 U/L (46-171); CREATININE FOR GFR 0.82 MG/DL (0.70-1.30); GLOMERULAR FILTRATION RATE > 60.0 (>56); GLUCOSE, FASTING 143 MG/DL (60-100); HCG, SERUM QUALITATIVE NEGATIVE; MB/CK RELATIVE INDEX 2.12 (< OR =4); POTASSIUM SERUM 3.9 MMOL/L (3.5-5.1); SODIUM LEVEL 135 MMOL/L (136-145); TOTAL PROTEIN 6.6 G/DL (5.7-8.2)
[2022-11-09 08:58] LABS: THYROID STIMULATING HORMONE 1.012 uIU/ML (0.55-4.78)
[2022-11-09 08:59] LABS: FREE T4 1.26 NG/DL (0.89-1.76)
[2022-11-09] MEDS ORDERED: NS 500 ML IV ONE (09:05)
[2022-11-09 09:06] LABS: RSV AMPLIFICATION NEGATIVE (NEGATIVE)
[2022-11-09] MEDS ORDERED: ISOVUE-370 76% 100ML VIAL As Ordered ONE (09:33)
[2022-11-09 09:46] LABS: CK-MB VALUE MASS < 1.0 NG/ML (<3.6)
[2022-11-09 09:47] LABS: CPK CREATINE PHOSPHOKINASE 43 U/L (46-171); MB/CK RELATIVE INDEX 2.32 (< OR =4)
[2022-11-09] MEDS ORDERED: methylPREDNISolone 125MG 2ML VIAL IV ONE (10:10)
[2022-11-09] MEDS ORDERED: cefTRIAXone SOD 1 GM in D5W MINI-BAG PLUS 50 ML IV ONE (10:10)
[2022-11-09] MEDS ORDERED: DOXYCYCLINE HYCLATE 100MG TABLET PO ONE (10:10)
[2022-11-09] MEDS: IPRATROPIUM 0.5MG/ALBUTEROL 2.5MG INH SOL UD 3ML (DUONEB) NEB SCH ×5 (10:20→19:24)
[2022-11-09] MEDS ORDERED: ACETAMINOPHEN TAB 650MG DOSE (2X325MG) PO PRN (11:05)
[2022-11-09] MEDS ORDERED: LISI10TA22 PO (11:14)
[2022-11-09] MEDS ORDERED: LATU20TA PO (11:14)
[2022-11-09] MEDS ORDERED: CLOP75TA2 PO (11:14)
[2022-11-09] MEDS ORDERED: ASPI81TA26 PO (11:14)
[2022-11-09] MEDS ORDERED: ROSU40TA4 PO (11:14)
[2022-11-09] MEDS ORDERED: METO1TAB7 PO (11:14)
[2022-11-09] MEDS ORDERED: HOME MED LIST COMPLETE! XX SCH (11:15)
[2022-11-09] MEDS ORDERED: IPRATROPIUM 0.5MG/ALBUTEROL 2.5MG INH SOL UD 3ML (DUONEB) NEB PRN (11:25)
[2022-11-09] MEDS: NS 1,000 ML IV SCH ×2 (12:15→22:58)
[2022-11-09] MEDS: ASPIRIN 81MG ENTERIC TABLET PO SCH (13:57)
[2022-11-09] MEDS: ROSUVASTATIN 10 MG TAB (CRESTOR) PO SCH (13:57)
[2022-11-09] MEDS: lisinopriL 5 MG TAB PO SCH (13:57)
[2022-11-09] MEDS: METOPROLOL SUCC (TopROL XL) 50MG **XL** TAB PO SCH (13:58)
[2022-11-09] MEDS: HEPARIN SOD (PORCINE) 5000UNITS/ML 1ML VIAL/SYRINGE SC SCH ×2 (13:58→22:58)
[2022-11-09] MEDS: CLOPIDOGREL 75 MG TAB PO SCH (13:58)
[2022-11-09 17:48] LABS: CK-MB VALUE MASS < 1.0 NG/ML (<3.6)
[2022-11-09 17:50] LABS: CPK CREATINE PHOSPHOKINASE 37 U/L (46-171)
[2022-11-09] MEDS: LURASIDONE 20 MG TAB (LATUDA) PO SCH (18:32)
[2022-11-09] MEDS: methylPREDNISolone 40MG 1ML VIAL IV SCH (18:32)
[2022-11-09 20:10] LABS: CK-MB VALUE MASS < 1.0 NG/ML (<3.6)
[2022-11-09 20:11] LABS: CPK CREATINE PHOSPHOKINASE 42 U/L (46-171); MB/CK RELATIVE INDEX 2.38 (< OR =4)
[2022-11-09] MEDS ORDERED: DOXYCYCLINE HYCLATE 100 MG in D5W MINI-BAG PLUS 100 ML IV SCH (23:00)
[2022-11-10] VITALS (26 sets, daily range): BP systolic 131–153; BP diastolic 67–77; TEMP 96.2–97.2; O2SAT 89–97
[2022-11-10] MEDS: IPRATROPIUM 0.5MG/ALBUTEROL 2.5MG INH SOL UD 3ML (DUONEB) NEB SCH ×4 (01:19→19:49)
[2022-11-10] MEDS: methylPREDNISolone 40MG 1ML VIAL IV SCH ×3 (02:29→18:17)
[2022-11-10 05:17] LABS: BASO % 0.2 % (0.0-1.0); HEMATOCRIT 45.6 % (42.0-52.0); HEMOGLOBIN 15.3 g/dl (13.5-17.5); LYMPH # 1.1 10^3/uL (1.5-5.0); LYMPH % 6.3 % (24.0-44.0); MEAN CORPUSCULAR HEMOGLOBIN 30.9 pg (27.0-33.0); MEAN CORPUSCULAR HGB CONC 33.6 g/dl (32.0-36.5); MEAN CORPUSCULAR VOLUME 92.1 fl (80.0-96.0); MONO # 0.7 10^3/uL (0.0-0.8); MONO % 3.9 % (2.0-8.0); NEUTROPHILS # 14.7 10^3/uL (1.5-8.5); NEUTROPHILS % 88.2 % (36.0-66.0); PLATELET COUNT, AUTOMATED 275 10^3/uL (150-450); RED BLOOD COUNT 4.95 10^6/uL (4.30-6.10); WHITE BLOOD COUNT 16.7 10^3/uL (4.0-10.0)
[2022-11-10] MEDS: HEPARIN SOD (PORCINE) 5000UNITS/ML 1ML VIAL/SYRINGE SC SCH ×3 (05:26→21:45)
[2022-11-10 05:41] LABS: BLOOD UREA NITROGEN 15 MG/DL (9-23); CALCIUM LEVEL 9.4 MG/DL (8.5-10.1); CARBON DIOXIDE LEVEL 28 MMOL/L (20-31); CHLORIDE LEVEL 104 MMOL/L (98-107); CREATININE FOR GFR 0.58 MG/DL (0.70-1.30); GLOMERULAR FILTRATION RATE > 60.0 (>56); GLUCOSE, FASTING 202 MG/DL (60-100); MAGNESIUM LEVEL 2.3 MG/DL (1.8-2.4); POTASSIUM SERUM 4.6 MMOL/L (3.5-5.1); SODIUM LEVEL 140 MMOL/L (136-145)
[2022-11-10] MEDS: ASPIRIN 81MG ENTERIC TABLET PO SCH (08:23)
[2022-11-10] MEDS: ROSUVASTATIN 10 MG TAB (CRESTOR) PO SCH (08:23)
[2022-11-10] MEDS: NICOTINE 7 MG/24 HR TRANSDERMAL TD SCH (08:23)
[2022-11-10] MEDS: lisinopriL 5 MG TAB PO SCH (08:23)
[2022-11-10] MEDS: METOPROLOL SUCC (TopROL XL) 50MG **XL** TAB PO SCH (08:24)
[2022-11-10] MEDS: guaiFENesin ER 600 MG TAB PO SCH ×2 (08:24→21:46)
[2022-11-10] MEDS: CLOPIDOGREL 75 MG TAB PO SCH (08:24)
[2022-11-10 08:55] LABS: HEMOGLOBIN A1c 6.4 % (4.0-6.0)
[2022-11-10] MEDS: cefTRIAXone SOD 1 GM in D5W MINI-BAG PLUS 50 ML IV SCH (10:20)
[2022-11-10] MEDS ORDERED: NITROGLYCERIN 0.4MG SUBL TABLET SL PRN (10:20)
[2022-11-10] MEDS: DOXYCYCLINE HYCLATE 100MG TABLET PO SCH ×2 (10:20→21:46)
[2022-11-10 17:07] LABS: MYCOPLASMA PNEUMONIAE IgG 1067 U/mL (0-99); MYCOPLASMA PNEUMONIAE IgM <770 U/mL (0-769)
[2022-11-10] MEDS: LURASIDONE 20 MG TAB (LATUDA) PO SCH (18:17)
[2022-11-11] VITALS (17 sets, daily range): BP systolic 116–170; BP diastolic 57–104; TEMP 96.7–97; O2SAT 89–99
[2022-11-11] MEDS: IPRATROPIUM 0.5MG/ALBUTEROL 2.5MG INH SOL UD 3ML (DUONEB) NEB SCH ×4 (00:40→19:15)
[2022-11-11] MEDS: methylPREDNISolone 40MG 1ML VIAL IV SCH ×2 (02:22→15:05)
[2022-11-11 04:16] LABS: BASO % 0.1 % (0.0-1.0); HEMATOCRIT 47.2 % (42.0-52.0); HEMOGLOBIN 15.2 g/dl (13.5-17.5); LYMPH # 1.3 10^3/uL (1.5-5.0); LYMPH % 5.9 % (24.0-44.0); MEAN CORPUSCULAR HEMOGLOBIN 30.3 pg (27.0-33.0); MEAN CORPUSCULAR HGB CONC 32.2 g/dl (32.0-36.5); MEAN CORPUSCULAR VOLUME 94.2 fl (80.0-96.0); MONO # 0.8 10^3/uL (0.0-0.8); MONO % 3.9 % (2.0-8.0); NEUTROPHILS % 88.6 % (36.0-66.0); PLATELET COUNT, AUTOMATED 289 10^3/uL (150-450); RED BLOOD COUNT 5.01 10^6/uL (4.30-6.10); WHITE BLOOD COUNT 21.5 10^3/uL (4.0-10.0)
[2022-11-11 04:40] LABS: BLOOD UREA NITROGEN 18 MG/DL (9-23); CALCIUM LEVEL 9.6 MG/DL (8.5-10.1); CARBON DIOXIDE LEVEL 28 MMOL/L (20-31); CHLORIDE LEVEL 101 MMOL/L (98-107); CREATININE FOR GFR 0.58 MG/DL (0.70-1.30); GLOMERULAR FILTRATION RATE > 60.0 (>56); GLUCOSE, FASTING 290 MG/DL (60-100); MAGNESIUM LEVEL 2.1 MG/DL (1.8-2.4); SODIUM LEVEL 137 MMOL/L (136-145)
[2022-11-11] MEDS: HEPARIN SOD (PORCINE) 5000UNITS/ML 1ML VIAL/SYRINGE SC SCH ×3 (06:00→21:10)
[2022-11-11] MEDS: ROSUVASTATIN 10 MG TAB (CRESTOR) PO SCH (08:28)
[2022-11-11] MEDS: METOPROLOL SUCC (TopROL XL) 50MG **XL** TAB PO SCH (08:29)
[2022-11-11] MEDS: CLOPIDOGREL 75 MG TAB PO SCH (08:29)
[2022-11-11] MEDS: guaiFENesin ER 600 MG TAB PO SCH ×2 (08:29→21:10)
[2022-11-11] MEDS: DOXYCYCLINE HYCLATE 100MG TABLET PO SCH ×2 (08:29→21:10)
[2022-11-11] MEDS: ASPIRIN 81MG ENTERIC TABLET PO SCH (08:29)
[2022-11-11] MEDS: lisinopriL 5 MG TAB PO SCH (08:29)
[2022-11-11] MEDS: NICOTINE 7 MG/24 HR TRANSDERMAL TD SCH (08:30)
[2022-11-11] MEDS: cefTRIAXone SOD 1 GM in D5W MINI-BAG PLUS 50 ML IV SCH (11:22)
[2022-11-11] MEDS: LURASIDONE 20 MG TAB (LATUDA) PO SCH (17:18)
[2022-11-12] MEDS: IPRATROPIUM 0.5MG/ALBUTEROL 2.5MG INH SOL UD 3ML (DUONEB) NEB SCH ×3 (01:14→13:54)
[2022-11-12] MEDS: methylPREDNISolone 40MG 1ML VIAL IV SCH (02:43)
[2022-11-12 04:00] VITALS: BP 158/82; TEMP 96.1; O2SAT 93
[2022-11-12] MEDS: HEPARIN SOD (PORCINE) 5000UNITS/ML 1ML VIAL/SYRINGE SC SCH (05:44)
[2022-11-12 07:11] LABS: BASO % 0.2 % (0.0-1.0); HEMATOCRIT 45.7 % (42.0-52.0); LYMPH # 1.3 10^3/uL (1.5-5.0); LYMPH % 8.8 % (24.0-44.0); MEAN CORPUSCULAR HEMOGLOBIN 30.4 pg (27.0-33.0); MEAN CORPUSCULAR HGB CONC 32.8 g/dl (32.0-36.5); MEAN CORPUSCULAR VOLUME 92.5 fl (80.0-96.0); MONO # 0.5 10^3/uL (0.0-0.8); MONO % 3.7 % (2.0-8.0); NEUTROPHILS # 12.7 10^3/uL (1.5-8.5); PLATELET COUNT, AUTOMATED 296 10^3/uL (150-450); RED BLOOD COUNT 4.94 10^6/uL (4.30-6.10); WHITE BLOOD COUNT 14.7 10^3/uL (4.0-10.0)
[2022-11-12 07:38] LABS: BLOOD UREA NITROGEN 19 MG/DL (9-23); CALCIUM LEVEL 9.2 MG/DL (8.5-10.1); CARBON DIOXIDE LEVEL 31 MMOL/L (20-31); CHLORIDE LEVEL 97 MMOL/L (98-107); CREATININE FOR GFR 0.65 MG/DL (0.70-1.30); GLOMERULAR FILTRATION RATE > 60.0 (>56); GLUCOSE, FASTING 295 MG/DL (60-100); POTASSIUM SERUM 4.8 MMOL/L (3.5-5.1); SODIUM LEVEL 134 MMOL/L (136-145)
[2022-11-12] MEDS ORDERED: DOXY100T PO (08:56)
[2022-11-12] MEDS ORDERED: CEFD300CAP PO (08:56)
[2022-11-12] MEDS ORDERED: PRED10TA2 PO (08:56)
[2022-11-12] MEDS ORDERED: PRED20TA PO (08:57)
[2022-11-12] MEDS ORDERED: VENTAER INH (08:59)
[2022-11-12] MEDS: NICOTINE 7 MG/24 HR TRANSDERMAL TD SCH (09:00)
[2022-11-12] MEDS: cefTRIAXone SOD 1 GM in D5W MINI-BAG PLUS 50 ML IV SCH (09:49)
[2022-11-12] MEDS: CLOPIDOGREL 75 MG TAB PO SCH (09:49)
[2022-11-12] MEDS: ASPIRIN 81MG ENTERIC TABLET PO SCH (09:49)
[2022-11-12] MEDS: ROSUVASTATIN 10 MG TAB (CRESTOR) PO SCH (09:49)
[2022-11-12] MEDS: DOXYCYCLINE HYCLATE 100MG TABLET PO SCH (09:50)
[2022-11-12] MEDS: lisinopriL 5 MG TAB PO SCH (09:50)
[2022-11-12] MEDS: guaiFENesin ER 600 MG TAB PO SCH (09:50)
[2022-11-12] MEDS: METOPROLOL SUCC (TopROL XL) 50MG **XL** TAB PO SCH (09:50)
[2022-11-12 10:23] VITALS: O2SAT 91
[2022-11-12 10:30] VITALS: BP 153/87
[2022-11-12 11:30] VITALS: BP 154/79
[2022-11-12] MEDS ORDERED: lisinopriL 5 MG TAB PO ONE (12:00)
[2022-11-12 12:30] VITALS: BP 156/74
[2022-11-12] MEDS ORDERED: CARVedilol 3.125 MG TAB PO ONE (12:45)
[2022-11-12 13:25] VITALS: BP 156/74
[2022-11-12] MEDS ORDERED: LISI10TA22 PO (14:00)
== END 2022-11-12 14:33 | disposition home health service (06) | DRG 139 ==
LOC: M ED 07:52 → M ED INP 11:12 → M PCU 13:05
PROVIDERS: ADMIT Internal Medicine; ATTEND Internal Medicine
DX: J18.9 Pneumonia, unspecified organism (principal); J96.01 Acute respiratory failure with hypoxia; J44.0 Chronic obstructive pulmonary disease with (acute) lower respiratory infection; J44.1 Chronic obstructive pulmonary disease with (acute) exacerbation; I10 Essential (primary) hypertension; I25.10 Atherosclerotic heart disease of native coronary artery without angina pectoris; E78.5 Hyperlipidemia, unspecified; R07.89 Other chest pain; G47.33 Obstructive sleep apnea (adult) (pediatric); F31.9 Bipolar disorder, unspecified; F17.210 Nicotine dependence, cigarettes, uncomplicated; Z98.49 Cataract extraction status, unspecified eye; Z20.822 Contact with and (suspected) exposure to COVID-19; Z79.82 Long term (current) use of aspirin; Z95.5 Presence of coronary angioplasty implant and graft; Z79.899 Other long term (current) drug therapy; I25.2 Old myocardial infarction

== ENCOUNTER 2023-01-03 17:38 | Inpatient (IN) | payer MEDICAID, OTHER ==
[~2023-01-03] VITALS: Ht 175.3 cm; Wt 122.0 kg
[~2023-01-03 17:38] MED LIST changes: +CEFD300CAP PO; +DOXY100T PO; +VENTAER INH
[2023-01-03 18:47] LABS: HEMATOCRIT 45.8 % (42.0-52.0); HEMOGLOBIN 15.1 g/dl (13.5-17.5); MEAN CORPUSCULAR HEMOGLOBIN 30.8 pg (27.0-33.0); MEAN CORPUSCULAR VOLUME 93.5 fl (80.0-96.0); PLATELET COUNT, AUTOMATED 253 10^3/uL (150-450); WHITE BLOOD COUNT 8.7 10^3/uL (4.0-10.0)
[2023-01-03] MEDS ORDERED: MED REC IN PROGRESS XX SCH (18:55)
[2023-01-03 19:04] LABS: ACETAMINOPHEN LEVEL < 2.0 UG/ML (10.0-20.0)
[2023-01-03 19:05] LABS: ALBUMIN 3.9 G/DL (3.2-5.2); ALKALINE PHOSPHATASE 59 U/L (46-116); ALT/SGPT 35 U/L (7.0-40); AST/SGOT 19 U/L (<34); BILIRUBIN,DIRECT < 0.1 MG/DL (<0.4); BILIRUBIN,TOTAL 0.2 MG/DL (0.3-1.2); BLOOD UREA NITROGEN 11 MG/DL (9-23); CALCIUM LEVEL 9.4 MG/DL (8.5-10.1); CARBON DIOXIDE LEVEL 28 MMOL/L (20-31); CHLORIDE LEVEL 106 MMOL/L (98-107); CREATININE FOR GFR 0.62 MG/DL (0.70-1.30); GLOMERULAR FILTRATION RATE > 60.0 (>56); GLUCOSE, FASTING 97 MG/DL (60-100); POTASSIUM SERUM 4.2 MMOL/L (3.5-5.1); SALICYLATE LEVEL < 3.0 MG/DL (<30); SODIUM LEVEL 143 MMOL/L (136-145); TOTAL PROTEIN 7.1 G/DL (5.7-8.2)
[2023-01-03 19:08] LABS: THYROID STIMULATING HORMONE 0.641 uIU/ML (0.55-4.78)
[2023-01-03] MEDS ORDERED: LISI10TA22 PO (19:11)
[2023-01-03 19:13] LABS: AMPHETAMINES LEVEL URINE NEGATIVE (NEGATIVE); BARBITURATES URINE NEGATIVE (NEGATIVE); COCAINE METABOLITE URINE NEGATIVE (NEGATIVE); METHADONE URINE NEGATIVE (NEGATIVE)
[2023-01-03 19:14] LABS: BENZODIAZEPINES URINE NEGATIVE (NEGATIVE); CANNABINOIDS URINE POSITIVE (NEGATIVE); OPIATES URINE NEGATIVE (NEGATIVE); PHENCYCLIDINE URINE NEGATIVE (NEGATIVE)
[2023-01-03] MEDS ORDERED: COMBAER6 INH (19:16)
[2023-01-03] MEDS ORDERED: FLUT1BLS5 INH (19:16)
[2023-01-03] MEDS ORDERED: HOME MED LIST COMPLETE! XX SCH (19:20)
[2023-01-03] MEDS ORDERED: OLANZapine 10 MG TAB PO PRN (21:55)
[2023-01-03] MEDS ORDERED: LORazepam 2 MG TAB PO PRN (21:55)
[2023-01-03] MEDS ORDERED: MAALOX 30 ML SUSP *UDC PO PRN (21:55)
[2023-01-03] MEDS ORDERED: IBUPROFEN 400MG TAB PO PRN (21:55)
[2023-01-03] MEDS ORDERED: diphenhydrAMINE 25MG CAP PO PRN (21:55)
[2023-01-03] MEDS ORDERED: MOM 30ML SUSPENSION UDC PO PRN (21:55)
[2023-01-03] MEDS ORDERED: ACETAMINOPHEN TAB 650MG DOSE (2X325MG) PO PRN (21:55)
[2023-01-03] MEDS: traZODone 50 MG TAB PO PRN (23:44)
[2023-01-03] MEDS: THIAMINE 100 MG TAB PO SCH (23:45)
[2023-01-04 00:23] VITALS: BP 116/55; TEMP 96.4; O2SAT 95
[2023-01-04 06:38] VITALS: BP 143/73; TEMP 97.6; O2SAT 94
[2023-01-04 07:49] VITALS: BP 143/73
[2023-01-04] MEDS ORDERED: ALBUTEROL 90 MCG/ACT 8GM HFA INHALER INH PRN (09:05)
[2023-01-04] MEDS: ASPIRIN 81MG ENTERIC TABLET PO SCH (09:28)
[2023-01-04] MEDS: CLOPIDOGREL 75 MG TAB PO SCH (09:29)
[2023-01-04] MEDS: THIAMINE 100 MG TAB PO SCH ×2 (09:29→21:11)
[2023-01-04] MEDS: ROSUVASTATIN 10 MG TAB (CRESTOR) PO SCH (09:29)
[2023-01-04] MEDS: MULTIVITAMINS/MINERALS THERAP 1 TAB PO SCH (09:29)
[2023-01-04] MEDS: FOLIC ACID 1MG TAB PO SCH (09:29)
[2023-01-04] MEDS: COMBIVENT RESPIMAT 100-20MCG INHALER 4GM INH SCH ×4 (09:29→21:11)
[2023-01-04] MEDS: METOPROLOL SUCC (TopROL XL) 50MG **XL** TAB PO SCH (10:34)
[2023-01-04] MEDS: ADVAIR HFA 115/21MCG INHALER INH SCH ×2 (11:44→21:11)
[2023-01-04 14:06] VITALS: BP 132/72
[2023-01-04 16:55] VITALS: BP 132/72; TEMP 97.3; O2SAT 91
[2023-01-04] MEDS: LURASIDONE 20 MG TAB (LATUDA) PO SCH (21:11)
[2023-01-04 22:42] VITALS: BP 127/77
[2023-01-05 06:37] VITALS: BP 123/73; TEMP 97.9; O2SAT 92
[2023-01-05 07:30] VITALS: BP 130/84
[2023-01-05] MEDS: ADVAIR HFA 115/21MCG INHALER INH SCH ×2 (08:27→20:40)
[2023-01-05] MEDS: COMBIVENT RESPIMAT 100-20MCG INHALER 4GM INH SCH ×4 (08:27→20:39)
[2023-01-05] MEDS: ROSUVASTATIN 10 MG TAB (CRESTOR) PO SCH (08:27)
[2023-01-05] MEDS: THIAMINE 100 MG TAB PO SCH ×2 (08:27→20:41)
[2023-01-05] MEDS: ASPIRIN 81MG ENTERIC TABLET PO SCH (08:28)
[2023-01-05] MEDS: CLOPIDOGREL 75 MG TAB PO SCH (08:28)
[2023-01-05] MEDS: FOLIC ACID 1MG TAB PO SCH (08:28)
[2023-01-05] MEDS: MULTIVITAMINS/MINERALS THERAP 1 TAB PO SCH (08:28)
[2023-01-05] MEDS: METOPROLOL SUCC (TopROL XL) 50MG **XL** TAB PO SCH (08:28)
[2023-01-05 16:20] VITALS: BP 126/79
[2023-01-05 18:07] VITALS: BP 150/90; TEMP 97.4; O2SAT 97
[2023-01-05] MEDS: traZODone 50 MG TAB PO PRN (20:41)
[2023-01-05] MEDS: LURASIDONE 20 MG TAB (LATUDA) PO SCH (20:41)
[2023-01-05 21:15] VITALS: BP 134/74
[2023-01-06 05:40] VITALS: BP 106/68; TEMP 98.1; O2SAT 96
[2023-01-06] MEDS: ADVAIR HFA 115/21MCG INHALER INH SCH ×2 (08:02→21:10)
[2023-01-06] MEDS: COMBIVENT RESPIMAT 100-20MCG INHALER 4GM INH SCH ×4 (08:03→21:10)
[2023-01-06] MEDS: ASPIRIN 81MG ENTERIC TABLET PO SCH (08:03)
[2023-01-06] MEDS: ROSUVASTATIN 10 MG TAB (CRESTOR) PO SCH (08:03)
[2023-01-06] MEDS: METOPROLOL SUCC (TopROL XL) 50MG **XL** TAB PO SCH (08:04)
[2023-01-06] MEDS: MULTIVITAMINS/MINERALS THERAP 1 TAB PO SCH (08:04)
[2023-01-06] MEDS: CLOPIDOGREL 75 MG TAB PO SCH (08:04)
[2023-01-06] MEDS: FOLIC ACID 1MG TAB PO SCH (08:04)
[2023-01-06] MEDS: THIAMINE 100 MG TAB PO SCH (08:04)
[2023-01-06 14:00] VITALS: BP 118/60
[2023-01-06 18:21] VITALS: BP 118/60; TEMP 97.5; O2SAT 100
[2023-01-06] MEDS: traZODone 50 MG TAB PO PRN (21:10)
[2023-01-06] MEDS: LURASIDONE 20 MG TAB (LATUDA) PO SCH (21:10)
[2023-01-06 22:30] VITALS: BP 117/72
[2023-01-07 06:19] VITALS: BP 141/86; TEMP 97.8; O2SAT 95
[2023-01-07] MEDS: ROSUVASTATIN 10 MG TAB (CRESTOR) PO SCH (08:24)
[2023-01-07] MEDS: ADVAIR HFA 115/21MCG INHALER INH SCH ×2 (08:24→21:17)
[2023-01-07 08:25] VITALS: BP 141/86
[2023-01-07] MEDS: ASPIRIN 81MG ENTERIC TABLET PO SCH (08:25)
[2023-01-07] MEDS: METOPROLOL SUCC (TopROL XL) 50MG **XL** TAB PO SCH (08:25)
[2023-01-07] MEDS: CLOPIDOGREL 75 MG TAB PO SCH (08:25)
[2023-01-07] MEDS: COMBIVENT RESPIMAT 100-20MCG INHALER 4GM INH SCH ×5 (08:27→21:17)
[2023-01-07 17:55] VITALS: BP 105/61; TEMP 96.5; O2SAT 98
[2023-01-07] MEDS: LURASIDONE 20 MG TAB (LATUDA) PO SCH (21:17)
[2023-01-07] MEDS: traZODone 50 MG TAB PO PRN (21:17)
[2023-01-08 06:45] VITALS: BP 114/66; TEMP 97.7; O2SAT 95
[2023-01-08] MEDS ORDERED: VENTAER INH (07:37)
[2023-01-08] MEDS ORDERED: CLOP75TA2 PO (07:37)
[2023-01-08] MEDS ORDERED: ROSU40TA4 PO (07:37)
[2023-01-08] MEDS ORDERED: ADVA115A INH (07:37)
[2023-01-08] MEDS ORDERED: METO1TAB7 PO (07:37)
[2023-01-08] MEDS ORDERED: LISI10TA22 PO (07:37)
[2023-01-08] MEDS ORDERED: TRAZ-252 PO (07:37)
[2023-01-08] MEDS ORDERED: COMBAER6 INH (07:37)
[2023-01-08] MEDS ORDERED: LATU20TA PO (07:37)
[2023-01-08] MEDS ORDERED: ASPI81TA26 PO (07:37)
[2023-01-08] MEDS: ADVAIR HFA 115/21MCG INHALER INH SCH (08:39)
[2023-01-08] MEDS: ASPIRIN 81MG ENTERIC TABLET PO SCH (08:40)
[2023-01-08] MEDS: ROSUVASTATIN 10 MG TAB (CRESTOR) PO SCH (08:40)
[2023-01-08] MEDS: CLOPIDOGREL 75 MG TAB PO SCH (08:40)
[2023-01-08] MEDS: COMBIVENT RESPIMAT 100-20MCG INHALER 4GM INH SCH ×2 (08:40→13:24)
[2023-01-08] MEDS: METOPROLOL SUCC (TopROL XL) 50MG **XL** TAB PO SCH (08:40)
[2023-01-08] MEDS ORDERED: LURASIDONE 20 MG TAB (LATUDA) PO SCH (18:00)
== END 2023-01-08 13:38 | disposition home or self-care (01) | DRG 753 ==
LOC: M ED 17:38 → M ED INP 21:53 → M PSY 21:54
PROVIDERS: ADMIT Psychiatry & Neurology Psychiatry; ATTEND Psychiatry & Neurology Psychiatry
DX: F31.9 Bipolar disorder, unspecified (principal); F10.10 Alcohol abuse, uncomplicated; F12.90 Cannabis use, unspecified, uncomplicated; Z91.138 Patient's unintentional underdosing of medication regimen for other reason; Z79.899 Other long term (current) drug therapy; Z79.82 Long term (current) use of aspirin; R45.851 Suicidal ideations; I25.10 Atherosclerotic heart disease of native coronary artery without angina pectoris; E78.00 Pure hypercholesterolemia, unspecified; I25.2 Old myocardial infarction; M54.2 Cervicalgia; M54.50 Low back pain, unspecified; Z95.2 Presence of prosthetic heart valve; J44.9 Chronic obstructive pulmonary disease, unspecified

== ENCOUNTER 2023-01-17 13:39 | Emergency (ER) | payer OTHER, MEDICAID ==
[~2023-01-17] VITALS: Ht 175.3 cm; Wt 122.0 kg
[~2023-01-17 13:39] MED LIST changes: +ADVA115A INH; +FLUT1BLS5 INH
[2023-01-17] MEDS ORDERED: traMADol 50 MG TAB PO ONE (18:50)
[2023-01-17 19:29] LABS: BASO % 0.2 % (0.0-1.0); EOS # 0.2 10^3/uL (0.0-0.5); EOS % 1.5 % (0.0-3.0); HEMATOCRIT 45.7 % (42.0-52.0); HEMOGLOBIN 15.6 g/dl (13.5-17.5); LYMPH # 2.2 10^3/uL (1.5-5.0); LYMPH % 18.6 % (24.0-44.0); MEAN CORPUSCULAR HEMOGLOBIN 31.3 pg (27.0-33.0); MEAN CORPUSCULAR HGB CONC 34.1 g/dl (32.0-36.5); MEAN CORPUSCULAR VOLUME 91.6 fl (80.0-96.0); MONO # 1.4 10^3/uL (0.0-0.8); MONO % 11.3 % (2.0-8.0); NEUTROPHILS # 8.2 10^3/uL (1.5-8.5); NEUTROPHILS % 68.1 % (36.0-66.0); PLATELET COUNT, AUTOMATED 292 10^3/uL (150-450); RED BLOOD COUNT 4.99 10^6/uL (4.30-6.10)
[2023-01-17] MEDS ORDERED: ISOVUE-370 76% 100ML VIAL As Ordered ONE (19:59)
[2023-01-17] MEDS ORDERED: AMOX500C PO (20:57)
[2023-01-17] MEDS ORDERED: AMOXICILLIN 500 MG CAP PO ONE (21:00)
[2023-01-17 21:10] VITALS: BP 142/80; TEMP 98; O2SAT 99
== END 2023-01-17 21:20 | disposition home or self-care (01) ==
LOC: M ED 13:39
DX: K02.9 Dental caries, unspecified (principal); I25.2 Old myocardial infarction; I10 Essential (primary) hypertension; E78.5 Hyperlipidemia, unspecified; J44.9 Chronic obstructive pulmonary disease, unspecified; Z86.79 Personal history of other diseases of the circulatory system; Z79.52 Long term (current) use of systemic steroids; Z79.811 Long term (current) use of aromatase inhibitors; Z79.899 Other long term (current) drug therapy
CPT/HCPCS: 36415; 70491; 80047; 85025; 99283; Q9967

== ENCOUNTER → 2023-04-03 | Outpatient (REF) ==
[~2023-04-03] MED LIST changes: +AMOX500C PO
== END ==
LOC: M PLAIMG 13:44
PROVIDERS: ATTEND Internal Medicine
DX: R52 Pain, unspecified (principal)

== ENCOUNTER → 2023-08-02 | Outpatient (REF) | LOC: M PLAIMG 09:24 | PROVIDERS: ATTEND Internal Medicine | DX: R52 Pain, unspecified (principal); M47.9 Spondylosis, unspecified ==

== ENCOUNTER 2024-06-26 23:00 | Inpatient (IN) | payer MEDICAID, OTHER ==
[~2024-06-26] VITALS: Ht 175.3 cm; Wt 113.3 kg
[~2024-06-26 23:00] MED LIST changes: +GABA-1172 PO; +GABA-1490; +GABA-1490 PO; -GABA-282 PO; -GABA600T4; -GABA600T4 PO; -ROSU40TA4 PO; +ROSU40TA81 PO
[2024-06-26 23:56] LABS: HEMATOCRIT 51.4 % (42.0-52.0); HEMOGLOBIN 17.8 g/dl (13.5-17.5); MEAN CORPUSCULAR HEMOGLOBIN 31.9 pg (27.0-33.0); MEAN CORPUSCULAR HGB CONC 34.6 g/dl (32.0-36.5); MEAN CORPUSCULAR VOLUME 92.1 fl (80.0-96.0); PLATELET COUNT, AUTOMATED 349 10^3/uL (150-450); RED BLOOD COUNT 5.58 10^6/uL (4.30-6.10); WHITE BLOOD COUNT 10.2 10^3/uL (4.0-10.0)
[2024-06-27 00:21] LABS: AMPHETAMINES LEVEL URINE NEGATIVE (NEGATIVE); BARBITURATES URINE NEGATIVE (NEGATIVE); BENZODIAZEPINES URINE NEGATIVE (NEGATIVE); COCAINE METABOLITE URINE NEGATIVE (NEGATIVE); METHADONE URINE NEGATIVE (NEGATIVE); OPIATES URINE NEGATIVE (NEGATIVE); PHENCYCLIDINE URINE NEGATIVE (NEGATIVE)
[2024-06-27 00:24] LABS: SALICYLATE LEVEL < 3.0 MG/DL (<30)
[2024-06-27 00:25] LABS: ALBUMIN 3.6 G/DL (3.2-5.2); ALKALINE PHOSPHATASE 71 U/L (40-129); ALT/SGPT 39 U/L (7.0-40); AST/SGOT 25 U/L (<34); BILIRUBIN,DIRECT 0.1 MG/DL (<0.4); BILIRUBIN,TOTAL 0.3 MG/DL (0.3-1.2); BLOOD UREA NITROGEN 9 MG/DL (9-23); CALCIUM LEVEL 8.6 MG/DL (8.5-10.1); CARBON DIOXIDE LEVEL 30 MMOL/L (20-31); CHLORIDE LEVEL 100 MMOL/L (98-107); CREATININE FOR GFR 0.71 MG/DL (0.70-1.30); GLOMERULAR FILTRATION RATE > 60.0 (>56); GLUCOSE, FASTING 108 MG/DL (60-100); POTASSIUM SERUM 4.3 MMOL/L (3.5-5.1); SODIUM LEVEL 140 MMOL/L (136-145); TOTAL PROTEIN 7.6 G/DL (5.7-8.2)
[2024-06-27 00:27] LABS: THYROID STIMULATING HORMONE 1.106 uIU/ML (0.55-4.78)
[2024-06-27 00:39] LABS: CANNABINOIDS URINE POSITIVE (NEGATIVE)
[2024-06-27 00:59] LABS: ETHYL ALCOHOL (ETHANOL) 0.276 % (0.000-0.010)
[2024-06-27] MEDS: LORazepam 1 MG TAB PO ONE (08:39)
[2024-06-27] MEDS ORDERED: ASPI81CH33 PO (09:35)
[2024-06-27] MEDS ORDERED: LATU20TA PO (09:35)
[2024-06-27] MEDS ORDERED: ADVA115A INH (09:35)
[2024-06-27] MEDS ORDERED: VENTAER INH (09:35)
[2024-06-27] MEDS ORDERED: TRAZ-252 PO (09:35)
[2024-06-27] MEDS ORDERED: HOME MED LIST COMPLETE! XX SCH (09:40)
[2024-06-27] MEDS: ASPIRIN 81MG CHEW TABLET PO SCH (11:13)
[2024-06-27] MEDS: ROSUVASTATIN 10 MG TAB (CRESTOR) PO SCH (11:14)
[2024-06-27] MEDS: METOPROLOL SUCC (TopROL XL) 50MG **XL** TAB PO SCH (11:14)
[2024-06-27] MEDS: CLOPIDOGREL 75 MG TAB PO SCH (11:14)
[2024-06-27] MEDS ORDERED: LORazepam 2 MG TAB PO PRN (17:50)
[2024-06-27 18:18] VITALS: BP 155/85; TEMP 98.8; O2SAT 95
[2024-06-27 18:19] VITALS: BP 155/85
[2024-06-27] MEDS: LURASIDONE 20 MG TAB (LATUDA) PO SCH (18:54)
[2024-06-27] MEDS: FOLIC ACID 1MG TAB PO SCH (18:55)
[2024-06-27] MEDS: MULTIVITAMINS/MINERALS THERAP 1 TAB PO SCH (18:55)
[2024-06-27] MEDS: traZODone 50 MG TAB PO PRN (20:53)
[2024-06-27] MEDS: THIAMINE 100 MG TAB PO SCH (20:53)
[2024-06-27 22:00] VITALS: BP 157/81
[2024-06-28 06:26] VITALS: BP 115/69; TEMP 97.8; O2SAT 98
[2024-06-28 06:27] VITALS: BP 115/69
[2024-06-28 11:05] VITALS: BP 141/83
[2024-06-28 14:54] VITALS: BP 122/68
[2024-06-28 15:31] VITALS: BP 122/68; TEMP 98.1; O2SAT 95
[2024-06-28 22:00] VITALS: BP 129/82; TEMP 97.4; O2SAT 94
[2024-06-29 06:35] VITALS: BP 115/71; TEMP 97.4; O2SAT 97
[2024-06-29] MEDS: FLUBLOK(EGGFREE) TRIVAL(24-25) VACCINE PF 0.5ML SYRINGE 18YRS & OLDER IM.IMMUN ONE (09:03)
[2024-06-29 09:14] VITALS: BP 144/78
[2024-06-29] MEDS: ADVAIR HFA 115/21MCG INHALER INH PRN (12:53)
[2024-06-29 15:31] VITALS: BP 127/72; TEMP 98.3; O2SAT 95
[2024-06-29 16:55] VITALS: BP 131/76
[2024-06-29 22:00] VITALS: BP 125/70
[2024-06-29 22:13] VITALS: BP 125/70; TEMP 97.1; O2SAT 94
[2024-06-30 06:00] VITALS: BP 106/61
[2024-06-30 07:03] VITALS: BP 106/61; TEMP 97.6; O2SAT 94
[2024-06-30 14:48] VITALS: BP 137/88
[2024-06-30 18:01] VITALS: BP 129/83; TEMP 95; O2SAT 94
[2024-06-30] MEDS: LURASIDONE 20 MG TAB (LATUDA) PO SCH (18:04)
[2024-06-30 18:07] VITALS: BP 111/56; TEMP 97.7; O2SAT 98
[2024-06-30] MEDS: ALBUTEROL 90 MCG/ACT 8GM HFA INHALER INH PRN (20:08)
[2024-06-30] MEDS: DIVALPROEX 500MG *ER* TAB PO SCH (20:13)
[2024-07-01 07:16] VITALS: BP 104/59; TEMP 96.8; O2SAT 94
[2024-07-01 08:06] VITALS: BP 151/78
[2024-07-01 08:11] VITALS: BP 151/78
[2024-07-01] MEDS ORDERED: LATU20TA PO (11:00)
[2024-07-01] MEDS ORDERED: DEPA500T2 PO (11:00)
== END 2024-07-01 14:44 | disposition home or self-care (01) | DRG 753 ==
LOC: M ED 23:00 → M ED INP 06-27 16:27 → M PSY 06-27 17:59
PROVIDERS: ADMIT Psychiatry & Neurology Psychiatry; ATTEND Psychiatry & Neurology Psychiatry
DX: F31.81 Bipolar II disorder (principal); I10 Essential (primary) hypertension; R45.851 Suicidal ideations; F41.9 Anxiety disorder, unspecified; F10.10 Alcohol abuse, uncomplicated; F12.10 Cannabis abuse, uncomplicated; Z79.82 Long term (current) use of aspirin; Z79.899 Other long term (current) drug therapy; J44.9 Chronic obstructive pulmonary disease, unspecified; Z98.42 Cataract extraction status, left eye; I25.2 Old myocardial infarction; E66.9 Obesity, unspecified; G47.33 Obstructive sleep apnea (adult) (pediatric); Z87.891 Personal history of nicotine dependence; I25.10 Atherosclerotic heart disease of native coronary artery without angina pectoris; Z95.2 Presence of prosthetic heart valve; E78.5 Hyperlipidemia, unspecified

== ENCOUNTER 2024-08-12 21:01 | Emergency (ER) | payer MEDICAID, OTHER ==
[~2024-08-12] VITALS: Ht 175.3 cm; Wt 111.8 kg
[~2024-08-12 21:01] MED LIST changes: +ASPI81CH33 PO
[2024-08-12 21:28] LABS: BASO % 0.3 % (0.0-1.0); EOS # 0.1 10^3/uL (0.0-0.5); HEMATOCRIT 48.5 % (42.0-52.0); HEMOGLOBIN 16.7 g/dl (13.5-17.5); LYMPH # 2.7 10^3/uL (1.5-5.0); LYMPH % 19.6 % (24.0-44.0); MEAN CORPUSCULAR HEMOGLOBIN 32.1 pg (27.0-33.0); MEAN CORPUSCULAR HGB CONC 34.4 g/dl (32.0-36.5); MEAN CORPUSCULAR VOLUME 93.3 fl (80.0-96.0); MONO # 1.2 10^3/uL (0.0-0.8); MONO % 8.7 % (2.0-8.0); NEUTROPHILS # 9.6 10^3/uL (1.5-8.5); PLATELET COUNT, AUTOMATED 238 10^3/uL (150-450); WHITE BLOOD COUNT 13.7 10^3/uL (4.0-10.0)
[2024-08-12 21:42] LABS: INR 0.89; PROTHROMBIN TIME 12.3 SECONDS (12.5-14.5)
[2024-08-12 22:14] LABS: CK-MB VALUE MASS 2.2 NG/ML (<3.6)
[2024-08-12 22:15] LABS: LIPASE 57 U/L (12-53)
[2024-08-12 22:17] LABS: ALBUMIN 3.5 G/DL (3.2-5.2); ALKALINE PHOSPHATASE 70 U/L (40-129); ALT/SGPT 52 U/L (7.0-40); AST/SGOT 40 U/L (<34); BILIRUBIN,DIRECT 0.1 MG/DL (<0.4); BILIRUBIN,TOTAL 0.3 MG/DL (0.3-1.2); BLOOD UREA NITROGEN 16 MG/DL (9-23); CALCIUM LEVEL 8.8 MG/DL (8.5-10.1); CARBON DIOXIDE LEVEL 29 MMOL/L (20-31); CHLORIDE LEVEL 99 MMOL/L (98-107); CREATININE FOR GFR 0.71 MG/DL (0.70-1.30); GLOMERULAR FILTRATION RATE > 60.0 (>56); GLUCOSE, FASTING 133 MG/DL (60-100); POTASSIUM SERUM 3.9 MMOL/L (3.5-5.1); SODIUM LEVEL 139 MMOL/L (136-145); TOTAL PROTEIN 7.1 G/DL (5.7-8.2)
[2024-08-12 22:18] LABS: CPK CREATINE PHOSPHOKINASE 69 U/L (46-171); MB/CK RELATIVE INDEX 3.18 (< OR =4)
[2024-08-12 23:31] LABS: CK-MB VALUE MASS 1.8 NG/ML (<3.6)
[2024-08-12 23:33] LABS: MB/CK RELATIVE INDEX 2.9 (< OR =4)
[2024-08-13] MEDS ORDERED: PRED20TA PO (00:18)
[2024-08-13] MEDS ORDERED: CEFD1CAP9 PO (00:18)
[2024-08-13] MEDS ORDERED: AZIT-12 PO (00:18)
[2024-08-13 00:31] VITALS: BP 126/60; TEMP 96.7; O2SAT 93
[2024-08-13] MEDS: predniSONE 20 MG TAB PO ONE (00:32)
[2024-08-13] MEDS: CEFDINIR 300 MG CAP (OMNICEF) PO ONE (00:32)
[2024-08-13] MEDS: AZITHROMYCIN 250MG TABLET PO ONE (00:32)
== END 2024-08-13 00:55 | disposition home or self-care (01) ==
LOC: M ED 21:01
DX: R07.9 Chest pain, unspecified (principal); J18.9 Pneumonia, unspecified organism; J44.9 Chronic obstructive pulmonary disease, unspecified; I44.4 Left anterior fascicular block; I45.81 Long QT syndrome; I10 Essential (primary) hypertension; E78.5 Hyperlipidemia, unspecified; F41.9 Anxiety disorder, unspecified; F90.9 Attention-deficit hyperactivity disorder, unspecified type; F12.10 Cannabis abuse, uncomplicated; Z79.52 Long term (current) use of systemic steroids; Z79.82 Long term (current) use of aspirin; Z79.2 Long term (current) use of antibiotics; Z79.899 Other long term (current) drug therapy
CPT/HCPCS: 71045; 80048; 80076; 82550; 82553; 83690; 84484; 85025; 85610; 93005; 93041; 94760; 99285; J7512